=== PATIENT | female | born 1955 | race Caucasian/White ===

== ENCOUNTER 2022-01-06 10:58 | Outpatient (CLI) | payer MEDICARE, SELFPAY ==
[2022-01-06 18:24] LABS: Albumin* 4.9 g/dL (3.3-5.0); Chloride* 105 mmol/L (96-114); Potassium* 3.9 mmol/L (3.6-5.1); Sodium* 141 mmol/L (135-149)
[2022-01-06 18:26] LABS: Carbon Dioxide* 29 mmol/L (20-32); Cholesterol* 232 mg/dL (90-199); Creatinine* 0.5 mg/dL (0.5-1.5); Estimated Glomerular Filt Rate 104 ml/min
[2022-01-06 18:27] LABS: Alanine Aminotransferase* 21 U/L (4-35); Alkaline Phosphatase* 68 U/L (40-150); Aspartate Amino Transferase* 26 U/L (12-35); Bilirubin Total* 0.8 mg/dL (0.1-1.5); Blood Urea Nitrogen* 13 mg/dL (7-30); Calcium* 9.6 mg/dL (8.4-10.6); Glucose* 87 mg/dL (60-115); Total Protein* 7.1 g/dL (6.0-8.3); Triglycerides* 84 mg/dL (40-149)
[2022-01-06 18:28] LABS: HDL Cholesterol* 95 mg/dL (>=50); LDL Cholesterol Calculated 120 mg/dL (<100)
== END 2022-01-06 10:59 | disposition home or self-care (01) ==
PROVIDERS: PCP Nurse Practitioner Family; Visit Provider Nurse Practitioner Family
DX: Z01.419 Encounter for gynecological examination (general) (routine) without abnormal findings (principal); I10 Essential (primary) hypertension; E78.5 Hyperlipidemia, unspecified
CPT/HCPCS: 80053; 80061

== ENCOUNTER 2022-02-21 13:38 | Outpatient (CLI) | payer MEDICARE, SELFPAY ==
--- NOTE | 2022-02-21 14:00 | CRLHL7_ITS ---
For Patients: As a result of the Century Cures Act, medical imaging exams and procedure reports are released immediately into your electronic medical record. You may view this report before your referring provider. If you have questions, please contact your health care provider. BILATERAL SCREENING MAMMOGRAM WITH COMPUTER-AIDED DETECTION AND TOMOSYNTHESIS TECHNIQUE: CC and MLO views were obtained. These mammographic images have been obtained using full-field digital technique. These mammographic images were interpreted with the benefit of computer-aided detection. Breast Tomosynthesis was used in this interpretation. COMPARISON FILM: 01/18/21, 12/19/19, 07/12/18. FINDINGS: The breasts are heterogeneously dense, which may obscure small masses IMPRESSION: There is no radiographic evidence for malignancy. ASSESSMENT: BI-RADS Category 2: Benign RECOMMENDATION: Routine screening mammogram in 1 year. A lay language report of this examination will be provided to the patient. Clemente Gates M.D. Diagnostic Radiologist [email or web address] [email or web address]/jada Transcribed: 3:29 [email or web address] elias/Dictated by: Clemente Gates MD @ 02/22/2022 9:14:00 AM (Electronically Signed)
== END 2022-02-21 13:39 | disposition home or self-care (01) ==
LOC: MAMMO 13:39
PROVIDERS: PCP Nurse Practitioner Family; Visit Provider Nurse Practitioner Family
DX: Z12.31 Encounter for screening mammogram for malignant neoplasm of breast (principal); R92.2 Inconclusive mammogram
CPT/HCPCS: 77063; 77067

== ENCOUNTER 2022-06-06 10:51 | Outpatient (CLI) | payer MEDICARE, SELFPAY | END 2022-06-06 10:52 | disposition home or self-care (01) | LOC: LONREF 10:58 | PROVIDERS: PCP Nurse Practitioner Family; Visit Provider Family Medicine | DX: E78.5 Hyperlipidemia, unspecified (principal); R00.2 Palpitations | CPT/HCPCS: 84443 ==

== ENCOUNTER 2022-07-21 07:13 | Outpatient (CLI) | payer MEDICARE, SELFPAY | END 2022-07-21 07:14 | disposition home or self-care (01) | LOC: OP CLINIC 07:13 | PROVIDERS: PCP Nurse Practitioner Family; Visit Provider Surgery | DX: Z12.11 Encounter for screening for malignant neoplasm of colon (principal); K63.5 Polyp of colon; Z83.71 Family history of colonic polyps; Z86.010 Personal history of colon polyps | CPT/HCPCS: 45385; 88305; 99153; J1200; J2250; J3010 ==

== ENCOUNTER 2022-07-26 11:04 | Outpatient (CLI) | payer MEDICARE, SELFPAY | END 2022-07-26 11:05 | disposition home or self-care (01) | PROVIDERS: PCP Nurse Practitioner Family; Visit Provider Internal Medicine Cardiovascular Disease | DX: R00.2 Palpitations (principal) | CPT/HCPCS: 93225; 93226 ==

== ENCOUNTER 2022-08-12 18:25 | Outpatient (CLI) | payer MEDICARE, SELFPAY | END 2022-08-12 18:26 | disposition home or self-care (01) | LOC: NFLDREF 08-14 16:59 | PROVIDERS: PCP Nurse Practitioner Family; Referring Provider Nurse Practitioner Family; Visit Provider Nurse Practitioner Family | DX: R30.0 Dysuria (principal); R31.9 Hematuria, unspecified; N39.0 Urinary tract infection, site not specified | CPT/HCPCS: 87086; 87186 ==

== ENCOUNTER 2023-01-04 08:25 | Outpatient (CLI) | payer MEDICARE, SELFPAY ==
--- NOTE | 2023-01-04 08:45 | CRLHL7_ITS ---
For Patients: As a result of the Century Cures Act, medical imaging exams and procedure reports are released immediately into your electronic medical record. You may view this report before your referring provider. If you have questions, please contact your health care provider. DIGITAL DIAGNOSTIC BILATERAL MAMMOGRAM USING TOMOSYNTHESIS AND COMPUTER-AIDED DETECTION INDICATION: 67-year-old female. Diffuse BILATERAL breast pain. Previous benign biopsy outer LEFT mid breast. TECHNIQUE: CC and MLO views were obtained. These mammographic images have been obtained using full-field digital technique. These mammographic images were interpreted with the benefit of computer-aided detection. Breast tomosynthesis was used in interpretation. COMPARISON: 02/21/2022, 01/18/2021, 12/19/2019. FINDINGS: The breasts are heterogeneously dense which may obscure small masses. Small biopsy clip mid outer LEFT breast 3 o`clock position unchanged. No suspicious microcalcifications, regions of architectural distortion, or dominant masses identified in either breast. This study was reviewed with the patient. Ultrasound is not recommended at this time given the diffuse nature and nonfocal nature of her breast pain. No nipple discharge. Any further workup or followup should be based on clinical grounds. Annual mammography is also recommended. IMPRESSION: Stable and negative mammograms. Annual mammography recommended. BI-RADS Category 1: Negative A lay language report of this examination will be provided to the patient. Dictated by: Yon Christianson MD @01/04/2023 9:33:48 AM abyj/Dictated by: Yon Christianson MD @ 01/04/2023 9:33:00 AM (Electronically Signed)
== END 2023-01-04 08:26 | disposition home or self-care (01) ==
LOC: MAMMO 08:26
PROVIDERS: PCP Nurse Practitioner Family; Visit Provider Nurse Practitioner Family
DX: N64.4 Mastodynia (principal); N63.20 Unspecified lump in the left breast, unspecified quadrant
CPT/HCPCS: 77066; G0279

== ENCOUNTER 2023-01-12 10:39 | Outpatient (CLI) | payer MEDICARE, SELFPAY | END 2023-01-12 10:40 | disposition home or self-care (01) | LOC: LKVREF 10:40 | PROVIDERS: PCP Nurse Practitioner Family; Visit Provider Nurse Practitioner Family | DX: E78.2 Mixed hyperlipidemia (principal) | CPT/HCPCS: 80061 ==

== ENCOUNTER 2023-02-09 13:37 | Outpatient (CLI) | payer MEDICARE, SELFPAY ==
--- NOTE | 2023-02-09 14:00 | CRLHL7_ITS ---
For Patients: As a result of the Century Cures Act, medical imaging exams and procedure reports are released immediately into your electronic medical record. You may view this report before your referring provider. If you have questions, please contact your health care provider. 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 Current height (in): 69. Weight (lb): 126. Menopause age: 56. Ethnicity: White. 1. Have you had a previous hip or vertebral fracture? No. 2. Have you had any fractures during your adult life which did not result from significant trauma (e.g., auto accident)? No. 3. Did either of your parents have a hip fracture? Yes. 4. Do you smoke? No. 5. Have you ever taken Glucocorticoids? No. 6. Do you have rheumatoid arthritis? No. 7. Do you have secondary osteoporosis? No. 8. Do you drink 3 or more alcoholic drinks per day? No. 9. Are you being treated for osteoporosis? No. 10. Have you ever taken any of the following medications: Actonel, Evista, Fosamax, Miacalcin, Reclast, Boniva, Forteo, HRT (i.e., estrogen/hormone therapy), Protelos, Prolia, Vitamin D, Calcium, other ??? please specify. ANSWER: Yes, vitamin D and calcium. 11. Do you have any of the following medical conditions: Anorexia or bulimia, asthma or emphysema, end stage renal disease, hyperparathyroidism, any seizure disorders, cancer, inflammatory bowel diseases, hysterectomy, other ??? please specify. ANSWER: Yes, cancer. 12. What was your maximum height (inches)? 69. 13. Do you perform weight bearing exercise regularly? No. 14. Do you regularly consume dairy products? Yes. 15. Do you drink caffeinated beverages? Yes. If female: 16. At what age did your period start? 14. 17. Are you premenopausal? No. 18. How many full-term pregnancies have you had? 2. 19. Have you ever missed your period for more than 6 months in a row (not including or menopause)? No. TECHNIQUE: Bone mineral density study was performed using the [employer]. FINDINGS: The results of the study expressed as bone mineral density (BMD) are as follows: Lumbar spine L1 to L4: BMD: 0.790 g/cm2. T-score: -2.3. Z-score: -0.5 Neck Left: BMD: 0.609 g/cm2. T-score: -2.2. Z-score: -0.6 Right: BMD: 0.639 g/cm2. T-score: -1.9. Z-score: -0.3 Total Left: BMD: 0.673 g/cm2. T-score: -2.2. Z-score: -0.9 Right: BMD: 0.707 g/cm2. T-score: -1.9. Z-score: -0.6 IMPRESSION: Osteopenia. *Comparison exams done prior to 07/2019 were performed on different unit, [facility]. COMPARISON: Compared with scan of 12/19/2019, the bone mineral density has decreased by 4.0 percent at the spine and increased by 1.3 percent at the hip. Compared with scan of 07/17/2017, the bone mineral density has increased by 0.5 percent at the spine and decreased by 1.3 percent at the hip. FRAX 10-year Fracture Risk Major Osteoporotic Fracture: 17% Hip Fracture: 2.5% Reported Risk Factors: [place] () Neck BMD=0.609, BMI= 18.6, parental fracture Clemente Gates M.D. Diagnostic Radiologist [email or web address] PILI/jada elias/Dictated by: Clemente Gates MD @ 02/09/2023 3:05:00 PM (Electronically Signed)
== END 2023-02-09 13:38 | disposition home or self-care (01) ==
LOC: RAD 13:43
PROVIDERS: PCP Nurse Practitioner Family; Visit Provider Nurse Practitioner Family
DX: M85.80 Other specified disorders of bone density and structure, unspecified site (principal); M85.89 Other specified disorders of bone density and structure, multiple sites
CPT/HCPCS: 77080

== ENCOUNTER 2023-02-16 08:54 | Outpatient (CLI) | payer MEDICARE, SELFPAY ==
--- OUTSIDE RECORDS SUMMARY | 2023-02-16 08:58 | XMS_ITS | Clinical Summary ---
Author Name Unknown Organization [facility] Address [place], [place] [address] Care Team Providers Care Paint Laboratory Technician Name Role Phone Dena Coulter MD Primary Care Provider Chika robertson Social History Tobacco Use Types Packs/Day Years Used Date Smoking Tobacco: Never Assessed Social Connections Answer Date Recorded Frequency of Communication with Friends and Fami ly Not on file 07/22/2022 Sex and Gender Information Value Date Recorded Sex Assigned at Not on file Gender Identity Not on file Sexual Orientation Not on file Obstetrics History Plan of Treatment Health Maintenance Due Date Last Done Comments Tdap 07/14/1967 Depression screening for age 12+ 1968 BMI (ht and wt on same day) for age 18+ 1974 Hepatitis C screening for age 18-79 1974 Tetanus booster 1976 Lipids for age 45-75 2001 Mammogram for age 45-75 2001 Zoster (shingles) series for age 50+ (1 of 2) 2006 Colonoscopy through age 75 09/30/2017 10/01/2007 DEXA/DXA scan for age 65+ 2021 Pneumococcal series for age 65+ (1 of 1 - PCV) 2021 COVID-19 vaccine series (3 - 2022- season) 2022 12/16/2021, 12/04/2020 Influenza for age 65+ 10/07/2022 Care Teams Paint Laboratory Technician Relationship Specialty Start Date End Date Dena Coulter MD PCP - General 09/16/09
--- NOTE | 2023-02-16 09:15 | CRLHL7_ITS ---
For Patients: As a result of the Century Cures Act, medical imaging exams and procedure reports are released immediately into your electronic medical record. You may view this report before your referring provider. If you have questions, please contact your health care provider. INDICATION: Left axillary pain/discomfort. Pain extending along the lateral chest. TECHNIQUE: Directed left axillary ultrasound with this radiologist present. COMPARISON: Correlation is made with a recent mammogram January 04, 2023. FINDINGS: Normal left axillary lymph nodes. No lymphadenopathy. One lymph node measures 0.2 x 1.1 cm. A second lymph node measures 0.6 x 2.6 cm. No fluid collection. No shadowing or mass. These findings were discussed in detail with the patient. Any further workup or follow-up for the patient`s symptoms should be based on clinical grounds. IMPRESSION: Negative directed left axillary ultrasound. Dictated by Yon Christianson MD @ 02/16/2023 12:09:29 PM (Electronically Signed)
== END 2023-02-16 08:55 | disposition home or self-care (01) ==
LOC: US 08:55
PROVIDERS: PCP Nurse Practitioner Family; Visit Provider Nurse Practitioner Family
DX: R59.1 Generalized enlarged lymph nodes (principal)
CPT/HCPCS: 76882

== ENCOUNTER 2023-09-16 12:20 | Outpatient (CLI) | payer MEDICARE, SELFPAY ==
--- OUTSIDE RECORDS SUMMARY | 2023-09-20 22:32 | XMS_ITS | Encounter Summary ---
Author Organization [facility] Address [address] [place] [address] Care Team Providers Care Spray Foam Installer Name Role Phone Unavailable Primary Care Provider Unavailabl e Reason for Referral * MRI/CAT/PET Scan (Routine) - Closed Specialty Diagnoses / Procedures Referred By Josue garcia Referred To Contact Radiology Diagnoses Adenoma Adrenal Right Procedures CT Abdomen without and with IV Contrast CT Abdomen Pelvis without and with IV Contrast Ty Finch M.D. 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 [address] [place] [phone] [facility] Referral ID Status Reason Start Date Expiration Date Visits Re quested Visits Authorized [id number] Closed 05/08/2023 11/06/2024 1 1 Encounter Details Date Type Department Care Team (Latest Contact Info) Description 08/30/2023 8:30 AM CDT Comprehensive Visit Division of Endocrinology in [place], [place] [address] [place] [address] Ty Finch M.D. [address] [place] [phone] Genetic Susceptibility To Other Malignant Neoplasm; Adenoma Adrenal Right Social History Tobacco Use Types Packs/Day Years Used Date Smoking Tobacco: Never Passive Smoke Exposure: Never Smokeless Tobacco: Never Alcohol Use Standard Drinks/Week Comments Yes 5 (1 standard drink = 0.6 oz pur e alcohol) [facility] [employer] Answer Date Recorded In the past 12 months has [employer], gas, oil, or water [employer] threatened to shut off services in your [...] Sex Assigned at Female 03/21/2023 11:26 AM FRONT END DEVELOPER DESIGNER Gender Identity Female 03/21/2023 11:26 AM FRONT END DEVELOPER DESIGNER Sexual Orientation Straight 03/21/2023 11 :26 AM FRONT END DEVELOPER DESIGNER documented as of this encounter Last Filed [...] the PET scan from April did not flower buncher or picker any paraganglioma-type abnormalities. She will visit [...] Ty Finch M.D. CT CT Job ID: [id number]/maria esther documented in this encounter Plan of [...] CDT Ty Finch M.D. 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
--- OUTSIDE RECORDS SUMMARY | 2023-09-20 22:32 | XMS_ITS | Clinical Summary ---
Author Organization [facility] Address [address] [place] [address] Care Team Providers Care Computer Peripheral Equipment Operator Name Role Phone Unavailable Primary Care Provider Unavailabl e Source Comments Patient records contain information from all sites at [facility]. For routine questions regarding patient records, call [phone] during business hours, M-F 8:00 AM - 5:00 PM Central Time. Record requests for emergency care only can be directed to [phone] at any time.[facility] Allergies Active Allergy Reactions Criticality [...] 09/18/2023 Clinical Communication Division of Gastroenterology in [place], [place] [address] [place] [phone] Kiah Sarkar M.B.B.S., M.S. 09/12/2023 Clinical Communication Division of Endocrinology in [place], [place] [address] [place] [address] Edna Meade M.D. 09/01/2023 11:44 AM CDT - 09/01/2023 11:59 PM CDT Hospital Encounter Department of Radiology, [facility] in [place], [place] [address] [place] [phone] Ty Finch M.D. Adenoma Adrenal Right Discharge Disposition: Home or Self Care 08/30/2023 9:27 AM CDT - 08/30/2023 11:59 PM CDT Hospital Encounter Department of Laboratory Medicine and Pathology, [facility] in [place], [place] [address] [place] [phone] Ty Finch M.D. Adenoma Adrenal Right Discharge Disposition: Home or Self Care 08/30/2023 8:30 AM CDT Comprehensive Visit Division of Endocrinology in [place], [place] [address] [place] [phone] Ty Finch M.D. Genetic Susceptibility To Other Malignant Neoplasm; Adenoma Adrenal Right 08/17/2023 Clinical Communication Department of Neurologic Surgery in [place], [place] [address] [place] [phone] Yon Juárez M.D. 08/15/2023 Clinical Communication Department of Neurologic Surgery in [place], [place] [address] [place] [phone] Prescheduling, Provider OSM (SISI); OSM (SISI) 07/18/2023 Orders Only Department of Medical Genetics in [place], [place] [address] [place] [phone] Anabelle Mcnulty APRN, Aman.N.PMolly, D.N.P., M.S. Cyst Pancreas (Primary Dx); Genetic Susceptibility To Other Malignant Neoplasm 07/17/2023 11:20 AM CDT Internal E-Consult Division of Gastroenterology in [place], [place] [address] [place] [phone] Anabelle Mcnulty APRN, Aman.N.P., D.N.P., M.S. Kiah [...] Other - would like to get at [place]),03/11/2011 influenza vaccine QV(FLUBLOK ) (18 years or [...] = 0.6 oz pur e alcohol) [facility] Utilities Answer Date Recorded In the past 12 months has [employer], gas, oil, or water [employer] threatened to shut off services in your [...] your living situation today? I have a [facility] place to live 03/29/2023 Sex and Gender Information Value Date Recorded Sex Assigned at Female 03/21/2023 11:26 AM ELECTRICAL SOLDERER Gender Identity Female 03/21/2023 11:26 AM ELECTRICAL SOLDERER Sexual Orientation Straight 03/21/2023 11 :26 AM ELECTRICAL SOLDERER Last Filed Vital Signs Vital Sign Reading Time Taken Comments Blood Pressure 128/78 08/30/2023 8:12 AM CDT ove r shirt Pulse 72 08/30/2023 8:12 AM CDT Temperature - - Respiratory Rate - - Oxygen Saturation 98% 03/28/2023 2:05 PM ELECTRICAL SOLDERER RA @ rest Inhaled Oxygen Concentration - [...] 03/31/19, 01/06/2022 Medical Devices Implanted Type Area Cyber Security Architect Device Identifier Shelf Expiration Date Model / [...] A1C, B Routine 03/29/2023 7:0 7 AM ELECTRICAL SOLDERER Angina Pectoris Unspecified (HCC) OUTSIDE MG MAMMOGRAM Routine 01/04/2023 8:45 AM ELECTRICAL SOLDERER from Last 3 Months or Most Recently [...] Ty Finch M.D. LAB BLOOD ADD-ON [facility] [address] [place] [address], [place] DTL [facility] [address] [place] [address] * MR Brain WO (Unpaired)-Outside MR Neuro [...] IMG MRI PROCEDURE S Performing Organization Address [facility] Co de Phone Number IIMS NA * Hemoglobin A1c (03/29/2023 7:07 AM ELECTRICAL SOLDERER) Hemoglobin A1c, B 5.2 4.0 - 5.6 % 03/29/2023 7:50 AM ELECTRICAL SOLDERER DTL Blood (Blood, Venous) 03/29/2023 7:07 AM ELECTRICAL SOLDERER 03/29/2023 7:28 AM ELECTRICAL SOLDERER Ming Campbell M.D. LAB BLOOD ADD-O N Performing Organization Address [facility] de Phone Number [facility] [address] [place] [address], [facility] [address] [place] [address] * MM diagnostic mammo BI-Outside Mammogram (01/04/2023 8:45 AM ELECTRICAL SOLDERER) Narrative IIND - 03/02/2023 4:33 PM ELECTRICAL SOLDERER This order has been created and auto-finalized to support the import of outside images. If available, original interpretation can be found on the Media Tab in Chart Review, in Document Viewer, or as an image in QREADS. If a re-interpretation or overread is required please follow defined workflow. ?? Provider Not In System IMG BI PROCEDURES Performing Organization Address City/[facility] Co de Phone Number IIMS NA from Last 3 Months or Most Recently Relevant to Health Maintenance
--- OUTSIDE RECORDS SUMMARY | 2023-09-20 22:32 | XMS_ITS | Encounter Summary ---
Author Organization [facility] Address [address] [place] [address] Care Team Providers Care Burner Shaft Name Role Phone Unavailable Primary Care Provider Unavailabl e Reason for Referral * MRI/CAT/PET Scan (Routine) - Authorized Specialty Diagnoses / Procedures Referred By Josue garcia Referred To Contact Radiology Diagnoses Cyst Pancreas Genetic Susceptibility To Other Malignant Neoplasm Procedures MR Abdomen MRCP without and with IV Contrast Anabelle Mcnulty APRN, Aman.N.Alfredo, D.N.P., M.S. [address] [place] [address] [facility] Referral ID Status Reason Start Date Expiration Date V isits Requested Visits Authorized [id number] Authorized 07/18/2023 07/17/2024 1 1 Encounter Details Date Type Department Care Team (Late st Contact Info) Description 07/18/2023 Orders Only Department of Medical Genetics in [place], [place] [address] [place] [phone] Anabelle Mcnulty APRN, C.N.P., D.N.P., M.S. [address] [place] [phone] Cyst Pancreas (Primary Dx); Genetic Susceptibility To Other Malignant Neoplasm Social History Tobacco Use Types Packs/Day Years Used Date Smoking Tobacco: Never Passive Smoke Exposure: Never Smokeless Tobacco: Never Alcohol Use Standard Drinks/Week Comments Yes 5 (1 standard drink = 0.6 oz pur e alcohol) [facility] Utilities Answer Date Recorded In the [...] living situation today? I have a [facility] place to live 03/29/2023 Sex and Gender Information Value Date Recorded Sex Assigned at Female 03/21/2023 11:26 AM HOTEL SERVICES SUPERVISOR Gender Identity Female 03/21/2023 11:26 AM HOTEL SERVICES SUPERVISOR Sexual Orientation Straight 03/21/2023 11 :26 AM HOTEL SERVICES SUPERVISOR documented as of this encounter Plan of [...]
--- OUTSIDE RECORDS SUMMARY | 2023-09-20 22:32 | XMS_ITS | Clinical Summary ---
Author Organization [facility] Address [place], [place] [address] Care Team Providers Care Hospital Pharmacy Director Name Role Phone Ruthie Otero MD Primary Care Provider [phone] Encounters Date Type Department Care Team Description 09/20/2023 Lab Requisition [facility] [phone] Unknown, Doctor 09/14/2023 8:20 AM CDT Office Visit [facility] [address] [place] [phone] Rosa Villalobos MD Consult 09/14/2023 Travel 09/13/2023 Telephone [facility] [address] [place] [phone] Rosa Villalobos MD Appointment Reminder 08/16/2023 Telephone [facility] [address] [place] [phone] Thi Diaz NP Appointment Request 08/14/2023 Orders Only [facility] Scanner 1 scan: (1-Ord) [...] SCAN-MRI INTERPRETATION 08/14/19 12:00 AM CDT (IA) [place] COLONOSCOPY REMOVE CARMELINA POLYP LESN SNARE Routine 10/01/2007 Special Screening for Malignant Neoplasms, Colon Benign Neoplasm of Colon from Last 3 Months or Most Recently Relevant to Health Maintenance Results * SCAN-MRI INTERPRETATION (08/14/2023 12:00 AM CDT) Anatomical Region Laterality Modality Other Scanner OTHER * [place] COLONOSCOPY REMOVE LESN SNARE (10/01/2007) Neo Velasquez MD PB - DIGESTIVE SY STEM SERVICES from Last 3 Months or Most Recently Relevant to Health Maintenance Care Teams Hospital Pharmacy Director Relationship Specialty [place] [address] [place] [phone] PCP - General Internal Medicine 08/16/23
--- OUTSIDE RECORDS SUMMARY | 2023-09-20 22:32 | XMS_ITS | Encounter Summary ---
Author Organization [facility] Address [address] [place] [address] Care Team Providers Care Application Specialist Name Role Phone Unavailable Primary Care Provider Unavailabl e Encounter Details Date Type Department Care Team (Latest Contact Info) Description 09/18/2023 Clinical Communication Division of Gastroenterology in [place], [place] [address] [place] [address] Kiah Sarkar M.B.B.S., M.S. [address] [place] [address] Social History Tobacco Use Types Packs/Day Years Used Date Smoking Tobacco: Never Passive Smoke Exposure: Never Smokeless Tobacco: Never Alcohol Use Standard Drinks/Week Comments Yes 5 (1 standard drink = 0.6 oz pur e alcohol) [facility] Utilities Answer Date Recorded In the past 12 months has e [employer], gas, oil, or water [employer] threatened to shut off services in your [...] your living situation today? I have a [facility] place to live 03/29/2023 Sex and Gender Information Value Date Recorded Sex Assigned at Female 03/21/2023 11:26 AM HEAD OF MEASUREMENT & INSIGHTS Gender Identity Female 03/21/2023 11:26 AM HEAD OF MEASUREMENT & INSIGHTS Sexual Orientation Straight 03/21/2023 11 :26 AM HEAD OF MEASUREMENT & INSIGHTS documented as of this encounter Plan of Treatment Not on file documented as of this encounter Visit Diagnoses Not on filedocumented in this encounter
--- OUTSIDE RECORDS SUMMARY | 2023-09-20 22:32 | XMS_ITS ---
Author Organization [facility] Address [address] [place] [address] Care Team Providers Care Soft Work Cigar Machine Operator Name Role Phone Unavailable Unavailable Unavailable Surgery Details Not on file Complications Check Surgery Details section. Procedure Estimated Blood Loss Check Surgery Details section. Procedure Findings Check Surgery Details section. Procedure Specimens Taken Check Surgery Details section.
--- OUTSIDE RECORDS SUMMARY | 2023-09-20 22:32 | XMS_ITS | Referral Summary ---
Author Organization [facility] Address [address] [place] [address] Care Team Providers Care Computer Animator Name Role Phone Unavailable Primary Care Provider Unavailabl e Source Comments Patient records contain information from all sites at [facility]. For routine questions regarding patient records, call [phone] during business hours, M-F 8:00 AM - 5:00 PM Central Time. Record requests for emergency care only can be directed to [phone] at any time.[facility] Encounters Date Type Department Care Team Description 09/18/2023 Clinical Communication Division of Gastroenterology in [place], [place] [address] [place] [address] Kiah Sarkar M.B.B.S., M.S. 09/12/2023 Clinical Communication Division of Endocrinology in [place], [place] [address] [place] [address] Edna Meade M.D. 09/01/2023 11:44 AM CDT - 09/01/2023 11:59 PM CDT Hospital Encounter Department of Radiology, [facility], in [place], [place] [address] [place] [address] Ty Finch M.D. Adenoma Adrenal Right Discharge Disposition: Home or Self Care 08/30/2023 9:27 AM CDT - 08/30/2023 11:59 PM CDT Hospital Encounter Department of Laboratory Medicine and Pathology, [facility], in [place], [place] [address] [place] [address] Ty Finch M.D. Adenoma Adrenal Right Discharge Disposition: Home or Self Care 08/30/2023 8:30 AM CDT Comprehensive Visit Division of Endocrinology in [place], [place] [address] [place] [phone] Ty Finch M.D. Genetic Susceptibility To Other Malignant Neoplasm; Adenoma Adrenal Right 08/17/2023 Clinical Communication Department of Neurologic Surgery in [place], [place] [address] [place] [phone] Yon Juárez M.D. 08/15/2023 Clinical Communication Department of Neurologic Surgery in [place], [place] [address] [place] [phone] Prescheduling, Provider OSM (SISI); OSM (SISI) 07/18/2023 Orders Only Department of Medical Genetics in [place], [place] [address] [place] [phone] Anabelle Mcnulty APRN, C.N.PMolly, D.N.P., M.S. 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 Kiah [...] Other - would like to get at [facility]),03/11/2011 influenza vaccine QV(FLUBLOK ) (18 years or older) (PF) 11/07/2018 influenza vaccine quad (FLUZONE/FLUARIX) (6 months and older)(PF) 10/13/2020,11/23/2016,11/16/2015 Social History Tobacco Use Types Packs/Day Years Used Date Smoking Tobacco: Never Passive Smoke Exposure: Never Smokeless Tobacco: Never Alcohol Use Standard Drinks/Week Comments Yes 5 (1 standard drink = 0.6 oz pur e alcohol) [facility] Utilities Answer Date Recorded In the past 12 months has th e [employer], gas, oil, or water [employer] threatened to shut off services in your [...] your living situation today? I have a [facility] place to live 03/29/2023 Sex and Gender Information Value Date Recorded Sex Assigned at Female 03/21/2023 11:26 AM CANAL BOAT OPERATOR Gender Identity Female 03/21/2023 11:26 AM CANAL BOAT OPERATOR Sexual Orientation Straight 03/21/2023 11 :26 AM CANAL BOAT OPERATOR Last Filed Vital Signs Vital Sign Reading Time Taken Comments Blood Pressure 128/78 08/30/2023 8:12 AM CDT ove r shirt Pulse 72 08/30/2023 8:12 AM CDT Temperature - - Respiratory Rate - - Oxygen Saturation 98% 03/28/2023 2:05 PM CANAL BOAT OPERATOR RA @ rest Inhaled Oxygen Concentration - - Weight 53 kg (116 lb 13.5 oz) 08/30/2023 8:12 AM CDT Height 176.3 cm (5' 9.41) 08/30/2023 8:12 AM CD T Body Mass Index 17.05 08/30/2023 8:12 AM CDT Plan of Treatment Not on file Medical Devices Implanted Type Area Supervisor Of Officials Device Identifier Shelf Expiration Date Model / [...] A1C, B Routine 03/29/2023 7:0 7 AM CANAL BOAT OPERATOR Angina Pectoris Unspecified (HCC) OUTSIDE MG MAMMOGRAM Routine 01/04/2023 8:45 AM CANAL BOAT OPERATOR from Last 3 Months or Most Recently [...] CDT Ty Finch M.D. LAB BLOOD ADD-ON [address] [place] [address] * MR Brain WO (Unpaired)-Outside MR Neuro [...] Not In System IMG MRI PROCEDURE S IIMI NA * Hemoglobin A1c (03/29/2023 7:07 AM CANAL BOAT OPERATOR) Hemoglobin A1c, B 5.2 4.0 - 5.6 % 03/29/2023 7:50 AM CANAL BOAT OPERATOR DTL Blood (Blood, Venous) 03/29/2023 7:07 AM CANAL BOAT OPERATOR 03/29/2023 7:28 AM CANAL BOAT OPERATOR Ming Campbell M.D. LAB BLOOD ADD-O N Performing Organization Address City/[facility]/ZIP Co de Phone Number [facility] [address] [place] [address], [place] DTL [facility] [address] [place] [address] * MM diagnostic mammo BI-Outside Mammogram (01/04/2023 8:45 AM CANAL BOAT OPERATOR) Narrative IIMS - 03/02/2023 4:33 PM CANAL BOAT OPERATOR This order has been created and auto-finalized to support the import of outside images. If available, original interpretation can be found on the Media Tab in Chart Review, in Document Viewer, or as an image in QREADS. If a re-interpretation or overread is required please follow defined workflow. ?? Provider Not In System IMG BI PROCEDURES Performing Organization Address City/[facility] Co de Phone Number IIMS NA from Last 3 Months or Most Recently Relevant to Health Maintenance
--- OUTSIDE RECORDS SUMMARY | 2023-09-20 22:32 | XMS_ITS | Encounter Summary ---
Author Organization [facility] Address [address] [place] [address] Care Team Providers Care Crossbow Maker Name Role Phone Unavailable Primary Care Provider Unavailabl e Reason for Referral * MRI/CAT/PET Scan (Routine) - Closed Specialty Diagnoses / Procedures Referred By Josue garcia Referred To Contact Radiology Diagnoses Adenoma Adrenal Right Procedures CT Abdomen without and with IV Contrast CT Abdomen Pelvis without and with IV Contrast Ty Finch M.D. [address] [place] [address] [facility] Referral ID Status Reason Start Date Expiration Date Visits Re quested Visits Authorized [id number] Closed 08/30/2023 08/29/2024 1 1 Reason for Visit * MRI/CAT/PET Scan (Routine) - Closed Specialty Diagnoses / Procedures Referred By Josue garcia Referred To Contact Radiology Diagnoses Adenoma Adrenal Right Procedures CT Abdomen without and with IV Contrast CT Abdomen Pelvis without and with IV Contrast Ty Finch M.D. [address] [place] [address] [facility] Referral ID Status Reason Start Date Expiration Date Visits Re quested Visits Authorized [id number] Closed 08/30/2023 08/29/2024 1 1 Encounter Details Date Type Department Care Team (Latest Contact Info) Description 09/01/2023 11:44 AM CDT - 09/01/2023 11:59 PM CDT Hospital Encounter Department of Radiology, [facility], in [place], [place] [address] [place] [address] Ty Finch M.D. [address] [place] [address] Adenoma Adrenal Right Discharge Disposition: Home or Self Care Social History Tobacco Use Types Packs/Day Years Used Date Smoking Tobacco: Never Passive Smoke Exposure: Never Smokeless Tobacco: Never Alcohol Use Standard Drinks/Week Comments Yes 5 (1 standard drink = 0.6 oz pur e alcohol) [facility] Utilities Answer Date Recorded In the past 12 months has e [employer], gas, oil, or water [employer] threatened to shut off services in your [...] your living situation today? I have a [facility] place to live 03/29/2023 Sex and Gender Information Value Date Recorded Sex Assigned at Female 03/21/2023 11:26 AM TYPE CASTING MACHINE OPERATOR Gender Identity Female 03/21/2023 11:26 AM TYPE CASTING MACHINE OPERATOR Sexual Orientation Straight 03/21/2023 11 :26 AM TYPE CASTING MACHINE OPERATOR documented as of this encounter Medications at [...]
--- OUTSIDE RECORDS SUMMARY | 2023-09-20 22:32 | XMS_ITS | Encounter Summary ---
Author Organization [facility] Address [address] [place] [address] Care Team Providers Care Social Organization Professor Name Role Phone Unavailable Primary Care Provider Unavailabl e Reason for Referral * MRI/CAT/PET Scan (Routine) - Authorized Specialty Diagnoses / Procedures Referred By Josue t Referred To Contact Radiology Diagnoses Malformation Arnold Chiari (HCC) Procedures MR Cervical Spine without IV Contrast Daniela Mclean APRN, C.N.P. [address] [place] [phone] [facility] Referral ID Status Reason Start Date Expiration Date V isits Requested Visits Authorized [id number] Authorized 08/17/2023 08/16/2024 1 1 Encounter Details Date Type Department Care Team (Late st Contact Info) Description 08/17/2023 Clinical Communication Department of Neurologic Surgery in [place], [place] [address] [place] [phone] Yon Juárez M.D. [address] [place] [phone] Social History Tobacco Use Types Packs/Day Years Used Date Smoking Tobacco: Never Passive Smoke Exposure: Never Smokeless Tobacco: Never Alcohol Use Standard Drinks/Week Comments Yes 5 (1 standard drink = 0.6 oz pur e alcohol) [facility] Utilities Answer Date Recorded In [...] your living situation today? I have a [facility] place [facility] live 03/29/2023 Sex and Gender Information Value Date Recorded Sex Assigned at Female 03/21/2023 11:26 AM MASTER YACHT Gender Identity Female 03/21/2023 11:26 AM MASTER YACHT Sexual Orientation Straight 03/21/2023 11 :26 AM MASTER YACHT documented as of this encounter Plan of [...]
--- OUTSIDE RECORDS SUMMARY | 2023-09-20 22:32 | XMS_ITS | Encounter Summary ---
Author Organization [facility] Address [address] [place] [address] Care Team Providers Care Hydraulic Press Servicer Name Role Phone Unavailable Primary Care Provider Unavailabl e Reason for Visit * Reason Onset Date Comments OSM 08/15/2023 SISI OSM 08/15/2023 SSII Encounter Details Date Type Department Care Team (Latest Contact Info) Description 08/15/2023 Clinical Communication Department of Neurologic Surgery in [place], [place] [address] [place] [address] Prescheduling, Provider OSM (SISI); OSM (SISI) Social History Tobacco Use Types Packs/Day Years Used Date Smoking Tobacco: Never Passive Smoke Exposure: Never Smokeless Tobacco: Never Alcohol Use Standard Drinks/Week Comments Yes 5 (1 standard drink = 0.6 oz pur e alcohol) [facility] Utilities Answer Date Recorded In the past 12 months has [employer], gas, oil, or water company threatened [...] your living situation today? I have a [facility] place to live 03/29/2023 Sex and Gender Information Value Date Recorded Sex Assigned at Female 03/21/2023 11:26 AM SQL DATABASE PROGRAMMER Gender Identity Female 03/21/2023 11:26 AM SQL DATABASE PROGRAMMER Sexual Orientation Straight 03/21/2023 11 :26 AM SQL DATABASE PROGRAMMER documented as of this encounter Plan of Treatment Not on file documented as of this encounter Visit Diagnoses Not on filedocumented in this encounter
--- OUTSIDE RECORDS SUMMARY | 2023-09-20 22:32 | XMS_ITS | Encounter Summary ---
Author Organization [facility] Address [address] [place] [address] Care Team Providers Care Perioperative Educator Name Role Phone Unavailable Primary Care Provider Unavailabl e Encounter Details Date Type Department Care Team (Latest Contact Info) Description 08/30/2023 9:27 AM CDT - 08/30/2023 11:59 PM CDT Hospital Encounter Department of Laboratory Medicine and Pathology, [facility] in [place], [place] [address] [place] [address] Ty Finch M.D. [address] [place] [address] Adenoma Adrenal Right Discharge Disposition: Home or Self Care Social History Tobacco Use Types Packs/Day Years Used Date Smoking Tobacco: Never Passive Smoke Exposure: Never Smokeless Tobacco: Never Alcohol Use Standard Drinks/Week Comments Yes 5 (1 standard drink = 0.6 oz pur e alcohol) [facility] Utilities Answer Date Recorded In [...] your living situation today? I have a [facility] place to live 03/29/2023 Sex and Gender Information Value Date Recorded Sex Assigned at Female 03/21/2023 11:26 AM ANTIQUE REFINISHER Gender Identity Female 03/21/2023 11:26 AM ANTIQUE REFINISHER Sexual Orientation Straight 03/21/2023 11 :26 AM ANTIQUE REFINISHER documented as of this encounter Medications at [...] CDT Ty Finch M.D. LAB BLOOD ADD-ON [facility] [address] [place] [address], [place] DTL [facility] [address] [place] [address] documented in this encounter Visit Diagnoses Diagnosis Adenoma Adrenal Right documented in this encounter
--- OUTSIDE RECORDS SUMMARY | 2023-09-20 22:32 | XMS_ITS | Encounter Summary ---
Author Organization [facility] Address [address] [place] [address] Care Team Providers Care Vendor Management Specialist Name Role Phone Unavailable Primary Care Provider Unavailabl e Encounter Details Date Type Department Care Team (Latest Contact Info) Description 09/12/2023 Clinical Communication Division of Endocrinology in [place], [place] [address] [place] [address] Edna Meade M.D. [address] [place] [address] Social History Tobacco Use Types Packs/Day Years [...] your living situation today? I have a [facility] place to live 03/29/2023 Sex and Gender Information Value Date Recorded Sex Assigned at Female 03/21/2023 11:26 AM COORDINATOR OF REHABILITATION SERVICES Gender Identity Female 03/21/2023 11:26 AM COORDINATOR OF REHABILITATION SERVICES Sexual Orientation Straight 03/21/2023 11 :26 AM COORDINATOR OF REHABILITATION SERVICES documented as of this encounter Miscellaneous Notes * Telephone Encounter - Edna Meade M.D. - 09/12/2023 1:[address] 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 What is size and follow-up needed? I let them know that this is typically a question for the radiologist, and that in my experience wedo not always arrange follow-up on these. Please let her know your thoughts. Thanks. [facility] documented in this encounter Plan of Treatment Not on file documented as of this encounter Visit Diagnoses Not on filedocumented in this encounter
--- OUTSIDE RECORDS SUMMARY | 2023-09-20 22:32 | XMS_ITS ---
Author Organization [facility] Address [address] [place] [address] Care Team Providers Care Reverse Unit Operator Fisherman Name Role Phone Unavailable Primary Care Provider Unavailabl e Genomics Program Status:Identified (Enrolling) Start date:04/27/2023 Continued Care and Services Coordination
--- OUTSIDE RECORDS SUMMARY | 2023-09-20 22:32 | XMS_ITS | Encounter Summary ---
Author Organization [facility] Address [address] [place] [address] Care Team Providers Care Manager Media Relations Name Role Phone Unavailable Primary Care Provider Unavailabl e Reason for Visit * Outpatient (Routine) - Closed Specialty Diagnoses / Procedures Referred By Contact Referred To Contact Gastroenterology and Hepatology Diagnoses Cyst Pancreas Procedures Gastroenterology and Hepatology - Pancreas cyst eConsult Anabelle Mcnulty APRN, C.N.P., D.N.P., M.S. [address] [place] [phone] [facility] Referral ID Status Reason Start Date Expiration Date Visits Re quested Visits Authorized [id number] Closed 05/08/2023 05/07/2024 1 1 Encounter Details Date Type Department Care Team (Late st Contact Info) Description 07/17/2023 11:20 AM CDT Internal E-Consult Division of Gastroenterology in [place], [place] [address] [place] [phone] Anabelle Mcnulty APRN, C.N.P., D.N.P., M.S. [address] [place] [phone] Kiah Sarkar M.B.B.S., M.S. [address] [place] [phone] Cyst Pancreas Social History Tobacco Use Types Packs/Day Years Used Date Smoking Tobacco: Never Passive Smoke Exposure: Never Smokeless Tobacco: Never Alcohol Use Standard Drinks/Week Comments Yes 5 (1 standard drink = 0.6 oz pur e alcohol) [facility] Utilities Answer Date Recorded In the past [...] living situation today? I have a [facility] place to live 03/29/2023 Sex and Gender Information Value Date Recorded Sex Assigned at Female 03/21/2023 11:26 AM TYPING POOL SUPERVISOR Gender Identity Female 03/21/2023 11:26 AM TYPING POOL SUPERVISOR Sexual Orientation Straight 03/21/2023 11 :26 AM TYPING POOL SUPERVISOR documented as of this encounter Consult Notes [...] the pancreatic duct and this is likely pharmaceutical service representative of non alarming side-branch [place]. Additionally, [...]
== END 2023-09-16 12:21 | disposition home or self-care (01) ==
LOC: NFLDREF 09-20 22:30
PROVIDERS: PCP Nurse Practitioner Family; Referring Provider Nurse Practitioner Family; Visit Provider Family Medicine
DX: N39.0 Urinary tract infection, site not specified (principal)
CPT/HCPCS: 87086; 87185

== ENCOUNTER 2023-09-18 10:34 | Outpatient (CLI) | payer MEDICARE, SELFPAY ==
--- OUTSIDE RECORDS SUMMARY | 2023-09-18 10:47 | XMS_ITS | Referral Summary ---
Author Organization [facility] Address [address] [place] [id number] Care Team Providers Care College Basketball Coach Name Role Phone Unavailable Primary Care Provider Unavailabl e Source Comments Patient records contain information from all sites at [facility]. For routine questions regarding patient records, call [phone] during business hours, M-F 8:00 AM - 5:00 PM Central Time. Record requests for emergency care only can be directed to [phone] at any time.[facility] Encounters Date Type Department Care Team Description 09/12/2023 Clinical Communication Division of Endocrinology in [place], [place] [address] [place] [phone] Edna Meade M.D. 09/01/2023 11:44 AM CDT - 09/01/2023 11:59 PM CDT Hospital Encounter Department of Radiology, [facility] in [place], [place] [address] [place] [phone] Ty Finch M.D. Adenoma Adrenal Right Discharge Disposition: Home or Self Care 08/30/2023 9:27 AM CDT - 08/30/2023 11:59 PM CDT Hospital Encounter Department of Laboratory Medicine and Pathology, [facility] in [place], [place] [address] [place] [phone] Ty Finch M.D. Adenoma Adrenal Right Discharge Disposition: Home or Self Care 08/30/2023 8:30 AM CDT Comprehensive Visit Division of Endocrinology in [place], [place] [address] [place] [phone] yT Finch M.D. 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 08/15/2023 Clinical Communication Department of Neurologic Surgery in [address] [phone] Prescheduling, Provider OSM (SISI); OSM (SISI) 07/18/2023 Orders Only Department of Medical Genetics in [place], [place] [address] [place] [phone] Anabelle Mcnulty APRN, C.N.P., D.N.P., M.S. Cyst Pancreas (Primary Dx); Genetic Susceptibility To Other Malignant Neoplasm 07/17/2023 11:20 AM CDT Internal E-Consult Division of Gastroenterology in [address] [phone] Anabelle Mcnulty APRN, C.N.P., D.N.P., M.S. Kiah Sarkar M.B.B.S., M.S. Cyst Pancreas from Last 3 Months Allergies Active Allergy Reactions Criticality Noted Date Comments Bee Venom Protein (Honey Bee) Itching,Rash Low 03/16/1974 Swelling when stung as a young adult Penicillin G Itching,Rash Low 03/16/1964 Since childhood Medications Medication Sig Dispensed Refills Start Date End Date Status acyclovir (ZOVIRAX) 400 mg tablet Take 400 mg by mouth as needed. 03/20/2023 Active calcium carbonate-vitami n D3 (Calcium 600 with Vitamin D3) 600 mg-10 mcg (400 unit) tablet,chewable Chew 2 tablets daily. Active saccharomyces boulardii (FLORASTOR) 250 mg capsule Take 1 capsule by mouth daily. Natures ---- Active ammonium lactate (LAC-HYDRIN) 12 % lotion Apply 1 Application topically 2 (two) times a day. And PRN 02/03/2023 4 Discontinued metoprolol succinate (TOPROL-XL) 25 mg 24 hr tablet TAKE 0.5 TABLETS (12.5 MG TOTAL) BY MOUTH DAILY. DO NOT CRUSH OR CHEW. 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 Immunizations Name Administration Dates Next Due H1N1 Inj 12/09/2008 Influenza (IM) Preservative Free 020,11/08/2017,11/20/2012,2011,11/09/2010,11/10/2009 Influenza Split Preservative Free ID 11/12/2014 Influenza Whole 12/04/2013 Influenza high dose QV(65 ye ars or older) (PF) 12/16/2021 Influenza, Quadrivalent, Adj uvanted, Preservative Free 12/12/2022 PCV20 03/31/2023 PPSV23 01/06/2022 Pneumococcal Conjugate(PCV), Unspecified 03/23/2023(Deferred: Other - would like to discuss with provider) RZV (SHINGRIX) 03/23/2023(Deferred: Other - reports UTD),07/27/2017 SARS-COV-2 (COVID-19) - PFIZ ER (Discontinued)(12 years or older) 02/25/2020,02/04/2020 Tdap 03/31/2023, 4(Deferred: Other - would like to get at [facility]),03/11/2011 influenza vaccine QV(FLUBLOK ) (18 years or older) (PF) 11/07/2018 influenza vaccine quad (FLUZONE/FLUARIX) (6 months and older)(PF) 10/13/2020,11/23/2016,11/16/2015 Social History Tobacco Use Types Packs/Day Years Used Date Smoking Tobacco: Never Passive Smoke Exposure: Never Smokeless Tobacco: Never Alcohol Use Standard Drinks/Week Comments Yes 5 (1 standard drink = 0.6 oz pur e alcohol) [facility] Utilities Answer Date Recorded In the past 12 months has th e electric, gas, oil, or water company threatened to shut off services in your home? No 03/29/2023 PHQ-2 Answer Date Recorded PHQ-2 Score 1 03/27/2023 Exercise Vital Sign Answer Date Recorde d On average, how many days pe r week do you engage in moderate to strenuous exercise (like a brisk walk)? 4 days 03/21/2023 On average, how many minutes do you engage in exercise at this level? 20 min 03/21/2023 Hunger Vital Sign Answer Date Recorded Within the past 12 months, y ou worried that your food would run out before you got the money to buy more. Never true 03/29/19 Within the past 12 months, t he food you bought just didn't last and you didn't have money to get more. Never true 03/29/2023 PRAPARE - Transportation Answer Date Re corded In the past 12 months, has l ack of transportation kept you from medical appointments or from getting medications? No 03/10 In the past 12 months, has l ack of transportation kept you from meetings, work, or from getting things needed for daily living? No 03/29/2023 Nutrition Answer Date Recorded On average, how many serving s of fruits and vegetables do you eat per day (serving size is equal to 1 cup or approximately the size of a tennis ball)? 3-5 03/21/2023 Dental Answer Date Recorded Dental: Regular Dentist Yes 03/21/19 Employment Answer Date Recorded Employment status Retired 03/21/2023 Housing Stability Answer Date Recorded What is your living situation today? I have a [facility] place to live 03/29/2023 Sex and Gender Information Value Date Recorded Sex Assigned at Female 03/21/2023 11:26 AM [employer] Gender Identity Female 03/21/2023 11:26 AM [employer]ENER Sexual Orientation Straight 03/21/2023 11 :26 AM P[employer]CHER AND FA[employer]ENER Last Filed Vital Signs Vital Sign Reading Time Taken Comments Blood Pressure 128/78 08/30/2023 8:12 AM CDT ove r shirt Pulse 72 08/30/2023 8:12 AM CDT Temperature - - Respiratory Rate - - Oxygen Saturation 98% 03/28/2023 2:05 PM PUNCHER AND FASTENER RA @ rest Inhaled Oxygen Concentration - - Weight 53 kg (116 lb 13.5 oz) 08/30/2023 8:12 AM CDT Height 176.3 cm (5' 9.41) 08/30/2023 8:12 AM CD T Body Mass Index 17.05 08/30/2023 8:12 AM CDT Plan of Treatment Not on file Medical Devices Implanted Type Area Starch Mangle Tender Device Identifier Shelf Expiration Date Model / Serial / Lot Imaging Marker Imaging Marker Left: Breast Description:Clip in left jeanie ast Procedures Procedure Name Priority Date/Time Associated Diagnosis Comments CT ABDOMEN WITHOUT AND WITH IV CONTRAST RAD - Routine (most inpatients and all outpatients) 09/01/2023 1:26 PM CDT Adenoma Adrenal Right CREATININE WITH EGFR, S/P Routine 08/30/2023 9:37 AM CDT Adenoma Adrenal Right OUTSIDE MR NEURO Routine 08/14/2023 11:3 5 AM CDT HEMOGLOBIN A1C, B Routine 03/29/2023 7:0 7 AM P[employer] AND FA[employer]ENER Angina Pectoris Unspecified (HCC) OUTSIDE MG MAMMOGRAM Routine 01/04/2023 8:45 AM P[employer]CHER AND FASTENER from Last 3 Months or Most Recently Relevant to Health Maintenance Results * CT Abdomen without and with IV Contrast (09/01/2023 1:26 PM CDT) Anatomical Region Laterality Modality Abdomen, Abdominal RST LOS, Abdominal ARZ LOS, Abdominal FLA LOS N/A Computed Tomography, Comput ed Tomography 09/01/2023 12:5 4 PM CDT Impressions 09/01/2023 5:06 PM CDT Right adrenal nodule, measuring up to 26 mm. 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 In particular, the presence of intracytoplasmic fat, characterized as signal dropout on recent MRI, is very atypical for pheochromocytoma. Narrative 09/01/2023 5:06 PM CDT EXAM: ??CT ABDOMEN WITHOUT AND WITH IV CONTRAST COMPARISON: ??PET MR 05/05/2023 FINDINGS: ?? Nodule in the right adrenal gland measuring 26 mm in maximal axial dimensions (series 6 image 28). This is slightly increased in size dating back to 09/22/2014 where measured 23 mm (series 2, image 30). Growth rate of 0.3 mm previously, consistent with a nonmalignant etiology. Attenuation on noncontrast CT = 20 HU Attenuation and portal venous phase = 74 HU Attenuation on delayed phase = 39 HU Absolute percentage washout measures 65%, suggestive of an adenoma. No abdominal or pelvic lymphadenopathy. No suspicious hepatic lesions. Presumed cyst in the right liver. Splenic artery aneurysm. The kidneys, spleen and gallbladder are negative. Cyst in the pancreatic tail measuring 16 mm, best appreciated on recent MRI. No suspicious osseous lesions. The lung bases are clear. Procedure Note Martin Churchill M.B., B.Ch., B.A.O. - 09/01/2023 EXAM: CT ABDOMEN WITHOUT AND WITH IV CONTRAST COMPARISON: PET MR 05/05/2023 FINDINGS: Nodule in the right adrenal gland measuring 26 mm in maximal axialdimensions (series 6 image 28). This is slightly increased in size datingback to 09/22/2014 where measured 23 mm (series 2, image 30). Growth rateof 0.3 mm previously, consistent with a nonmalignant etiology. Attenuation on noncontrast CT = 20 HU Attenuation and portal venous phase = 74 HU Attenuation on delayed phase = 39 HU Absolute percentage washout measures 65%, suggestive of an adenoma. No abdominal or pelvic lymphadenopathy. No suspicious hepatic lesions. Presumed cyst in the right liver. Splenicartery aneurysm. The kidneys, spleen and gallbladder are negative. Cyst inthe pancreatic tail measuring 16 mm, best appreciated on recent MRI. Nosuspicious osseous lesions. The lung bases are clear. IMPRESSION: Right adrenal nodule, measuring up to 26 mm. Given slow growth rate, lowattenuation on noncontrast CT, enhancement characteristics, signal dropouton recent MRI and absence of significant DOTATATE activity, findings areconsistent with a lipid poor adenoma. In particular, the presence of intracytoplasmic fat,characterized as signal dropout on recent MRI, is very atypical forpheochromocytoma. Ty Finch M.D. IMG CT PROCEDURES * Creatinine with Estimated GFR (08/30/2023 9:37 AM CDT) Creatinine 0.70 0.59 - 1.04 mg/dL 08/30/2023 10:26 AM CDT DTL Estimated GFR (eGFR) >90 >=60 mL/min/BSA 08/30/2023 10:26 AM CDT DTL Comment: Estimated GFR calculated using the 2020 CKD_EPI creatinine equation. Blood (Blood, Venous) 08/30/2023 9:37 AM CDT 08/30/2023 10:10 AM CDT Ty Finch M.D. LAB BLOOD ADD-ON Performing Organization Address City/[facility]/[place]IP [place] [address], [place] [address] * MR Brain WO (Unpaired)-Outside MR Neuro (08/14/2023 11:35 AM CDT) Narrative [facility]IMS - 08/15/2023 4:30 PM CDT This order has been created and auto-finalized to support the import of outside images. If available, original interpretation can be found on the Media Tab in Chart Review, in Document Viewer, as an image in QREADS or as an Addendum. If a re-interpretation or overread is required please follow defined workflow.?? Provider Not In System IMG MRI PROCEDURE S IILA NA * Hemoglobin A1c (03/29/2023 7:07 AM P[employer] AND FASTENER) Hemoglobin A1c, B 5.2 4.0 - 5.6 % 03/29/2023 7:50 AM P[employer]CHER AND FASTENER DTL Blood (Blood, Venous) 03/29/2023 7:07 AM P[employer]CHER AND FASTENER 03/29/2023 7:28 AM P[employer]CHER AND FASTENER Ming Campbell M.D. LAB BLOOD ADD-O N [facility] [address] [place] [address], [place] DTL [facility] [address] [place] [address] * MM diagnostic mammo BI-Outside Mammogram (01/04/2023 8:45 AM PUNCHER AND FASTENER) Narrative IIMS - 03/02/2023 4:33 PM P[employer]CHER AND FASTENER This order has been created and auto-finalized to support the import of outside images. If available, original interpretation can be found on the Media Tab in Chart Review, in Document Viewer, or as an image in QREADS. If a re-interpretation or overread is required please follow defined workflow. ?? Provider Not In System IMG BI PROCEDURES IIMS NA from Last 3 Months or Most Recently Relevant to Health Maintenance
--- OUTSIDE RECORDS SUMMARY | 2023-09-18 10:47 | XMS_ITS | Encounter Summary ---
Author Organization [facility] Address [address] [place] [address] Care Team Providers Care Medical Examiner Name Role Phone Unavailable Primary Care Provider Unavailabl e Reason for Referral * MRI/CAT/PET Scan (Routine) - Closed Specialty Diagnoses / Procedures Referred By Josue garcia Referred To Contact Radiology Diagnoses Adenoma Adrenal Right Procedures CT Abdomen without and with IV Contrast CT Abdomen Pelvis without and with IV Contrast Ty Finch M.D. [address] [place] [address] [facility] Referral ID Status Reason Start Date Expiration Date Visits Re quested Visits Authorized [id number] Closed 08/30/2023 08/29/2024 1 1 Reason for Visit * MRI/CAT/PET Scan (Routine) - Closed Specialty Diagnoses / Procedures Referred By Josue garcia Referred To Contact Radiology Diagnoses Adenoma Adrenal Right Procedures CT Abdomen without and with IV Contrast CT Abdomen Pelvis without and with IV Contrast Ty Finch M.D. [address] [place] [address] [facility] Referral ID Status Reason Start Date Expiration Date Visits Re quested Visits Authorized [id number] Closed 08/30/2023 08/29/2024 1 1 Encounter Details Date Type Department Care Team (Latest Contact Info) Description 09/01/2023 11:44 AM CDT - 09/01/2023 11:59 PM CDT Hospital Encounter Department of Radiology, [facility], in [place], [place] [address] [place] [address] Ty Finch M.D. [address] [place] [address] Adenoma Adrenal Right Discharge Disposition: Home or Self Care Social History Tobacco Use Types Packs/Day Years Used Date Smoking Tobacco: Never Passive Smoke Exposure: Never Smokeless Tobacco: Never Alcohol Use Standard Drinks/Week Comments Yes 5 (1 standard drink = 0.6 oz pur e alcohol) [facility] Utilities Answer Date Recorded In the past 12 months has e [employer], gas, oil, or water [employer] threatened to shut off services in your [...] money to buy more. Never true 03/29/19 24 Within the past 12 months, t he [...] your living situation today? I have a [facility] place to live 03/29/2023 Sex and Gender Information Value Date Recorded Sex Assigned at Female 03/21/2023 11:26 AM ENDORSEMENT CLERK Gender Identity Female 03/21/2023 11:26 AM ENDORSEMENT CLERK Sexual Orientation Straight 03/21/2023 11 :26 AM ENDORSEMENT CLERK documented as of this encounter Medications at Time of Discharge Medication Sig Dispensed Refills Start Date End Date acyclovir (ZOVIRAX) 400 mg tablet Take 400 mg by mouth as needed. 03/20/2023 calcium carbonate-vitamin D3 (Calcium 600 with Vitamin D3) 600 mg-10 mcg (400 unit) tablet,chewable Chew 2 tablets daily. saccharomyces boulardii (FLORASTOR) 250 mg capsule Take 1 capsule by mouth daily. Natures ---- documented as of this encounter Plan of Treatment Not on file documented as of this encounter Procedures Procedure Name Priority Date/Time Associated Diagnosis Comments CT ABDOMEN WITHOUT AND WITH IV CONTRAST RAD - Routine (most inpatients and all outpatients) 09/01/2023 1:26 PM CDT Adenoma Adrenal Right documented in this encounter Results * CT Abdomen without and with [...] recent MRI, is very atypical forpheochromocytoma. Ty N Stef M.D. IMG CT PROCEDURES documented in this encounter Visit Diagnoses Diagnosis Adenoma Adrenal Right documented in this encounter Administered Medications Inactive Administered Medications - up to 3 most recent administrations Medication Order MAR Action Action Date Dose Rate Site iohexoL 300 mg iodine/mL solution 1-200 mL (Omnipaque) 1-200 mL, intravenous, Once in imaging, contrast, Starting on Mon09/01/23 at 1200, For 1 dose, Imaging Protocol Orders, Dose per Radiant Medication Guidelines Given 09/01/2023 12:45 PM CDT 100 mL sodium chloride (PF) 0.9 % injection 1-100 mL 1-100 mL, intravenous, Once, On Mon09/01/23 at 1230, For 1 dose, Imaging Protocol Orders, Dose per Radiant Medication Guidelines Given 09/01/2023 12:45 PM CDT 50 mL documented in this encounter
--- OUTSIDE RECORDS SUMMARY | 2023-09-18 10:47 | XMS_ITS | Encounter Summary ---
Author Organization [facility] Address [address] [place] [address] Care Team Providers Care Lead Cook Name Role Phone Unavailable Primary Care Provider Unavailabl e Encounter Details Date Type Department Care Team (Latest Contact Info) Description 08/30/2023 9:27 AM CDT - 08/30/2023 11:59 PM CDT Hospital Encounter Department of Laboratory Medicine and Pathology, [facility] in [place], [place] [address] [place] [address] Ty Finch M.D. [address] [place] [address] Adenoma Adrenal Right Discharge Disposition: Home or Self Care Social History Tobacco Use Types Packs/Day Years Used Date Smoking Tobacco: Never Passive Smoke Exposure: Never Smokeless Tobacco: Never Alcohol Use Standard Drinks/Week Comments Yes 5 (1 standard drink = 0.6 oz pur e alcohol) [facility] Utilities Answer Date Recorded In the past 12 months has e electric, gas, oil, or water company [...] your living situation today? I have a [facility] place to live 03/29/2023 Sex and Gender Information Value Date Recorded Sex Assigned at Female 03/21/2023 11:26 AM CHAIR INSPECTOR Gender Identity Female 03/21/2023 11:26 AM CHAIR INSPECTOR Sexual Orientation Straight 03/21/2023 11 :26 AM CHAIR INSPECTOR documented as of this encounter Medications at Time of Discharge Medication Sig Dispensed Refills Start Date End Date acyclovir (ZOVIRAX) 400 mg tablet Take 400 mg by mouth as needed. 03/20/2023 calcium carbonate-vitamin D3 (Calcium 600 with Vitamin D3) 600 mg-10 mcg (400 unit) tablet,chewable Chew 2 tablets daily. saccharomyces boulardii (FLORASTOR) 250 mg capsule Take 1 capsule by mouth daily. Natures ---- ammonium lactate (LAC-HYDRIN) 12 % lotion Apply 1 Application topically 2 (two) times a day. And PRN 02/03/2023 08/31/2023 metoprolol succinate (TOPROL-XL) 25 mg 24 hr tablet TAKE 0.5 TABLETS (12.5 MG TOTAL) BY MOUTH DAILY. DO NOT CRUSH OR CHEW. 45 tablet 3 05/17/2023 08/31/2023 documented as of this encounter Plan of Treatment Not on file documented as of this encounter Procedures Procedure Name Priority Date/Time Associated Diagnosis Comments CREATININE WITH EGFR, S/P Routine 08/30/2023 9:37 AM CDT Adenoma Adrenal Right documented in this encounter Results * Creatinine with Estimated GFR (08/30/2023 9:37 AM CDT) Creatinine 0.70 0.59 - 1.04 mg/dL 08/30/2023 10:26 AM CDT DTL Estimated GFR (eGFR) >90 >=60 mL/min/BSA 08/30/2023 10:26 AM CDT DTL Comment: Estimated GFR calculated using the 2020 CKD_EPI creatinine equation. Blood (Blood, Venous) 08/30/2023 9:37 AM CDT 08/30/2023 10:10 AM CDT Ty Finch M.D. LAB BLOOD ADD-ON [facility] [address] [place] [address], [place] DTL [facility] [address] [place] [address] documented in this encounter Visit Diagnoses Diagnosis Adenoma Adrenal Right documented in this encounter
--- OUTSIDE RECORDS SUMMARY | 2023-09-18 10:47 | XMS_ITS | Encounter Summary ---
Author Organization [facility] Address [address] [place] [address] Care Team Providers Care Wildlife And Game Protector Name Role Phone Unavailable Primary Care Provider Unavailabl e Reason for Referral * MRI/CAT/PET Scan (Routine) - Closed Specialty Diagnoses / Procedures Referred By Josue garcia Referred To Contact Radiology Diagnoses Adenoma Adrenal Right Procedures CT Abdomen without and with IV Contrast CT Abdomen Pelvis without and with IV Contrast Ty Finch M.D. [address] [place] [address] Health System Referral ID Status Reason Start Date Expiration Date Visits Re quested Visits Authorized [id number] Closed 08/30/2023 08/29/2024 1 1 Reason for Visit * Outpatient (Routine) - Closed Specialty Diagnoses / Procedures Referred By Josue garcia Referred To Contact Endocrinology Diagnoses Genetic Susceptibility To Other Malignant Neoplasm Adenoma Adrenal Right Anabelle Mcnulty APRN, C.N.P., D.N.P., M.S. [address] [place] [address] Health System Referral ID Status Reason Start Date Expiration Date Visits Re quested Visits Authorized [id number] Closed 05/08/2023 11/06/2024 1 1 Encounter Details Date Type Department Care Team (Latest Contact Info) Description 08/30/2023 8:30 AM CDT Comprehensive Visit Division of Endocrinology in [place], [place] [address] [place] [address] Ty Finch M.D. [address] [place] [phone] Genetic Susceptibility To Other Malignant Neoplasm; Adenoma Adrenal Right Social History Tobacco Use Types Packs/Day Years Used Date Smoking Tobacco: Never Passive Smoke Exposure: Never Smokeless Tobacco: Never Alcohol Use Standard Drinks/Week Comments Yes 5 (1 standard drink = 0.6 oz pur e alcohol) [facility] [employer] Answer Date Recorded In the past 12 months has [employer], gas, oil, or water [employer] threatened to shut off services in your [...] your living situation today? I have a [facility] place to live 03/29/2023 Sex and Gender Information Value Date Recorded Sex Assigned at Female 03/21/2023 11:26 AM OPTICAL SYSTEMS ENGINEER Gender Identity Female 03/21/2023 11:26 AM OPTICAL SYSTEMS ENGINEER Sexual Orientation Straight 03/21/2023 11 :26 AM OPTICAL SYSTEMS ENGINEER documented as of this encounter Last Filed Vital Signs Vital Sign Reading Time Taken Comments Blood Pressure 128/78 08/30/2023 8:12 AM CDT ove r shirt Pulse 72 08/30/2023 8:12 AM CDT Temperature - - Respiratory Rate - - Oxygen Saturation - - Inhaled Oxygen Concentration - - Weight 53 kg (116 lb 13.5 oz) 08/30/2023 8:12 AM CDT Height 176.3 cm (5' 9.41) 08/30/2023 8:12 AM CD T Body Mass Index 17.05 08/30/2023 8:12 AM CDT documented in this encounter Consult Notes * Ty Finch M.D. - 08/30/2023 8:30 AM CDT SUBJECTIVE HISTORY OF PRESENT ILLNESS I visited with Darcy and her for a consultation regarding a possibility of paraganglioma/pheochromocytoma. This lady has been evaluated for multiple leiomyomas, and in that setting, genetic testing was performed which revealed an abnormality in the FH gene that is associated with the leiomyomas as well asrenal tumors, but there is also a suspicion of possible association with paraganglioma/pheochromocytoma. It is pertinent that she has no history of hypertension and none of the typical symptoms associatedwith hypertensive spells or catecholamine-related spells. She did have biochemical testing for catecholamines, both serum and urine, and after a borderline positive test in April with a minimal elevation in serum normetanephrines, she had a negative 24-hour urine collection for metanephrines, normetanephrines, and total metanephrines in May of this year, and then repeat blood testing documentednormal normetanephrine again. She has monitored her blood pressure at home and reports that on average her systolic blood pressure is around 100 with minimal variations with a diastolic of around 60.She also denies features suggestive of excess cortisol or aldosterone, and I mentioned this in the setting of a right adrenal lesion that was first documented back in 2014 and found to have increasedin size on a CT abdomen done in March of this year. Reportedly, it is now at 2.4 cm but appears to be an adenoma. MEDICAL HISTORY Palpitations with a history of beta-clau therapy that have made her at times slightly hypotensive. Osteopenia, currently on calcium and vitamin D supplementation. History of in situ melanoma. FAMILY HISTORY Negative to knowledge of pheochromocytoma/paraganglioma. Negative to severe hypertension, but positive for hip fractures in her mother as well as pituitary tumor in her sister. OBJECTIVE PHYSICAL EXAMINATION General: She is a pleasant lady looking younger than her stated age. She is quite lean. Neck: Her neck is supple. No scars. Good range of motion. Thyroid is at most 5-8 grams without nodularity. No cervical adenopathy. Spine: Without kyphosis or tenderness. Extremities: Without edema. No joint effusions. Eyes: Without inflammatory changes. Vital Signs: Pulse is regular in the 80s without ectopy. Neuro: Cognitive status intact. DIAGNOSTICS Imaging of the abdomen with CT from March was reviewed. I note the abnormalities associated withthe right adrenal gland. At most, I measured this lesion at 1.7 cm, but I note that the formal report measures it at 2.4 cm and describes it as consistent with an adenoma. No abdominal adenopathy present. 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 The association between the genetic abnormality and these conditions is also one that is still being debated. As far as a nonfunctioning paraganglioma, at this point, it is good to know that the PET scan from April did not roller picker any paraganglioma-type abnormalities. She will visit with Neurosurgery for Arnold-Chiari malformation, but I think that no further evaluation is needed currently. #2 Right adrenal adenoma Based on the CT and MRI appearance very likely this lesion is an adenoma. I do not see anything suggestive of excess cortisol or aldosterone. A normal cortisol at 12 was documented in May of this year. I do not see need for additional testing there. However, given the increase in size of this lesion compared to the imaging from 2015, I think it would be useful to have a dedicated CT of the adrenals in the near future and then decide if additional periodic monitoring is needed. I will communicate with her through the portal. #3 Osteopenia I think this is a concern that should be brought higher on the priority list. She is quite thin, and she does have a family history of fractures. I emphasized the importance of monitoring her bone density and considering additional therapy if, despite her calcium and vitamin D supplementation, she ends up with a declining bone mass. Questions answered. P5. Ty Finch M.D. CT CT Job ID: [id number]/maria esther documented in this encounter Plan of Treatment Not on file documented as of this encounter Results * CT Abdomen without [...] are clear. Procedure Note Martin Churchill M.B., B.Jose., B.A.O. - 09/01/2023 EXAM: CT ABDOMEN WITHOUT [...] recent MRI, is very atypical forpheochromocytoma. Ty [facility] CT PROCEDURES * Creatinine with Estimated GFR (08/30/2023 9:37 AM CDT) Creatinine 0.70 0.59 - 1.04 mg/dL 08/30/2023 10:26 AM CDT DTL Estimated GFR (eGFR) >90 >=60 mL/min/BSA 08/30/2023 10:26 AM CDT DTL Comment: Estimated GFR calculated using the 2020 CKD_EPI creatinine equation. Blood (Blood, Venous) 08/30/2023 9:37 AM CDT 08/30/2023 10:10 AM CDT Ty Finch M.D. LAB BLOOD ADD-ON [address] [address], [facility] DTL [facility] [address] [place] [address] documented in this encounter Visit Diagnoses Diagnosis Genetic Susceptibility To Other Malignant Neoplasm Adenoma Adrenal Right Adenoma Adrenal Right documented in this encounter
--- OUTSIDE RECORDS SUMMARY | 2023-09-18 10:47 | XMS_ITS ---
Author Organization [facility] Address [address] [place] [address] Care Team Providers Care Director Of Student Aid Name Role Phone Unavailable Unavailable Unavailable Surgery Details Not on file Complications Check Surgery Details section. Procedure Estimated Blood Loss Check Surgery Details section. Procedure Findings Check Surgery Details section. Procedure Specimens Taken Check Surgery Details section.
--- OUTSIDE RECORDS SUMMARY | 2023-09-18 10:47 | XMS_ITS | Encounter Summary ---
Author Organization [facility] Address [address] [place] [address] Care Team Providers Care Special Agent Secret Service Name Role Phone Unavailable Primary Care Provider Unavailabl e Encounter Details Date Type Department Care Team (Latest Contact Info) Description 09/12/2023 Clinical Communication Division of Endocrinology in [place], [place] [address] [place] [address] Edna Meade M.D. [address] [place] [address] Social History Tobacco Use Types Packs/Day Years Used Date Smoking Tobacco: Never Passive Smoke Exposure: Never Smokeless Tobacco: Never Alcohol Use Standard Drinks/Week Comments Yes 5 (1 standard drink = 0.6 oz pur e alcohol) [facility] Utilities Answer Date Recorded In the [...] your living situation today? I have a [facility] place to live 03/29/2023 Sex and Gender Information Value Date Recorded Sex Assigned at Female 03/21/2023 11:26 AM AUTOMOTIVE WELDER Gender Identity Female 03/21/2023 11:26 AM AUTOMOTIVE WELDER Sexual Orientation Straight 03/21/2023 11 :26 AM AUTOMOTIVE WELDER documented as of this encounter Miscellaneous Notes * Telephone Encounter - Edna Meade M.D. - 09/12/2023 1:[address] 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 What is size and follow-up needed? I let them know that this is typically a question for the radiologist, and that in my experience wedo not always arrange follow-up on these. Please let her know your thoughts. Thanks. [facility] documented in this encounter Plan of Treatment Not on file documented as of this encounter Visit Diagnoses Not on filedocumented in this encounter
--- OUTSIDE RECORDS SUMMARY | 2023-09-18 10:47 | XMS_ITS | Clinical Summary ---
Author Organization [facility] Address [address] [place] [address] Care Team Providers Care Casualty Claim Adjuster Name Role Phone Unavailable Primary Care Provider Unavailabl e Source Comments Patient records contain information from all sites at [facility]. For routine questions regarding patient records, call [phone] during business hours, M-F 8:00 AM - 5:00 PM Central Time. Record requests for emergency care only can be directed to [phone] at any time.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 09/01/2023 11:44 AM CDT - 09/01/2023 11:59 PM CDT Hospital Encounter Department of Radiology, [facility] in [place], [place] [address] [place] [phone] Ty Finch M.D. Adenoma Adrenal Right Discharge Disposition: Home or Self Care 08/30/2023 9:27 AM CDT - 08/30/2023 11:59 PM CDT Hospital Encounter Department of Laboratory Medicine and Pathology, [facility] in [place], [place] [address] [place] [phone] Ty Finch M.D. Adenoma Adrenal Right Discharge Disposition: Home or Self Care 08/30/2023 8:30 AM CDT Comprehensive Visit Division of Endocrinology in [place], [place] [address] [place] [phone] Ty Finch M.D. Genetic Susceptibility To Other Malignant Neoplasm; Adenoma Adrenal Right 08/17/2023 Clinical Communication Department of Neurologic Surgery in [place], [place] [address] [place] [phone] Yon Juárez M.D. 08/15/2023 Clinical Communication Department of Neurologic Surgery in [place], [place] [address] [place] [phone] Prescheduling, Provider OSM (SISI); OSM (SISI) 07/18/2023 Orders Only Department of Medical Genetics in [place], [place] [address] [place] [phone] Anabelle Mcnulty APRN, C.NMary, Vito.N.P., M.S. Cyst Pancreas (Primary Dx); Genetic Susceptibility To Other Malignant Neoplasm 07/17/2023 11:20 AM CDT Internal E-Consult Division of Gastroenterology in [place], [place] [address] [place] [phone] Anabelle Mcnulty APRN, C.Dmitry, Vito.N.P., M.S. Kiah Sarkar M.B.B.S., M.S. Cyst Pancreas from Last 3 Months Immunizations Name Administration Dates Next Due H1N1 [...] Other - would like to get at [place]),03/11/2011 influenza vaccine QV(FLUBLOK ) (18 years or older) (PF) 11/07/2018 influenza vaccine quad (FLUZONE/FLUARIX) (6 months and older)(PF) 10/13/2020,11/23/2016,11/16/2015 Family History Medical History Relation Name Comments Colon polyps Brother Luigi Beasley Coronary artery disease Brother Luigi Beasley Quad ruple Bypass Hyperlipidemia Brother Luigi Beasley Hypertension Brother Luigi Beasley Sleep apnea Brother Luigi Beasley Colon polyps Father Pedrito Beasley Coronary artery disease Father Pedrito Beasley He art Attack no surgery and later in life had surgery for an aortic aneurysm Dementia Father Pedrito Beasley Arthritis Mother Kacie Beasley Hyperlipidemia Mother Kacie Beasley Hypertension Mother Kacie Beasley Stroke Mother Kacie Beasley In her 90's Transient ischemic attack Mother Kacie Beasley Hyperlipidemia Sister 1 Tawny Newsome Colon polyps Sister 2 Cheryle Paulino Hyperlipidemia Sister 2 Cheryle Paulino Colon polyps Sister 3 Ana Mitsch Hyperlipidemia Sister 3 Ana Mitsch Pituitary tumor Sister 3 Ana Mitsch Relation Name Status Comments Brother Luigi Bealsey Alive no fibroids Daughter Alive leiomyomas Father Pedrito Beasley (Age 83) Maternal Grandfather Maternal Grandmother (Age 85) Mother Kacie Beasley (Age 96) leiomyomas Nephew 1 Alive Nephew 2 Alive Nephew 3 Alive Niece 1 Alive Niece 2 Alive Paternal Grandfather Paternal Grandmother Sister 1 Tawny Newsome Alive no fibroids Sister 2 Cheryle Guptan Alive leiomyoma's o n back; getting genetic testing Sister 3 Ana Mitsch (Age 75) Son Alive leiomyomas Social History Tobacco Use Types Packs/Day Years Used Date Smoking Tobacco: Never Passive Smoke Exposure: Never Smokeless Tobacco: Never Alcohol Use Standard Drinks/Week Comments Yes 5 (1 standard drink = 0.6 oz pur e alcohol) [facility] Utilities Answer Date Recorded In the past 12 months has e [employer], gas, oil, or water [employer] threatened to shut off services in [...] your living situation today? I have a [facility] place to live 03/29/2023 Sex and Gender Information Value Date Recorded Sex Assigned at Female 03/21/2023 11:26 AM TELESALES AGENT Gender Identity Female 03/21/2023 11:26 AM TELESALES AGENT Sexual Orientation Straight 03/21/2023 11 :26 AM TELESALES AGENT Last Filed Vital Signs Vital Sign Reading Time Taken Comments Blood Pressure 128/78 08/30/2023 8:12 AM CDT ove r shirt Pulse 72 08/30/2023 8:12 AM CDT Temperature - - Respiratory Rate - - Oxygen Saturation 98% 03/28/2023 2:05 PM TELESALES AGENT RA @ rest Inhaled Oxygen Concentration - - Weight 53 kg (116 lb 13.5 oz) 08/30/2023 8:12 AM CDT Height 176.3 cm (5' 9.41) 08/30/2023 8:12 AM CD T Body Mass Index 17.05 08/30/2023 8:12 AM CDT Plan of Treatment Health Maintenance Due Date Last Done Comments Bone Density Scan (Osteoporo sis Screen) 1956 CT Colonography 1955 Cologuard 1955 Colonoscopy 1955 Colorectal Cancer Surveillance 1955 Hepatitis C Screening 1955 Zoster Vaccines (2 of 2) 09/21/2017 07/27/2017 COVID-19 Vaccine (2022-2 4 season) 2022 12/16/2021, 12/04/2020, 02/25/2020, Additional history exists Influenza Vaccine (#1) 2023 3, 12/16/2021, 10/13/2020, Additional history exists Mammogram 01/05/2024 01/04/2023, 02/06, 01/18/2021, Additional history exists Fasting Glucose for Diabetes Screening 03/29/2026 03/29/2023, 03/29/2023 DTaP,Tdap,and Td Vaccines (3 - Td or Tdap) 03/31/2033 03/31/2023, 03/11/2011 Depression Screening (Annual PHQ-2) Completed 03/28/2023, 03/27/2023 Fall Risk Screen (Annual) Completed 03/28/2023 Pneumococcal vaccine (65+ years) Completed 03/31/19, 01/06/2022 Medical Devices Implanted Type Area Gang Drill Operator Device Identifier Shelf Expiration Date Model / [...] A1C, B Routine 03/29/2023 7:0 7 AM TELESALES AGENT Angina Pectoris Unspecified (HCC) OUTSIDE MG MAMMOGRAM Routine 01/04/2023 8:45 AM TELESALES AGENT from Last 3 Months or Most Recently [...] CDT Ty Finch M.D. LAB BLOOD ADD-ON [facility] [address] [place] [address], [facility] DTL [facility] [address] [place] [address] * MR Brain WO (Unpaired)-Outside MR Neuro [...] Not In System IMG MRI PROCEDURE S Performing Organization Address [facility] Co de Phone Number IIMS NA * Hemoglobin A1c (03/29/2023 7:07 AM TELESALES AGENT) Hemoglobin A1c, B 5.2 4.0 - 5.6 % 03/29/2023 7:50 AM TELESALES AGENT DTL Blood (Blood, Venous) 03/29/2023 7:07 AM TELESALES AGENT 03/29/2023 7:28 AM TELESALES AGENT Ming Campbell M.D. LAB BLOOD ADD-O N Performing Organization Address [facility] Co de Phone Number [facility] [address] [place] [address], [facility] [address] [place] [address] * MM diagnostic mammo BI-Outside Mammogram (01/04/2023 8:45 AM TELESALES AGENT) Narrative IIMS - 03/02/2023 4:33 PM TELESALES AGENT This order has been created and auto-finalized to support the import of outside images. If available, original interpretation can be found on the Media Tab in Chart Review, in Document Viewer, or as an image in QREADS. If a re-interpretation or overread is required please follow defined workflow. ?? Provider Not In System IMG BI PROCEDURES Performing Organization Address [facility] de Phone Number IIMS NA from Last 3 Months or Most Recently Relevant to Health Maintenance
--- OUTSIDE RECORDS SUMMARY | 2023-09-18 10:48 | XMS_ITS | Encounter Summary ---
Author Organization [facility] Address [address] [place] [address] Care Team Providers Care Elementary School Band Director Name Role Phone Unavailable Primary Care Provider Unavailabl e Reason for Referral * MRI/CAT/PET Scan (Routine) - Authorized Specialty Diagnoses / Procedures Referred By Josue garcia Referred To Contact Radiology Diagnoses Cyst Pancreas Genetic Susceptibility To Other Malignant Neoplasm Procedures MR Abdomen MRCP without and with IV Contrast Anabelle Mcnulty APRN, Aman.N.Alfredo, D.N.P., M.S. [address] [place] [address] [facility] Referral ID Status Reason Start Date Expiration Date V isits Requested Visits Authorized [id number] Authorized 07/18/2023 07/17/2024 1 1 Encounter Details Date Type Department Care Team (Late st Contact Info) Description 07/18/2023 Orders Only Department of Medical Genetics in [place], [place] [address] [place] [phone] Anabelle Mcnulty APRN, C.N.P., D.N.P., M.S. [address] [place] [phone] Cyst Pancreas (Primary Dx); Genetic Susceptibility To Other Malignant Neoplasm Social History Tobacco Use Types Packs/Day Years Used Date Smoking Tobacco: Never Passive Smoke Exposure: Never Smokeless Tobacco: Never Alcohol Use Standard Drinks/Week Comments Yes 5 (1 standard drink = 0.6 oz pur e alcohol) [facility] Utilities Answer Date Recorded In [...] your living situation today? I have a [facility] place to live 03/29/2023 Sex and Gender Information Value Date Recorded Sex Assigned at Female 03/21/2023 11:26 AM COMMUNITY HEALTH NURSE Gender Identity Female 03/21/2023 11:26 AM COMMUNITY HEALTH NURSE Sexual Orientation Straight 03/21/2023 11 :26 AM COMMUNITY HEALTH NURSE documented as of this encounter Plan of Treatment Scheduled Orders Name Type Priority Associated Diagnoses Orde r Schedule MR Abdomen MRCP without and with IV Contrast Imaging RAD - Routine (most inpatients and all outpatients) Cyst Pancreas Genetic Susceptibility To Other Malignant Neoplasm Expected: 04/08/2024, Expires: 10/17/2024 documented as of this encounter Visit Diagnoses Diagnosis Cyst Pancreas- Primary Genetic Susceptibility To Other Malignant Neoplasm documented in this encounter
--- OUTSIDE RECORDS SUMMARY | 2023-09-18 10:48 | XMS_ITS | Clinical Summary ---
Author Organization [facility] Address [place], [place] [address] Care Team Providers Care Airline Pilot Name Role Phone Ruthie Otero MD Primary Care Provider Encounters Date Type Department Care Team Description 09/14/2023 8:20 AM CDT Office Visit [facility] [address] [place] [phone] Rosa Villalobos MD Consult 09/14/2023 Travel 09/13/2023 Telephone [facility] [address] [place] [phone] Rosa Villalobos MD Appointment Reminder 08/16/2023 Telephone [facility] [address] [place] [phone] Thi Diaz NP Appointment Request 08/14/2023 Orders Only [facility] Scanner 1 scan: (1-Ord) [facility], MR BRAIN WITHOUT CONTRAST, 08/14/2023 from Last 3 Months Social History Tobacco Use Types Packs/Day Years [...] 10/01/2007 DEXA/DXA scan for age 65+ 2021 Medicare Wellness for age 65+ 2021 Pneumococcal series for age 65+ (1 of 1 - PCV) 2021 COVID-19 vaccine series (2022- season) 2022 12/16/2021, 12/04/2020 Influenza for age 65+ 10/08/2023 Procedures Procedure Name Priority Date/Time Associated Diagnosis Comments SCAN-MRI INTERPRETATION 08/14/19 12:00 AM CDT (IA) [place] COLONOSCOPY REMOVE CARMELINA POLYP LESN SNARE Routine 10/01/2007 Special Screening for Malignant Neoplasms, Colon Benign Neoplasm of Colon from Last 3 Months or Most Recently Relevant to Health Maintenance Results * SCAN-MRI INTERPRETATION (08/14/2023 12:00 AM CDT) Anatomical Region Laterality Modality Other Scanner OTHER * [place] COLONOSCOPY REMOVE LESN SNARE (10/01/2007) Neo Velaqsuez MD PB - DIGESTIVE [facility] from Last 3 Months or Most Recently Relevant to Health Maintenance Care Teams Airline Pilot Relationship Specialty [place] [address] [place] [phone] PCP - General Internal Medicine 08/16/23
--- OUTSIDE RECORDS SUMMARY | 2023-09-18 10:48 | XMS_ITS | Encounter Summary ---
Author Organization [facility] Address [address] [place] [phone] Care Team Providers Care Manager Personnel Selection Name Role Phone Unavailable Primary Care Provider Unavailabl e Reason for Visit * Outpatient (Routine) - Closed Specialty Diagnoses / Procedures Referred By Contact Referred To Contact Gastroenterology and Hepatology Diagnoses Cyst Pancreas Procedures Gastroenterology and Hepatology - Pancreas cyst eConsult Anabelle Mcnulty APRN, C.N.P., D.N.P., M.S. [address] [place] [phone] [facility] Referral ID Status Reason Start Date Expiration Date Visits Re quested Visits Authorized [id number] Closed 05/08/2023 05/07/2024 1 1 Encounter Details Date Type Department Care Team (Late st Contact Info) Description 07/17/2023 11:20 AM CDT Internal E-Consult Division of Gastroenterology in [place], [place] [address] [place] [phone] Anabelle Mcnulty APRN, C.N.P., D.N.P., M.S. [address] [place] [phone] Kiah Sarkar M.B.B.S., M.S. [address] [place] [phone] Cyst Pancreas Social History Tobacco Use Types Packs/Day Years Used Date Smoking Tobacco: Never Passive Smoke Exposure: Never Smokeless Tobacco: Never Alcohol Use Standard Drinks/Week Comments Yes 5 (1 standard drink = 0.6 oz pur e alcohol) [facility] Utilities Answer Date Recorded In the [...] your living situation today? I have a [facility] place to live 03/29/2023 Sex and Gender Information Value Date Recorded Sex Assigned at Female 03/21/2023 11:26 AM THERMODYNAMIC PHYSICIST Gender Identity Female 03/21/2023 11:26 AM THERMODYNAMIC PHYSICIST Sexual Orientation Straight 03/21/2023 11 :26 AM THERMODYNAMIC PHYSICIST documented as of this encounter Consult Notes * Kiah Sarkar M.B.B.S., M.S. - 07/18/2023 11:20 AM CDT SUBJECTIVE Ordering Physician: Anabelle Mcnulty APRN, C.N.P., D.N.P., M.S. The patient was not personally interviewed or examined. The history and examination findings are based on the clinical documentation provided and/or discussed with a physician or provider who had personally interviewed and examined the patient. Time spent: Five minutes or more of medical review. Chief Complaint / Reason for Visit A consult was placed regarding Isis Malagon, a 68 y.o. female. Clinical question to be answered: Recent CT and PET MRI indicate pancreatic (and other) cysts. Any follow up recommendations? Pt reports 10 pound weight loss, unintended, in past 2 months. PET MRI 05/05/2023:, FINDINGS: Scattered hepatic cysts/hemangiomas. Normal gallbladder and biliary tree. Fusiform cystic lesion in the pancreatic tail measuring 1.6 cm in the coronal plane (series 3 image 26), unchanged since 03/29/2023 and not present in 2014. , No septations or solid enhancing compo nents. 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 No main pancreatic duct dilatation. History of Present Illness The following portions of the patient's history were reviewed and updated as appropriate: allergies, current medications, family history, medical history, social history, surgical history, and problem list. OBJECTIVE Consult Findings: Ms. 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 Recently, she underwent cross-sectional imaging with CT abdomen and pelvis in March of this year which demonstrated an incidental finding of multiple pancreatic cystic lesion with the largest measuring 1.6 cmby the tail. Subsequent imaging with DOTATATE MRI was also completed which showed similar findings.There is no reported history of pancreatitis, progressive weight changes, jaundice or new onset diabetes. ASSESSMENT / PLAN #1 Cyst Pancreas Incidental finding without alarm symptoms. I personally and independently reviewed her imaging studies from 2014 as well as her most recent cross- sectional scans from 2023. 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 Altogether, this is less worrisome but I would recommend ongoing surveillance by repeat MRI with MRCP in 1 year. documented in this encounter Plan of Treatment Not on file documented as of this encounter Visit Diagnoses Diagnosis Cyst Pancreas documented in this encounter
--- OUTSIDE RECORDS SUMMARY | 2023-09-18 10:48 | XMS_ITS ---
Author Organization [facility] Address [address] [place] [address] Care Team Providers Care Crystal Grower Name Role Phone Unavailable Primary Care Provider Unavailabl e Genomics Program Status:Identified (Enrolling) Start date:04/27/2023 Continued Care and Services Coordination
--- OUTSIDE RECORDS SUMMARY | 2023-09-18 10:48 | XMS_ITS | Encounter Summary ---
Author Organization [facility] Address [address] [place] [phone] Care Team Providers Care Siphon Operator Name Role Phone Unavailable Primary Care Provider Unavailabl e Reason for Referral * MRI/CAT/PET Scan (Routine) - Authorized Specialty Diagnoses / Procedures Referred By Josue t Referred To Contact Radiology Diagnoses Malformation Arnold Chiari (HCC) Procedures MR Cervical Spine without IV Contrast Daniela Mclean APRN, C.N.P. [address] [place] [phone] [facility] Referral ID Status Reason Start Date Expiration Date V isits Requested Visits Authorized [id number] Authorized 08/17/2023 08/16/2024 1 1 Encounter Details Date Type Department Care Team (Late st Contact Info) Description 08/17/2023 Clinical Communication Department of Neurologic Surgery in [place], [place] [address] [place] [phone] Yon Juárez M.D. [address] [place] [phone] Social History Tobacco Use Types Packs/Day Years Used Date Smoking Tobacco: Never Passive Smoke Exposure: Never Smokeless Tobacco: Never Alcohol Use Standard Drinks/Week Comments Yes 5 (1 standard drink = 0.6 oz pur e alcohol) [facility] Utilities Answer Date Recorded In the [...] your living situation today? I have a [facility] place to live 03/29/2023 Sex and Gender Information Value Date Recorded Sex Assigned at Female 03/21/2023 11:26 AM JIGGER MACHINE OPERATOR Gender Identity Female 03/21/2023 11:26 AM JIGGER MACHINE OPERATOR Sexual Orientation Straight 03/21/2023 11 :26 AM JIGGER MACHINE OPERATOR documented as of this encounter Plan of Treatment Scheduled Orders Name Type Priority Associated Diagnoses Orde r Schedule MR Cervical Spine without IV Contrast Imaging RAD - Routine (most inpatients and all outpatients) Malformation Arnold Chiari (HCC) Expected: 10/03/2023 (Approximate), Expires: 08/16/2024 documented as of this encounter Visit Diagnoses Diagnosis Malformation Arnold Chiari (HCC)- Primary documented in this encounter
--- OUTSIDE RECORDS SUMMARY | 2023-09-18 10:48 | XMS_ITS | Encounter Summary ---
Author Organization [facility] Address [address] [place] [address] Care Team Providers Care Sales Counselor Name Role Phone Unavailable Primary Care Provider Unavailabl e Reason for Visit * Reason Onset Date Comments OSM 08/15/2023 SISI OSM 08/15/2023 SISI Encounter Details Date Type Department Care Team (Latest Contact Info) Description 08/15/2023 Clinical Communication Department of Neurologic Surgery in [place], [place] [address] [place] [phone] Prescheduling, Provider OSM (SISI); OSM (SISI) Social History Tobacco Use Types Packs/Day Years Used Date Smoking Tobacco: Never Passive Smoke Exposure: Never Smokeless Tobacco: Never Alcohol Use Standard Drinks/Week Comments Yes 5 (1 standard drink = 0.6 oz pur e alcohol) [facility] Utilities Answer Date Recorded In the past 12 months has [employer], gas, oil, or water company threatened [...] your living situation today? I have a [facility] place to live 03/29/2023 Sex and Gender Information Value Date Recorded Sex Assigned at Female 03/21/2023 11:26 AM CONSULTING IT ARCHITECT Gender Identity Female 03/21/2023 11:26 AM CONSULTING IT ARCHITECT Sexual Orientation Straight 03/21/2023 11 :26 AM CONSULTING IT ARCHITECT documented as of this encounter Plan of Treatment Not on file documented as of this encounter Visit Diagnoses Not on filedocumented in this encounter
== END 2023-09-18 10:35 | disposition home or self-care (01) ==
PROVIDERS: PCP Nurse Practitioner Family; Visit Provider Family Medicine
DX: R63.4 Abnormal weight loss (principal); K86.9 Disease of pancreas, unspecified; M85.80 Other specified disorders of bone density and structure, unspecified site; E27.9 Disorder of adrenal gland, unspecified; D12.2 Benign neoplasm of ascending colon; Z15.09 Genetic susceptibility to other malignant neoplasm
CPT/HCPCS: 80053; 82330; 82384; 82607; 82746; 83525; 83970; 84443; 86140; 86301

== ENCOUNTER 2023-09-20 18:50 | Outpatient (CLI) | payer MEDICARE, SELFPAY ==
--- OUTSIDE RECORDS SUMMARY | 2023-09-20 18:52 | XMS_ITS | Clinical Summary ---
Author Organization [facility] Address [address] [place] [address] Care Team Providers Care Greenhouse Florist Name Role Phone Unavailable Primary Care Provider Unavailabl e Source Comments Patient records contain information from all sites at [facility]. For routine questions regarding patient records, call [phone] during business hours, M-F 8:00 AM - 5:00 PM Central Time. Record requests for emergency care only can be directed to [phone] at any time.[facility] Allergies Active Allergy Reactions Criticality Noted Date [...] Encounters Date Type Department Care Team Description 09/18/2023 Clinical Communication Division of Gastroenterology in [place], [place] [address] [place] [phone] Kiah Sarkar M.B.B.S., M.S. 09/12/2023 Clinical Communication Division of Endocrinology in [place], [place] [address] [place] [address] Edna Meade M.D. 09/01/2023 11:44 AM CDT - 09/01/2023 11:59 PM CDT Hospital Encounter Department of Radiology, [facility] in [place], [place] [address] [place] [phone] Ty Finch M.D. Adenoma Adrenal Right Discharge Disposition: Home or Self Care 08/30/2023 9:27 AM CDT - 08/30/2023 11:59 PM CDT Hospital Encounter Department of Laboratory Medicine and Pathology, [facility] in [place], [place] [address] [place] [phone] Ty Finch M.D. Adenoma Adrenal Right Discharge Disposition: Home or Self Care 08/30/2023 8:30 AM CDT Comprehensive Visit Division of Endocrinology in [place], [place] [address] [place] [phone] Ty Finch M.D. Genetic Susceptibility To Other Malignant Neoplasm; Adenoma Adrenal Right 08/17/2023 Clinical Communication Department of Neurologic Surgery in [place], [place] [address] [place] [phone] Yon Juárez M.D. 08/15/2023 Clinical Communication Department of Neurologic Surgery in [place], [place] [address] [place] [phone] Prescheduling, Provider OSM (SISI); OSM (SISI) 07/18/2023 Orders Only Department of Medical Genetics in [place], [place] [address] [place] [phone] Anabelle Mcnulty APRN, Aman.N.PMolly, D.N.P., M.S. Cyst Pancreas (Primary Dx); Genetic Susceptibility To Other Malignant Neoplasm 07/17/2023 11:20 AM CDT Internal E-Consult Division of Gastroenterology in [place], [place] [address] [place] [phone] Anabelle Mcnulty APRN, Aman.N.P., D.N.P., M.S. Kiah Sarkar M.B.B.S., M.S. Cyst [...] Other - would like to get at [facility]),03/11/2011 influenza vaccine QV(FLUBLOK ) (18 years or [...] Beasley Hyperlipidemia Mother Kacie Beasley Hypertension Mother Kaciechinyere Beasley Stroke Mother Kacie Beasley In her 90's Transient ischemic attack Mother Kaciechinyere Beasley Hyperlipidemia Sister 1 Tawny Newsome Colon polyps Sister 2 Cheryle Paulino Hyperlipidemia Sister 2 Cheryle Paulino Colon polyps Sister 3 Ana Mitsch Hyperlipidemia Sister 3 Ana Mitsch Pituitary tumor Sister 3 Ana Mitsch Relation Name Status Comments Brother Luigi Beasley Alive no fibroids Daughter Alive leiomyomas Father Pedrito Beasley (Age 83) Maternal Grandfather Maternal Grandmother (Age 85) Mother Kacie Beasley (Age 96) leiomyomas Nephew 1 Alive Nephew 2 Alive Nephew 3 Alive Niece 1 Alive Niece 2 Alive Paternal Grandfather Paternal Grandmother Sister 1 Tawny Newsome Alive no fibroids Sister 2 Cheryle Bob Alive leiomyoma's o n back; getting genetic testing Sister 3 Ana Mitsch (Age 75) Son Alive leiomyomas Social History Tobacco Use Types Packs/Day Years Used Date Smoking Tobacco: Never Passive Smoke Exposure: Never Smokeless Tobacco: Never Alcohol Use Standard Drinks/Week Comments Yes 5 (1 standard drink = 0.6 oz pur e alcohol) [facility] Utilities Answer Date Recorded In the past 12 months has [employer], gas, oil, or water [employer] threatened to shut off services in your [...] your living situation today? I have a [facility] place to live 03/29/2023 Sex and Gender Information Value Date Recorded Sex Assigned at Female 03/21/2023 11:26 AM INTELLIGENCE MANAGER Gender Identity Female 03/21/2023 11:26 AM INTELLIGENCE MANAGER Sexual Orientation Straight 03/21/2023 11 :26 AM INTELLIGENCE MANAGER Last Filed Vital Signs Vital Sign Reading Time Taken Comments Blood Pressure 128/78 08/30/2023 8:12 AM CDT ove r shirt Pulse 72 08/30/2023 8:12 AM CDT Temperature - - Respiratory Rate - - Oxygen Saturation 98% 03/28/2023 2:05 PM INTELLIGENCE MANAGER RA @ rest Inhaled Oxygen Concentration - [...] (2 of 2) 09/21/2017 07/27/2017 COVID-19 Vaccine (5 - 2022-2 4 season) 2022 12/16/2021, 12/04/2020, 02/25/2020, Additional history exists Influenza Vaccine (#1) 2023 , 12/16/2021, 10/13/2020, Additional history exists Mammogram 01/05/2024 01/04/2023, 02/06, 01/18/2021, Additional history exists Fasting Glucose for Diabetes Screening 03/29/2026 03/29/2023, 03/29/2023 DTaP,Tdap,and Td Vaccines (3 - Td or Tdap) 03/31/2033 03/31/2023, 03/11/2011 Depression Screening (Annual PHQ-2) Completed 03/28/2023, 03/27/2023 Fall Risk Screen (Annual) Completed 03/28/2023 Pneumococcal vaccine (65+ years) Completed 03/31/19, 01/06/2022 Medical Devices Implanted Type Area Veterinarian Small Animal Device Identifier Shelf Expiration Date Model / [...] A1C, B Routine 03/29/2023 7:0 7 AM INTELLIGENCE MANAGER Angina Pectoris Unspecified (HCC) OUTSIDE MG MAMMOGRAM Routine 01/04/2023 8:45 AM INTELLIGENCE MANAGER from Last 3 Months or Most Recently [...] CDT Ty Finch M.D. LAB BLOOD ADD-ON [facility] [address] [place] [address], [place] DTL [facility] [address] [place] [address] * MR Brain WO (Unpaired)-Outside MR Neuro [...] IMG MRI PROCEDURE S Performing Organization Address [facility] Co de Phone Number IIMS NA * Hemoglobin A1c (03/29/2023 7:07 AM INTELLIGENCE MANAGER) Hemoglobin A1c, B 5.2 4.0 - 5.6 % 03/29/2023 7:50 AM INTELLIGENCE MANAGER DTL Blood (Blood, Venous) 03/29/2023 7:07 AM INTELLIGENCE MANAGER 03/29/2023 7:28 AM INTELLIGENCE MANAGER Ming Campbell M.D. LAB BLOOD ADD-O N Performing Organization Address [facility] de Phone Number [facility] [address] [place] [address], [facility] [address] [place] [address] * MM diagnostic mammo BI-Outside Mammogram (01/04/2023 8:45 AM INTELLIGENCE MANAGER) Narrative IIKS - 03/02/2023 4:33 PM INTELLIGENCE MANAGER This order has been created and auto-finalized to support the import of outside images. If available, original interpretation can be found on the Media Tab in Chart Review, in Document Viewer, or as an image in QREADS. If a re-interpretation or overread is required please follow defined workflow. ?? Provider Not In System IMG BI PROCEDURES Performing Organization Address City/[facility] Co de Phone Number IIMS NA from Last 3 Months or Most Recently Relevant to Health Maintenance
--- OUTSIDE RECORDS SUMMARY | 2023-09-20 18:52 | XMS_ITS | Referral Summary ---
Author Organization [facility] Address [address] [place] [address] Care Team Providers Care Ballistics Professor Name Role Phone Unavailable Primary Care Provider Unavailabl e Source Comments Patient records contain information from all sites at [facility]. For routine questions regarding patient records, call [phone] during business hours, M-F 8:00 AM - 5:00 PM Central Time. Record requests for emergency care only can be directed to [phone] at any time.[facility] Encounters Date Type Department Care Team Description 09/18/2023 Clinical Communication Division of Gastroenterology in [place], [place] [address] [place] [phone] Kiah Sarkar M.B.B.S., M.S. 09/12/2023 Clinical Communication Division of Endocrinology in [place], [place] [address] [place] [phone] Edna Meade M.D. 09/01/2023 11:44 AM CDT - 09/01/2023 11:59 PM CDT Hospital Encounter Department of Radiology, [facility], in [place], [place] [address] [place] [address] Ty Finch M.D. Adenoma Adrenal Right Discharge Disposition: Home or Self Care 08/30/2023 9:27 AM CDT - 08/30/2023 11:59 PM CDT Hospital Encounter Department of Laboratory Medicine and Pathology, [facility], in [place], [place] [address] [place] [address] Ty Finch M.D. Adenoma Adrenal Right Discharge Disposition: Home or Self Care 08/30/2023 8:30 AM CDT Comprehensive Visit Division of Endocrinology in [place], [place] [address] [place] [phone] Ty Finch M.D. Genetic Susceptibility To Other Malignant Neoplasm; Adenoma Adrenal Right 08/17/2023 Clinical Communication Department of Neurologic Surgery in [place], [place] [address] [place] [phone] Yon Juárez M.D. 08/15/2023 Clinical Communication Department of Neurologic Surgery in [place], [place] [address] [place] [phone] Prescheduling, Provider OSM (SISI); OSM (SISI) 07/18/2023 Orders Only Department of Medical Genetics in [place], [place] [address] [place] [phone] Anabelle Mcnulty APRN, C.N.PMolly, D.N.P., M.S. 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 Kiah [...] Other - would like to get at [place]),03/11/2011 influenza vaccine QV(FLUBLOK ) (18 years or older) (PF) 11/07/2018 influenza vaccine quad (FLUZONE/FLUARIX) (6 months and older)(PF) 10/13/2020,11/23/2016,11/16/2015 Social History Tobacco Use Types Packs/Day Years Used Date Smoking Tobacco: Never Passive Smoke Exposure: Never Smokeless Tobacco: Never Alcohol Use Standard Drinks/Week Comments Yes 5 (1 standard drink = 0.6 oz pur e alcohol) [facility] Utilities Answer Date Recorded In the past 12 months has th e [employer], gas, oil, or water [employer] threatened to shut off services in your [...] Date Recorded Dental: Regular Dentist Yes 03/21/19 24 Employment Answer Date Recorded Employment status Retired 03/21/2023 Housing Stability Answer Date Recorded What is your living situation today? I have a [facility] place to live 03/29/2023 Sex and Gender Information Value Date Recorded Sex Assigned at Female 03/21/2023 11:26 AM UTILITY CLERK Gender Identity Female 03/21/2023 11:26 AM UTILITY CLERK Sexual Orientation Straight 03/21/2023 11 :26 AM UTILITY CLERK Last Filed Vital Signs Vital Sign Reading Time Taken Comments Blood Pressure 128/78 08/30/2023 8:12 AM CDT ove r shirt Pulse 72 08/30/2023 8:12 AM CDT Temperature - - Respiratory Rate - - Oxygen Saturation 98% 03/28/2023 2:05 PM UTILITY CLERK RA @ rest Inhaled Oxygen Concentration - - Weight 53 kg (116 lb 13.5 oz) 08/30/2023 8:12 AM CDT Height 176.3 cm (5' 9.41) 08/30/2023 8:12 AM CD T Body Mass Index 17.05 08/30/2023 8:12 AM CDT Plan of Treatment Not on file Medical Devices Implanted Type Area Marine Welder Device Identifier Shelf Expiration Date Model / [...] A1C, B Routine 03/29/2023 7:0 7 AM UTILITY CLERK Angina Pectoris Unspecified (HCC) OUTSIDE MG MAMMOGRAM Routine 01/04/2023 8:45 AM UTILITY CLERK from Last 3 Months or Most Recently [...] CDT Ty Finch M.D. LAB BLOOD ADD-ON [address] [place] [address] * MR Brain WO (Unpaired)-Outside MR Neuro [...] Not In System IMG MRI PROCEDURE S IIMT NA * Hemoglobin A1c (03/29/2023 7:07 AM UTILITY CLERK) Hemoglobin A1c, B 5.2 4.0 - 5.6 % 03/29/2023 7:50 AM UTILITY CLERK DTL Blood (Blood, Venous) 03/29/2023 7:07 AM UTILITY CLERK 03/29/2023 7:28 AM UTILITY CLERK Ming Campbell M.D. LAB BLOOD ADD-O N Performing Organization Address City/[facility]/ZIP Co de Phone Number [facility] [address] [place] [address], [place] D[place] [facility] [address] [place] [address] * MM diagnostic mammo BI-Outside Mammogram (01/04/2023 8:45 AM UTILITY CLERK) Narrative IIMS - 03/02/2023 4:33 PM UTILITY CLERK This order has been created and auto-finalized to support the import of outside images. If available, original interpretation can be found on the Media Tab in Chart Review, in Document Viewer, or as an image in QREADS. If a re-interpretation or overread is required please follow defined workflow. ?? Provider Not In System IMG BI PROCEDURES Performing Organization Address City/[facility] Co de Phone Number IIMS NA from Last 3 Months or Most Recently Relevant to Health Maintenance
--- OUTSIDE RECORDS SUMMARY | 2023-09-20 18:53 | XMS_ITS | Encounter Summary ---
Author Organization [facility] Address [address] [place] [address] Care Team Providers Care Wheel Roller Name Role Phone Unavailable Primary Care Provider Unavailabl e Encounter Details Date Type Department Care Team (Latest Contact Info) Description 09/18/2023 Clinical Communication Division of Gastroenterology in [place], [place] [address] [place] [address] Kiah Sarkar M.B.B.S., M.S. [address] [place] [address] Social History Tobacco Use Types Packs/Day Years Used Date Smoking Tobacco: Never Passive Smoke Exposure: Never Smokeless Tobacco: Never Alcohol Use Standard Drinks/Week Comments Yes 5 (1 standard drink = 0.6 oz pur e alcohol) [facility] Utilities Answer Date Recorded In the past 12 months has e [employer], gas, oil, or water [employer] threatened to shut off services in your [...] your living situation today? I have a [facility] place to live 03/29/2023 Sex and Gender Information Value Date Recorded Sex Assigned at Female 03/21/2023 11:26 AM CASE ASSEMBLER Gender Identity Female 03/21/2023 11:26 AM CASE ASSEMBLER Sexual Orientation Straight 03/21/2023 11 :26 AM CASE ASSEMBLER documented as of this encounter Plan of Treatment Not on file documented as of this encounter Visit Diagnoses Not on filedocumented in this encounter
--- OUTSIDE RECORDS SUMMARY | 2023-09-20 18:53 | XMS_ITS | Clinical Summary ---
Author Organization [facility] Address [place], [place] [address] Care Team Providers Care Sausage Mixer Name Role Phone Ruthie tOero MD Primary Care Provider Encounters Date Type Department Care Team Description 09/20/2023 Lab Requisition [facility] [phone] Unknown, Doctor 09/14/2023 8:20 AM CDT Office Visit [facility] [address] [place] [phone] Rosa Villalobos MD Consult 09/14/2023 Travel 09/13/2023 Telephone [facility] Special[facility] [address] [place] [phone] Rosa Villalobos MD Appointment Reminder 08/16/2023 Telephone [facility] Specialty [facility] [address] [place] [phone] Thi Diaz NP Appointment Request 08/14/2023 Orders Only [facility] Scanner 1 scan: (1-Ord) RAYUS [...] SCAN-MRI INTERPRETATION 08/14/19 12:00 AM CDT (IA) SD COLONOSCOPY REMOVE CARMELINA POLYP LESN SNARE Routine 10/01/2007 Special Screening for Malignant Neoplasms, Colon Benign Neoplasm of Colon from Last 3 Months or Most Recently Relevant to Health Maintenance Results * SCAN-MRI INTERPRETATION (08/14/2023 12:00 AM CDT) Anatomical Region Laterality Modality Other Scanner OTHER * SD COLONOSCOPY REMOVE LESN SNARE (10/01/2007) Neo Velasquez MD PB - DIGESTIVE SY STEM SERVICES from Last 3 Months or Most Recently Relevant to Health Maintenance Care Teams Sausage Mixer Relationship Specialty [place] [address] [place] [phone] PCP - General Internal Medicine 08/16/23
--- OUTSIDE RECORDS SUMMARY | 2023-09-20 18:53 | XMS_ITS | Encounter Summary ---
Author Organization [facility] Address [address] [place] [address] Care Team Providers Care Reconciler Name Role Phone Unavailable Primary Care Provider Unavailabl e Reason for Referral * MRI/CAT/PET Scan (Routine) - Closed Specialty Diagnoses / Procedures Referred By Josue garcia Referred To Contact Radiology Diagnoses Adenoma Adrenal Right Procedures CT Abdomen without and with IV Contrast CT Abdomen Pelvis without and with IV Contrast Ty Finch M.D. [address] [place] [address] [facility] Referral ID Status Reason Start Date Expiration Date Visits Re quested Visits Authorized [id number] Closed 08/30/2023 08/29/2024 1 1 Reason for Visit * MRI/CAT/PET Scan (Routine) - Closed Specialty Diagnoses / Procedures Referred By Josue garcia Referred To Contact Radiology Diagnoses Adenoma Adrenal Right Procedures CT Abdomen without and with IV Contrast CT Abdomen Pelvis without and with IV Contrast Ty Finch M.D. [address] [place] [address] [facility] Referral ID Status Reason Start Date Expiration Date Visits Re quested Visits Authorized [id number] Closed 08/30/2023 08/29/2024 1 1 Encounter Details Date Type Department Care Team (Latest Contact Info) Description 09/01/2023 11:44 AM CDT - 09/01/2023 11:59 PM CDT Hospital Encounter Department of Radiology, [facility], in [place], [place] [address] [place] [address] Ty Finch M.D. [address] [place] [address] Adenoma Adrenal Right Discharge Disposition: Home or Self Care Social History Tobacco Use Types Packs/Day Years Used Date Smoking Tobacco: Never Passive Smoke Exposure: Never Smokeless Tobacco: Never Alcohol Use Standard Drinks/Week Comments Yes 5 (1 standard drink = 0.6 oz pur e alcohol) [facility] Utilities Answer Date Recorded In the past [address] [employer], gas, oil, or water [employer] threatened to shut off services in your [...] your living situation today? I have a [facility] place to live 03/29/2023 Sex and Gender Information Value Date Recorded Sex Assigned at Female 03/21/2023 11:26 AM QUALITY ASSURANCE GROUP LEADER Gender Identity Female 03/21/2023 11:26 AM QUALITY ASSURANCE GROUP LEADER Sexual Orientation Straight 03/21/2023 11 :26 AM QUALITY ASSURANCE GROUP LEADER documented as of this encounter Medications at [...]
--- OUTSIDE RECORDS SUMMARY | 2023-09-20 18:53 | XMS_ITS ---
Author Organization [facility] Address [address] [place] [address] Care Team Providers Care Medical Librarian Name Role Phone Unavailable Primary Care Provider Unavailabl e Genomics Program Status:Identified (Enrolling) Start date:04/27/2023 Continued Care and Services Coordination
--- OUTSIDE RECORDS SUMMARY | 2023-09-20 18:53 | XMS_ITS | Encounter Summary ---
Author Organization [facility] Address [address] [place] [address] Care Team Providers Care Human Resource Consultant Name Role Phone Unavailable Primary Care Provider Unavailabl e Encounter Details Date Type Department Care Team (Latest Contact Info) Description 08/30/2023 9:27 AM CDT - 08/30/2023 11:59 PM CDT Hospital Encounter Department of Laboratory Medicine and Pathology, [facility] in [place], [place] [address] [place] [address] Ty Finch M.D. [address] [place] [address] Adenoma Adrenal Right Discharge Disposition: Home or Self Care Social History Tobacco Use Types Packs/Day Years Used Date Smoking Tobacco: Never Passive Smoke Exposure: Never Smokeless Tobacco: Never Alcohol Use Standard Drinks/Week Comments Yes 5 (1 standard drink = 0.6 oz pur e alcohol) [facility] Utilities Answer Date Recorded In [...] your living situation today? I have a [facility] place to live 03/29/2023 Sex and Gender Information Value Date Recorded Sex Assigned at Female 03/21/2023 11:26 AM CHOIR SINGER Gender Identity Female 03/21/2023 11:26 AM CHOIR SINGER Sexual Orientation Straight 03/21/2023 11 :26 AM CHOIR SINGER documented as of this encounter Medications at [...] CDT Ty Finch M.D. LAB BLOOD ADD-ON [facility] [address] [place] [address], [place] D[place] [facility] [address] [place] [address] documented in this encounter Visit Diagnoses Diagnosis Adenoma Adrenal Right documented in this encounter
--- OUTSIDE RECORDS SUMMARY | 2023-09-20 18:53 | XMS_ITS | Encounter Summary ---
Author Organization [facility] Address [address] [place] [address] Care Team Providers Care Institutional Aide Name Role Phone Unavailable Primary Care Provider Unavailabl e Reason for Referral * MRI/CAT/PET Scan (Routine) - Authorized Specialty Diagnoses / Procedures Referred By Josue garcia Referred To Contact Radiology Diagnoses Cyst Pancreas Genetic Susceptibility To Other Malignant Neoplasm Procedures MR Abdomen MRCP without and with IV Contrast Anabelle Mcnulty APRN, Aman.N.Alfredo, D.N.P., M.S. [address] [place] [address] [facility] Referral ID Status Reason Start Date Expiration Date V isits Requested Visits Authorized [id number] Authorized 07/18/2023 07/17/2024 1 1 Encounter Details Date Type Department Care Team (Late st Contact Info) Description 07/18/2023 Orders Only Department of Medical Genetics in [place], [place] [address] [place] [phone] Anabelle Mcnulty APRN, C.N.P., D.N.P., M.S. [address] [place] [address] Cyst Pancreas (Primary Dx); Genetic Susceptibility To Other Malignant Neoplasm Social History Tobacco Use Types Packs/Day Years Used Date Smoking Tobacco: Never Passive Smoke Exposure: Never Smokeless Tobacco: Never Alcohol Use Standard Drinks/Week Comments Yes 5 (1 standard drink = 0.6 oz pur e alcohol) [facility] Utilities Answer Date Recorded In the [...] your living situation today? I have a [facility] place to live 03/29/2023 Sex and Gender Information Value Date Recorded Sex Assigned at Female 03/21/2023 11:26 AM MEALS ON WHEELS DRIVER Gender Identity Female 03/21/2023 11:26 AM MEALS ON WHEELS DRIVER Sexual Orientation Straight 03/21/2023 11 :26 AM MEALS ON WHEELS DRIVER documented as of this encounter Plan of [...]
--- OUTSIDE RECORDS SUMMARY | 2023-09-20 18:53 | XMS_ITS | Encounter Summary ---
Author Organization [facility] Address [address] [place] [address] Care Team Providers Care Installation Manager Name Role Phone Unavailable Primary Care Provider Unavailabl e Reason for Visit * Outpatient (Routine) - Closed Specialty Diagnoses / Procedures Referred By Contact Referred To Contact Gastroenterology and Hepatology Diagnoses Cyst Pancreas Procedures Gastroenterology and Hepatology - Pancreas cyst eConsult Anabelle Mcnulty APRN, C.N.P., D.N.P., M.S. [address] [place] [phone] [facility] Referral ID Status Reason Start Date Expiration Date Visits Re quested Visits Authorized [id number] Closed 05/08/2023 05/07/2024 1 1 Encounter Details Date Type Department Care Team (Late st Contact Info) Description 07/17/2023 11:20 AM CDT Internal E-Consult Division of Gastroenterology in [place], [place] [address] [place] [phone] Anabelle Mcnulty APRN, C.N.P., D.N.P., M.S. [address] [place] [phone] Kiah Sarkar M.B.B.S., M.S. [address] [place] [phone] Cyst Pancreas Social History Tobacco Use Types Packs/Day Years Used Date Smoking Tobacco: Never Passive Smoke Exposure: Never Smokeless Tobacco: Never Alcohol Use Standard Drinks/Week Comments Yes 5 (1 standard drink = 0.6 oz pur e alcohol) [facility] Utilities Answer Date Recorded In the past [...] Sex Assigned at Female 03/21/2023 11:26 AM EARTH SCIENCE PROFESSOR Gender Identity Female 03/21/2023 11:26 AM EARTH SCIENCE PROFESSOR Sexual Orientation Straight 03/21/2023 11 :26 AM EARTH SCIENCE PROFESSOR documented as of this encounter Consult Notes [...] the pancreatic duct and 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 Altogether, this is less worrisome but I would recommend ongoing surveillance by repeat MRI with MRCP in 1 year. documented in this encounter Plan of Treatment Not on file documented as of this encounter Visit Diagnoses Diagnosis Cyst Pancreas documented in this encounter"
--- OUTSIDE RECORDS SUMMARY | 2023-09-20 18:53 | XMS_ITS | Encounter Summary ---
Author Organization [facility] Address [address] [place] [address] Care Team Providers Care Forest Practices Field Coordinator Name Role Phone Unavailable Primary Care Provider Unavailabl e Reason for Visit * Reason Onset Date Comments OSM 08/15/2023 SISI OSM 08/15/2023 SISI Encounter Details Date Type Department Care Team (Latest Contact Info) Description 08/15/2023 Clinical Communication Department of Neurologic Surgery in [place], [place] [address] [place] [phone] Prescheduling, Provider OSM (SISI); OSM (SISI) Social History Tobacco Use Types Packs/Day Years Used Date Smoking Tobacco: Never Passive Smoke Exposure: Never Smokeless Tobacco: Never Alcohol Use Standard Drinks/Week Comments Yes 5 (1 standard drink = 0.6 oz pur e alcohol) [facility] Utilities Answer Date Recorded In the past 12 months has [employer], gas, oil, or water company threatened [...] your living situation today? I have a [facility] place to live 03/29/2023 Sex and Gender Information Value Date Recorded Sex Assigned at Female 03/21/2023 11:26 AM PEDAL ASSEMBLER Gender Identity Female 03/21/2023 11:26 AM PEDAL ASSEMBLER Sexual Orientation Straight 03/21/2023 11 :26 AM PEDAL ASSEMBLER documented as of this encounter Plan of Treatment Not on file documented as of this encounter Visit Diagnoses Not on filedocumented in this encounter
--- OUTSIDE RECORDS SUMMARY | 2023-09-20 18:53 | XMS_ITS ---
Author Organization [facility] Address [address] [place] [address] Care Team Providers Care Hospitality Ambassador Name Role Phone Unavailable Unavailable Unavailable Surgery Details Not on file Complications Check Surgery Details section. Procedure Estimated Blood Loss Check Surgery Details section. Procedure Findings Check Surgery Details section. Procedure Specimens Taken Check Surgery Details section.
--- OUTSIDE RECORDS SUMMARY | 2023-09-20 18:53 | XMS_ITS | Encounter Summary ---
Author Organization [facility] Address [address] [place] [address] Care Team Providers Care Outsole Leveler Name Role Phone Unavailable Primary Care Provider Unavailabl e Reason for Referral * MRI/CAT/PET Scan (Routine) - Closed Specialty Diagnoses / Procedures Referred By Josue garcia Referred To Contact Radiology Diagnoses Adenoma Adrenal Right Procedures CT Abdomen without and with IV Contrast CT Abdomen Pelvis without and with IV Contrast Ty Finch M.D. 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 [address] [place] [phone] [facility] Referral ID Status Reason Start Date Expiration Date Visits Re quested Visits Authorized [id number] Closed 05/08/2023 11/06/2024 1 1 Encounter Details Date Type Department Care Team (Latest Contact Info) Description 08/30/2023 8:30 AM CDT Comprehensive Visit Division of Endocrinology in [place], [place] [address] [place] [phone] Ty Finch M.D. [address] [place] [phone] Genetic Susceptibility To Other Malignant Neoplasm; Adenoma Adrenal Right Social History Tobacco Use Types Packs/Day Years Used Date Smoking Tobacco: Never Passive Smoke Exposure: Never Smokeless Tobacco: Never Alcohol Use Standard Drinks/Week Comments Yes 5 (1 standard drink = 0.6 oz pur e alcohol) [facility] [employer] Answer Date Recorded In the past 12 months has [employer], gas, oil, or water [employer] threatened to shut off services in your [...] Sex Assigned at Female 03/21/2023 11:26 AM GREENHOUSE MANAGER Gender Identity Female 03/21/2023 11:26 AM GREENHOUSE MANAGER Sexual Orientation Straight 03/21/2023 11 :26 AM GREENHOUSE MANAGER documented as of this encounter Last Filed [...] the PET scan from April did not picker tender helper any paraganglioma-type abnormalities. She will visit with [...] Ty Finch M.D. CT CT Job ID: [id number]/maria esther documented in this encounter Plan of [...] CDT Ty Finch M.D. 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
--- OUTSIDE RECORDS SUMMARY | 2023-09-20 18:53 | XMS_ITS | Encounter Summary ---
Author Organization [facility] Address [address] [place] [address] Care Team Providers Care Blast Furnace Helper Name Role Phone Unavailable Primary Care Provider Unavailabl e Reason for Referral * MRI/CAT/PET Scan (Routine) - Authorized Specialty Diagnoses / Procedures Referred By Josue t Referred To Contact Radiology Diagnoses Malformation Arnold Chiari (HCC) Procedures MR Cervical Spine without IV Contrast Daniela Mclean APRN, C.N.P. [address] [place] [phone] [facility] Referral ID Status Reason Start Date Expiration Date V isits Requested Visits Authorized [id number] Authorized 08/17/2023 08/16/2024 1 1 Encounter Details Date Type Department Care Team (Late st Contact Info) Description 08/17/2023 Clinical Communication Department of Neurologic Surgery in [place], [place] [address] [place] [phone] Yon Juárez M.D. [address] [place] [phone] Social History Tobacco Use Types Packs/Day Years Used Date Smoking Tobacco: Never Passive Smoke Exposure: Never Smokeless Tobacco: Never Alcohol Use Standard Drinks/Week Comments Yes 5 (1 standard drink = 0.6 oz pur e alcohol) [facility] Utilities Answer Date Recorded In [...] your living situation today? I have a [facility] place to live 03/29/2023 Sex and Gender Information Value Date Recorded Sex Assigned at Female 03/21/2023 11:26 AM INSULATION BOARD CALENDER OPERATOR Gender Identity Female 03/21/2023 11:26 AM INSULATION BOARD CALENDER OPERATOR Sexual Orientation Straight 03/21/2023 11 :26 AM INSULATION BOARD CALENDER OPERATOR documented as of this encounter Plan [...]
--- OUTSIDE RECORDS SUMMARY | 2023-09-20 18:53 | XMS_ITS | Encounter Summary ---
Author Organization [facility] Address [address] [place] [address] Care Team Providers Care Payroll Officer Name Role Phone Unavailable Primary Care Provider Unavailabl e Encounter Details Date Type Department Care Team (Latest Contact Info) Description 09/12/2023 Clinical Communication Division of Endocrinology in [place], [place] [address] [place] [address] Edna Meade M.D. [address] [place] [phone] Social History Tobacco Use Types Packs/Day Years Used Date Smoking Tobacco: Never Passive Smoke Exposure: Never Smokeless Tobacco: Never Alcohol Use Standard Drinks/Week Comments Yes 5 (1 standard drink = 0.6 oz pur e alcohol) [facility] Utilities Answer Date Recorded In [...] your living situation today? I have a [facility] place to live 03/29/2023 Sex and Gender Information Value Date Recorded Sex Assigned at Female 03/21/2023 11:26 AM CHIEF CONTROLLER CENTER Gender Identity Female 03/21/2023 11:26 AM CHIEF CONTROLLER CENTER Sexual Orientation Straight 03/21/2023 11 :26 AM CHIEF CONTROLLER CENTER documented as of this encounter Miscellaneous Notes * Telephone Encounter - Edna Meade M.D. - 09/12/2023 1:[address] 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 What is size and follow-up needed? I let them know that this is typically a question for the radiologist, and that in my experience wedo not always arrange follow-up on these. Please let her know your thoughts. Thanks. [facility] documented in this encounter Plan of Treatment Not on file documented as of this encounter Visit Diagnoses Not on filedocumented in this encounter
--- NOTE | 2023-09-20 19:15 | CRLHL7_ITS ---
For Patients: As a result of the Century Cures Act, medical imaging exams and procedure reports are released immediately into your electronic medical record. You may view this report before your referring provider. If you have questions, please contact your health care provider. 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 COMPARISON: MRI of the abdomen September 29, 2014; CT abdomen and pelvis with intravenous and oral contrast September 22, 2014. Technique: Precontrast T1 and T2 weighted imaging; T2 haste imaging; diffusion-weighted imaging; in- and out of phase imaging; postcontrast imaging including subtraction; 20 cc dotarem contrast was injected. Findings: Tiny cysts identified in segment 8 and 7 of the liver. No focal hepatic or splenic pathology. No pancreatic pathology. Gallbladder is unremarkable. Stable enlargement of the right adrenal with signal dropout on the out of phase imaging indicating lipid rich adenoma without any interval change when compared to September 29, 2014. The left adrenal is unremarkable. Kidneys are normal in structure without any obstructive uropathy. No mass lesions identified in the kidneys. No retroperitoneal lymphadenopathy. No evidence of abdominal ascites. Impression: 1. Tiny cysts in the liver 2. Diffuse stable enlargement right adrenal with signal dropout on the out of phase imaging; rule out lipid rich adenoma. 3. Negative MRI of the abdomen without and with intravenous contrast otherwise. Dictated by Angelita Ramsey MD @ 09/22/2023 9:26:08 AM (Electronically Signed)
== END 2023-09-20 18:51 | disposition home or self-care (01) ==
LOC: MRI 18:51
PROVIDERS: PCP Nurse Practitioner Family; Visit Provider Family Medicine
DX: K86.9 Disease of pancreas, unspecified (principal); K76.89 Other specified diseases of liver; E27.9 Disorder of adrenal gland, unspecified; R63.4 Abnormal weight loss
CPT/HCPCS: 74183; 82384; A9575

== ENCOUNTER 2023-10-31 19:20 | Outpatient (CLI) | payer MEDICARE, SELFPAY ==
--- OUTSIDE RECORDS SUMMARY | 2023-10-31 19:22 | XMS_ITS | Encounter Summary ---
Author Organization [facility] Address [address] [place] [address] Care Team Providers Care Metal Drawer Name Role Phone Fina Marie MD Primary Care Provider [phone] Reason for Visit * Auth/Cert (Routine) Specialty Diagnoses / Procedures Referred By Contact Referred To Contact Gastroenterology Diagnoses Pancreatic cyst Early satiety Pancreatic cyst [K86.2] Early satiety [R68.81] Procedures AL UPPR GI ENDOSCOPY W/US FN BX AL EGD INTRMURAL NEEDLE ASPIR/BIOP ALTERED ANATOMY ENDOSCOPIC ULTRASOUND WITH FINE NEEDLE ASPIRATION, ESOPHAGOGASTRODUODENOSCOPY Endoscopy [address] [phone] Referral ID Status Reason Start Date Expiration Date Visits Re quested Visits Authorized [id number] 1 1 Encounter Details Date Type Department Care Team (Latest Contact Info) Description 10/24/2023 11:00 AM CDT - 10/24/2023 12:30 PM CDT Surgery [facility] Endoscopy [address] [phone] Nasrin Condon MD [place] [facility] [address] [place] [address] ENDOSCOPIC ULTRASOUND WITH FINE NEEDLE ASPIRATION, ESOPHAGOGASTRODUODENOSCOPY Surgery Details Date/Time Status Location OR Service Patient Class Case Class Case Type Trauma Case? 10/24/23 11:00 AM Posted GI GI SP 01 Gastroenterology Outpatient Elective Panel 1 Procedure LRB Anes Op Region Wound Class Comments ENDOSCOPIC ULTRASOUND WITH F INE NEEDLE ASPIRATION, ESOPHAGOGASTRODUODENOSCOPY N/A MAC Esophagus II-Cl lg Contaminated ESOPHAGOGASTRODUODENOSCOPY, WITH BIOPSY N/A Moderate Sedation Esophagus II-Clean Contaminated Surgeon Surgeon Role Service Panel Nasrin Condon MD Primary Gastroentero logy 1 Special Needs PATIENT REPORTS HISTORY OF RAPID HEARTBEAT ALLERGIES: PENICILLINS LM re: need for H&P and to call us /[facility] [place] documented in this encounter Social History Tobacco Use Types Packs/Day Years Used Date Smoking Tobacco: Never Smokeless Tobacco: Never Tobacco Cessation:Counseling Given: Not Answered Alcohol Use Standard Drinks/Week Comments Yes 0 (1 standard drink = 0.6 oz pure alcohol) occasional (2 servings per week) Sex and Gender Information Value Date Recorded Sex Assigned at Not on file Gender Identity Not on file Sexual Orientation Not on file documented as of this encounter Last Filed Vital Signs Vital Sign Reading Time Taken Comments Blood Pressure 103/61 10/24/2023 12:30 PM CDT Pulse 62 10/24/2023 12:30 PM CDT Temperature - - Respiratory Rate 13 10/24/2023 12:30 PM CDT Oxygen Saturation 99% 10/24/2023 12:30 PM CDT Inhaled Oxygen Concentration - - Weight 53.5 kg (118 lb) 10/24/2023 10:00 AM CDT Height 175.3 cm (5' 9) 10/24/2023 10:00 AM CDT Body Mass Index 17.43 10/24/2023 10:00 AM CDT documented in this encounter Medications at Time of Discharge Medication Sig Dispensed Refills Start Date End Date acyclovir (ZOVIRAX) 400 MG tablet Take 400 mg by mouth See Admin Instructions. Take 400 mg by mouth as needed. 03/20/2023 Calcium Carb-Cholecalciferol 600-20 MG-MCG CHEW Take 2 tablets by mouth daily. Chew 2 tablets daily. omeprazole (PRILOSEC) [address] capsule TAKE 1 CAPSULE (20 MG) BY MOUTH TWICE A DAY 09/25/2023 Probiotic Product ([employer] PROBIOTIC) CAPS [employer] PROBIOTIC CAPS propranolol (INDERAL) 10 MG tablet TAKE ONE TABLET BY MOUTH THREE TIMES A DAY NEEDED FOR ANXIETY OR TACHYCARDIA 09/18/2023 saccharomyces boulardii (FLORASTOR) 250 MG capsule Take 1 capsule by mouth See Admin Instructions. documented as of this encounter Plan of Treatment Not on file documented as of this encounter Procedures Procedure Name Priority Date/Time Associated Diagnosis Comments NON-GYNECOLOGIC CYTOLOGY Routine 10/24/2023 12:04 PM CDT SURGICAL PATHOLOGY EXAM Routine 10/24/2023 11:53 AM CDT UGI ENDOSCOPY DIAG W BIOPSY 10/24/2023 11:44 AM CDT Pancreatic cyst Early satiety Special Needs PATIENT REPORTS HISTORY OF RAPID HEARTBEAT ALLERGIES: PENICILLINS LM re: need for H&P and to [place] [facility] [place] ESOPHAGOGASTRODUO DENOSCOPY, WITH FINE NEEDLE ASPIRATION BIOPSY, WITH ENDOSCOPIC ULTRASOUND GUIDANCE 10/24/2023 11:44 AM CDT Pancreatic cyst Early satiety Special Needs PATIENT REPORTS HISTORY OF RAPID HEARTBEAT ALLERGIES: PENICILLINS LM re: need for H&P and to [place] us [facility] [place] [facility] [place]ER EUS Routine 10/24/2023 11:34 AM CDT documented in this encounter Results * Cytology, non-gynecologic (10/24/2023 12:04 PM CDT) Final Diagnosis Specimen A Interpretation: Negative for malignancy Other Findings: Mucicarmine stain is negative for intracellular or extracellular mucin. 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 Pancreas, Tail, :A. Pancreas, Tail, Pancreatic Cyst Fluid: Received 2 slides, processed 1 air dried Aviles stained smear and 1 mucicarmine stained smear. 10/26/2023 3:32 PM CDT [facility] Microscopic Description A microscopic examination was performed. Case was reviewed by the following: Pathology Fellow: Alyse Matos DO Pathology Fellow: Ebonie Marx MD Resident Pathologist: Rodolfo De La Cruz MD A resident or fellow in a training program was involved in the initial review, preparation, and/or interpretation of this case. I, as the senior physician, attest that I have personally reviewed all specimens and or slides, including the listed special stains, and used them with my medical judgement to determine the final diagnosis. 10/26/2023 3:32 PM CDT [facility] Performing Labs The technical component of this testing was completed at [facility] and [facility]. Stain controls for all stains resulted within this report have been reviewed and show appropriate reactivity. 10/26/2023 3:32 PM CDT [facility] Cyst STRUCTURE OF TAIL OF PANCREAS / Unknown 10/24/2023 12:04 PM CDT 10/25/2023 10:23 AM CDT Nasrin ANGELES - D[facility] [address] [facility] [address] [facility], Room [address] [place], [place] [id number] * Surgical Pathology Exam (10/24/2023 11:53 AM CDT) Case Report Surgical Pathology R eport ? Case: [id number] ? Authorizing Provider: ??Nasrin Condon, ??Collected: ? 10/24/2023 11:53 AM ? MD ? Ordering Location: ? [facility] ?Received: ?10/24/2023 12:23 PM ? [facility] ? Pathologist: ? Devon Ivan MD ? Specimens: ?? A) - Small Intestine, Duodenum, rule out celiac ? B) - Stomach, rule out h. pylori ? 4 9:48 AM CDT LABORATORY Final Diagnosis A. Duodenum, biopsies: --No significant histopathologic change. B. Stomach, biopsies: --Gastric mucosa with no significant histopathologic change. --Negative for Helicobacter pylori organisms or dysplasia. 4 9:48 AM CDT LABORATORY Clinical Information Procedure: ENDOSCOPIC ULTRASOUND WITH FINE NEEDLE ASPIRATION, ESOPHAGOGASTRODUODENOSCOP Y Pre-op Diagnosis: Pancreatic cyst [K86.2] Early satiety [R68.81] Post-op Diagnosis: K86.2 - Pancreatic cyst [ICD-10-CM] R68.81 - Early satiety [ICD-10-CM] 4 9:48 AM CDT LABORATORY Gross Description A(1). Small Intestine, Duodenum, rule out celiac: The specimen is received in formalin, labeled with the patient's name, medical record number and other identifying information and designated ? duodenum rule out celiac? . It consists of 3 matamoros soft tissue fragments 0.3 cm. Entirely submitted in one cassette. B(2). Stomach, rule out h. pylori: The specimen is received in formalin, labeled with the patient's name, medical record number and other identifying information and designated ? stomach rule out H. pylori? . It consists of 6 matamoros soft tissue fragments ranging from 0.1-0.2 cm. Entirely submitted in one cassette. (LINDSAY Jackson (ASCP) 10/24/2023 12:34 PM 9:48 AM CDT LABORATORY Microscopic Description Microscopic examination was performed. 9:48 AM CDT LABORATORY Performing Labs The technical component of this testing was completed at [facility]. Stain controls for all stains resulted within this report have been reviewed and show appropriate reactivity. 9:48 AM CDT LABORATORY Case Images 9:48 AM CDT LABORATORY Biopsy DUODENAL STRUCTURE / Unknown 10/24/2023 11:53 AM CDT 10/24/2023 12:23 PM CDT Specimen from unspecified body site obtained by biopsy (specimen) STOMACH STRUCTURE / Unknown 10/24/2023 11:54 AM CDT 10/24/2023 12:23 PM CDT Nasrin ARROYO [facility] [address] [facility] Lab (1st floor, no room number) [place] [address], [facility] LABORATORY [facility] [address] 1[address] floor, [address] [place] [address], [place] [phone] * UPPER EUS (10/24/2023 11:34 AM CDT) Pathologist [facility] Upper EUS [facility] [address] ??[place] ??[id number] ___ Patient Name: Isis Malagon ? Procedure Date: 10/24/2023 11:34 AM ? Date of : 1955 ? Admit Type: Outpatient Age: 68 ? Room: [place] [address] Note Status: Finalized ?Attending MD: NASRIN CONDON MD, Instrument Name: [id number] Linear ___ Procedure: ?Upper EUS Indications: ?Pancreatic cyst, Early satiety Providers: ?NASRIN CONDON MD, Trina Thompson RN Referring MD: ? FINA Whelan MD Medicines: ?Monitored Anesthesia Care, Cipro 400 mg IV Complications: ?No immediate complications. ___ Procedure: ?Pre-Anesthesia Assessment: ?- Prior to the procedure, a History and Physical ?was performed, and patient medications and ?allergies were reviewed. The patient is competent. ?The risks and benefits of the procedure and the ?sedation options and risks were discussed with the ?patient. All questions were answered and informed ?consent was obtained. Patient identification and ?proposed procedure were verified by the physician ?in the procedure room. Mental Status Examination: ?alert and oriented. Airway Examination: normal ?oropharyngeal airway and neck mobility. Respiratory ?Examination: clear to auscultation. CV Examination: ?normal. Prophylactic Antibiotics: The patient ?requires prophylactic antibiotics. Prior ?Anticoagulants: The patient has taken no ?anticoagulant or antiplatelet agents. ASA Grade ?Assessment: III - A patient with severe systemic ?disease. After reviewing the risks and benefits, ?the patient was deemed in satisfactory condition to ?undergo the procedure. The anesthesia plan was to ?use monitored anesthesia care (MAC). Immediately ?prior to administration of medications, the patient ?was re-assessed for adequacy to receive sedatives. ?The heart rate, respiratory rate, oxygen ?saturations, blood pressure, adequacy of pulmonary ?ventilation, and response to care were monitored ?throughout the procedure. The physical status of ?the patient was re-assessed after the procedure. ?After obtaining informed consent, the endoscope was ?passed under direct vision. Throughout the ?procedure, the patient's blood pressure, pulse, and ?oxygen saturations were monitored continuously. The ?Endosonoscope was introduced through the mouth, and ?advanced to the second part of duodenum. The upper ?EUS was accomplished with ease. The patient ?tolerated the procedure well. ? Findings: ? ENDOSCOPIC FINDING: : ? The examined esophagus was normal. GEJ at 40 cm. ? No gross lesions were noted in the entire examined stomach. Biopsies ? were taken with a cold forceps for histology. ? No gross lesions were noted in the ampulla and in the entire examined ? duodenum. Biopsies were taken with a cold forceps for histology. ? ENDOSONOGRAPHIC FINDING: : ? There was no sign of significant endosonographic abnormality in the ? common bile duct. The maximum diameter of the duct was 5 mm. An ? unremarkable gallbladder, no pathologic lymphadenopathy, no cysts, no ? calcifications, no stones, no biliary sludge, ducts of normal caliber ? and ducts with regular contour were identified. ? Two anechoic lesion suggestive of a cyst was identified in the ? pancreatic tail. The largest lesion measured 10 mm by 4 mm in maximal ? cross-sectional diameter. There was a single compartment without septae. ? The outer wall of the lesion was thin. There was no associated mass. ? There was no internal debris within the fluid-filled cavity. Diagnostic ? needle aspiration for fluid was performed. Color Doppler imaging was ? utilized prior to needle puncture to confirm a lack of significant ? vascular structures within the needle path. One pass was made with the ? 22 gauge needle using a transgastric approach. A stylet was used. The ? amount of fluid collected was 0.5 mL. The fluid was clear. Sample(s) ? were sent for cytology. Second cyst 6 x 5 mm. Pancreas duct 3 mm in the ? head and 2 mm in the body ? Normal celiac axis. No worrisome mediastinal nodes. ? Impression: ? - Gastric and duodenal bx taken ?- Two pancreas cysts, largest 10 mm. Both appear ?benign.FNA done and pending. Recommendation: ? - Discharge patient to home (ambulatory). ?- Clear liquid diet for 1 day. ?- Await cytology results. ?- Perform magnetic resonance imaging (MRI) with ?gadolinium in 1 year. ?- Ciprofloxacin 250 mg bid x 5 days. Rx sent to ?[facility] ? Nasrin Condon MD NASRIN CONDON MD 10/24/2023 12:33:07 PM I was physically present for the entire viewing portion of the exam. NASRIN CONDON MD Number of Addenda: 0 Note Initiated On: 10/24/2023 11:34 AM Total Procedure Duration: 0 hours 18 minutes 25 seconds Estimated Blood Loss: ? Estimated blood loss: none. Estimated blood loss: none. Scope In: 11:51:10 AM Scope Out: 12:09:35 PM RADIOLOGY RESULTS 10/24/2023 11:3 4 AM CDT Martin Zheng MD PROCEDURES RADIOLOGY RESULTS documented in this encounter Visit Diagnoses Diagnosis Pancreatic cyst Cyst and pseudocyst of pancreas Early satiety documented in this encounter Administered Medications Inactive Administered Medications - up to 3 most recent administrations Medication Order MAR Action Action Date Dose Rate Site ciprofloxacin (CIPRO) infusion 400 mg STAT, 400 mg, Intravenous, ONCE PRN, Starting on Mon10/24/23 at 0928, For 1 dose, other, fna, Indications: Perioperative Pharmacoprophylaxis documented in this encounter Active and Recently Administered Medications Times are shown in CDT. PRN Medication Order 10/22/2023 10/23/2023 10/24/2023 ciprofloxacin (CIPRO) infusion 400 mg STAT, 400 mg, Intravenous, ONCE PRN, Starting on Mon10/24/23 at 0928, For 1 dose, other, fna, Indications: Perioperative Pharmacoprophylaxis documented in this encounter Care Teams Metal Drawer Relationship Specialty Start Date [place] [address] PCP - General Family Medicine 10/16/23 documented as of this encounter
--- OUTSIDE RECORDS SUMMARY | 2023-10-31 19:22 | XMS_ITS | Clinical Summary ---
Author Organization [facility] Address [address] [place] [address]. [place] [address] Care Team Providers Care Glove Operator Name Role Phone Fina Marie MD Primary Care Provider [phone] [phone] Allergies Active Allergy Reactions Criticality Noted Date Comments Bee Venom Itching,Rash Low 03/16/1974 Swelling when stung as a young adult Penicillin G Itching,Rash Low 03/16/1964 Since childhood Medications Medication Sig Dispensed Refills Start Date End Date Status acyclovir (ZOVIRAX) 400 MG tablet Take 400 mg by mouth See Admin Instructions. Take 400 mg by mouth as needed. 03/20/2023 Active Calcium Carb-Cholecalciferol 600-20 MG-MCG CHEW Take 2 tablets by mouth daily. Chew 2 tablets daily. Active saccharomyces boulardii (FLORASTOR) 250 MG capsule Take 1 capsule by mouth See Admin Instructions. Active omeprazole (PRILOSEC) [address] capsule TAKE 1 CAPSULE (20 MG) BY MOUTH TWICE A DAY 09/25/2023 Active Probiotic Product (CVS PROBIOTIC) CAPS CVS PROBIOTIC CAPS Active propranolol (INDERAL) 10 MG tablet TAKE ONE TABLET BY MOUTH THREE TIMES A DAY NEEDED FOR ANXIETY OR TACHYCARDIA 09/18/2023 Active Encounters Date Type Department Care Team Description 10/24/2023 11:44 AM CDT Anesthesia Event [facility] [address] [phone] Yamilet Mathias MD 10/24/2023 11:00 AM CDT - 10/24/2023 12:30 PM CDT Surgery [facility] [address] [phone] Nasrin Condon MD ENDOSCOPIC ULTRASOUND WITH FINE NEEDLE ASPIRATION, ESOPHAGOGASTRODUODENOSCOPY 10/24/2023 9:15 AM CDT - 10/24/2023 1:01 PM CDT Hospital Encounter [facility] [address] [phone] Nasrin Condon MD Discharge Disposition: Home or Self Care 08/02/2023 Orders Only [facility] [address] [place] [phone] Ruthie Otero MD Nonspecific abnormal results of thyroid function study (Primary Dx) from Last 3 Months Social History Tobacco [...] on file Sexual Orientation Not on file Last Filed Vital Signs Vital Sign Reading Time Taken Comments Blood Pressure 103/66 10/24/2023 12:40 PM CDT Pulse 63 10/24/2023 12:40 PM CDT Temperature - - Respiratory Rate 19 10/24/2023 12:40 PM CDT Oxygen Saturation 99% 10/24/2023 12:40 PM CDT Inhaled Oxygen Concentration - - Weight 53.5 kg (118 lb) 10/24/2023 10:00 AM CDT Height 175.3 cm (5' 9) 10/24/2023 10:00 AM CDT Body Mass Index 17.43 10/24/2023 10:00 AM CDT Plan of Treatment Health Maintenance Due Date Last Done Comments ADVANCE CARE PLANNING 1955 ANNUAL REVIEW OF HM ORDERS [address] CT COLONOGRAPHY 1955 DEXA 1955 FIT 1955 FLEX SIG 1955 GLUCOSE 1955 MAMMO SCREENING 1955 sDNA (Cologuard) 1955 HEPATITIS C SCREENING 1974 LIPID 1996 ZOSTER IMMUNIZATION (2 of 2) 09/21/2017 07/27/2017 COLONOSCOPY 09/30/2017 10/01/2007 COLORECTAL CANCER SCREENING 09/30/2017 FALL RISK ASSESSMENT 2021 MEDICARE ANNUAL WELLNESS VISIT 2021 PHQ-2 (once per calendar year) 2023 COVID-19 Vaccine ( - season) 2023 12/16/2021, 12/04/2020, 02/25/2020, Additional history exists INFLUENZA VACCINE (#1) 2023 3, 12/16/2021, 10/13/2020, Additional history exists RSV VACCINE (1 - 1-dose 75+ series) 07/14/2031 DTAP/TDAP/TD IMMUNIZATION (3 - Td or Tdap) 03/31/2033 03/31/2023, 03/11/2011 Pneumococcal Vaccine: 65+ Years Completed 03/31/2023, 01/06/2022 HPV IMMUNIZATION Aged Out No longer e ligible based on patient's age to complete this topic MENINGITIS IMMUNIZATION Aged Out No l onger eligible based on patient's age to complete this topic RSV MONOCLONAL ANTIBODY Aged Out No l onger eligible based on patient's age to complete this topic Procedures Procedure Name Priority Date/Time Associated Diagnosis Comments NON-GYNECOLOGIC CYTOLOGY Routine 10/24/2023 12:04 PM CDT SURGICAL PATHOLOGY EXAM Routine 10/24/2023 11:53 AM CDT UGI ENDOSCOPY DIAG W BIOPSY 10/24/2023 11:44 AM CDT Pancreatic cyst Early satiety Special Needs PATIENT REPORTS HISTORY OF RAPID HEARTBEAT ALLERGIES: PENICILLINS LM re: need for H&P and to call us [facility] ESOPHAGOGASTRODUODEN OSCOPY, WITH FINE NEEDLE ASPIRATION BIOPSY, WITH ENDOSCOPIC ULTRASOUND GUIDANCE 10/24/2023 11:44 AM CDT Pancreatic cyst Early satiety Special Needs PATIENT REPORTS HISTORY OF RAPID HEARTBEAT ALLERGIES: PENICILLINS LM re: need for H&P and to call us [facility] [place] UPPER EUS Routine 10/24/2023 11:34 AM CDT 5 HIAA QUANTITATIVE URINE Routine 09/10/2023 8:15 AM CDT Diarrhea, unspecified Unspecified abdominal pain T4 FREE Routine 08/02/2023 9:10 AM CDT Abnormal results of thyroid function studies T3 TOTAL Routine 08/02/2023 9:10 AM CDT Abnormal results of thyroid function studies ERYTHROCYTE SEDIMENTATION RATE AUTO Routine 08/02/2023 9:05 AM CDT Other specified disorders of adrenal gland (H24) CRP INFLAMMATION Routine 08/02/2023 9:05 AM CDT Other specified disorders of adrenal gland (H24) CORTISOL Routine 08/02/2023 9:05 AM CDT Other specified disorders of adrenal gland (H24) METANEPHRINES PLASMA FREE Routine 08/02/2023 9:05 AM CDT Other specified disorders of adrenal gland (H24) from Last 3 Months Results * Cytology, non-gynecologic (10/24/2023 12:04 PM [...] component of this testing was completed at [facility]. Stain controls for all stains resulted within this report have been reviewed and show appropriate reactivity. 10/26/2023 3:32 PM CDT SPECIALTY LABS Cyst STRUCTURE OF TAIL OF PANCREAS / Unknown 10/24/2023 12:04 PM CDT 10/25/2023 10:23 AM CDT Nasrin [facility] [address] [facility], [address] * Surgical Pathology Exam (10/24/2023 11:53 AM CDT) Case Report Surgical Pathology R eport ? Case: [id number] ? Authorizing Provider: ??Nasrin Condon, ??Collected: ? 10/24/2023 11:53 AM ? MD ? Ordering Location: ? [facility] ?Received: ?10/24/2023 12:23 PM ? [...] cassette. (LINDSAY Jackson (ASCP) 10/24/2023 12:34 PM 4 9:48 AM CDT LABORATORY Microscopic Description Microscopic examination was performed. 4 9:48 AM CDT LABORATORY Performing Labs The technical component of this testing was completed at [facility]. Stain controls for all stains resulted within this report have been reviewed and show appropriate reactivity. 4 9:48 AM CDT LABORATORY Case Images 4 9:48 AM CDT LABORATORY Biopsy DUODENAL STRUCTURE / Unknown 10/24/2023 11:53 AM CDT 10/24/2023 12:23 PM CDT Specimen from unspecified body site obtained by biopsy (specimen) STOMACH STRUCTURE / Unknown 10/24/2023 11:54 AM CDT 10/24/2023 12:23 PM CDT Nas[facility] [address] [facility] (1st floor, no room number) [place] [address], [facility] [address] 1st floor, [address] [place] [address], [place] [phone] * UPPER EUS (10/24/2023 11:34 AM CDT) Pathologist [facility] Upper EUS [facility] [address] ??[place] ??[id number] ___ Patient Name: Isis Malagon ? Procedure Date: 10/24/2023 11:34 AM ? Date of : 1955 ? Admit Type: Outpatient Age: 68 ? Room: [place] [address] Note Status: Finalized ?Attending MD: NASRIN CONDON MD, Instrument Name: [id number] Linear ___ Procedure: ?Upper EUS Indications: ?Pancreatic [...] bid x 5 days. Rx sent to ?[facility] ? Nasrin Condon MD NASRIN CONDON [...] CDT Martin Zheng MD PROCEDURES RADIOLOGY RESULTS * 5 HIAA Quantitative Urine (09/10/2023 8:15 AM CDT) Creatinine Urine/Volume 45 mg/dL 09/14/2023 7:36 AM CDT [facility] Creatinine Urine/24hr 945 500 - 1400 mg/d 09/14/2023 7:36 AM CDT [facility] 5 HIAA 5.2 mg/L 09/14/2023 7:36 AM CDT [facility] HIAA-24 h 11 0 - 15 mg/d 09/14/2023 7:36 AM CDT [facility] HIAA-5 Creatinine Ratio 12 0 - 14 mg/gCR 09/14/2023 7:36 AM CDT [facility] 5-HIAA 24 Hr/Random Urine Interpretation See Note 09/14/2023 7:36 AM CDT [facility] Comment: INTERPRETIVE INFORMATION: 5-Hydroxyindoleacetic Acid (HIAA), Urine 5-Hydroxyindoleacetic acid (5-HIAA) results are expressed as a ratio to creatinine excretion (mg/g TAWER). No reference interval is available for results reported in units of mg/L. Increased urine 5-HIAA concentration is common and may be the result of improper specimen collection, consumption of serotonin containing foods or dietary supplements, drug interference, or malabsorption syndromes. Significant elevation (ten times the upper reference limit) of urine 5-HIAA may indicate the presence of a carcinoid tumor. This test was developed and its performance characteristics determined by [email or web address]. It has not been cleared or approved by the US Food and Drug Administration. This test was performed in a CLIA certified laboratory and is intended for clinical purposes. Performed By: [email or web address] [address] [place] [address] [employer] Flatbed Truck Driver: Barrett Piper MD, PhD CLIA Number: [id number] Urine MID-STREAM URINE SPECIMEN / Unknown Non-blood Collection / Unknown 09/10/2023 8:15 AM CDT 09/11/2023 9:55 AM CDT Ruthie Otero MD LAB - URINE ORDERABL ES [address] [address], [facility] [phone] * T4 free (08/02/2023 9:10 AM CDT) Free T4 1.39 0.90 - 1.70 ng/dL 08/02/2023 7:38 PM CDT LABORATORY Blood BLOOD SPECIMEN / Unknown Client Draw / Unknown 08/02/2023 9:10 AM CDT 08/02/2023 5:39 PM CDT Ruthie Otero MD LAB - BLOOD ORDERABL ES [facility] LABORATORY [facility] [address] Lab (1st floor, no room number) [place] [address] * T3 total (08/02/2023 9:10 AM CDT) T3 Total 109 85 - 202 ng/dL 08/03/2023 2:15 PM CDT U LABORATORY Blood TOPOGRAPHY UNKNOWN / Unknown Client Draw / Unknown 08/02/2023 9:10 AM CDT 08/02/2023 5:39 PM CDT Ruthie Otero MD LAB - BLOOD ORDERABL ES [facility] LABORATORY [facility] [address] [facility], [address] [place] [address] * Metanephrines Plasma Free (08/02/2023 9:05 AM CDT) Metanephrine 0.17 0.00 - 0.49 nmol/L 08/06/2023 5:50 PM CDT [facility] Normetanephrine 0.84 0.00 - 0.89 nmol/L 08/06/2023 5:50 PM CDT [facility] Metanephrines Interpretation See Note 08/06/2023 5:50 PM CDT [facility] Comment: INTERPRETIVE INFORMATION: Metanephrines, Plasma (Free) This test is useful in the detection of pheochromocytoma, a rare neuroendocrine tumor. The majority of patients with pheochromocytoma have a plasma normetanephrine concentration in excess of 2.2 nmol/L and/or a metanephrine concentration in excess of 1.1 nmol/L. Increased concentrations of these analytes serve as confirmation for diagnosis. Patients with essential hypertension and plasma concentrations of normetanephrine below 0.9 nmol/L and a metanephrine concentration below 0.5 nmol/L, can be excluded from further testing. If clinical suspicion remains, repeat testing or testing for metanephrines in a 24-hr. urine specimen should be considered. This test was developed and its performance characteristics determined by [email or web address]. It has not been cleared or approved by the US Food and Drug Administration. This test was performed in a CLIA certified laboratory and is intended for clinical purposes. Performed By: [email or web address] [address] [place] [address] Regional Flatbed Truck Driver: Barrett Piper MD, PhD CLIA Number: [id number] Blood TOPOGRAPHY UNKNOWN / Unknown Client Draw / Unknown 08/02/2023 9:05 AM CDT 08/02/2023 6:03 PM CDT Ruthie Otero MD LAB - BLOOD ORDERABL ES [facility] [address]24 [facility] [address] [place] [address], [facility] [phone] * Erythrocyte sedimentation rate auto (08/02/2023 9:05 AM CDT) Erythrocyte Sedimentation Rate 12 0 - 30 mm/hr 08/02/2023 8:00 PM CDT LABORATORY Blood TOPOGRAPHY UNKNOWN / Unknown Client Draw / Unknown 08/02/2023 9:05 AM CDT 08/02/2023 6:03 PM CDT Ruthie Otero MD LAB - BLOOD ORDERABL ES LABORATORY [facility] [address] Lab (1st floor, no room number) [place] [address], [facility] * (ABNORMAL) CRP inflammation (08/02/2023 9:05 AM CDT) CRP Inflammation 5.46(H) <5.00 mg/L 08/02/2023 6:32 PM CDT LABORATORY Blood TOPOGRAPHY UNKNOWN / Unknown Client Draw / Unknown 08/02/2023 9:05 AM CDT 08/02/2023 6:03 PM CDT Ruthie Otero MD LAB - BLOOD ORDERABL ES [facility] [address] [facility] (1st floor, no room number) [place] [address] * Cortisol (08/02/2023 9:05 AM CDT) [facility] Cortisol 12.8 ug/dL 08/03/2023 2:43 PM CDT [facility] Comment: 6 months and older: 6 to 10 AM Cortisol Reference Range: ??4-22 ug/dL 4 to 8 PM Cortisol Reference Range: ??3-17 ug/dL Blood TOPOGRAPHY UNKNOWN / Unknown Client Draw / Unknown 08/02/2023 9:05 AM CDT 08/02/2023 6:03 PM CDT Ruthie Otero MD LAB - BLOOD ORDERABL ES [facility] [address] [facility], [address] [address] from Last 3 Months Care Teams Glove Operator Relationship Specialty Start Date End Date Fina Marie MD [address] [address] PCP - General Family Medicine 10/16/23
--- OUTSIDE RECORDS SUMMARY | 2023-10-31 19:22 | XMS_ITS | Encounter Summary ---
Author Organization [facility] Address [address] [place] [address] Care Team Providers Care Diesel Truck Technician Name Role Phone Fina Marie MD Primary Care Provider [phone] [phone] Reason for Visit * Auth/Cert (Routine) Specialty Diagnoses / Procedures Referred By Contact Referred To Contact Gastroenterology Diagnoses Pancreatic cyst Early satiety Pancreatic cyst [K86.2] Early satiety [R68.81] Procedures HI UPPR GI ENDOSCOPY W/US FN BX HI EGD INTRMURAL NEEDLE ASPIR/BIOP ALTERED ANATOMY ENDOSCOPIC ULTRASOUND WITH FINE NEEDLE ASPIRATION, ESOPHAGOGASTRODUODENOSCOPY End[facility] [address] [address] Referral ID Status Reason Start Date Expiration Date Visits Re quested Visits Authorized [id number] 1 1 Encounter Details Date Type Department Care Team (Late st Contact Info) Description 10/24/2023 11:44 AM CDT Anesthesia Event [facility] [address] [phone] Yamilet Mathias MD [facility] [address] [address] Anesthesia Record Procedure Summary Procedure Name Responsible Anesthesiologist Anesthesia Start Time Anesthesia Stop Time ENDOSCOPIC ULTRASOUND WITH F INE NEEDLE ASPIRATION, ESOPHAGOGASTRODUODENOSCOPY (Esophagus) Yamilet Mathias MD 10/24/23 1144 10/24/23 1215 Events Date Time Event Comment 10/24/2023 1014 1137 MEDICAL TRANSCRIPTION Ready for Procedure 1144 An Start Anesthesia Star t is defined as when the anesthesia provider assumed care, began anesthesia prep, remained continuously present with the patient, and excludes all time for performing the pre-anesthesia evaluation. The Pre-Anesthesia Evaluation was completed before Anesthesia Start. 1144 An Start Data 1144 AN REASSESS I attest that I have identified and re-evaluated the patient immediately before the induction of anesthesia and I am satisfied that the anesthetic plan is suitable for the patient's condition and procedure. The first vital signs recorded are pre- induction. Ruthie Dorado APRN MEDICAL TRANSCRIPTION 1148 Anesthesia Ready for Procedu re 1215 an stop data 1215 An Stop Electronically signed by Ruthie Dorado APRN CRNA on October 24, 2023 12:15 PM Meds Name Total lidocaine 2% 60 mg propofol 10 mg/mL 60 mg propofol drip mcg/kg/min 190.46 mg ondansetron 2 mg/mL 4 mg dexmedeTOMIDine (PRECEDEX) 4 mcg/mL in N aCl 25mL 20 mcg ciprofloxacin bag 400 mg 400 mg LR 0 mL * Agents Name O2 N2O Air Exp Sevoflurane Exp Isoflurane Exp Desflurane O2 Delivery Device Ins Sevoflurane Ins Isoflurane Ins Desflurane O2 Auxiliary * Blood No blood administrations on file. Lines, Drains, and Airways Type Details Placement Removal Peripheral IV 10/24/23; 1022; 20 G ; Anterior, Right; Upper forearm 10/24/23 1022 by Xiomy De Paz RN 10/24/23 1255 by Rosibel Carbone RN documented in this encounter Social History Tobacco Use Types Packs/Day Years Used Date Smoking Tobacco: Never Smokeless Tobacco: Never Alcohol Use Standard Drinks/Week Comments Yes 0 (1 standard drink = 0.6 oz pure alcohol) occasional (2 servings per week) Sex and Gender Information Value Date Recorded Sex Assigned at Not on file Gender Identity Not on file Sexual Orientation Not on file documented as of this encounter OR Notes * Anesthesia Postprocedure Evaluation - Yamilet Mathias MD - 10/24/2023 12:18 PM CDT Patient: Isis Malagon Procedure: Procedure(s): ENDOSCOPIC ULTRASOUND WITH FINE NEEDLE ASPIRATION, ESOPHAGOGASTRODUODENOSCOPY Anesthesia Type: MAC Note: Postop Pain Control: Uneventful Sign Out: Well controlled pain PONV: No Neuro/Psych: Uneventful Sign Out: Acceptable/Baseline neuro status Airway/Respiratory: Uneventful Sign Out: Acceptable/Baseline resp. status CV/Hemodynamics: Uneventful Sign Out: Acceptable CV status; No obvious hypovolemia; No obvious fluid overload Other NRE: NONE DID A NON-ROUTINE EVENT OCCUR? No Last vitals: Vitals Value Taken Time BP Temp Pulse Resp SpO2 Electronically Signed By: Yamilet Mathias MD October 24, 2023 12:18 PM * Anesthesia Preprocedure Evaluation - Yamilet Mathias MD - 10/24/2023 7:43 AM CDT Anesthesia Pre-Procedure Evaluation Patient: Isis Malagon : 1955 Procedure : Procedure(s): ENDOSCOPIC ULTRASOUND WITH FINE NEEDLE ASPIRATION, ESOPHAGOGASTRODUODENOSCOPY No past medical history on file. No past surgical history on file. Allergies Allergen Reactions Bee Venom Itching and Rash Swelling when stung as a young adult Penicillin G Itching and Rash Since childhood Social History Tobacco Use Smoking status: Not on file Smokeless tobacco: Not on file Substance Use Topics Alcohol use: Not on file Wt Readings from Last 1 Encounters: No data found for Wt Anesthesia Evaluation Pt has had prior anesthetic. No history of anesthetic complications ROS/MED HX ENT/Pulmonary: - neg pulmonary ROS (-) sleep apnea Neurologic: Comment: CHIARI1 MALFORMATION Cardiovascular: Comment: Occasional SVT (+) Dyslipidemia - - - - - Irregular Heartbeat/Palpitations, METS/Exercise Tolerance: Hematologic: Musculoskeletal: GI/Hepatic: (+) GERD, Asymptomatic on medication, Renal/Genitourinary: (-) renal disease Endo: (-) Type II DM Psychiatric/Substance Use: Infectious Disease: Malignancy: Other: Physical Exam Airway Mallampati: II TM distance: > 3 FB Neck ROM: full Mouth opening: > 3 cm Respiratory Devices and Support Dental (+) Minor Abnormalities - some fillings, tiny chips Cardiovascular cardiovascular exam normal Pulmonary pulmonary exam normal OUTSIDE LABS: CBC: No results found for: WBC, HGB, HCT, PLT BMP: No results found for: NA, POTASSIUM, CHLORIDE, CO2, BUN, CR, GLC COAGS: No results found for: PTT, INR, FIBR POC: No results found for: BGM, HCG, HCGS HEPATIC: No results found for: ALBUMIN, PROTTOTAL, ALT, AST, GGT, ALKPHOS, BILITOTAL,BILIDIRECT, YUE OTHER: Lab Results Component Value Date T4 1.39 08/02/2023 T3 109 08/02/2023 SED 12 08/02/2023 Anesthesia Plan ASA Status: 2 NPO Status: NPO Appropriate Anesthesia Type: MAC. Consents Anesthesia Plan(s) and associated risks, benefits, and realistic alternatives discussed. Questions answered and patient/sales and merchandising representative(s) expressed understanding. - Discussed: - Discussed with: Patient Postoperative Care Comments: Yamilet Mathias MD I have reviewed the pertinent notes and labs in the chart from the past 30 days and (re)examined the patient. Any updates or changes from those notes are reflected in this note. documented in this encounter Miscellaneous Notes * Anesthesia Care Transfer Note - Ruthie Dorado APRN CRNA - 10/24/2023 12:15 PM CDT Patient: Isis Malagon Procedure: Procedure(s): ENDOSCOPIC ULTRASOUND WITH FINE NEEDLE ASPIRATION, ESOPHAGOGASTRODUODENOSCOPY Diagnosis: Pancreatic cyst [K86.2] Early satiety [R68.81] Diagnosis Additional Information: No value filed. Anesthesia Type: MAC Note: Oropharynx: oropharynx clear of all foreign objects and spontaneously breathing Level of Consciousness: awake Oxygen Supplementation: room air Independent Airway: airway patency satisfactory and stable Dentition: dentition unchanged Vital Signs Stable: post-procedure vital signs reviewed and stable Report to RN Given: handoff report given Patient transferred to: Phase II Comments: Pt to ENDO Phase 2 on room air, airway patent, VSS. Report to RN. Handoff Report: Identifed the Patient, Identified the Reponsible Provider, Reviewed the pertinent medical history, Discussed the surgical course, Reviewed Intra-OP anesthesia mangement and issues during anesthesia, Set expectations for post-procedure period and Allowed opportunity for questions andacknowledgement of understanding Vitals: Vitals Value Taken Time BP Temp Pulse Resp SpO2 Electronically Signed By: Ruthie Dorado APRN CRNA October 24, 2023 12:15 PM documented in this encounter Plan of Treatment Not on file documented as of this encounter Visit Diagnoses Not on filedocumented in this encounter Administered Medications Inactive Administered Medications - up to 3 most recent administrations Medication Order MAR Action Action Date Dose Rate Site ciprofloxacin (CIPRO) infusion Routine, Intravenous, PRN, Starting on Mon10/24/23 at 1207, Anesthesia Intra-op $Given 10/24/2023 12:07 PM CDT 400 mg dexmedeTOMIDine (PRECEDEX) 4 mcg/mL in sodium chloride 0.9 % 50 mL infusion Intravenous, PRN, Starting on Mon10/24/23 at 1200, Anesthesia Intra-op $Given 10/24/2023 12:00 PM CDT 8 mcg $Given 10/24/2023 11:56 AM CDT 12 mcg lactated ringers infusion Intravenous, CONTINUOUS PRN, Anesthesia Intra-op, Starting on Mon10/24/23 at 1145, Until Mon10/24/23 at 1215 $New Bag 10/24/2023 11:45 AM CDT lidocaine 2% injection (MDV) Intravenous, PRN, Starting on Mon10/24/23 at 1145, Anesthesia Intra-op $Given 10/24/2023 11:45 AM CDT 60 mg ondansetron (ZOFRAN) injection Intravenous, PRN, Administer over 2-5 Minutes, Starting on Mon10/24/23 at 1149, Anesthesia Intra-op $Given 10/24/2023 11:49 AM CDT 4 mg propofol (DIPRIVAN) infusion Intravenous, CONTINUOUS PRN, Starting on Mon10/24/23 at 1145, Anesthesia Intra-op Rate/Dose Change 10/24/2023 11:54 AM CDT 170 mcg/kg/min 54.57 mL/hr $New Bag 10/24/2023 11:45 AM CDT 150 mcg/kg/min 48.15 mL /hr propofol (DIPRIVAN) injection 10 mg/mL vial Intravenous, PRN, Starting on Mon10/24/23 at 1148, Anesthesia Intra-op $Given 10/24/2023 11:54 AM CDT 10 mg $Given 10/24/2023 11:52 AM CDT 20 mg $Given 10/24/2023 11:48 AM CDT 30 mg documented in this encounter Care Teams Diesel Truck Technician Relationship Specialty Start Date End Date Fina Marie MD [address] [address] PCP - General Family Medicine 10/16/23 documented as of this encounter
--- OUTSIDE RECORDS SUMMARY | 2023-10-31 19:22 | XMS_ITS | Encounter Summary ---
Author Organization [facility] Address [address] [place] [address] Care Team Providers Care Oil Lease Broker Name Role Phone Fina Marie MD Primary Care Provider [phone] [phone] Encounter Details Date Type Department Care Team (Late st Contact Info) Description 08/02/2023 Orders Only [facility] [address] [place] [address] Ruthie Otero MD [facility] [address] [place] [address] Nonspecific abnormal results of thyroid function study (Primary Dx) Social History Tobacco Use Types Packs/Day Years Used Date Smoking Tobacco: Never Assessed Sex and Gender Information Value Date Recorded Sex Assigned at Not on file Gender Identity Not on file Sexual Orientation Not on file documented as of this encounter Plan of Treatment Scheduled Orders Name Type Priority Associated Diagnoses Orde r Schedule T3 total Lab Routine Nonspecific abnormal results of thyroid function study Expected: 08/02/2023 (Approximate), Expires: 08/01/2024 T4 free Lab Routine Nonspecific abnormal results of thyroid function study Expected: 08/02/2023 (Approximate), Expires: 08/01/2024 documented as of this encounter Visit Diagnoses Diagnosis Nonspecific abnormal results of thyroid function study- Primary documented in this encounter Care Teams Oil Lease Broker Relationship Specialty Start Date End Date Fina Marie MD [address] [address] PCP - General Family Medicine 10/16/23 documented as of this encounter
--- OUTSIDE RECORDS SUMMARY | 2023-10-31 19:22 | XMS_ITS | Encounter Summary ---
Author Organization [facility] Address [address] [place] [address] Care Team Providers Care Accounts Adjustable Clerk Name Role Phone Fina Marie MD Primary Care Provider [phone] [phone] Reason for Visit * Auth/Cert (Routine) Specialty Diagnoses / Procedures Referred By Contact Referred To Contact Gastroenterology Diagnoses Pancreatic cyst Early satiety Pancreatic cyst [K86.2] Early satiety [R68.81] Procedures [place] [facility] GI ENDOSCOPY W/US FN BX [place] EGD INTRMURAL NEEDLE ASPIR/BIOP ALTERED ANATOMY ENDOSCOPIC ULTRASOUND WITH FINE NEEDLE ASPIRATION, ESOPHAGOGASTRODUODENOSCOPY Endoscopy [address] [address] Referral ID Status Reason Start Date Expiration Date Visits Re quested Visits Authorized [id number] 1 1 Encounter Details Date Type Department Care Team (Latest Contact Info) Description 10/24/2023 9:15 AM CDT - 10/24/2023 1:01 PM CDT Hospital Encounter [facility] Endoscopy [address] [address] Nasrin Condon MD [facility] [address] [facility] [place] [address] Discharge Disposition: Home or Self Care Social [...] need for H&P and to call us 9/[facility] ESOPHAGOGASTRODUO DENOSCOPY, WITH FINE NEEDLE ASPIRATION BIOPSY, WITH ENDOSCOPIC ULTRASOUND GUIDANCE 10/24/2023 11:44 AM CDT Pancreatic cyst Early satiety Special Needs PATIENT REPORTS HISTORY OF RAPID HEARTBEAT ALLERGIES: PENICILLINS LM re: need for H&P and to call us [facility] UPPER EUS Routine 10/24/2023 11:34 AM CDT [...] component of this testing was completed at [facility]. Stain controls for all stains resulted within this report have been reviewed and show appropriate reactivity. 10/26/2023 3:32 PM CDT SPECIALTY LABS Cyst STRUCTURE OF TAIL OF PANCREAS / Unknown 10/24/2023 12:04 PM CDT 10/25/2023 10:23 AM CDT Nasrin [facility] [address] [facility] [address], [address] [place] [address], [facility] * Surgical Pathology Exam (10/24/2023 11:53 AM CDT) Case Report Surgical Pathology R eport ? Case: [id number] ? Authorizing Provider: ??Nasrin Condon, ??Collected: ? 10/24/2023 11:53 AM ? MD ? Ordering Location: ? [facility] ?Received: ?10/24/2023 12:23 PM ? [facility] ? Pathologist: ? Devon Ivan MD ? Specimens: ?? A) - Small Intestine, Duodenum, rule out celiac ? B) - Stomach, rule out h. pylori ? 4 9:48 AM [facility] Final Diagnosis A. Duodenum, biopsies: --No significant histopathologic change. B. Stomach, biopsies: --Gastric mucosa with no significant histopathologic change. --Negative for Helicobacter pylori organisms or dysplasia. 4 9:48 AM [facility] Clinical Information Procedure: ENDOSCOPIC ULTRASOUND WITH FINE NEEDLE ASPIRATION, ESOPHAGOGASTRODUODENOSCOP Y Pre-op Diagnosis: Pancreatic cyst [K86.2] Early satiety [R68.81] Post-op Diagnosis: K86.2 - Pancreatic cyst [ICD-10-CM] R68.81 - Early satiety [ICD-10-CM] 9:48 AM [facility] Gross Description A(1). Small Intestine, Duodenum, [...] (ASCP) 10/24/2023 12:34 PM 4 9:48 AM [facility] Microscopic Description Microscopic examination was performed. 9:48 AM [facility] Performing Labs The technical component of this testing was completed at [facility]. Stain controls for all [...] CDT Nasrin [facility] [address] [facility] Lab (1st floor, no room number) [place] [address], [facility] Lab [address] 1st floor, [address] [place] [address], [facility] [phone] * UPPER EUS (10/24/2023 11:34 AM CDT) Pathologist [facility] [address] ??[place] ??[address] ___ Patient Name: Isis Malagon ? Procedure Date: 10/24/2023 11:34 AM ? Date of : 1955 ? Admit Type: Outpatient Age: 68 ? Room: [place] [address] Note Status: Finalized ?Attending MD: NASRIN CONDON MD, Instrument Name: [id number] Linear ___ Procedure: ?Upper EUS Indications: ?Pancreatic [...] bid x 5 days. Rx sent to ?[facility] pharmacy ? Nasrin Condon MD NASRIN CONDON [...] RESULTS documented in this encounter Visit Diagnoses Not on filedocumented in this encounter Administered Medications Inactive Administered Medications - up to 3 most recent administrations Medication Order MAR Action Action Date Dose Rate Site ciprofloxacin (CIPRO) infusion 400 mg STAT, 400 mg, Intravenous, ONCE PRN, Starting on Mon10/24/23 at 09, For 1 dose, other, fna, Indications: Perioperative Pharmacoprophylaxis documented in this encounter Active and Recently Administered Medications Times are shown in CDT. PRN Medication Order 10/22/2023 10/23/2023 10/24/2023 ciprofloxacin (CIPRO) infusion 400 mg STAT, 400 mg, Intravenous, ONCE PRN, Starting on Mon10/24/23 at 0928, For 1 dose, other, fna, Indications: Perioperative Pharmacoprophylaxis documented in this encounter Care Teams Accounts Adjustable Clerk Relationship Specialty Start Date End Date Fina Marie MD [address] [address] PCP - General Family Medicine 10/16/23 documented as of this encounter
--- OUTSIDE RECORDS SUMMARY | 2023-10-31 19:22 | XMS_ITS | Referral Summary ---
Author Organization [facility] Address [address] [place] [address]. [place] [address] Care Team Providers Care Sports Bookmaker Name Role Phone Fina Marie MD Primary Care Provider [phone] [phone] Encounters Date Type Department Care Team Description 10/24/2023 11:44 AM CDT Anesthesia Event [facility] Endoscopy [address] [address] Yamilet Mathias MD 10/24/2023 11:00 AM CDT - 10/24/2023 12:30 PM CDT Surgery [facility] Endoscopy [address] [address] Nasrin Condon MD ENDOSCOPIC ULTRASOUND WITH FINE NEEDLE ASPIRATION, ESOPHAGOGASTRODUODENOSCOPY 10/24/2023 9:15 AM CDT - 10/24/2023 1:01 PM CDT Hospital Encounter [facility]oscopy [address] [address] Nasrin Condon MD Discharge Disposition: Home or Self Care 08/02/2023 Orders Only [facility] [address] [place] [phone] Ruthie Otero MD Nonspecific abnormal results of thyroid function study (Primary Dx) from Last 3 Months Allergies Active Allergy [...] NEEDED FOR ANXIETY OR TACHYCARDIA 09/18/2023 Active Social History Tobacco Use Types Packs/Day Years [...] 10/24/2023 10:00 AM CDT Plan of Treatment Not on file Procedures Procedure Name Priority Date/Time Associated Diagnosis Comments NON-GYNECOLOGIC CYTOLOGY Routine 10/24/2023 12:04 PM CDT SURGICAL PATHOLOGY EXAM Routine 10/24/2023 11:53 AM CDT UGI ENDOSCOPY DIAG W BIOPSY 10/24/2023 11:44 AM CDT Pancreatic cyst Early satiety Special Needs PATIENT REPORTS HISTORY OF RAPID HEARTBEAT ALLERGIES: PENICILLINS LM re: need for H&P and to call us [facility] [place] ESOPHAGOGASTRODUODEN OSCOPY, WITH FINE NEEDLE ASPIRATION BIOPSY, WITH ENDOSCOPIC ULTRASOUND GUIDANCE 10/24/2023 11:44 AM CDT Pancreatic cyst Early satiety Special Needs PATIENT REPORTS HISTORY OF RAPID HEARTBEAT ALLERGIES: PENICILLINS LM re: need for H&P and to call us [facility] [place] UPPER EUS Routine 10/24/2023 11:34 AM CDT [...] component of this testing was completed at [facility]. Stain controls for all stains resulted within this report have been reviewed and show appropriate reactivity. 10/26/2023 3:32 PM CDT SPECIALTY LABS Cyst STRUCTURE OF TAIL OF PANCREAS / Unknown 10/24/2023 12:04 PM CDT 10/25/2023 10:23 AM CDT Nasrin [facility] Specialty Lab [address] [facility], [address] [id number] [place] [address] * Surgical Pathology Exam (10/24/2023 11:53 AM CDT) Case Report Surgical Pathology R eport ? Case: [id number] ? Authorizing Provider: ??Nasrin Condon, ??Collected: ? 10/24/2023 11:53 AM ? MD ? Ordering Location: ? [facility] ?Received: ?10/24/2023 12:23 PM ? [facility] [...] component of this testing was completed at [facility]. Stain controls for all stains [...] 12:23 PM CDT Nasrin [facility] Acute [facility] Lab [address] Lab (1st floor, no room number) [place] [address], [facility] LABORATORY [facility] Acute Care Lab [address] 1st floor, [address] [place] [address], [facility] [phone] * UPPER EUS (10/24/2023 11:34 AM CDT) [facility] [address] ??[id number] ___ Patient Name: Isis Malagon ? Procedure Date: 10/24/2023 11:34 AM ? Date of : 1955 ? Admit Type: Outpatient Age: 68 ? Room: [place] [address] Note Status: Finalized ?Attending MD: NASRIN CONDON MD, Instrument Name: [id number] Linear ___ Procedure: ?Upper EUS Indications: ?Pancreatic [...] bid x 5 days. Rx sent to ?[facility] pharmacy ? Nasrin Condon MD NASRIN CONDON [...] as a ratio to creatinine excretion (mg/g PACKAGING INSPECTOR). No reference interval is available for results [...] developed and its performance characteristics determined by [facility]. It has not been cleared or approved by the US Food and Drug Administration. This test was performed in a CLIA certified laboratory and is intended for clinical purposes. Performed By: [facility] [address] [place] [address] Dye Machine Tender: Barrett Piper MD, PhD CLIA Number: [id number] Urine MID-STREAM URINE SPECIMEN / Unknown Non-blood Collection / Unknown 09/10/2023 8:15 AM CDT 09/11/2023 9:55 AM CDT Ruthie Otero MD LAB - URINE ORDERABL ES [place] [facility] [address] [place] [address], [facility] [phone] * T4 free (08/02/2023 9:10 AM CDT) Free T4 1.39 0.90 - 1.70 ng/dL 08/02/2023 7:38 PM CDT LABORATORY Blood BLOOD SPECIMEN / Unknown Client Draw / Unknown 08/02/2023 9:10 AM CDT 08/02/2023 5:39 PM CDT Ruthie Otero MD LAB - BLOOD ORDERABL ES [facility] Acute Care Lab [address] Lab (1st floor, no room number) [place] [address], [facility] * T3 total (08/02/2023 9:10 AM CDT) T3 Total 109 85 - 202 ng/dL 08/03/2023 2:15 PM CDT [facility] Blood TOPOGRAPHY UNKNOWN / Unknown Client Draw / Unknown 08/02/2023 9:10 AM CDT 08/02/2023 5:39 PM CDT Ruthie Otero MD LAB - BLOOD ORDERABL ES [facility] [place] [facility] [address] [facility], [address] [place] [address] * Metanephrines Plasma Free (08/02/2023 9:05 AM CDT) Metanephrine 0.17 0.00 - 0.49 nmol/L 08/06/2023 5:50 PM CDT [facility] Normetanephrine 0.84 0.00 - 0.89 nmol/L 08/06/2023 5:50 PM CDT [facility] Metanephrines Interpretation See Note 08/06/2023 5:50 PM CDT [facility] Comment: INTERPRETIVE INFORMATION: Metanephrines, Plasma (Free) [...] developed and its performance characteristics determined by [facility]. It has not been cleared or approved by the US Food and Drug Administration. This test was performed in a CLIA certified laboratory and is intended for clinical purposes. Performed By: [facility] [address] [place] [address] Dye Machine Tender: Barrett Piper MD, PhD CLIA Number: [id number] Blood TOPOGRAPHY UNKNOWN / Unknown Client Draw / Unknown 08/02/2023 9:05 AM CDT 08/02/2023 6:03 PM CDT Ruthie Otero MD LAB - BLOOD ORDERABL ES [facility] [employer] [place] [facility] [employer] [address] [place] [address], [facility] [phone] * Erythrocyte sedimentation rate auto (08/02/2023 9:05 AM CDT) Erythrocyte Sedimentation Rate 12 0 - 30 mm/hr 08/02/2023 8:00 PM CDT LABORATORY Blood TOPOGRAPHY UNKNOWN / Unknown Client Draw / Unknown 08/02/2023 9:05 AM CDT 08/02/2023 6:03 PM CDT Ruthie Otero MD LAB - BLOOD ORDERABL ES [facility] Lab [address] Lab (1st floor, no room number) [place] [address] * (ABNORMAL) CRP inflammation (08/02/2023 9:05 AM CDT) CRP Inflammation 5.46(H) <5.00 mg/L 08/02/2023 6:32 PM CDT LABORATORY Blood TOPOGRAPHY UNKNOWN / Unknown Client Draw / Unknown 08/02/2023 9:05 AM CDT 08/02/2023 6:03 PM CDT Ruthie Otero MD LAB - BLOOD ORDERABL ES Performing Organization Address City/[facility]/ZIP Co de Phone Number [facility] Lab [address] Lab (1st floor, no room number) [place] [address] * Cortisol (08/02/2023 9:05 AM CDT) Cortisol 12.8 ug/dL 08/03/2023 2:43 PM CDT [facility] Comment: 6 months and older: 6 to 10 AM Cortisol Reference Range: ??4-22 ug/dL 4 to 8 PM Cortisol Reference Range: ??3-17 ug/dL Blood TOPOGRAPHY UNKNOWN / Unknown Client Draw / Unknown 08/02/2023 9:05 AM CDT 08/02/2023 6:03 PM CDT Ruthie Otero MD LAB - BLOOD ORDERABL ES LABORATORY [facility] [place] [facility] [address] [facility], [address] [place] [address], [facility] from Last 3 Months Care Teams Sports Bookmaker Relationship Specialty Start Date End Date Fina Marie MD [address] [address] PCP - General Family Medicine 10/16/23
--- OUTSIDE RECORDS SUMMARY | 2023-10-31 19:23 | XMS_ITS | Encounter Summary ---
Author Organization [facility] Address [address] [place] [address] Care Team Providers Care Fine Grader Name Role Phone Unavailable Primary Care Provider Unavailabl e Reason for Referral * MRI/CAT/PET Scan (Routine) - Closed Specialty Diagnoses / Procedures Referred By Josue garcia Referred To Contact Radiology Diagnoses Adenoma Adrenal Right Procedures CT Abdomen without and with IV Contrast CT Abdomen Pelvis without and with IV Contrast Ty Finch M.D. [address] [place] [address] [facility] Referral ID Status Reason Start Date Expiration Date Visits Re quested Visits Authorized [id number] Closed 08/30/2023 08/29/2024 1 1 Reason for Visit * MRI/CAT/PET Scan (Routine) - Closed Specialty Diagnoses / Procedures Referred By Josue garcia Referred To Contact Radiology Diagnoses Adenoma Adrenal Right Procedures CT Abdomen without and with IV Contrast CT Abdomen Pelvis without and with IV Contrast Ty Finch M.D. [address] [place] [address] [facility] Referral ID Status Reason Start Date Expiration Date Visits Re quested Visits Authorized [id number] Closed 08/30/2023 08/29/2024 1 1 Encounter Details Date Type Department Care Team (Latest Contact Info) Description 09/01/2023 11:44 AM CDT - 09/01/2023 11:59 PM CDT Hospital Encounter Department of Radiology, [facility], in [place], [place] [address] [place] [address] Ty Finch M.D. [address] [place] [address] Adenoma Adrenal Right Discharge Disposition: Home or Self Care Social History Tobacco Use Types Packs/Day Years Used Date Smoking Tobacco: Never Passive Smoke Exposure: Never Smokeless Tobacco: Never Alcohol Use Standard Drinks/Week Comments Yes 5 (1 standard drink = 0.6 oz pur e alcohol) [facility] Utilities Answer Date Recorded In the past 12 months has e [employer], gas, oil, or water [employer] threatened to shut off services in your [...] Sex Assigned at Female 03/21/2023 11:26 AM EPIC WILLOW ANALYST Gender Identity Female 03/21/2023 11:26 AM EPIC WILLOW ANALYST Sexual Orientation Straight 03/21/2023 11 :26 AM EPIC WILLOW ANALYST documented as of this encounter Medications at [...]
--- OUTSIDE RECORDS SUMMARY | 2023-10-31 19:23 | XMS_ITS | Clinical Summary ---
Author Organization [facility] Address [address] [place] [address] Care Team Providers Care Playground Attendant Name Role Phone Unavailable Primary Care Provider Unavailabl e Source Comments Patient records contain information from all sites at [facility]. For routine questions regarding patient records, call [phone] during business hours, M-F 8:00 AM - 5:00 PM Central Time. Record requests for emergency care only can be directed to [phone] at any time.[facility] Allergies Active Allergy Reactions Criticality Noted Date Comments Bee Venom Protein (Honey Bee) Itching,Rash Low 03/16/1974 Swelling when stung as a young adult Penicillin G Itching,Rash Low 03/16/1964 Since childhood Medications Medication Sig Dispensed Refills Start Date End Date Status acyclovir (ZOVIRAX) 400 mg tablet Take 400 mg by mouth as needed. 03/20/2023 Active calcium carbonate-vitamin D3 (Calcium 600 with Vitamin D3) 600 mg-10 mcg (400 unit) tablet,chewable Chew 2 tablets daily. Active saccharomyces boulardii (FLORASTOR) 250 mg capsule Take 1 capsule by mouth daily. Natures ---- Active ciprofloxacin (Cipro) 500 mg tablet TAKE 1 TABLET (500 MG) ORALLY TWICE A DAY 09/25/2023 Active omeprazole (PriLOSEC) [address] capsule TAKE 1 CAPSULE (20 MG) BY MOUTH TWICE A DAY 09/25/2023 Active ondansetron ODT (Zofran-ODT) 4 mg disintegrating tablet DISSOLVE ONE TABLET ON THE TONGUE EVERY EIGHT HOURS NEEDED FOR NAUSEA 09/08/2023 Active propranoloL (InderaL) 10 mg tablet TAKE ONE TABLET BY MOUTH THREE TIMES A DAY NEEDED FOR ANXIETY OR TACHYCARDIA 09/18/2023 Active traMADoL (Ultram) 50 mg tablet Take 1 tablet by mouth every 12 (twelve) hours as needed for pain. 09/18/2023 Active valACYclovir (Valtrex) 1000 mg tablet Take 2 tablets by mouth 2 (two) times a day. 09/16/2023 Active Lactobacillus acidophilus 10 billion cell capsule Take by mouth. 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 Aneurysm Splenic Artery (HCC) 09/28/2023 2:15 PM CDT Comprehensive Visit Department of Vascular Medicine in [place], [place] [address] [place] [address] Nathen Macias M.D. Aneurysm Splenic Artery (HCC) (Primary Dx) 09/28/2023 8:44 AM CDT - 09/28/2023 11:59 PM CDT Hospital Encounter Department of Radiology, [facility], in [place], [place] [address] [place] [address] Ty Finch M.D. Aneurysm Splenic Artery (HCC) Discharge Disposition: Home or Self Care 09/18/2023 Clinical Communication Division of Gastroenterology in [place], [place] [address] [place] [address] Kiah Sarkar M.B.B.S., M.S. 09/12/2023 Clinical Communication Division of Endocrinology in [place], [place] [address] [place] [address] Edna Meade M.D. 09/01/2023 11:44 AM CDT - 09/01/2023 11:59 PM CDT Hospital Encounter Department of Radiology, [facility] in [place], [place] [address] [place] [address] Ty Finch M.D. Adenoma Adrenal Right Discharge Disposition: Home or Self Care 08/30/2023 9:27 AM CDT - 08/30/2023 11:59 PM CDT Hospital Encounter Department of Laboratory Medicine and Pathology, [facility] in [place], [place] [address] [place] [phone] Ty Finch M.D. Adenoma Adrenal Right Discharge Disposition: Home or Self Care 08/30/2023 8:30 AM CDT Comprehensive Visit Division of Endocrinology in [place], [place] [address] [place] [phone] Ty Finch M.D. 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 08/15/2023 Clinical Communication Department of Neurologic Surgery in [place], [place] [address] [place] [phone] Prescheduling, Provider OSM (SISI); OSM (SISI) from Last 3 Months Immunizations Name Administration Dates Next Due H1N1 Inj 12/09/2008 Influenza Split Preservative Free ID 11/12/2014 Influenza [...] Other - would like to get at [facility]),03/11/2011 influenza trivalent vaccine (6 months and older)(PF) 11/13/2019,11/08/2017,11/20/2012,2011,11/09/2010,11/10/2009 influenza vaccine QV(FLUBLOK ) (18 years or older) (PF) 11/07/2018 influenza vaccine quad (FLUZONE/FLUARIX) (6 months and older)(PF) 10/13/2020,11/23/2016,11/16/2015 Family History Medical History Relation Name Comments Colon polyps Brother Luigi Beasley Coronary artery disease Brother Luigi Beasley Quad ruple Bypass Hyperlipidemia Brother Luigi Gale Hypertension Brother Luigi Elijahrianna Sleep apnea Brother Luigi Navarianna Colon polyps Father Pedrito Beasley Coronary artery disease Father Pedrito Beasley He art Attack no surgery and later in life had surgery for an aortic aneurysm Dementia Father Pedrito Navarianna Arthritis Mother Kacie Beasley Hyperlipidemia Mother Kacie [...] [place] Alive no fibroids Sister 2 Cheryle Paulino Alive leiomyoma's o n back; getting genetic testing Sister 3 Ana Mitsch (Age 75) Son Alive leiomyomas Social History Tobacco Use Types Packs/Day Years Used Date Smoking Tobacco: Never Passive Smoke Exposure: Never Smokeless Tobacco: Never Tobacco Cessation:Counseling Given: Not Answered Alcohol Use Standard Drinks/Week Comments Yes 5 (1 standard drink = 0.6 oz pur e alcohol) [facility] Utilities Answer Date Recorded In the past [...] your living situation today? [facility] 03/29/2023 Sex and Gender Information Value Date Recorded Sex Assigned at Female 03/21/2023 11:[address]PER[address] FORMS Gender Identity Female 03/21/2023 11:[address] MACHINE [address]PERATOR [address] FORMS Sexual Orientation Straight 03/21/2023 11 :26 AM [address] MACHINE OPERATOR [address] FORMS Last Filed Vital Signs Vital Sign Reading Time Taken Comments Blood Pressure 134/75 09/28/2023 2:43 PM CDT Pulse 71 09/28/2023 2:43 PM CDT Temperature - - Respiratory Rate - - Oxygen Saturation 100% 09/28/2023 10:35 AM CDT Inhaled Oxygen Concentration - - Weight 53 kg (116 lb 13.5 oz) 09/28/2023 2:42 PM CDT Height 176 cm (5' 9.29) 09/28/2023 2:42 PM CDT Body Mass Index 17.11 09/28/2023 2:42 PM CDT Plan of Treatment Health Maintenance Due Date Last Done Comments Bone Density Scan (Osteoporo sis Screen) 1956 CT Colonography 1955 Cologuard 1955 Colonoscopy 1955 Colorectal Cancer Surveillance 1955 Hepatitis C Screening 1955 Zoster Vaccines (2 of 2) 09/21/2017 07/27/2017 COVID-19 Vaccine (5 - 2023-2 5 season) 2023 12/16/2021, 12/04/2020, 02/25/2020, Additional history exists Influenza Vaccine (#1) 2023 , 12/16/2021, 10/13/2020, Additional history exists Mammogram 01/05/2024 01/04/2023, 02/06, 01/18/2021, Additional history exists Fasting Glucose for Diabetes Screening 03/29/2026 03/29/2023, 03/29/2023 DTaP,Tdap,and Td Vaccines (3 - Td or Tdap) 03/31/2033 03/31/2023, 03/11/2011 Depression Screening (Annual PHQ-2) Completed 03/28/2023, 03/27/2023 Fall Risk Screen (Annual) Completed 03/28/2023 Pneumococcal vaccine (65+ years) Completed 03/31/19 24, 01/06/2022 Medical Devices Implanted Type Area Glass Block Installer Device Identifier Shelf Expiration Date Model / Serial / Lot Imaging Marker Imaging Marker Left: Breast Description:Clip in left jeanie ast Procedures Procedure Name Priority Date/Time Associated Diagnosis Comments CT ABDOMEN PELVIS ANGIOGRAM WITH IV CONTRAST RAD - Routine (most inpatients and all outpatients) 09/28/2023 10:40 AM CDT Aneurysm Splenic Artery (HCC) CT ABDOMEN WITHOUT AND WITH IV CONTRAST RAD - Routine (most inpatients and all outpatients) 09/01/2023 1:26 PM CDT Adenoma Adrenal Right CREATININE WITH EGFR, S/P Routine 08/30/2023 9:37 AM CDT Adenoma Adrenal Right OUTSIDE MR NEURO Routine 08/14/2023 11:3 5 AM CDT HEMOGLOBIN A1C, B Routine 03/29/2023 7:0 7 [address] M[address] OPER[address] FORMS Angina Pectoris Unspecified (HCC) OUTSIDE MG MAMMOGRAM Routine 01/04/2023 8:45 AM [address] MACHINE OPERATOR [address]AD FORMS from Last 3 Months or Most Recently Relevant to Health Maintenance Results * CT Abdomen Pelvis Angiogram with IV Contrast (09/28/2023 10:40 AM CDT) Anatomical Region Laterality Modality Abdomen, Pelvis, Cardiovascu lar RST LOS, Abdominal ARZ LOS, Vascular Interventional ARZ LOS, Abdominal FLA LOS, Vascular Interventional FLA LOS, Procedural, Vascular Interventional NWWI LOS N/A Computed Tomography, Compute d Tomography 09/28/2023 10:1 1 AM CDT Impressions 09/28/2023 11:25 AM CDT 1. 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 2. ??Stable 2.7 cm right adrenal adenoma. Narrative 09/28/2023 11:25 AM CDT EXAM: ??CT ABDOMEN PELVIS ANGIOGRAM WITH IV CONTRAST Including 3D image post-processing with or without AI assistance. COMPARISON: ??CT abdomen pelvis 09/01/2023 and 03/29/2023. PET MR 05/05/2023. FINDINGS: VASCULAR FINDINGS: ABDOMINAL AORTA: Normal caliber with minimal nonstenotic calcification in the infrarenal segment. No penetrating atheromatous ulcer, dissection, or aneurysm. RENAL ARTERIES: Right renal arteries: ??Widely patent single right renal artery. Left renal arteries: ??Widely patent single left renal artery. VISCERAL ARTERIES: Celiac artery: ??Widely patent with minimal nonstenotic calcified plaque at the ostium. Stable peripherally calcified 2.0 x 1.6 x 1.5 cm splenic artery aneurysm at the splenic hilum compared to 03/29/2023 (series 6, image 161). Small amount of peripheral thrombus deposition. Superior mesenteric artery: ??Widely patent and of normal caliber. Inferior mesenteric artery: ??Widely patent and of normal caliber. ILIAC ARTERIES: Bilateral common iliac arteries: ??Widely patent and of normal caliber. Bilateral internal iliac arteries: ??Widely patent and of normal caliber. Bilateral external iliac arteries: ??Widely patent and of normal caliber. Bilateral femoral arteries: ??Widely patent and of normal caliber. ADDITIONAL FINDINGS: Visualized lung bases are free of suspicious masses or nodules. Normal appearance of the liver, gallbladder, pancreas, spleen, left adrenal gland, and left kidney. Unchanged 2.7 cm right adrenal adenoma, better characterized on CT 09/01/2023 and MR 04/26/2023. Tiny right renal cysts. Normal caliber small and large bowel. Hysterectomy. TECHNICAL NOTE: The patient reported rapid heart rate and palpitations following contrast administration. The patient was seen and evaluated at the scanner. At that time, auscultation demonstrated a regular rhythm and rate in the 90s and the patient reported a spontaneous subjective improvement in symptomatology. The patient reported recent application of environmental monitoring specialist from an outside institution and was then instructed to notify the ordering provider. Procedure Note Nolan Brush M.D., Ph.D. - 09/28/2023 EXAM: CT ABDOMEN PELVIS ANGIOGRAM WITH IV CONTRAST Including 3D image post-processing with or without AI assistance. COMPARISON: CT abdomen pelvis 09/01/2023 and 03/29/2023. PET MR05/05/2023. FINDINGS: VASCULAR FINDINGS: ABDOMINAL AORTA: Normal caliber with minimal nonstenotic calcification inthe infrarenal segment. No penetrating atheromatous ulcer, dissection, oraneurysm. RENAL ARTERIES: Right renal arteries: Widely patent single right renal artery. Left renal arteries: Widely patent single left renal artery. VISCERAL ARTERIES: Celiac artery: Widely patent with minimal nonstenotic calcified plaque atthe ostium. Stable peripherally calcified 2.0 x 1.6 x 1.5 cm splenicartery aneurysm at the splenic hilum compared to 03/29/2023 (series 6,image 161). Small amount of peripheral thrombus deposition. Superior mesenteric artery: Widely patent and of normal caliber. Inferior mesenteric artery: Widely patent and of normal caliber. ILIAC ARTERIES: Bilateral common iliac arteries: Widely patent and of normal caliber. Bilateral internal iliac arteries: Widely patent and of normal caliber. Bilateral external iliac arteries: Widely patent and of normal caliber. Bilateral femoral arteries: Widely patent and of normal caliber. ADDITIONAL FINDINGS: Visualized lung bases are free of suspicious masses or nodules. Normalappearance of the liver, gallbladder, pancreas, spleen, left adrenalgland, and left kidney. Unchanged 2.7 cm right adrenal adenoma, bettercharacterized on CT 09/01/2023 and MR 04/26/2023. Tiny right renal cysts. Normal caliber small and large bowel.Hysterectomy. TECHNICAL NOTE: The patient reported rapid heart rate and palpitationsfollowing contrast administration. The patient was seen and evaluated atthe scanner. At that time, auscultation demonstrated a regular rhythm andrate in the 90s and the patient reported a spontaneous subjective improvement in symptomatology. Thepatient reported recent application of environmental monitoring specialist from an outsideinstitution and was then instructed to notify the ordering provider. IMPRESSION: 1. 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 2. Stable 2.7 cm right adrenal adenoma. Ty Finch M.D. Pedro CT PROCEDURES * CT Abdomen without and with IV [...] CDT Ty Finch M.D. LAB BLOOD ADD-ON [facility] [place] [address] [place] [address], [facility] DTL [facility] [address] [place] [address] * MR Brain WO (Unpaired)-Outside MR Neuro [...] Not In System IMG MRI PROCEDURE S IIPR NA * Hemoglobin A1c (03/29/2023 7:07 AM TAMPING MACHINE OPERATOR ROAD FORMS) Hemoglobin A1c, B 5.2 4.0 - 5.6 % 03/29/2023 7:50 AM TAMPING MACHINE OPERATOR ROAD FORMS DTL Blood (Blood, Venous) 03/29/2023 7:07 AM TAMPING MACHINE OPERATOR ROAD FORMS 03/29/2023 7:28 AM TAMPING MACHINE OPERATOR ROAD FORMS Mnig Campbell M.D. LAB BLOOD ADD-O N [facility] [place] [address] [place] [address], [place] DTL [facility] [address] [place] [address] * MM diagnostic mammo BI-Outside Mammogram (01/04/2023 8:45 AM TAMPING MACHINE OPERATOR ROAD FORMS) Narrative [facility] - 03/02/2023 4:33 PM T[address]ING MACHINE OPERATOR ROAD FORMS This order has been created and auto-finalized [...]
--- OUTSIDE RECORDS SUMMARY | 2023-10-31 19:23 | XMS_ITS | Encounter Summary ---
Author Organization [facility] Address [address] [place] [address] Care Team Providers Care Dining Room Tables Set Up Attendant Name Role Phone Unavailable Primary Care Provider Unavailabl e Reason for Referral * MRI/CAT/PET Scan (Routine) - Closed Specialty Diagnoses / Procedures Referred By Josue garcia Referred To Contact Radiology Diagnoses Adenoma Adrenal Right Procedures CT Abdomen without and with IV Contrast CT Abdomen Pelvis without and with IV Contrast Ty Finch M.D. [address] [place] [address] [facility] Referral ID Status Reason Start Date Expiration Date Visits Re quested Visits Authorized [id number] Closed 08/30/2023 08/29/2024 1 1 Reason for Visit * Outpatient (Routine) - Closed Specialty Diagnoses / Procedures Referred By Josue garcia Referred To Contact Endocrinology Diagnoses Genetic Susceptibility To Other Malignant Neoplasm Adenoma Adrenal Right Anabelle Mcnulty APRN, C.N.P., D.N.P., M.S. [address] [place] [address] [facility] Referral ID Status Reason Start Date Expiration Date Visits Re quested Visits Authorized [id number] Closed 05/08/2023 11/06/2024 1 1 Encounter Details Date Type Department Care Team (Latest Contact Info) Description 08/30/2023 8:30 AM CDT Comprehensive Visit Division of Endocrinology in [place], [place] [address] [place] [address] Ty Finch M.D. [address] [place] [phone] Genetic Susceptibility To Other Malignant Neoplasm; Adenoma Adrenal Right Social History Tobacco Use Types Packs/Day Years Used Date Smoking Tobacco: Never Passive Smoke Exposure: Never Smokeless Tobacco: Never Alcohol Use Standard Drinks/Week Comments Yes 5 (1 standard drink = 0.6 oz pur e alcohol) [facility] [employer] Answer Date Recorded In the past 12 months has [employer], gas, oil, or water [employer] threatened to shut off services in [...] Sex Assigned at Female 03/21/2023 11:26 AM PROFESSIONAL HOUSING CONSULTANT Gender Identity Female 03/21/2023 11:26 AM PROFESSIONAL HOUSING CONSULTANT Sexual Orientation Straight 03/21/2023 11 :26 AM PROFESSIONAL HOUSING CONSULTANT documented as of this encounter Last Filed [...] the PET scan from April did not machine pecan picker any paraganglioma-type abnormalities. She will visit [...] Ty Finch M.D. CT CT Job ID: [id number]/maria esther documented in this encounter Plan of [...] CDT Ty Finch M.D. LAB BLOOD ADD-ON [address] [address], [facility] DTL [facility] [address] [place] [address] documented in this encounter Visit Diagnoses Diagnosis Genetic Susceptibility To Other Malignant Neoplasm Adenoma Adrenal Right Adenoma Adrenal Right documented in this encounter
--- OUTSIDE RECORDS SUMMARY | 2023-10-31 19:23 | XMS_ITS | Encounter Summary ---
Author Organization [facility] Address [address] [place] [address] Care Team Providers Care Wildlife Photographer Name Role Phone Unavailable Primary Care Provider Unavailabl e Encounter Details Date Type Department Care Team (Latest Contact Info) Description 09/18/2023 Clinical Communication Division of Gastroenterology in [place], [place] [address] [place] [address] Kiah Sarkar M.B.B.S., M.S. [address] [place] [address] Social History Tobacco Use Types Packs/Day Years Used Date Smoking Tobacco: Never Passive Smoke Exposure: Never Smokeless Tobacco: Never Alcohol Use Standard Drinks/Week Comments Yes 5 (1 standard drink = 0.6 oz pur e alcohol) [facility] Utilities Answer Date Recorded In the past 12 months has e [employer], gas, oil, or water [employer] threatened to shut off services in your [...] Sex Assigned at Female 03/21/2023 11:26 AM SPECIAL EDUCATION PARAEDUCATOR Gender Identity Female 03/21/2023 11:26 AM SPECIAL EDUCATION PARAEDUCATOR Sexual Orientation Straight 03/21/2023 11 :26 AM SPECIAL EDUCATION PARAEDUCATOR documented as of this encounter Plan of Treatment Not on file documented as of this encounter Visit Diagnoses Not on filedocumented in this encounter
--- OUTSIDE RECORDS SUMMARY | 2023-10-31 19:23 | XMS_ITS ---
Author Organization [facility] Address [address] [place] [address] Care Team Providers Care Repairer Engine Production Name Role Phone Unavailable Unavailable Unavailable Surgery Details Not on file Complications Check Surgery Details section. Procedure Estimated Blood Loss Check Surgery Details section. Procedure Findings Check Surgery Details section. Procedure Specimens Taken Check Surgery Details section.
--- OUTSIDE RECORDS SUMMARY | 2023-10-31 19:23 | XMS_ITS | Encounter Summary ---
Author Organization [facility] Address [address] [place] [address] Care Team Providers Care Phlebotomy Lab Assistant Name Role Phone Unavailable Primary Care Provider Unavailabl e Reason for Visit * Reason Onset Date Comments OSM 08/15/2023 SISI OSM 08/15/2023 SISI Encounter Details Date Type Department Care Team (Latest Contact Info) Description 08/15/2023 Clinical Communication Department of Neurologic Surgery in [place], [place] [address] [place] [address] Prescheduling, Provider OSM (SISI); OSM (SISI) Social History Tobacco Use Types Packs/Day Years Used Date Smoking Tobacco: Never Passive Smoke Exposure: Never Smokeless Tobacco: Never Alcohol Use Standard Drinks/Week Comments Yes 5 (1 standard drink = 0.6 oz pur e alcohol) [facility] Utilities Answer Date Recorded In the past 12 months has [employer], gas, oil, or water company threatened [...] your living situation today? I have a [facility] place to live 03/29/2023 Sex and Gender Information Value Date Recorded Sex Assigned at Female 03/21/2023 11:26 AM REHABILITATION PHYSICIAN Gender Identity Female 03/21/2023 11:26 AM REHABILITATION PHYSICIAN Sexual Orientation Straight 03/21/2023 11 :26 AM REHABILITATION PHYSICIAN documented as of this encounter Plan of Treatment Not on file documented as of this encounter Visit Diagnoses Not on filedocumented in this encounter
--- OUTSIDE RECORDS SUMMARY | 2023-10-31 19:23 | XMS_ITS | Encounter Summary ---
Author Organization [facility] Address [address] [place] [address] Care Team Providers Care Lead Relay Tester Name Role Phone Unavailable Primary Care Provider Unavailabl e Encounter Details Date Type Department Care Team (Latest Contact Info) Description 09/12/2023 Clinical Communication Division of Endocrinology in [place], [place] [address] [place] [address] Edna Meade M.D. [address] [place] [address] Social History Tobacco Use Types Packs/Day Years Used Date Smoking Tobacco: Never Passive Smoke Exposure: Never Smokeless Tobacco: Never Alcohol Use Standard Drinks/Week Comments Yes 5 (1 standard drink = 0.6 oz pur e alcohol) [facility] Utilities Answer Date Recorded In the past [...] your living situation today? I have a [facility] place to live 03/29/2023 Sex and Gender Information Value Date Recorded Sex Assigned at Female 03/21/2023 11:26 AM PERSONAL CARE SERVICE PROVIDER Gender Identity Female 03/21/2023 11:26 AM PERSONAL CARE SERVICE PROVIDER Sexual Orientation Straight 03/21/2023 11 :26 AM PERSONAL CARE SERVICE PROVIDER documented as of this encounter Miscellaneous Notes * Telephone Encounter - Edna Meade M.D. - 09/12/2023 1:[address] Ruthie Otero would like a phone call back to [phone] regarding the need for follow-up of the splenic artery aneurysm noted incidentally on the patient. What is size and follow-up needed? I let them know that this is typically a question for the radiologist, and that in my experience wedo not always arrange follow-up on these. Please let her know your thoughts. Thanks. [facility] documented in this encounter Plan of Treatment Not on file documented as of this encounter Visit Diagnoses Not on filedocumented in this encounter
--- OUTSIDE RECORDS SUMMARY | 2023-10-31 19:23 | XMS_ITS | Encounter Summary ---
Author Organization [facility] Address [address] [place] [id number] Care Team Providers Care Urogynaecologist Name Role Phone Unavailable Primary Care Provider Unavailabl e Reason for Visit * Outpatient (Routine) - Closed Specialty Diagnoses / Procedures Referred By Josue garcia Referred To Contact Vascular Surgery Diagnoses Aneurysm Splenic Artery (HCC) Nathen Macias M.D. [address] [place] [address] [facility] Referral ID Status Reason Start Date Expiration Date Visits Re quested Visits Authorized [id number] Closed 09/28/2023 03/29/2025 1 1 Encounter Details Date Type Department Care Team (Latest Contact Info) Description 10/13/2023 10:00 AM CDT Comprehensive Visit Division of Vascular and Endovascular Surgery in [place], [place] [address] [place] [phone] Emma Álvarez M.D. [address] [place] [phone] Aneurysm Splenic Artery (HCC) Social History Tobacco Use Types Packs/Day Years [...] your living situation today? [facility] 03/29/2023 Sex and Gender Information Value Date Recorded Sex Assigned at Female 03/21/2023 11:26 AM PROGRAMMING DIRECTOR Gender Identity Female 03/21/2023 11:26 AM PROGRAMMING DIRECTOR Sexual Orientation Straight 03/21/2023 11 :26 AM PROGRAMMING DIRECTOR documented as of this encounter Consult Notes * Emma Álvarez M.D. - 10/13/2023 10:00 AM CDT I have seen and examined the patient and I agree with the fellow's assessment and findings. Please see their note for full details. In brief, Mrs. 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 She then went on to have a CT angiogram of her abdomen and pelvis on September 28, 2023 to evaluate the splenic artery aneurysms and she underwent a visit with vascular Medicine onthe same date. She has a history of 4 pregnancies with 2 children, 1 miscarriage at 12 weeks and 1 ectopic . Her past medical history includes heart palpitations and anxiety, and gastroesophageal reflux disease. She has been a never smoker. Her family history includes her father that did have an abdominal aortic aneurysm. She does have a CT scan with IV contrast from 2014 which shows the splenic artery aneurysm in that it is approximately 2 cm, has a similar appearance other than less calcifications compared to her aneurysm from her CT scan in September of 2023. She has another CT scan of her abdomen and pelvis dating March which also shows the 2 cm splenic artery aneurysm and shows that there has been no change between March and September of 2023. I have shown the CT scans to Mrs. Malagon and gone over how she has not had any significant change to her splenic artery aneurysms for the past 9 years. I have discussed the pathophysiology of splenic artery aneurysms in that now the society for vascular surgeons recommends that these aneurysms repaired once they reach 3 cm in size, are symptomatic, or are found in women of childbearing age. She is not of childbearing age and is currently asymptomatic. We will plan for her to have follow-up imaging with a CT scan or MRI of her abdomen and pelvis in 1 year to evaluate her aneurysms. I will reach out to her county historian to see if they would like to combine her imaging so that she only has to undergo 1 radiographic imaging study at a time as they are continuing to surveil her adenoma. Emma Álvarez MD Vascular leasing consultant Pager [phone] * Colt Chau M.D. - 10/13/2023 10:00 AM CDT Isis Malagon : 1955 Visit Date: 10/13/23 Referring provider: Nathen Macias M.D. SUBJECTIVE CHIEF COMPLAINT/ REASON FOR VISIT: HISTORY OF PRESENT ILLNESS: Isis Malagon is a 68 y.o. female that comes to the clinic for evaluation. She has a history of a splenic artery aneurysm. This has been seen on CT's as far back as 2014, though not commented on at that time. In 2014 it measured approximately 2cm. 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 On imaging obtained in March for this purpose the aneurysm was noted and she was referred to vascular medicine. On that scan the aneurysm size had not changed, but there was more peripheral calcification, she was referred to our office for opinions on any surgical management. She remains asymptomatic of this, denies abdominal pain, bloating, cramping, MSK pains. She is being worked up for stool changes by GI and there is an endoscopy in the coming weeks. She is not on anyanticoagulation, antiplatelet, or hormonal therapies. She (1 miscarriage at 12 weeks and 1 ectopic ). She is a never smoker. The current medications, allergies, medical, surgical, social, and family history sections of the chart have been reviewed and updated as pertinent. Vascular Surgery VQI Screening CVD: None CAD Symptoms: None Prior CHF: None Prior CABG: None Prior PCI: None COPD: No Diabetes: None Dialysis: No Hypertension: No Living status: Home Ambulatory status: Ambulates self Functional status: Self care Current Medications: acyclovir (ZOVIRAX) 400 mg tablet, Take 400 mg by mouth as needed. calcium carbonate-vitamin D3 (Calcium 600 with Vitamin D3) 600 mg-10 mcg (400 unit) tablet,chewable, Chew 2 tablets daily. ciprofloxacin (Cipro) 500 mg tablet, TAKE 1 TABLET (500 MG) ORALLY TWICE A DAY Lactobacillus acidophilus 10 billion cell capsule, Take by mouth. omeprazole (PriLOSEC) [address] capsule, TAKE 1 CAPSULE (20 MG) BY MOUTH TWICE A DAY ondansetron ODT (Zofran-ODT) 4 mg disintegrating tablet, DISSOLVE ONE TABLET ON THE TONGUE EVERY EIGHT HOURS NEEDED FOR NAUSEA propranoloL (InderaL) 10 mg tablet, TAKE ONE TABLET BY MOUTH THREE TIMES A DAY NEEDED FOR ANXIETY OR TACHYCARDIA saccharomyces boulardii (FLORASTOR) 250 mg capsule, Take 1 capsule by mouth daily. Natures ---- traMADoL (Ultram) 50 mg tablet, Take 1 tablet by mouth every 12 (twelve) hours as needed for pain. valACYclovir (Valtrex) 1000 mg tablet, Take 2 tablets by mouth 2 (two) times a day. REVIEW OF SYSTEMS: Pertinent items are noted in HPI; all other systems were reviewed per Health History. OBJECTIVE VITAL SIGNS There were no vitals filed for this visit. PHYSICAL EXAM: General: Alert and oriented, No acute distress. Respiratory: no increased work of breathing Heart: Regular rate and rhythm Abdomen: Soft, Non-tender, no masses. Cognition and Speech: Speech clear and coherent. Functional cognition intact. Psychiatric: Cooperative, appropriate mood & affect. Extremities: Warm, well perfused, no edema. VASCULAR EXAM: Peripheral Vascular Pulse Exam Left Radial: 2+ Right Radial: 2+ DIAGNOSTIC STUDIES: I have reviewed the patient's current laboratory, imaging, and other diagnosticstudies as pertinent. ASSESSMENT / PLAN Mrs Malagon is a 68 year old female with an asymptomatic splenic aneurysm 2cm in size, stable for the last 9 years at least. Given this, the aneurysm can be observed with repeat imaging in a year. Wediscussed that surgery is recommended for aneurysms 3cm and greater, or in women of child-bearing age, neither of which apply to her. She is due for an adrenal CT at about that time, we will reach out to endocrinology to see if that can be streamlined into their imaging, preferably with a CTA. 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 She did have questions regarding her daughter, who is in her third trimester currently, and whether she requires any imaging to assess for mesenteric aneurysms. The patient does report that her father had a AAA. We reviewed that that splenic aneurysms are the most common visceral vessel aneurysm, and without other aneurysms on our patient's imaging, it is not likely to be congenital, but it is reasonable for her daughter to have an ultrasound with attention to the emmanuelle gu to assess for one given her primigravid status. She will follow up with us in 1 year with the requested imaging. Patient was seen with Dr. Álvarez, vascular web consultant. DIAGNOSIS: #1 Aneurysm Splenic Artery (HCC) Colt Chau M.D. documented in this encounter Plan of Treatment Not on file documented as of this encounter Visit Diagnoses Diagnosis Aneurysm Splenic Artery (HCC) documented in this encounter
--- OUTSIDE RECORDS SUMMARY | 2023-10-31 19:23 | XMS_ITS | Encounter Summary ---
Author Organization [facility] Address [address] [place] [address] Care Team Providers Care Pan Reclaim Processor Name Role Phone Unavailable Primary Care Provider Unavailabl e Encounter Details Date Type Department Care Team (Latest Contact Info) Description 08/30/2023 9:27 AM CDT - 08/30/2023 11:59 PM CDT Hospital Encounter Department of Laboratory Medicine and Pathology, [facility] in [place], [place] [address] [place] [address] Ty Finch M.D. [address] [place] [address] Adenoma Adrenal Right Discharge Disposition: Home or [...] your living situation today? I have a [facility] place to live 03/29/2023 Sex and Gender Information Value Date Recorded Sex Assigned at Female 03/21/2023 11:26 AM NUT SORTER Gender Identity Female 03/21/2023 11:26 AM NUT SORTER Sexual Orientation Straight 03/21/2023 11 :26 AM NUT SORTER documented as of this encounter Medications at [...] CDT Ty Finch M.D. LAB BLOOD ADD-ON [facility] [address] [place] [address], [place] DTL [facility] [address] [place] [address] documented in this encounter Visit Diagnoses Diagnosis Adenoma Adrenal Right documented in this encounter
--- OUTSIDE RECORDS SUMMARY | 2023-10-31 19:23 | XMS_ITS | Continuity of Care Document ---
Author Organization [facility] Address [address] [address] [place] [address] Phone Care Team Providers Care Long Goods Drier Name Role Phone Nasrin Gomez MD Unavailable Unavaila ble Allergies, Adverse Reactions, Alerts Substance Reaction Status Criticality Penicillins Active No Information Medications Medication Instructions Dosage Effective Dates (start - stop) Status Comments Cipro 250 mg tablet take 1 tablet by ora l route every 12 hours 250 MG - Active omeprazole 20 mg tablet,delayed release take by oral route 2 times every day - Active propranolol 10 mg tablet take 1 tablet by oral route every day as needed 10 MG - Active Vitamin D3 50 mcg (2,000 unit) tablet take 1 by oral route every day 1 - Active Calcium-600 600 mg (as calcium carbonate 1,500 mg) tablet take 1 tablet by oral route every day 1 tablet - Active Probiotic 100 billion cell capsule - Active Procedures Procedure Date Offic/outpt E&m New Mod-hi Advance Directives Directive Yes / No Effective Date File Name No Information Encounters Encounter Description Practice Location Reason(s) For Visit Diagnoses Date Provider Providers Copied on Encounter [facility], [address] [address], [place], [place], [id number], [place] tel:[phone] Mis [facility] Pancreas cyst 4 Jason Maxwell [address] [facility], [place], [place], [id number] , [place]. tel:[phone] Offic/outpt E&m New Mod-hi [facility], [address] [address], [place], [place], [id number], [place] tel:[phone] [facility] GI Symptoms or Concerns (chief complaint) Pancreatic cystEarly satietyNausea 4 Norm Salazar. [address] [facility], [facility] [address], [place], [place], [id number] , [place]. tel:[phone] Referring Provider: Fina Sal, [address], [place], [address]. tel:[phone] [facility], [address] [address], [place], [place], [id number], tel:[phone] [facility] No Information 4 Kirill Gregory. [address] [facility], [facility] [address], [place], [place], [id number] , [place]. tel:[phone] Family History Family Member Type Diagnosis Age At Onset Sister Problem (finding) GERD Father Problem (finding) Colon polyps Sister Problem (finding) Colon polyps Mother Problem (finding) GERD Immunizations Vaccine Date Status Comments Pneumococcal conjugate vacci ne 20-valent (PCV20), polysaccharide [id number] conjugate, adjuvant, preservative free administered Note: [facility] bi-direct ional interface ; Source: Other Registry tetanus toxoid, reduced diphtheria toxoid, and acellular pertussis vaccine, adsorbed administered Note: [facility] b i-directional interface ; Source: Other Registry Influenza, adjuvanted, inactivated, quadrivalent, injectable, preservative free administered Note: [facility] bi-directional interface ; Source: Other Registry Pneumovax 23 administered Note: [facility] bi-d irectional interface ; Source: Other Registry SARS-COV-2 (COVID-19) vaccin e, mRNA, spike protein, LNP, bivalent, preservative free, 30 mcg/0.3 mL dose, kinza-sucrose formulation administered Note: [facility] bi-direct ional interface ; Source: Other Registry Influenza, high-dose, split virus, quadrivalent, injectable, preservative free administered Note: [facility] bi-direct ional interface ; Source: Other Registry SARS-COV-2 (COVID-19) vaccin e, mRNA, spike protein, LNP, preservative free, 30 mcg/0.3mL dose administered Note: [facility] bi-direct ional interface ; Source: Other Registry Afluria Qd administered Note: M [facility] bi-directional interface ; Source: Other Registry SARS-COV-2 (COVID-19) vaccin e, mRNA, spike protein, LNP, preservative free, 30 mcg/0.3mL dose administered Note: [facility] bi-direct ional interface ; Source: Other Registry SARS-COV-2 (COVID-19) vaccin e, mRNA, spike protein, LNP, preservative free, 30 mcg/0.3mL dose administered Note: [facility] bi-direct ional interface ; Source: Other Registry Influenza, split virus, trivalent, injectable, preservative free administered Note: [facility] bi-direct ional interface ; Source: Other Registry Influenza, recombinant, quadrivalent, injectable, preservative free administered Note: [facility] bi-direct ional interface ; Source: Other Registry Influenza, split virus, trivalent, injectable, preservative free administered Note: [facility] bi-direct ional interface ; Source: Other Registry zoster vaccine recombinant administered N ote: [facility] bi-directional interface ; Source: Other Registry Afluria Qd administered Note: [facility] bi-directional interface ; Source: Other Registry Afluria Qd administered Note: M [facility] bi-directional interface ; Source: Other Registry seasonal influenza, intrader mal, preservative free administered Note: [facility] bi-direct ional interface ; Source: Other Registry influenza virus vaccine, who le virus administered Note: [facility] bi-direct ional interface ; Source: Other Registry Influenza, split virus, trivalent, injectable, preservative free administered Note: [facility] bi-direct ional interface ; Source: Other Registry Influenza, split virus, trivalent, injectable, preservative free administered Note: [facility] bi-direct ional interface ; Source: Other Registry tetanus toxoid, reduced diphtheria toxoid, and acellular pertussis vaccine, adsorbed administered Note: [facility] b i-directional interface ; Source: Other Registry Influenza, split virus, trivalent, injectable, preservative free administered Note: [facility] bi-direct ional interface ; Source: Other Registry Influenza, split virus, trivalent, injectable, preservative free administered Note: [facility] bi-direct ional interface ; Source: Other Registry Novel [id number], injectable administered Note: [facility] bi-direct ional interface ; Source: Other Registry Payers Payer name Insurance type Covered libertarian ID Wadea mesha(s) [employer] Medicare MB [id number] Social History Type Description Quantity Date Captured Comments Alcohol Use Details Unknown Caffeine Use Details Unknown Tobacco Use Status No Information Smoking Status No Information Sex Female Chief Complaint And Reason For Visit No Information Reason For Referral Reason For Referral No Information Plan Of Treatment Date Type Action Status Referral Ordered: MRCP Biliary/Pancreatic Ducts WITHOUT And WITH Contrast Appointment date/timeframe: 10/23/2024 ordered Referral Ordered: EUS Appointment date/timeframe: 10/24/2023 ordered History Of Present Illness Encounter Date Complaint History Of Prese nt Illness GI Symptoms or Concerns Patient is a 68-year-old female who presents for evaluation of weight loss, early satiety and pancreatic cyst.She does have a 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 She is in a surveillance program for risk of renal tumors including malignant carcinoma, leiomyomas. There was also a question of pheochromocytoma given some elevated blood pressures although it does not appear that catecholamines or imaging confirmed the presence of a pheochromocytoma.She presents to discuss early satiety and weight loss. She describes a few months of unexplained weight loss. She has lost about 15 pounds. She attributes this to overall some diminished appetite but primarily she feels full soon after eating. This is especially prominent at breakfast. She develops nausea and a full sensation in can no longer ingest further p.o. intake.She denies significant abdominal pain. Her bowel movements are unchanged. She has historically had multiple soft BMs first thing in the morning, and this remained stable. She did have a colonoscopy last summer which she describes as notable for a few small polyps likely adenomas and was given a 5-year recall. She does not vomit. She has been trying to maintain weight using boost or Ensure's and she feels like her weight loss has stabilized to some degree. She also has a myriad of other symptoms that have been unexplained including neuropathy and palpitations.I did review 28 pages of outside records. They are summarized belowCT abdomen pelvis March 2023No solid renal massProbable 1.2 cm sidebranch IPMN in the pancreatic tailCBC September 2023 hemoglobin 12.8, platelets 276, WBC 5.18CMP September 2023 normal CMP with alk phos 69, ALT 20, AST 30, bilirubin 0.6 albumin 4.6 total protein 7CRP normal/lowB12 normal 571Random insulin level 5CT angiography September 274Aorta normal caliber minimal calcification no stenosisRenal arteries widely patentCeliac artery widely patent with minimal calcificationSplenic artery aneurysmal with small amount of peripheral thrombusSMA and ASHLEIGH widely patentIliacs and femorals widely patentUnchanged 2.7 cm right adrenal adenomaPET MRINo evidence of pheochromocytoma or paragangliomaRight adrenal adenoma minimally increased in sizeMild thickening of the left adrenal gland without noduleMultiple cystic lesions in the pancreas measuring up to 1.6 cm in the tail likely sidebranch IPMN Functional Status Date Functional Assessmen t No Information Instructions Date Instruction Additional Infor joseph - EUS for visualizat ion of pancreatic cysts and possible sampling - EGD for duodenal and gastric biopsies - Continue omeprazole 20mg once per day Related to Pancreatic cyst Assessments Type Assessment Date assessment Pancreas cyst Patient Care Teams Name Effective Dates (start - stop) Status Members No Information
--- OUTSIDE RECORDS SUMMARY | 2023-10-31 19:23 | XMS_ITS | Encounter Summary ---
Author Organization [facility] Address [address] [place] [address] Care Team Providers Care Edger Automatic Name Role Phone Unavailable Primary Care Provider Unavailabl e Reason for Referral * MRI/CAT/PET Scan (Routine) - Closed Specialty Diagnoses / Procedures Referred By Josue garcia Referred To Contact Radiology Diagnoses Aneurysm Splenic Artery (HCC) Procedures CT Abdomen Pelvis Angiogram with IV Contrast Ty Finch M.D. [address] [place] [address] [facility] Referral ID Status Reason Start Date Expiration Date Visits Re quested Visits Authorized [id number] Closed 09/08/2023 09/07/2024 1 1 Reason for Visit * MRI/CAT/PET Scan (Routine) - Closed Specialty Diagnoses / Procedures Referred By Josue garcia Referred To Contact Radiology Diagnoses Aneurysm Splenic Artery (HCC) Procedures CT Abdomen Pelvis Angiogram with IV Contrast Ty Finch M.D. [address] [place] [address] [facility] Referral ID Status Reason Start Date Expiration Date Visits Re quested Visits Authorized [id number] Closed 09/08/2023 09/07/2024 1 1 Encounter Details Date Type Department Care Team (Latest Contact Info) Description 09/28/2023 8:44 AM CDT - 09/28/2023 11:59 PM CDT Hospital Encounter Department of Radiology, [facility], in [place], [place] [address] [place] [address] Ty Finch M.D. [address] [place] [address] Aneurysm Splenic Artery (HCC) Discharge Disposition: Home or Self Care Social History Tobacco Use Types Packs/Day Years Used Date Smoking Tobacco: Never Passive Smoke Exposure: Never Smokeless Tobacco: Never Alcohol Use Standard Drinks/Week Comments Yes 5 (1 standard drink = 0.6 oz pur e alcohol) [facility] Utilities Answer Date Recorded In the past 12 months has e [employer], gas, oil, or water [employer] threatened to shut off services in your [...] Sex Assigned at Female 03/21/2023 11:26 AM CHILD CARE ASSOCIATE TEACHER Gender Identity Female 03/21/2023 11:26 AM CHILD CARE ASSOCIATE TEACHER Sexual Orientation Straight 03/21/2023 11 :26 AM CHILD CARE ASSOCIATE TEACHER documented as of this encounter Last Filed Vital Signs Vital Sign Reading Time Taken Comments Blood Pressure 133/70 09/28/2023 10:35 AM CDT Pulse 73 09/28/2023 10:35 AM CDT Temperature - - Respiratory Rate - - Oxygen Saturation 100% 09/28/2023 10:35 AM CDT Inhaled Oxygen Concentration - - Weight - - Height - - Body Mass Index - - documented in this encounter Medications at Time of Discharge Medication Sig Dispensed Refills Start Date End Date acyclovir (ZOVIRAX) 400 mg tablet Take 400 mg by mouth as needed. 03/20/2023 calcium carbonate-vitamin D3 (Calcium 600 with Vitamin D3) 600 mg-10 mcg (400 unit) tablet,chewable Chew 2 tablets daily. ciprofloxacin (Cipro) 500 mg tablet TAKE 1 TABLET (500 MG) ORALLY TWICE A DAY 09/25/2023 omeprazole (PriLOSEC) [address] capsule TAKE 1 CAPSULE (20 MG) BY MOUTH TWICE A DAY 09/25/2023 ondansetron ODT (Zofran-ODT) 4 mg disintegrating tablet DISSOLVE ONE TABLET ON THE TONGUE EVERY EIGHT HOURS NEEDED FOR NAUSEA 09/08/2023 propranoloL (InderaL) 10 mg tablet TAKE ONE TABLET BY MOUTH THREE TIMES A DAY NEEDED FOR ANXIETY OR TACHYCARDIA 09/18/2023 saccharomyces boulardii (FLORASTOR) 250 mg capsule Take 1 capsule by mouth daily. Natures ---- traMADoL (Ultram) 50 mg tablet Take 1 tablet by mouth every 12 (twelve) hours as needed for pain. 09/18/2023 valACYclovir (Valtrex) 1000 mg tablet Take 2 tablets by mouth 2 (two) times a day. 09/16/2023 documented as of this encounter Nursing Notes * Ruma Bonilla R.N. - 09/28/2023 9:45 AM CDT Patient felt chest pressure and palpitations following contrast administration. Observed for 20 minutes. VSS. Ambulatory. Dismissed in stable condition, accompanied by . documented in this encounter Plan of Treatment Not on file documented as of this encounter Procedures Procedure Name Priority Date/Time Associated Diagnosis Comments CT ABDOMEN PELVIS ANGIOGRAM WITH IV CONTRAST RAD - Routine (most inpatients and all outpatients) 09/28/2023 10:40 AM CDT Aneurysm Splenic Artery (HCC) documented in this encounter Results * CT Abdomen Pelvis Angiogram with [...] symptomatology. The patient reported recent application of machine cutter from an outside institution and was then [...] in symptomatology. Thepatient reported recent application of machine cutter from an outsideinstitution and was then instructed to notify the ordering provider. IMPRESSION: 1. 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 2. Stable 2.7 cm right adrenal adenoma. Ty ALCANTARA CT PROCEDURES documented in this encounter Visit Diagnoses Diagnosis Aneurysm Splenic Artery (HCC) documented in this encounter Administered Medications Inactive Administered Medications - up to 3 most recent administrations Medication Order MAR Action Action Date Dose Rate Site iopromide 370 mg iodine/mL injection 1-162 mL (Ultravist) 1-162 mL, intravenous, Once in imaging, contrast, Starting on Jenna 09/28/23 at 1002, For 1 dose, Imaging Protocol Orders, Dose per Radiant Medication Guidelines Given 09/28/2023 10:02 AM CDT 80 mL sodium chloride (PF) 0.9 % injection 1-100 mL 1-100 mL, intravenous, Once, On Jenna 09/28/23 at 1030, For 1 dose, Imaging Protocol Orders, Dose per Radiant Medication Guidelines Given 09/28/2023 10:02 AM CDT 30 mL documented in this encounter
--- OUTSIDE RECORDS SUMMARY | 2023-10-31 19:23 | XMS_ITS | Clinical Summary ---
Author Organization [facility] Address [place], [place] [address] Care Team Providers Care Wet Finisher Name Role Phone Ruthie Otero MD Primary Care Provider [phone] Allergies No known active allergies Medications Medication Sig Dispensed Refills Start Date End Date Status calcium carbonate (Calcium 500) 500 mg calcium (1,250 mg) chewable tablet Chew 1 Tablet (1,250 mg) by mouth once daily. 10/06/2023 Active cholecalciferol (VITAMIN D3) 1,000 unit capsule Take 2 Capsules (2,000 units) by mouth once daily. 10/06/2023 Active Lactobacillus acidophilus (Probiotic) 10 billion cell cap Take by mouth. 10/06/2023 Acti ve omeprazole (PRILOSEC) 20 mg Delayed-Release capsule TAKE 1 CAPSULE (20 MG) BY MOUTH TWICE A DAY 09/25/2023 Active traMADoL (ULTRAM) 50 mg tablet Take 1 Tablet by mouth every 12 hours if needed. 09/18/2023 Active ondansetron (ZOFRAN ODT) 4 mg disintegrating tablet DISSOLVE ONE TABLET ON THE TONGUE EVERY EIGHT HOURS NEEDED FOR NAUSEA 09/08/2023 Active propranoloL (INDERAL) 10 mg tabletIndications:Pa lpitations Take 0.5 Tablets (5 mg) by mouth once daily. 45 Tablet 3 10/06/2023 Active propranoloL (INDERAL) 10 mg tablet Take 5 mg by mouth once daily. 09/18/2023 Discontinue d(*Medicati on adjustment) propranoloL (INDERAL) 10 mg tablet Take 0.5 Tablets (5 mg) by mouth once daily if needed. 10/06/2023 Discontinue d(*Medicati on adjustment) Encounters Date Type Department Care Team Description 10/06/2023 10:30 AM CDT Office Visit [facility] [address] [place] [address] Edna Torres NP Follow Up (F/U to abnormal zio 09/17-10/01. Pt states feeling good overall, does noticed her palpitations and skipped beats. Does have some other health issues so she isn't sure what is and isn't cardiac related, ex: tingling feet and hands when walking, weight loss, feels like I'm on a boat when walking. No current cardiac symptoms) 10/06/2023 Travel 09/20/[address] [facility] [phone] Unknown, Doctor 09/18/2023 Orders Only [facility] [address] [place] [address] Fina Marie MD 1 scan: (1-Ord) ZIO REPORT 09/14/2023 8:20 AM CDT Office Visit [facility] [address] [place] [phone] Rosa Villalobos MD Consult 09/14/2023 Travel 09/13/2023 [facility]phone [facility] [address] [place] [phone] Rosa Villalobos MD Appointment Reminder 08/16/2023 Telephone [facility] [address] [place] [phone] Thi Diaz NP Appointment Request 08/14/2023 Orders Only [facility] Scanner 1 scan: (1-Ord) [facility], MR BRAIN WITHOUT CONTRAST, 08/14/2023 from Last 3 Months Social History Tobacco Use Types Packs/Day Years Used Date Smoking Tobacco: Never Smokeless Tobacco: Never Tobacco Cessation:Counseling Given: Not Answered Alcohol Use Standard Drinks/Week Comments Not Currently 0 (1 standard drink = 0.6 oz pur e alcohol) nothing since early 2023 Social Connections Answer Date Recorded Frequency of Communication with Friends and Fami ly Not on file 07/22/2022 Sex and Gender Information Value Date Recorded Sex Assigned at Not on file Gender Identity Not on file Sexual Orientation Not on file Obstetrics History Last Filed Vital Signs Vital Sign Reading Time Taken Comments Blood Pressure 120/74 10/06/2023 10:18 AM CDT Pulse 75 10/06/2023 10:18 AM CDT Temperature - - Respiratory Rate - - Oxygen Saturation 100% 10/06/2023 10:18 AM CDT Inhaled Oxygen Concentration - - Weight 52.8 kg (116 lb 8 oz) 10/06/2023 10:18 AM CDT Height 175.3 cm (5' 9) 10/06/2023 10:18 AM CDT Body Mass Index 17.2 10/06/2023 10:18 AM CDT Plan of Treatment Upcoming Encounters Date Type Department Care Team (Late st Contact Info) Description 12/12/2023 11:35 AM KNITTING DEMONSTRATOR Telemedicine [facility] [address] [place] [address] Asha Reese NP [address] [place] [address] Health Maintenance Due Date Last Done Comments Tdap 07/14/1967 Depression screening for age 12+ 1968 Hepatitis C screening for age 18-79 1974 [...] PCV) 2021 COVID-19 vaccine series (3 - season) 2023 12/16/2021, 12/04/2020 Influenza for age 65+ 10/08/2023 BMI (ht and wt on same day) for age 18+ 10/05/2024 0 10/06/2023 Procedures Procedure Name Priority Date/Time Associated Diagnosis Comments EXTENDED HOLTER Routine 10/05/2023 Tachycardia, unspecified REFERRAL SUSCEPTIBILITY Routine 09/16/2023 12:20 PM CDT SCAN-MRI INTERPRETATION 08/14/2023 12:00 AM CDT (IA) OK COLONOSCOPY REMOVE CARMELINA POLYP LESN SNARE Routine 10/01/2007 Special Screening for Malignant Neoplasms, Colon Benign Neoplasm of Colon from Last 3 Months or Most Recently Relevant to Health Maintenance Results * EXTENDED HOLTER (10/05/2023) Fina Marie MD CARDIAC SERVICES ORD * (ABNORMAL) REFERRAL SUSCEPTIBILITY (09/16/2023 12:20 PM CDT) CULTURE RESULT(A) 09/23/2023 11:04 AM CDT [facility] CULTURE Pseudomonas aeruginosa 09/23/2023 11:04 AM CDT [facility] Other URINE SPECIMEN / Unknown Client Collect / Unknown 09/16/2023 12:20 PM CDT 09/20/2023 3:00 PM CDT Narrative Organism Antibiotic Method Susceptibility Pseudomonas aeruginosa CEFTAZIDIME S Pseudomonas aeruginosa LEVOFLOXACIN S Pseudomonas aeruginosa CIPROFLOXACIN S Pseudomonas aeruginosa PIPERACILLIN/TAZO S Pseudomonas aeruginosa CEFEPIME S Pseudomonas aeruginosa TOBRAMYCIN S Pseudomonas aeruginosa MEROPENEM S Doctor Unknown MICROBIOLOGY [facility] [address] [place] [address], * SCAN-MRI INTERPRETATION (08/14/2023 12:00 AM CDT) Anatomical Region Laterality Modality Other Scanner OTHER * OK COLONOSCOPY REMOVE LESN SNARE (10/01/2007) Neo Velasquez MD PB - DIGESTIVE SY STEM SERVICES from Last 3 Months or Most Recently Relevant to Health Maintenance Care Teams Wet Finisher Relationship Specialty [place] [address] [place] [phone] PCP - General Internal Medicine 08/16/23
--- OUTSIDE RECORDS SUMMARY | 2023-10-31 19:23 | XMS_ITS | Referral Summary ---
Author Organization [facility] Address [address] [place] [address] Care Team Providers Care Information Technology Internship Name Role Phone Unavailable Primary Care Provider Unavailabl e Source Comments Patient records contain information from all sites at [facility]. For routine questions regarding patient records, call [phone] during business hours, M-F 8:00 AM - 5:00 PM Central Time. Record requests for emergency care only can be directed to [phone] at any time.[facility] Encounters Date Type Department Care Team Description 10/13/2023 10:00 AM CDT Comprehensive Visit Division of Vascular and Endovascular Surgery in [place], [place] [address] [place] [phone] Emma Álvarez M.D. Aneurysm Splenic Artery (HCC) 09/28/2023 2:15 PM CDT Comprehensive Visit Department of Vascular Medicine in [place], [place] [address] [place] [phone] Nathen Macias M.D. Aneurysm Splenic Artery (HCC) (Primary Dx) 09/28/2023 8:44 AM CDT - 09/28/2023 11:59 PM CDT Hospital Encounter Department of Radiology, [facility], in [place], [place] [address] [place] [address] Ty Finch M.D. Aneurysm Splenic Artery (HCC) Discharge Disposition: Home or Self Care 09/18/2023 Clinical Communication Division of Gastroenterology in [place], [place] [address] [place] [phone] Kiah Sarkar M.B.B.S., M.S. 09/12/2023 Clinical Communication Division of Endocrinology in [place], [place] [address] [place] [phone] Edna Meade M.D. 09/01/2023 11:44 AM CDT - 09/01/2023 11:59 PM CDT Hospital Encounter Department of Radiology, [facility] in [place], [place] [address] [place] [phone] Ty Finch M.D. Adenoma Adrenal Right Discharge Disposition: Home or Self Care 08/30/2023 9:27 AM CDT - 08/30/2023 11:59 PM CDT Hospital Encounter Department of Laboratory Medicine and Pathology, [facility] in [place], [place] [address] [place] [address] Ty Finch M.D. Adenoma Adrenal Right Discharge Disposition: Home or Self Care 08/30/2023 8:30 AM CDT Comprehensive Visit Division of Endocrinology in [place], [place] [address] [place] [phone] Ty Finch M.D. Genetic Susceptibility To Other Malignant Neoplasm; Adenoma Adrenal Right 08/17/2023 Clinical Communication Department of Neurologic Surgery in [address] [phone] Yon Juárez M.D. 08/15/2023 Clinical Communication Department of Neurologic Surgery in [address] [phone] Prescheduling, Provider OSM (SISI); OSM (SISI) from Last 3 Months Allergies Active Allergy [...] Other - would like to get at [place]),03/11/2011 influenza trivalent vaccine (6 months and older)(PF) [...] drink = 0.6 oz pur e alcohol) [facility] Squareities Answer Date Recorded In the past 12 months has e [employer], gas, oil, or water [employer] threatened to shut off services in your [...] your living situation today? I have a [facility] place to live 03/29/2023 Sex and Gender Information Value Date Recorded Sex Assigned at Female 03/21/2023 11:26 AM WOOD HANDLER Gender Identity Female 03/21/2023 11:26 AM WOOD HANDLER Sexual Orientation Straight 03/21/2023 11 :26 AM WOOD HANDLER Last Filed Vital Signs Vital Sign Reading [...] 09/28/2023 2:42 PM CDT Plan of Treatment Not on file Medical Devices Implanted Type Area Tour Coordinator Device Identifier Shelf Expiration Date Model / [...] A1C, B Routine 03/29/2023 7:0 7 AM WOOD HANDLER Angina Pectoris Unspecified (HCC) OUTSIDE MG MAMMOGRAM Routine 01/04/2023 8:45 AM WOOD HANDLER from Last 3 Months or Most Recently [...] symptomatology. The patient reported recent application of monitoring and evaluation advisor from an outside institution and was then [...] in symptomatology. Thepatient reported recent application of monitoring and evaluation advisor from an outsideinstitution and was then instructed to notify the ordering provider. IMPRESSION: 1. 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 2. Stable 2.7 cm right adrenal adenoma. Ty ALCANTARA CT PROCEDURES * CT Abdomen without and [...] M.D. LAB BLOOD ADD-ON Performing Organization Address [facility] Co de Phone Number [facility] [place] [address] [place] [address], [facility] [address] [place] [address] * MR Brain WO (Unpaired)-Outside MR Neuro [...] IMG MRI PROCEDURE S Performing Organization Address [facility] de Phone Number [facility] * Hemoglobin A1c (03/29/2023 7:07 AM WOOD HANDLER) Hemoglobin A1c, B 5.2 4.0 - 5.6 % 03/29/2023 7:50 AM WOOD HANDLER DTL Blood (Blood, Venous) 03/29/2023 7:07 AM WOOD HANDLER 03/29/2023 7:28 AM WOOD HANDLER Ming Campbell M.D. LAB BLOOD ADD-O N Performing Organization Address [facility] Co de Phone Number [facility] [place] [address] [place] [address], [facility] DTL [facility] [address] [place] [address] * MM diagnostic mammo BI-Outside Mammogram (01/04/2023 8:45 AM WOOD HANDLER) Narrative [facility]IMS - 03/02/2023 4:33 PM WOOD HANDLER This order has been created and auto-finalized [...]
--- OUTSIDE RECORDS SUMMARY | 2023-10-31 19:23 | XMS_ITS | Encounter Summary ---
Author Organization [facility] Address [address] [place] [address] Care Team Providers Care Bowl Attendant Name Role Phone Unavailable Primary Care Provider Unavailabl e Reason for Referral * Outpatient (Routine) - Closed Specialty Diagnoses / Procedures Referred By Josue garcia Referred To Contact Vascular Surgery Diagnoses Aneurysm Splenic Artery (HCC) Nathen Macias M.D. [address] [place] [address] [facility] Referral ID Status Reason Start Date Expiration Date Visits Re quested Visits Authorized [id number] Closed 09/28/2023 03/29/2025 1 1 Reason for Visit * Outpatient (Routine) - Closed Specialty Diagnoses / Procedures Referred By Josue garcia Referred To Contact Vascular Medicine Diagnoses Aneurysm Splenic Artery (HCC) Ty Finch M.D. [address] [place] [address] [facility] Referral ID Status Reason Start Date Expiration Date Visits Re quested Visits Authorized [id number] Closed 09/08/2023 03/09/2025 1 1 Encounter Details Date Type Department Care Team (Latest Contact Info) Description 09/28/2023 2:15 PM CDT Comprehensive Visit Department of Vascular Medicine in [place], [place] [address] [place] [address] Nathen Macias M.D. [address] [place] [address] Aneurysm Splenic Artery (HCC) (Primary Dx) Social History Tobacco Use Types Packs/Day Years Used Date Smoking Tobacco: Never Passive Smoke Exposure: Never Smokeless Tobacco: Never Tobacco Cessation:Counseling Given: Not Answered Alcohol Use Standard Drinks/Week Comments Yes 5 (1 standard drink = 0.6 oz pur e alcohol) [facility] Utilities Answer Date Recorded In the past [...] your living situation today? I [facility] a [facility] place to [facility] 03/29/2023 Sex and Gender Information Value Date Recorded Sex Assigned at Female 03/21/2023 11:26 AM TARE WEIGHER Gender Identity Female 03/21/2023 11:26 AM TARE WEIGHER Sexual Orientation Straight 03/21/2023 11 :26 AM TARE WEIGHER documented as of this encounter Last Filed [...] Mass Index 17.11 09/28/2023 2:42 PM CDT documented in this encounter H&P Notes * Nathen Macias M.D. - 09/28/2023 2:15 PM CDT REFERRAL SOURCE Ty Finch M.D. [address] [place] [phone] SUBJECTIVE CHIEF COMPLAINT / REASON FOR VISIT HISTORY OF PRESENT ILLNESS Ms. Malagon is a 68 y.o. female that I am seeing today for an opinion and recommendations on a newly discovered splenic artery aneurysm. The patient has been referred by Ty Finch M.D. is accompanied today by her . was discovered recently on CT scanning to have a splenic artery aneurysm. She had a CTAearlier today and reports are as noted below. She is asymptomatic with this. When I questioned her, she has had four pregnancies with two successful, one miscarriage at about 12 weeks, and one ectopic. Past Medical History: Her past medical history includes heart palpitations and anxiety as well as gastroesophageal reflux disease. Social History: She has never been a smoker. She might drink alcohol on occasion. Family History: Not obtained. The following portions of the patient's history were reviewed and updated as appropriate: allergies, current medications, family history, medical history, social history, surgical history, psychiatric history, substance abuse history, problem list, labs, diagnostics tests. I reviewed the pertinent clinical notes in the electronic health record. REVIEW OF SYSTEMS A complete review of systems was performed with pertinent information listed in the HPI, all othersnegative. OBJECTIVE VITALS BP 134/75 (BP Location: Right arm, Patient Position: Sitting, Cuff Size: Small) Pulse 71 Ht 176cm Wt 53 kg BMI 17.11 kg/m?? PHYSICAL EXAMINATION Body mass index is 17.11 kg/m??. Physical Exam Neurological: Awake, alert, and conversant. Psychiatry: In no distress and she did not appear to be depressed. Vessels: Radial pulses were 3+ bilaterally with ulnars of 2+ bilaterally. Respiratory: Lungs were clear to auscultation. Cardiovascular: Cardiac exam revealed a regular rate with a normal S1 and S2. Abdomen: Active bowel sounds. No bruits. DIAGNOSTIC REVIEW All relevant labs and diagnostic studies below were reviewed. A CT of the abdomen and pelvis with contrast on August 31 of this year noted a splenic artery aneurysm but no size was given. A CTA of the abdomen and pelvis today noted a stable peripherally calcified splenic artery aneurysmmeasuring 2 x 1.6 x 1.5 centimeters compared to a prior study dated March 29 of this year. ASSESSMENT / PLAN ASSESSMENT #1 Aneurysm Splenic Artery (HCC) has an asymptomatic peripherally calcified splenic artery aneurysm. Peripheral calcification would suggest that this is a chronic aneurysm present for many years, and we talked about how peripheral calcification may actually stabilize splenic artery aneurysms and prevent growth in some patients. We talked about when our Vascular Surgeons will consider repair of an asymptomatic splenicartery aneurysm, and in a postmenopausal female this would usually be at diameters of 2 centimetersor greater. I will give her an opinion with one of our Vascular Surgeons although I am anticipatingthat observation and surveillance will be recommended. Given that, I would suggest annual CTA surveillance scanning for at least the next 3 to 4 years, and if the aneurysm shows no growth, then surveillance could go to every other year. Given lack of evident vasculopathy in all of the other visualized intra-abdominal arteries, my clinical suspicion is that her isolated splenic artery aneurysm wasprobably the result of one or more pregnancies. This was discussed. PLAN 1. Vascular Surgical consultation. 2. Recommendations are as above. Total time spent reviewing records, reviewing imaging, reviewing laboratories, telephone calls, ordering tests, and with patient: 45 minutes. Time spent in counseling and coordination of care: 30 minutes. Nathen Macias M.D. documented in this encounter Plan of Treatment Scheduled Referrals Name Type Priority Associated Diagnoses Orde r Schedule Vascular Surgery - Direct consult (clinic) Outpatient Referral Routine Aneurysm Splenic Artery (HCC) Expected: 09/28/2023 (Approximate), Expires: 12/28/2024 documented as of this encounter Visit Diagnoses Diagnosis Aneurysm Splenic Artery (HCC)- Primary documented in this encounter
--- OUTSIDE RECORDS SUMMARY | 2023-10-31 19:23 | XMS_ITS | Encounter Summary ---
Author Organization [facility] Address [address] [place] [address] Care Team Providers Care Wood Preparation Supervisor Name Role Phone Unavailable Primary Care Provider Unavailabl e Encounter Details Date Type Department Care Team (Late st Contact Info) Description 08/17/2023 Clinical Communication Department of Neurologic Surgery in [place], [place] [address] [place] [phone] Yon Juárez M.D. [address] [place] [phone] Social History Tobacco Use Types Packs/Day Years Used Date Smoking Tobacco: Never Passive Smoke Exposure: Never Smokeless Tobacco: Never Alcohol Use Standard Drinks/Week Comments Yes 5 (1 standard drink = 0.6 oz pur e alcohol) [facility] Utilities Answer Date Recorded In the [...] your living situation today? [facility] 03/29/2023 Sex and Gender Information Value Date Recorded Sex Assigned at Female 03/21/2023 11:26 AM SUPERVISOR [employer]URNACE Gender Identity Female 03/21/2023 11:26 AM SUPERVISOR [employer]NACE Sexual Orientation Straight 03/21/2023 11 :26 AM SUPERVISOR BLAST FURNACE documented as of this encounter Plan of Treatment Not on file documented as of this encounter Visit Diagnoses Diagnosis Malformation Arnold Chiari (HCC)- Primary documented in this encounter
--- OUTSIDE RECORDS SUMMARY | 2023-10-31 19:23 | XMS_ITS ---
Author Organization [facility] Address [address] [place] [address] Care Team Providers Care Sports Reporter Name Role Phone Unavailable Primary Care Provider Unavailabl e Genomics Program Status:Identified (Enrolling) Start date:04/27/2023 Continued Care and Services Coordination
--- NOTE | 2023-11-20 09:18 | W.PM.SLEEP ---
Sleep Study Details Details Interpreting Provider: Alberto Date of Sleep Study: 10/31/23 Sleep Study Details: STUDY TYPE:? Home unattended ? BMI:? Not recorded ORDERING PROVIDER:? Alberto INDICATION:? Concerns about sleep apnea ? SLEEP SUMMARY:? 560 minutes monitored RESPIRATORY SUMMARY:? AHI 6.2 per CMS guidelines, low oxygen 82, 0.1% of study oxygen less than 90%, snoring 49.2% PERIODIC LIMB MOVEMENTS OF SLEEP:? Not recorded CARDIAC:? Range 49-93, mean 61.9 beats per minute IMPRESSION:? Mild obstructive sleep apnea with daytime hypersomnolence RECOMMENDATION: Treatment options include dental appliance versus CPAP.
== END 2023-10-31 19:21 | disposition home or self-care (01) ==
LOC: SLEEP 19:20
PROVIDERS: PCP Family Medicine; Visit Provider Otolaryngology
DX: G47.33 Obstructive sleep apnea (adult) (pediatric) (principal); G47.19 Other hypersomnia
CPT/HCPCS: 95806

== ENCOUNTER 2023-11-10 10:11 | Outpatient (CLI) | payer MEDICARE, SELFPAY ==
--- OUTSIDE RECORDS SUMMARY | 2023-11-10 10:13 | XMS_ITS | Clinical Summary ---
Author Organization [facility] Address [address] [place] [address]. [place] [address] Care Team Providers Care Product Steward Name Role Phone Fina Marie MD Primary Care Provider +1 [phone] Allergies Active Allergy Reactions Criticality Noted Date [...] Description 10/24/2023 11:44 AM CDT Anesthesia Event [facility] [address] [phone] Yamilet Mathias MD 10/24/2023 11:00 AM CDT - 10/24/2023 12:30 PM CDT Surgery [facility] [address] [phone] Nasrin Condon MD ENDOSCOPIC ULTRASOUND WITH FINE NEEDLE ASPIRATION, ESOPHAGOGASTRODUODENOSCOPY 10/24/2023 9:15 AM CDT - 10/24/2023 1:01 PM CDT Hospital Encounter [facility] [address] [address] Nasrin Condon MD Discharge Disposition: Home or Self Care from Last 3 Months Social History Tobacco [...] per calendar year) 2023 COVID-19 Vaccine ( season) 2023 12/16/2021, 12/04/2020, 02/25/2020, Additional history [...] need for H&P and to call us [facility] ESOPHAGOGASTRODUODE NOSCOPY, WITH FINE NEEDLE ASPIRATION BIOPSY, WITH ENDOSCOPIC ULTRASOUND GUIDANCE 10/24/2023 11:44 AM CDT Pancreatic cyst Early satiety Special Needs PATIENT REPORTS HISTORY OF RAPID HEARTBEAT ALLERGIES: PENICILLINS LM re: need for H&P and to call us [facility] UPPER EUS Routine 10/24/2023 11:34 AM CDT 5 HIAA QUANTITATIVE URINE Routine 09/10/2023 8:15 AM CDT Diarrhea, unspecified Unspecified abdominal pain from Last 3 Months Results * Cytology, [...] component of this testing was completed at [facility] [place] [facility]. Stain controls for all stains resulted within this report have been reviewed and show appropriate reactivity. 10/26/2023 3:32 PM CDT [facility] Cyst STRUCTURE OF TAIL OF PANCREAS / Unknown 10/24/2023 12:04 PM CDT 10/25/2023 10:23 AM CDT Nasrin [facility] Specialty Lab 500 [facility], Room [address] [place] [phone] * Surgical Pathology Exam (10/24/2023 11:53 AM CDT) Case Report Surgical Pathology R eport ? Case: [id number] ? Authorizing Provider: ??Nasrin Condon, ??Collected: ? 10/24/2023 11:53 AM ? MD ? Ordering Location: ? [facility] ?Received: ?10/24/2023 12:23 PM ? [facility] ? Pathologist: ? Devon Ivan, ? Specimens: ?? A) - Small Intestine, Duodenum, rule out celiac ? B) - Stomach, rule out h. pylori ? 4 9:48 AM [facility] Final Diagnosis A. Duodenum, biopsies: --No significant histopathologic change. B. Stomach, biopsies: --Gastric mucosa with no significant histopathologic change. --Negative for Helicobacter pylori organisms or dysplasia. 4 9:48 AM [facility] Clinical Information Procedure: ENDOSCOPIC ULTRASOUND WITH FINE NEEDLE ASPIRATION, ESOPHAGOGASTRODUODENOSCOP Y Pre-op Diagnosis: Pancreatic cyst [K86.2] Early satiety [R68.81] Post-op Diagnosis: K86.2 - Pancreatic cyst [ICD-10-CM] R68.81 - Early satiety [ICD-10-CM] 9:48 AM [facility] Gross Description A(1). Small Intestine, Duodenum, [...] (ASCP) 10/24/2023 12:34 PM 4 9:48 AM [facility] Microscopic Description Microscopic examination was performed. 4 9:48 AM [facility] Performing Labs The technical component of this testing was completed at [facility] [place] [facility]. Stain controls for all stains resulted within this report have been reviewed and show appropriate reactivity. 4 9:48 AM [facility] Case Images 4 9:48 AM [facility] Biopsy DUODENAL STRUCTURE / Unknown 10/24/2023 11:53 AM CDT 10/24/2023 12:23 PM CDT Specimen from unspecified body site obtained by biopsy (specimen) STOMACH STRUCTURE / Unknown 10/24/2023 11:54 AM CDT 10/24/2023 12:23 PM CDT Nasrin [facility] Lab [address] Lab (1st floor, no room number) [place] [address], [facility] Lab [address] 1st floor, [address] [place] [address], [facility] [phone] * UPPER EUS (10/24/2023 11:34 AM CDT) Pathologist [facility] [address] ??[place] ??[address] ___ Patient Name: Isis Malagon ? Procedure Date: 10/24/2023 11:34 AM ? Date of : 1955 ? Admit Type: Outpatient Age: 68 ? Room: [place] [address] Note Status: Finalized ?Attending MD: NASRIN CONDON MD, Instrument Name: [id number] Linear ___ Procedure: ?Upper EUS Indications: ?Pancreatic cyst, Early satiety Providers: ?NASRIN CONDON MD, Trina Thompson RN Referring MD: ? Martin Zheng, FINA MARIE MD Medicines: ?Monitored Anesthesia Care, Cipro 400 [...] bid x 5 days. Rx sent to ?[facility] ? Nasrin Condon MD NASRIN CONDON [...] HIAA Quantitative Urine (09/10/2023 8:15 AM CDT) Creatinine, Urine per volume 45 mg/dL 09/14/2023 7:36 AM CDT [facility] Creatinine, Urine per 24hr 945 500 - 1400 mg/d 09/14/2023 7:36 [...] as a ratio to creatinine excretion (mg/g SIDE SPLITTER). No reference interval is available for results [...] developed and its performance characteristics determined by [facility]. It has not been cleared or approved by the US Food and Drug Administration. This test was performed in a CLIA certified laboratory and is intended for clinical purposes. Performed By: [facility] [address] [place] [address] Analytical Lab Technician: Barrett Piper MD, PhD CLIA Number: [id number] Urine MID-STREAM URINE SPECIMEN / Unknown Non-blood Collection / Unknown 09/10/2023 8:15 AM CDT 09/11/2023 9:55 AM CDT Ruthie Otero MD LAB - URINE ORDERABL ES [employer] [facility] [address] [place] [address], [facility] [phone] from Last 3 Months Care Teams Product Steward Relationship Specialty Start Date End Date Fina Marie MD [address] [address] PCP - General Family Medicine 10/16/23
--- OUTSIDE RECORDS SUMMARY | 2023-11-10 10:14 | XMS_ITS | Encounter Summary ---
Author Organization [facility] Address [address] [place] [address] Care Team Providers Care Biofuels Technology Manager Name Role Phone Fina Marie MD Primary Care Provider [phone] [phone] Reason for Visit * Auth/Cert (Routine) Specialty Diagnoses / Procedures Referred By Contact Referred To Contact Gastroenterology Diagnoses Pancreatic cyst Early satiety Pancreatic cyst [K86.2] Early satiety [R68.81] Procedures NM UPPR GI ENDOSCOPY W/US FN BX NM EGD INTRMURAL NEEDLE ASPIR/BIOP ALTERED ANATOMY ENDOSCOPIC ULTRASOUND WITH FINE NEEDLE ASPIRATION, ESOPHAGOGASTRODUODENOSCOPY Endoscopy [address] [address] Referral ID Status Reason Start Date Expiration Date Visits Re quested Visits Authorized [id number] 1 1 Encounter Details Date Type Department Care Team (Latest Contact Info) Description 10/24/2023 11:00 AM CDT - 10/24/2023 12:30 PM CDT Surgery [facility] [address] [phone] Nasrin Condon MD [place] [facility] [address] [place] [address] ENDOSCOPIC ULTRASOUND WITH FINE NEEDLE ASPIRATION, ESOPHAGOGASTRODUODENOSCOPY [...] need for H&P and to call us /[facility] documented in this encounter Social History Tobacco [...] need for H&P and to call us [facility] ESOPHAGOGASTRODUO DENOSCOPY, WITH FINE NEEDLE ASPIRATION BIOPSY, WITH ENDOSCOPIC ULTRASOUND GUIDANCE 10/24/2023 11:44 AM CDT Pancreatic cyst Early satiety Special Needs PATIENT REPORTS HISTORY OF RAPID HEARTBEAT ALLERGIES: PENICILLINS LM re: need for H&P and to call us [facility] UPPER EUS Routine 10/24/2023 11:34 AM CDT [...] component of this testing was completed at [facility]. Stain controls for all stains resulted within this report have been reviewed and show appropriate reactivity. 10/26/2023 3:32 PM CDT [facility] Cyst STRUCTURE OF TAIL OF PANCREAS / Unknown 10/24/2023 12:04 PM CDT 10/25/2023 10:23 AM CDT Nasrin [facility] [address] [facility], Room [address] [place], [place] [phone] * Surgical Pathology Exam (10/24/2023 11:53 AM CDT) Case Report Surgical Pathology R eport ? Case: [id number] ? Authorizing Provider: ??Nasrin Condon, ??Collected: ? 10/24/2023 11:53 AM ? MD ? Ordering Location: ? [facility] ?Received: ?10/24/2023 12:23 PM ? [facility] [...] component of this testing was completed at [facility]. Stain controls for all [...] 10/24/2023 12:23 PM CDT Nasrin [facility] [address] [facility] Lab (1st floor, no room number) [place] [address], [facility] Lab [address] 1st floor, [address] [place] [address], [place] [phone] * UPPER EUS (10/24/2023 11:34 AM CDT) Pathologist [facility] Upper EUS [facility] [address] ??[place] ??[address] ___ Patient Name: Isis Malagon ? Procedure Date: 10/24/2023 11:34 AM ? Date of : 1955 ? Admit Type: Outpatient Age: 68 ? Room: [place] [address] Note Status: Finalized ?Attending MD: NASRIN CONDON MD, Instrument Name: 529 [id number] Linear ___ Procedure: ?Upper EUS Indications: ?Pancreatic [...] bid x 5 days. Rx sent to ?[facility] ? Nasrin Condon MD NASRIN CONDON [...] Pharmacoprophylaxis documented in this encounter Care Teams Biofuels Technology Manager Relationship Specialty Start Date [place] [address] PCP - General Family Medicine 10/16/23 documented as of this encounter
--- OUTSIDE RECORDS SUMMARY | 2023-11-10 10:14 | XMS_ITS | Referral Summary ---
Author Organization [facility] Address [address] [place] [address]. [place] [address] Care Team Providers Care Client Solutions Director Name Role Phone Fina Marie MD Primary Care Provider [phone] [phone] Encounters Date Type Department Care Team Description 10/24/2023 11:44 AM CDT Anesthesia Event [facility] Endoscopy [address] [phone] Yamilet Mathias MD 10/24/2023 11:00 AM CDT - 10/24/2023 12:30 PM CDT Surgery [facility] [address] [phone] Nasrin Condon MD ENDOSCOPIC ULTRASOUND WITH FINE NEEDLE ASPIRATION, ESOPHAGOGASTRODUODENOSCOPY 10/24/2023 9:15 AM CDT - 10/24/2023 1:01 PM CDT Hospital Encounter [facility] [address] [phone] Nasrin Condon MD Discharge Disposition: Home or Self Care from Last 3 Months Allergies Active Allergy [...] need for H&P and to call us [facility] ESOPHAGOGASTRODUODE NOSCOPY, WITH FINE NEEDLE ASPIRATION BIOPSY, WITH ENDOSCOPIC ULTRASOUND GUIDANCE 10/24/2023 11:44 AM CDT Pancreatic cyst Early satiety Special Needs PATIENT REPORTS HISTORY OF RAPID HEARTBEAT ALLERGIES: PENICILLINS LM re: need for H&P and to call us [facility] UPPER EUS Routine 10/24/2023 11:34 AM CDT [...] component of this testing was completed at [facility]. Stain controls for all stains resulted within this report have been reviewed and show appropriate reactivity. 10/26/2023 3:32 PM CDT [facility] Cyst STRUCTURE OF TAIL OF PANCREAS / Unknown 10/24/2023 12:04 PM CDT 10/25/2023 10:23 AM CDT Nasrin [facility] Specialty Lab [address] [facility], Room [address] [place] [address] * Surgical Pathology Exam (10/24/2023 11:53 AM CDT) Case Report Surgical Pathology R eport ? Case: [id number] ? Authorizing Provider: ??Nasrin Condon, ??Collected: ? 10/24/2023 11:53 AM ? MD ? Ordering Location: ? [facility] ?Received: ?10/24/2023 12:23 PM ? [facility] ? Pathologist: ? Devon Ivan MD ? Specimens: ?? A) - Small Intestine, Duodenum, rule out celiac ? B) - Stomach, rule out h. pylori ? 4 9:48 AM [facility] Final Diagnosis A. Duodenum, biopsies: --No significant histopathologic change. B. Stomach, biopsies: --Gastric mucosa with no significant histopathologic change. --Negative for Helicobacter pylori organisms or dysplasia. 4 9:48 AM [facility] Clinical Information Procedure: ENDOSCOPIC ULTRASOUND WITH FINE NEEDLE ASPIRATION, ESOPHAGOGASTRODUODENOSCOP Y Pre-op Diagnosis: Pancreatic cyst [K86.2] Early satiety [R68.81] Post-op Diagnosis: K86.2 - Pancreatic cyst [ICD-10-CM] R68.81 - Early satiety [ICD-10-CM] 4 9:48 AM [facility] Gross Description A(1). Small [...] (ASCP) 10/24/2023 12:34 PM 4 9:48 AM [facility] Microscopic Description Microscopic examination was performed. 9:48 AM CDT LABORATORY Performing Labs The technical component of this testing was completed at [facility]. Stain controls for all stains [...] PM CDT Nasrin [facility] [address] [facility] Lab (1st floor, no room number) [place] [address], [facility] Acute Care Lab [address] 1st floor, Room [address] [place] [address], [facility] [phone] * UPPER EUS (10/24/2023 11:34 AM CDT) [facility] Upper EUS [facility] [address] ??[place], [place] ??[address] ___ Patient Name: Isis Malagon ? Procedure Date: 10/24/2023 11:34 AM ? Date of : 1955 ? Admit Type: Outpatient Age: 68 ? Room: [facility] 01 Note Status: Finalized ?Attending MD: NASRIN CONDON MD, Instrument Name: [id number] Linear ___ Procedure: ?Upper EUS Indications: ?Pancreatic cyst, Early satiety Providers: ?NASRIN CONDON MD, Trina Thompson RN Referring MD: ? Martin Zehng, FINA MARIE MD Medicines: ?Monitored Anesthesia Care, [...] bid x 5 days. Rx sent to ?[facility] ? Nasrin Condon MD NASRIN CONDON MD 10/24/2023 12:33:07 PM I was physically present for the entire viewing portion of the exam. NARSIN CONDON MD Number of Addenda: 0 Note [...] Interpretation See Note 09/14/2023 7:36 AM CDT [employer] Comment: INTERPRETIVE INFORMATION: 5-Hydroxyindoleacetic Acid (HIAA), Urine 5-Hydroxyindoleacetic acid (5-HIAA) results are expressed as a ratio to creatinine excretion (mg/g TOOL DIE MAKER). No reference interval is available for results [...] developed and its performance characteristics determined by [employer] [employer]. It has not been cleared or approved by the US Food and Drug Administration. This test was performed in a CLIA certified laboratory and is intended for clinical purposes. Performed By: [facility] [address] [place] [address] Slots Manager: Barrett Piper MD, PhD CLIA Number: [id number] Urine MID-STREAM URINE SPECIMEN / Unknown Non-blood Collection / Unknown 09/10/2023 8:15 AM CDT 09/11/2023 9:55 AM CDT Ruthie Otero MD LAB - URINE ORDERABL ES [facility] [employer] [email or web address] [address] [place] [address], [facility] [phone] from Last 3 Months Care Teams Client Solutions Director Relationship Specialty Start Date End Date Fina Marie MD [address] [address] PCP - General Family Medicine 10/16/23
--- OUTSIDE RECORDS SUMMARY | 2023-11-10 10:14 | XMS_ITS | Encounter Summary ---
Author Organization [facility] Address [address] [place] [address] Care Team Providers Care Harness Placer Name Role Phone Fina Marie MD Primary Care Provider +1 -[phone] Encounter Details Date Type Department Care Team (Late st Contact Info) Description 08/02/2023 Orders Only [facility] [address] [place] [address] Ruthie Otero MD [facility] [address] [place] [address] Nonspecific abnormal results of thyroid function study [...] Primary documented in this encounter Care Teams Harness Placer Relationship Specialty Start Date End Date Fina Marie MD [address] [address] PCP - General Family Medicine 10/16/23 documented as of this encounter
--- OUTSIDE RECORDS SUMMARY | 2023-11-10 10:14 | XMS_ITS | Encounter Summary ---
Author Organization [facility] Address [address] [place] [address] Care Team Providers Care Boat Joiner Name Role Phone Fina Marie MD Primary Care Provider +1 -[phone] Reason for Visit * Auth/Cert (Routine) Specialty Diagnoses / Procedures Referred By Contact Referred To Contact Gastroenterology Diagnoses Pancreatic cyst Early satiety Pancreatic cyst [K86.2] Early satiety [R68.81] Procedures [place] UPPR GI ENDOSCOPY W/US FN BX [place] EGD INTRMURAL NEEDLE ASPIR/BIOP ALTERED ANATOMY ENDOSCOPIC ULTRASOUND WITH FINE NEEDLE ASPIRATION, ESOPHAGOGASTRODUODENOSCOPY Endoscopy [address] [address] Referral ID Status Reason Start Date Expiration Date Visits Re quested Visits Authorized [id number] 1 1 Encounter Details Date Type Department Care Team (Late st Contact Info) Description 10/24/2023 11:44 AM CDT Anesthesia Event [facility] Endoscopy [address] [address] Yamilet Mathias MD [facility] [address] [address] Anesthesia Record Procedure Summary Procedure Name Responsible Anesthesiologist Anesthesia Start Time Anesthesia Stop Time ENDOSCOPIC ULTRASOUND WITH F INE NEEDLE ASPIRATION, ESOPHAGOGASTRODUODENOSCOPY (Esophagus) Yamilet Mathias MD 10/24/23 1144 10/24/23 1215 Events Date Time Event Comment 10/24/2023 1014 1137 ASSISTANT COMMISSIONER Ready for Procedure 1144 An Start Anesthesia [...] recorded are pre- induction. Ruthie Dorado APRN ASSISTANT COMMISSIONER 1148 Anesthesia Ready for Procedu re 1215 [...] and realistic alternatives discussed. Questions answered and patient/claim service representative(s) expressed understanding. - Discussed: - Discussed [...] mg documented in this encounter Care Teams Boat Joiner Relationship Specialty Start Date End Date Fina Marie MD [address] [address] PCP - General Family Medicine 10/16/23 documented as of this encounter
--- OUTSIDE RECORDS SUMMARY | 2023-11-10 10:14 | XMS_ITS | Encounter Summary ---
Author Organization [place] Address [address] [place] [address] Care Team Providers Care Driver Education Instructor Name Role Phone Fina Marie MD Primary Care Provider [phone] Reason for Visit * Auth/Cert (Routine) Specialty Diagnoses / Procedures Referred By Contact Referred To Contact Gastroenterology Diagnoses Pancreatic cyst Early satiety Pancreatic cyst [K86.2] Early satiety [R68.81] Procedures GA UPPR GI ENDOSCOPY W/US FN BX GA EGD INTRMURAL NEEDLE ASPIR/BIOP ALTERED ANATOMY ENDOSCOPIC ULTRASOUND WITH FINE NEEDLE ASPIRATION, ESOPHAGOGASTRODUODENOSCOPY Endoscopy [address] [address] Referral ID Status Reason Start Date Expiration Date Visits Re quested Visits Authorized [id number] 1 1 Encounter Details Date Type Department Care Team (Latest Contact Info) Description 10/24/2023 9:15 AM CDT - 10/24/2023 1:01 PM CDT Hospital Encounter [facility] Endoscopy [address] [address] Nasrin Condon MD [place] [facility] [address] [facility] [address] [address] Discharge Disposition: Home or Self Care Social [...] need for H&P and to call us 9/[facility] ESOPHAGOGASTRODUO DENOSCOPY, WITH FINE NEEDLE ASPIRATION BIOPSY, WITH ENDOSCOPIC ULTRASOUND GUIDANCE 10/24/2023 11:44 AM CDT Pancreatic cyst Early satiety Special Needs PATIENT REPORTS HISTORY OF RAPID HEARTBEAT ALLERGIES: PENICILLINS LM re: need for H&P and to call us [facility] UPPER EUS Routine 10/24/2023 11:34 AM CDT [...] of this testing was completed at [facility]. Stain controls for all stains resulted within this report have been reviewed and show appropriate reactivity. 10/26/2023 3:32 PM CDT SPECIALTY LABS Cyst STRUCTURE OF TAIL OF PANCREAS / Unknown 10/24/2023 12:04 PM CDT 10/25/2023 10:23 AM CDT Nasrin [facility] [address], [address] [place] [address], [facility] * Surgical Pathology Exam (10/24/2023 11:53 AM CDT) Case Report Surgical Pathology R eport ? Case: [id number] ? Authorizing Provider: ??Nasrin Condon, ??Collected: ? 10/24/2023 11:53 AM ? MD ? Ordering Location: ? [facility] ?Received: ?10/24/2023 12:23 PM ? [facility] ? Pathologist: ? Devon Ivan MD ? Specimens: ?? A) - Small Intestine, Duodenum, rule out celiac ? B) - Stomach, rule out h. pylori ? 4 9:48 AM [facility] Final Diagnosis A. Duodenum, biopsies: --No significant histopathologic change. B. Stomach, biopsies: --Gastric mucosa with no significant histopathologic change. --Negative for Helicobacter pylori organisms or dysplasia. 4 9:48 AM [facility] Clinical Information Procedure: ENDOSCOPIC ULTRASOUND WITH FINE NEEDLE ASPIRATION, ESOPHAGOGASTRODUODENOSCOP Y Pre-op Diagnosis: Pancreatic cyst [K86.2] Early satiety [R68.81] Post-op Diagnosis: K86.2 - Pancreatic cyst [ICD-10-CM] R68.81 - Early satiety [ICD-10-CM] 9:48 AM [facility] Gross Description A(1). Small Intestine, Duodenum, [...] (ASCP) 10/24/2023 12:34 PM 4 9:48 AM [facility] Microscopic Description Microscopic examination was performed. 9:48 AM [facility] Performing Labs The technical component of this testing was completed at [facility]. Stain controls for all stains [...] CDT Nasrin [facility] Emergency Department Lab [address] [facility] [facility] [address] (1st floor, no room number) [place] [address], [facility] [address] 1st floor, [address] [place] [address], [facility] [phone] * UPPER EUS (10/24/2023 11:34 AM CDT) Pathologist [facility] [address] ??[id number] ___ Patient Name: Isis Malagon ? Procedure Date: 10/24/2023 11:34 AM ? Date of : 1955 ? Admit Type: Outpatient Age: 68 ? Room: [place] [address] Note Status: Finalized ?Attending MD: NASRIN CONDON MD, Instrument Name: [id number] Linear ___ Procedure: ?Upper EUS Indications: ?Pancreatic [...] bid x 5 days. Rx sent to ?[facility] ? Nasrin Condon MD NASRIN CONDON [...] Pharmacoprophylaxis documented in this encounter Care Teams Driver Education Instructor Relationship Specialty Start Date End Date Fina Marie MD [address] [address] PCP - General Family Medicine 10/16/23 documented as of this encounter
--- NOTE | 2023-11-10 10:15 | CRLHL7_ITS ---
For Patients: As a result of the Century Cures Act, medical imaging exams and procedure reports are released immediately into your electronic medical record. You may view this report before your referring provider. If you have questions, please contact your health care provider. INDICATION: Right-sided paresthesias and weakness. COMPARISON: 09/18/2023. TECHNIQUE: Sagittal T1, T2, and STIR sequences. Axial T1 and T2 weighted sequences. FINDINGS: Normal vertebral body alignment. No fractures. No vertebral body loss of height. No spondylolisthesis.. No ligamentous injury. No marrow signal. No suspicious osseous lesions. Normal conus terminates at L1-2. T12-L1 L1-2: No spinal canal or neural foraminal narrowing. L2-3: Mild disc degeneration. No spinal canal neural foraminal narrowing. L3-4: No spinal canal or neural foraminal narrowing. L4-5: Annular bulge. No spinal canal neural foraminal narrowing. L5-S1: Disc degeneration posterior disc bulge. No narrowing of the spinal canal. No impingement of the traversing S1 nerve roots. No neural foraminal narrowing. Mild facet arthropathy. Normal visualized SI joints. Normal perispinal soft tissues. IMPRESSION: 1. Normal alignment. No fractures. 2. Mild lumbar spondylosis. 3. At L5-S1, mild disc degeneration posterior disc bulge. No spinal canal or neural foraminal narrowing. 4. No splenic canal or neural foraminal narrowing at the remaining levels Dictated by Sin Hensley MD @ 11/11/2023 8:37:56 PM (Electronically Signed)
--- OUTSIDE RECORDS SUMMARY | 2023-11-10 10:15 | XMS_ITS | Clinical Summary ---
Author Organization [facility] Address [place], [place] [address] Care Team Providers Care Director Case Management Name Role Phone Ruthie Otero MD Primary Care Provider [phone] Allergies No known active allergies Medications Medication [...] billion cell cap Take by mouth. 10/06/2023 Active omeprazole (PRILOSEC) 20 mg Delayed-Release capsule TAKE 1 CAPSULE (20 MG) BY MOUTH TWICE A DAY 09/25/2023 Active traMADoL (ULTRAM) 50 mg tablet Take 1 Tablet by mouth every 12 hours if needed. 09/18/2023 Active ondansetron (ZOFRAN ODT) 4 mg disintegrating tablet DISSOLVE ONE TABLET ON THE TONGUE EVERY EIGHT HOURS NEEDED FOR NAUSEA 09/08/2023 Active propranoloL (INDERAL) 10 mg tabletIndications:Palp itations Take 0.5 Tablets (5 mg) by mouth once daily. 45 Tablet 3 10/06/2023 Active Encounters Date Type Department Care Team Description 10/06/2023 10:30 AM CDT Office Visit [facility] [address] [place] [address] [address] [address] Edna Torres NP Follow Up (F/U to [...] cardiac symptoms) 10/06/2023 Travel 09/20/2023 Lab Requisition [facility] [phone] Unknown, Doctor 09/18/[address] [facility] [address] [place] [address] Fina Marie MD 1 scan: (1-Ord) ZIO REPORT 09/14/2023 8:20 AM CDT Office Visit [facility] [address] [place] [phone] Rosa Villalobos MD Consult 09/14/2023 Travel 09/13/2023 Telephone [facility] Specialty [facility] [address] [place] [address] Rosa Villalobos MD Appointment Reminder 08/16/2023 Telephone [facility] Specialty [facility] [address] [place] [phone] Thi Diaz NP Appointment Request 08/14/2023 Orders Only [facility] Scanner 1 scan: (1-Ord) [...] st Contact Info) Description 12/12/2023 11:35 AM REPORT DEVELOPER Telemedicine [facility] [address] [place] [address] Asha Reese NP [address] [place] [address] Health Maintenance Due Date Last Done Comments [...] 1 - PCV) 2021 COVID-19 vaccine series ( - season) 2023 12/16/2021, 12/04/2020 Influenza for age 65+ 10/08/2023 BMI (ht and wt on same day) for age 18+ 10/05/2024 0 10/06/2023 Procedures Procedure Name Priority Date/Time Associated Diagnosis Comments EXTENDED HOLTER Routine 10/05/2023 Tachycardia, unspecified REFERRAL SUSCEPTIBILITY Routine 09/16/2023 12:20 PM CDT SCAN-MRI INTERPRETATION 08/14/2023 12:00 AM CDT (IA) AL COLONOSCOPY REMOVE CARMELINA POLYP LESN SNARE Routine 10/01/2007 Special Screening for Malignant Neoplasms, Colon Benign Neoplasm of Colon from Last 3 Months or Most Recently Relevant to Health Maintenance Results * EXTENDED HOLTER (10/05/2023) Fina Marie MD CARDIAC SERVICES ORD * (ABNORMAL) REFERRAL SUSCEPTIBILITY (09/16/2023 12:20 PM CDT) CULTURE RESULT(A) 09/23/2023 11:04 AM CDT [facility] CULTURE Pseudomonas aeruginosa 09/23/2023 11:04 AM CDT [facility] Other URINE SPECIMEN / Unknown Client Collect / Unknown 09/16/2023 12:20 PM CDT 09/20/2023 3:00 PM CDT Narrative Organism Antibiotic Method Susceptibility Pseudomonas aeruginosa CEFTAZIDIME S Pseudomonas aeruginosa LEVOFLOXACIN S Pseudomonas aeruginosa CIPROFLOXACIN S Pseudomonas aeruginosa PIPERACILLIN/TAZO S Pseudomonas aeruginosa CEFEPIME S Pseudomonas aeruginosa TOBRAMYCIN S Pseudomonas aeruginosa MEROPENEM S Doctor Unknown MICROBIOLOGY [facility] [address] [place] [address], * SCAN-MRI INTERPRETATION (08/14/2023 12:00 AM CDT) Anatomical Region Laterality Modality Other Scanner OTHER * AL COLONOSCOPY REMOVE LESN SNARE (10/01/2007) Neo Velasquez MD PB - DIGESTIVE SY STEM SERVICES from Last 3 Months or Most Recently Relevant to Health Maintenance Care Teams Director Case Management Relationship Specialty [place] [address] [place] [phone] PCP - General Internal Medicine 08/16/23
--- OUTSIDE RECORDS SUMMARY | 2023-11-10 10:15 | XMS_ITS | Clinical Summary ---
Author Organization [facility] Address [address] [place] [address] Care Team Providers Care Tool Engine Lathe Set Up Operator Name Role Phone Unavailable Primary Care Provider Unavailabl e Source Comments Patient records contain information from all sites at [facility]. For routine questions regarding patient records, call [phone] during business hours, M-F 8:00 AM - 5:00 PM Central Time. Record requests for emergency care only can be directed to [phone] at any time.[facility] Allergies Active Allergy Reactions Criticality [...] Division of Vascular and Endovascular Surgery in [place], [place] [address] [place] [address] Emma Álvarez M.D. Aneurysm Splenic Artery (HCC) 09/28/2023 2:15 PM CDT Comprehensive Visit Department of Vascular Medicine in [place], [place] [address] [place] [address] Nathen Macias M.D. Aneurysm Splenic Artery (HCC) (Primary Dx) 09/28/2023 8:44 AM CDT - 09/28/2023 11:59 PM CDT Hospital Encounter Department of Radiology, [facility], in [place], [place] [address] [place] [address] Ty Finch M.D. Aneurysm Splenic Artery (HCC) Discharge Disposition: Home or Self Care 09/18/2023 Clinical Communication Division of Gastroenterology in [place], [place] [address] [place] [address] Kiah Sarkar M.B.B.S., M.S. 09/12/2023 Clinical Communication Division of Endocrinology in [place], [place] [address] [place] [address] Edna Meade M.D. 09/01/2023 11:44 AM CDT - 09/01/2023 11:59 PM CDT Hospital Encounter Department of Radiology, [facility] in [place], [place] [address] [place] [address] Ty Finch M.D. Adenoma Adrenal Right Discharge Disposition: Home or Self Care 08/30/2023 9:27 AM CDT - 08/30/2023 11:59 PM CDT Hospital Encounter Department of Laboratory Medicine and Pathology, [facility] in [place], [place] [address] [place] [phone] Ty Finch M.D. Adenoma Adrenal Right Discharge Disposition: Home or Self Care 08/30/2023 8:30 AM CDT Comprehensive Visit Division of Endocrinology in [place], [place] [address] [place] [phone] Ty Finch M.D. Genetic Susceptibility To Other Malignant Neoplasm; Adenoma Adrenal Right 08/17/2023 Clinical Communication Department of Neurologic Surgery in [place], [place] [address] [place] [phone] Yon Juárez M.D. 08/15/2023 Clinical Communication Department of Neurologic Surgery in [place], [place] [address] [place] [phone] Prescheduling, Provider OSM (SISI); OSM (SISI) from [...] Other - would like to get at [facility]),03/11/2011 influenza trivalent vaccine (6 months and older)(PF) [...] drink = 0.6 oz pur e alcohol) [facility] Utilities Answer Date Recorded In the [...] your living situation today? I have a [facility] place to live 03/29/2023 Sex and Gender Information Value Date Recorded Sex Assigned at Female 03/21/2023 11:26 AM MACHINE TOOL MECHANIC Gender Identity Female 03/21/2023 11:26 AM MACHINE TOOL MECHANIC Sexual Orientation Straight 03/21/2023 11 :26 AM MACHINE TOOL MECHANIC Last Filed Vital Signs Vital Sign Reading [...] 24, 01/06/2022 Medical Devices Implanted Type Area Roll Capper Device Identifier Shelf Expiration Date Model / [...] A1C, B Routine 03/29/2023 7:0 7 AM MACHINE TOOL MECHANIC Angina Pectoris Unspecified (HCC) OUTSIDE MG MAMMOGRAM Routine 01/04/2023 8:45 AM MACHINE TOOL MECHANIC from Last 3 Months or Most Recently [...] symptomatology. The patient reported recent application of cardiac care nurse from an outside institution and was then [...] in symptomatology. Thepatient reported recent application of cardiac care nurse from an outsideinstitution and was then instructed [...] CDT Ty Finch M.D. LAB BLOOD ADD-ON [facility] [place] [address] [place] [address], [facility] DTL [facility] [address] [place] [address] * MR Brain WO (Unpaired)-Outside MR Neuro [...] Not In System IMG MRI PROCEDURE S IIKY NA * Hemoglobin A1c (03/29/2023 7:07 AM MACHINE TOOL MECHANIC) Hemoglobin A1c, B 5.2 4.0 - 5.6 % 03/29/2023 7:50 AM MACHINE TOOL MECHANIC DTL Blood (Blood, Venous) 03/29/2023 7:07 AM MACHINE TOOL MECHANIC 03/29/2023 7:28 AM MACHINE TOOL MECHANIC Ming Campbell M.D. LAB BLOOD ADD-O N [facility] [place] [address] [place] [address], [place] DTL [facility] [address] [place] [address] * MM diagnostic mammo BI-Outside Mammogram (01/04/2023 8:45 AM MACHINE TOOL MECHANIC) Narrative IIMS - 03/02/2023 4:33 PM MACHINE TOOL MECHANIC This order has been created and auto-finalized [...]
--- OUTSIDE RECORDS SUMMARY | 2023-11-10 10:15 | XMS_ITS ---
Author Organization [facility] Address [address] [place] [address] Care Team Providers Care Burning Machine Operator Name Role Phone Unavailable Primary Care Provider Unavailabl e Genomics Program Status:Identified (Enrolling) Start date:04/27/2023 Continued Care and Services Coordination
--- OUTSIDE RECORDS SUMMARY | 2023-11-10 10:15 | XMS_ITS | Encounter Summary ---
Author Organization [facility] Address [address] [place] [address] Care Team Providers Care Costume Cutter Name Role Phone Unavailable Primary Care Provider Unavailabl e Encounter Details Date Type Department Care Team (Latest Contact Info) Description 08/30/2023 9:27 AM CDT - 08/30/2023 11:59 PM CDT Hospital Encounter Department of Laboratory Medicine and Pathology, [facility] in [place], [place] [address] [place] [address] Ty Finch M.D. [address] [place] [address] Adenoma Adrenal Right Discharge Disposition: Home or Self Care Social History Tobacco Use Types Packs/Day Years Used Date Smoking Tobacco: Never Passive Smoke Exposure: Never Smokeless Tobacco: Never Alcohol Use Standard Drinks/Week Comments Yes 5 (1 standard drink = 0.6 oz pur e alcohol) [facility] Utilities Answer Date Recorded In [...] your living situation today? I have a [facility] place to live 03/29/2023 Sex and Gender Information Value Date Recorded Sex Assigned at Female 03/21/2023 11:26 AM DETENTION SERGEANT Gender Identity Female 03/21/2023 11:26 AM DETENTION SERGEANT Sexual Orientation Straight 03/21/2023 11 :26 AM DETENTION SERGEANT documented as of this encounter Medications at [...] CDT Ty Finch M.D. LAB BLOOD ADD-ON [facility] [address] [place] [address], [place] DTL [facility] [address] [place] [address] documented in this encounter Visit Diagnoses Diagnosis Adenoma Adrenal Right documented in this encounter
--- OUTSIDE RECORDS SUMMARY | 2023-11-10 10:15 | XMS_ITS | Encounter Summary ---
Author Organization [facility] Address [address] [place] [address] Care Team Providers Care Centrifuge Operator Name Role Phone Unavailable Primary Care Provider Unavailabl e Reason for Visit * Outpatient (Routine) - Closed Specialty Diagnoses / Procedures Referred By Josue garcia Referred To Contact Vascular Surgery Diagnoses Aneurysm Splenic Artery (HCC) Nathen Macias M.D. [address] [place] [address] [facility] Referral ID Status Reason Start Date Expiration Date Visits Re quested Visits Authorized [id number] Closed 09/28/2023 03/29/2025 1 1 Encounter Details Date Type Department Care Team (Latest Contact Info) Description 10/13/2023 10:00 AM CDT Comprehensive Visit Division of Vascular and Endovascular Surgery in [place], [place] [address] [place] [phone] Emma Álvarez M.D. [address] [place] [phone] Aneurysm Splenic Artery (HCC) Social History Tobacco Use Types Packs/Day Years Used Date Smoking Tobacco: Never Passive Smoke Exposure: Never Smokeless Tobacco: Never Alcohol Use Standard Drinks/Week Comments Yes 5 (1 standard drink = 0.6 oz pur e alcohol) [facility] Utilities Answer Date Recorded In [...] your living situation today? I have a [facility] place to live 03/29/2023 Sex and Gender Information Value Date Recorded Sex Assigned at Female 03/21/2023 11:26 AM ORACLE APPLICATIONS DEVELOPER Gender Identity Female 03/21/2023 11:26 AM ORACLE APPLICATIONS DEVELOPER Sexual Orientation Straight 03/21/2023 11 :26 AM ORACLE APPLICATIONS DEVELOPER documented as of this encounter Consult Notes [...] aneurysms. I will reach out to her cardiovascular rn to see if they would like to combine her imaging so that she only has to undergo 1 radiographic imaging study at a time as they are continuing to surveil her adenoma. Emma Álvarez MD Vascular guidance consultant Pager [phone] * Colt Chau M.D. - 10/13/2023 10:00 [...] Patient was seen with Dr. Álvarez, vascular media sales consultant. DIAGNOSIS: #1 Aneurysm Splenic Artery (HCC) Colt Chau M.D. documented in this encounter Plan of Treatment Not on file documented as of this encounter Visit Diagnoses Diagnosis Aneurysm Splenic Artery (HCC) documented in this encounter
--- OUTSIDE RECORDS SUMMARY | 2023-11-10 10:15 | XMS_ITS ---
Author Organization [facility] Address [address] [place] [address] Care Team Providers Care Career Developer Name Role Phone Unavailable Unavailable Unavailable Surgery Details Not on file Complications Check Surgery Details section. Procedure Estimated Blood Loss Check Surgery Details section. Procedure Findings Check Surgery Details section. Procedure Specimens Taken Check Surgery Details section.
--- OUTSIDE RECORDS SUMMARY | 2023-11-10 10:15 | XMS_ITS | Encounter Summary ---
Author Organization [facility] Address [address] [place] [address] Care Team Providers Care Glazier Supervisor Name Role Phone Unavailable Primary Care Provider Unavailabl e Reason for Visit * Reason Onset Date Comments OSM 08/15/2023 SISI OSM 08/15/2023 SISI Encounter Details Date Type Department Care Team (Latest Contact Info) Description 08/15/2023 Clinical Communication Department of Neurologic Surgery in [place], [place] [address] [place] [address] Prescheduling, Provider OSM (SISI); OSM (SISI) Social History Tobacco Use Types Packs/Day Years Used Date Smoking Tobacco: Never Passive Smoke Exposure: Never Smokeless Tobacco: Never Alcohol Use Standard Drinks/Week Comments Yes 5 (1 standard drink = 0.6 oz pur e alcohol) [facility] Utilities Answer Date Recorded In the past 12 months has [employer] electric, gas, oil, or water company threatened [...] your living situation today? I have a [facility] place to live 03/29/2023 Sex and Gender Information Value Date Recorded Sex Assigned at Female 03/21/2023 11:26 AM CULTURAL HISTORIAN Gender Identity Female 03/21/2023 11:26 AM CULTURAL HISTORIAN Sexual Orientation Straight 03/21/2023 11 :26 AM CULTURAL HISTORIAN documented as of this encounter Plan of Treatment Not on file documented as of this encounter Visit Diagnoses Not on filedocumented in this encounter
--- OUTSIDE RECORDS SUMMARY | 2023-11-10 10:15 | XMS_ITS | Encounter Summary ---
Author Organization [facility] Address [address] [place] [address] Care Team Providers Care Stave Mill Hand Name Role Phone Unavailable Primary Care Provider Unavailabl e Reason for Referral * MRI/CAT/PET Scan (Routine) - Closed Specialty Diagnoses / Procedures Referred By oJsue garcia Referred To Contact Radiology Diagnoses Adenoma Adrenal Right Procedures CT Abdomen without and with IV Contrast CT Abdomen Pelvis without and with IV Contrast Ty Finch M.D. 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 [address] [place] [address] [facility] Referral ID Status Reason Start Date Expiration Date Visits Re quested Visits Authorized [id number] Closed 05/08/2023 11/06/2024 1 1 Encounter Details Date Type Department Care Team (Latest Contact Info) Description 08/30/2023 8:30 AM CDT Comprehensive Visit Division of Endocrinology in [place], [place] [address] [place] [address] Ty Finch M.D. [address] [place] [phone] Genetic Susceptibility To Other Malignant Neoplasm; Adenoma Adrenal Right Social History Tobacco Use Types Packs/Day Years Used Date Smoking Tobacco: Never Passive Smoke Exposure: Never Smokeless Tobacco: Never Alcohol Use Standard Drinks/Week Comments Yes 5 (1 standard drink = 0.6 oz pur e alcohol) [facility] [employer] Answer Date Recorded In the past 12 months has [employer], gas, oil, or water [employer] threatened to shut off services in your [...] Assigned at Female 03/21/2023 11:26 AM SUPERVISOR IRRIGATION Gender Identity Female 03/21/2023 11:26 AM SUPERVISOR IRRIGATION Sexual Orientation Straight 03/21/2023 11 :26 AM SUPERVISOR IRRIGATION documented as of this encounter Last Filed [...] the PET scan from April did not chart picker any paraganglioma-type abnormalities. She will visit [...] Ty Finch M.D. CT CT Job ID: [id number]/maria esther documented in this encounter Plan of [...] 9:37 AM CDT 08/30/2023 10:10 AM CDT yT Finch M.D. LAB BLOOD ADD-ON [address] [address], [facility] DTL 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
--- OUTSIDE RECORDS SUMMARY | 2023-11-10 10:15 | XMS_ITS | Encounter Summary ---
Author Organization [facility] Address [address] [place] [address] Care Team Providers Care Exerciser Name Role Phone Unavailable Primary Care Provider Unavailabl e Reason for Referral * MRI/CAT/PET Scan (Routine) - Closed Specialty Diagnoses / Procedures Referred By Josue garcia Referred To Contact Radiology Diagnoses Adenoma Adrenal Right Procedures CT Abdomen without and with IV Contrast CT Abdomen Pelvis without and with IV Contrast Ty Finch M.D. [address] [place] [address] [facility] Referral ID Status Reason Start Date Expiration Date Visits Re quested Visits Authorized [id number] Closed 08/30/2023 08/29/2024 1 1 Reason for Visit * MRI/CAT/PET Scan (Routine) - Closed Specialty Diagnoses / Procedures Referred By Josue garcia Referred To Contact Radiology Diagnoses Adenoma Adrenal Right Procedures CT Abdomen without and with IV Contrast CT Abdomen Pelvis without and with IV Contrast Ty Finch M.D. [address] [place] [address] [facility] Referral ID Status Reason Start Date Expiration Date Visits Re quested Visits Authorized [id number] Closed 08/30/2023 08/29/2024 1 1 Encounter Details Date Type Department Care Team (Latest Contact Info) Description 09/01/2023 11:44 AM CDT - 09/01/2023 11:59 PM CDT Hospital Encounter Department of Radiology, [facility], in [place], [place] [address] [place] [address] Ty Finch M.D. [address] [place] [address] Adenoma Adrenal Right Discharge Disposition: Home or Self Care Social History Tobacco Use Types Packs/Day Years Used Date Smoking Tobacco: Never Passive Smoke Exposure: Never Smokeless Tobacco: Never Alcohol Use Standard Drinks/Week Comments Yes 5 (1 standard drink = 0.6 oz pur e alcohol) [facility] Utilities Answer Date Recorded In the past 12 months has e [employer], gas, oil, or water [employer] threatened to shut off services in your [...] Sex Assigned at Female 03/21/2023 11:26 AM FIELD MECHANIC/SITE LEAD Gender Identity Female 03/21/2023 11:26 AM FIELD MECHANIC/SITE LEAD Sexual Orientation Straight 03/21/2023 11 :26 AM FIELD MECHANIC/SITE LEAD documented as of this encounter Medications at [...]
--- OUTSIDE RECORDS SUMMARY | 2023-11-10 10:15 | XMS_ITS | Referral Summary ---
Author Organization [facility] Address [address] [place] [address] Care Team Providers Care Lining Closer Name Role Phone Unavailable Primary Care Provider Unavailabl e Source Comments Patient records contain information from all sites at [facility]. For routine questions regarding patient records, call [phone] during business hours, M-F 8:00 AM - 5:00 PM Central Time. Record requests for emergency care only can be directed to [phone] at any time.[facility] Encounters Date Type Department Care Team Description 10/13/2023 10:00 AM CDT Comprehensive Visit Division of Vascular and Endovascular Surgery in [place], [place] [address] [place] [phone] Emma Álvarez M.D. Aneurysm Splenic Artery (HCC) 09/28/2023 2:15 PM CDT Comprehensive Visit Department of Vascular Medicine in [place], [place] [address] [place] [phone] Nathen Macias M.D. Aneurysm Splenic Artery (HCC) (Primary Dx) 09/28/2023 8:44 AM CDT - 09/28/2023 11:59 PM CDT Hospital Encounter Department of Radiology, [facility], in [place], [place] [address] [place] [address] Ty Finch M.D. Aneurysm Splenic Artery (HCC) Discharge Disposition: Home or Self Care 09/18/2023 Clinical Communication Division of Gastroenterology in [place], [place] [address] [place] [phone] Kiah Sarkar M.B.B.S., M.S. 09/12/2023 Clinical Communication Division of Endocrinology in [place], [place] [address] [place] [phone] Edna Meade M.D. 09/01/2023 11:44 AM CDT - 09/01/2023 11:59 PM CDT Hospital Encounter Department of Radiology, [facility] in [place], [place] [address] [place] [phone] Ty Finch M.D. Adenoma Adrenal Right Discharge Disposition: Home or Self Care 08/30/2023 9:27 AM CDT - 08/30/2023 11:59 PM CDT Hospital Encounter Department of Laboratory Medicine and Pathology, [facility] in [place], [place] [address] [place] [address] Ty Finch M.D. Adenoma Adrenal Right Discharge Disposition: Home or Self Care 08/30/2023 8:30 AM CDT Comprehensive Visit Division of Endocrinology in [place], [place] [address] [place] [phone] Ty Finch M.D. Genetic Susceptibility To Other Malignant Neoplasm; Adenoma Adrenal Right 08/17/2023 Clinical Communication Department of Neurologic Surgery in [address] [phone] Yon Juárez M.D. 08/15/2023 Clinical Communication Department of Neurologic Surgery in [address] [phone] Prescheduling, Provider OSM (SISI); OSM (SISI) from [...] Other - would like to get at [place]),03/11/2011 influenza trivalent vaccine (6 months and older)(PF) [...] 0.6 oz pur e alcohol) [facility] [employer] Answer Date Recorded In the past 12 months has e [employer], gas, oil, or water [employer] threatened to shut off services in your [...] your living situation today? I have a [facility] place to live 03/29/2023 Sex and Gender Information Value Date Recorded Sex Assigned at Female 03/21/2023 11:26 AM PRISONER CLASSIFICATION INTERVIEWER Gender Identity Female 03/21/2023 11:26 AM PRISONER CLASSIFICATION INTERVIEWER Sexual Orientation Straight 03/21/2023 11 :26 AM PRISONER CLASSIFICATION INTERVIEWER Last Filed Vital Signs Vital Sign Reading [...] on file Medical Devices Implanted Type Area Junior Php Developer Device Identifier Shelf Expiration Date Model / [...] A1C, B Routine 03/29/2023 7:0 7 AM PRISONER CLASSIFICATION INTERVIEWER Angina Pectoris Unspecified (HCC) OUTSIDE MG MAMMOGRAM Routine 01/04/2023 8:45 AM PRISONER CLASSIFICATION INTERVIEWER from Last 3 Months or Most Recently [...] symptomatology. The patient reported recent application of cardiac/vascular sonographer from an outside institution and was then [...] in symptomatology. Thepatient reported recent application of cardiac/vascular sonographer from an outsideinstitution and was then instructed [...] M.D. LAB BLOOD ADD-ON Performing Organization Address [facility] Co de Phone Number [facility] [address] [place] [address], [facility] [address] [place] [address] * MR Brain WO (Unpaired)-Outside MR Neuro [...] IMG MRI PROCEDURE S Performing Organization Address [facility] de Phone Number [facility] NA * Hemoglobin A1c (03/29/2023 7:07 AM PRISONER CLASSIFICATION INTERVIEWER) Hemoglobin A1c, B 5.2 4.0 - 5.6 % 03/29/2023 7:50 AM PRISONER CLASSIFICATION INTERVIEWER DTL Blood (Blood, Venous) 03/29/2023 7:07 AM PRISONER CLASSIFICATION INTERVIEWER 03/29/2023 7:28 AM PRISONER CLASSIFICATION INTERVIEWER Ming Campbell M.D. LAB BLOOD ADD-O N Performing Organization Address [facility] Co de Phone Number [facility] [address] [place] [address], [facility] DTL [facility] [address] [place] [address] * MM diagnostic mammo BI-Outside Mammogram (01/04/2023 8:45 AM PRISONER CLASSIFICATION INTERVIEWER) Narrative [facility] - 03/02/2023 4:33 PM PRISONER CLASSIFICATION INTERVIEWER This order has been created and auto-finalized [...]
--- OUTSIDE RECORDS SUMMARY | 2023-11-10 10:15 | XMS_ITS | Encounter Summary ---
Author Organization [facility] Address [address] [place] [address] Care Team Providers Care Yoke Presser Name Role Phone Unavailable Primary Care Provider Unavailabl e Encounter Details Date Type Department Care Team (Latest Contact Info) Description 09/18/2023 Clinical Communication Division of Gastroenterology in [place], [place] [address] [place] [address] Kiah Sarkar M.B.B.S., M.S. [address] [place] [address] Social History Tobacco Use Types Packs/Day Years Used Date Smoking Tobacco: Never Passive Smoke Exposure: Never Smokeless Tobacco: Never Alcohol Use Standard Drinks/Week Comments Yes 5 (1 standard drink = 0.6 oz pur e alcohol) [facility] Utilities Answer Date Recorded In the past 12 months has e [employer], gas, oil, or water [employer] threatened to shut off services in your [...] your living situation today? I have a [facility] place to live 03/29/2023 Sex and Gender Information Value Date Recorded Sex Assigned at Female 03/21/2023 11:26 AM PUBLIC AREA ATTENDANT Gender Identity Female 03/21/2023 11:26 AM PUBLIC AREA ATTENDANT Sexual Orientation Straight 03/21/2023 11 :26 AM PUBLIC AREA ATTENDANT documented as of this encounter Plan of Treatment Not on file documented as of this encounter Visit Diagnoses Not on filedocumented in this encounter
--- OUTSIDE RECORDS SUMMARY | 2023-11-10 10:15 | XMS_ITS | Encounter Summary ---
Author Organization [facility] Address [address] [place] [address] Care Team Providers Care Head Lineman Name Role Phone Unavailable Primary Care Provider Unavailabl e Encounter Details Date Type Department Care Team (Latest Contact Info) Description 09/12/2023 Clinical Communication Division of Endocrinology in [place], [place] [address] [place] [address] Edna Meade M.D. [address] [place] [address] Social History Tobacco Use Types Packs/Day Years Used Date Smoking Tobacco: Never Passive Smoke Exposure: Never Smokeless Tobacco: Never Alcohol Use Standard Drinks/Week Comments Yes 5 (1 standard drink = 0.6 oz pur e alcohol) [facility] Utilities Answer Date Recorded In the [...] your living situation today? 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 - 09/12/2023 1:[address] 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 What is size and follow-up needed? I let them know that this is typically a question for the radiologist, and that in my experience wedo not always arrange follow-up on these. Please let her know your thoughts. Thanks. [facility] documented in this encounter Plan of Treatment Not on file documented as of this encounter Visit Diagnoses Not on filedocumented in this encounter
--- OUTSIDE RECORDS SUMMARY | 2023-11-10 10:15 | XMS_ITS | Encounter Summary ---
Author Organization [facility] Address [address] [place] [address] Care Team Providers Care Manager Six Sigma Name Role Phone Unavailable Primary Care Provider Unavailabl e Encounter Details Date Type Department Care Team (Late st Contact Info) Description 08/17/2023 Clinical Communication Department of Neurologic Surgery in [place], [place] [address] [place] [phone] Yon Juárez M.D. [address] [place] [phone] Social History Tobacco Use Types Packs/Day Years Used Date Smoking Tobacco: Never Passive Smoke Exposure: Never Smokeless Tobacco: Never Alcohol Use Standard Drinks/Week Comments Yes 5 (1 standard drink = 0.6 oz pur e alcohol) [facility] Utilities Answer Date Recorded In the past [...] living situation today? I have a [facility] place to live 03/29/2023 Sex and Gender Information Value Date Recorded Sex Assigned at Female 03/21/2023 11:26 AM PLASTIC PROCESS TECHNICIAN Gender Identity Female 03/21/2023 11:26 AM PLASTIC PROCESS TECHNICIAN Sexual Orientation Straight 03/21/2023 11 :26 AM PLASTIC PROCESS TECHNICIAN documented as of this encounter Plan of Treatment Not on file documented as of this encounter Visit Diagnoses Diagnosis Malformation Arnold Chiari (HCC)- Primary documented in this encounter
--- OUTSIDE RECORDS SUMMARY | 2023-11-10 10:15 | XMS_ITS | Encounter Summary ---
Author Organization [facility] Address [address] [place] [address] Care Team Providers Care Credit Review Manager Name Role Phone Unavailable Primary Care Provider Unavailabl e Reason for Referral * Outpatient (Routine) - Closed Specialty Diagnoses / Procedures Referred By Josue garcia Referred To Contact Vascular Surgery Diagnoses Aneurysm Splenic Artery (HCC) Nathen Macias M.D. [address] [place] [address] [facility] Referral ID Status Reason Start Date Expiration Date Visits Re quested Visits Authorized [id number] Closed 09/28/2023 03/29/2025 1 1 Reason for Visit * Outpatient (Routine) - Closed Specialty Diagnoses / Procedures Referred By Josue garcia Referred To Contact Vascular Medicine Diagnoses Aneurysm Splenic Artery (HCC) Ty Finch M.D. [address] [place] [address] [facility] Referral ID Status Reason Start Date Expiration Date Visits Re quested Visits Authorized [id number] Closed 09/08/2023 03/09/2025 1 1 Encounter Details Date Type Department Care Team (Latest Contact Info) Description 09/28/2023 2:15 PM CDT Comprehensive Visit Department of Vascular Medicine in [place], [place] [address] [place] [address] Nathen Macias M.D. [address] [place] [address] Aneurysm Splenic Artery (HCC) (Primary Dx) Social [...] your living situation today? I have a [facility] place to live 03/29/2023 Sex and Gender Information Value Date Recorded Sex Assigned at Female 03/21/2023 11:26 AM RATINGS ANALYST Gender Identity Female 03/21/2023 11:26 AM RATINGS ANALYST Sexual Orientation Straight 03/21/2023 11 :26 AM RATINGS ANALYST documented as of this encounter Last Filed [...] in this encounter H&P Notes * Nathen aMcias M.D. - 09/28/2023 2:15 PM CDT REFERRAL SOURCE Ty Finch M.D. [address] [place] [phone] SUBJECTIVE CHIEF COMPLAINT / REASON FOR VISIT [...] counseling and coordination of care: 30 minutes. Nahten Macias M.D. documented in this encounter Plan of Treatment Scheduled Referrals Name Type Priority Associated Diagnoses Orde r Schedule Vascular Surgery - Direct consult (clinic) Outpatient Referral Routine Aneurysm Splenic Artery (HCC) Expected: 09/28/2023 (Approximate), Expires: 12/28/2024 documented as of this encounter Visit Diagnoses Diagnosis Aneurysm Splenic Artery (HCC)- Primary documented in this encounter
--- OUTSIDE RECORDS SUMMARY | 2023-11-10 10:15 | XMS_ITS | Encounter Summary ---
Author Organization [facility] Address [address] [place] [address] Care Team Providers Care Energy Crop Farmer Name Role Phone Unavailable Primary Care Provider Unavailabl e Reason for Referral * MRI/CAT/PET Scan (Routine) - Closed Specialty Diagnoses / Procedures Referred By Josue garcia Referred To Contact Radiology Diagnoses Aneurysm Splenic Artery (HCC) Procedures CT Abdomen Pelvis Angiogram with IV Contrast Ty Finch M.D. [address] [place] [address] [facility] Referral ID Status Reason Start Date Expiration Date Visits Re quested Visits Authorized [id number] Closed 09/08/2023 09/07/2024 1 1 Reason for Visit * MRI/CAT/PET Scan (Routine) - Closed Specialty Diagnoses / Procedures Referred By Josue garcia Referred To Contact Radiology Diagnoses Aneurysm Splenic Artery (HCC) Procedures CT Abdomen Pelvis Angiogram with IV Contrast Ty Finch M.D. [address] [place] [address] [facility] Referral ID Status Reason Start Date Expiration Date Visits Re quested Visits Authorized [id number] Closed 09/08/2023 09/07/2024 1 1 Encounter Details Date Type Department Care Team (Latest Contact Info) Description 09/28/2023 8:44 AM CDT - 09/28/2023 11:59 PM CDT Hospital Encounter Department of Radiology, [facility], in [place], [place] [address] [place] [address] Ty Finch M.D. [address] [place] [address] Aneurysm Splenic Artery (HCC) Discharge Disposition: Home or Self Care Social History Tobacco Use Types Packs/Day Years Used Date Smoking Tobacco: Never Passive Smoke Exposure: Never Smokeless Tobacco: Never Alcohol Use Standard Drinks/Week Comments Yes 5 (1 standard drink = 0.6 oz pur e alcohol) [facility] Utilities Answer Date Recorded In the past 12 months has e [employer], gas, oil, or water [employer] threatened to shut off services in your [...] your living situation today? I have a [facility] place to live 03/29/2023 Sex and Gender Information Value Date Recorded Sex Assigned at Female 03/21/2023 11:26 AM BUSINESS CENTER ATTENDANT Gender Identity Female 03/21/2023 11:26 AM BUSINESS CENTER ATTENDANT Sexual Orientation Straight 03/21/2023 11 :26 AM BUSINESS CENTER ATTENDANT documented as of this encounter Last Filed [...] symptomatology. The patient reported recent application of potline monitor from an outside institution and was then [...] in symptomatology. Thepatient reported recent application of potline monitor from an outsideinstitution and was then instructed [...]
== END 2023-11-10 10:12 | disposition home or self-care (01) ==
LOC: MRI 10:12
PROVIDERS: PCP Family Medicine; Visit Provider Family Medicine
DX: R20.2 Paresthesia of skin (principal); M47.896 Other spondylosis, lumbar region; M51.379 Other intervertebral disc degeneration, lumbosacral region without mention of lumbar back pain or lower extremity pain; R29.898 Other symptoms and signs involving the musculoskeletal system
CPT/HCPCS: 72148

== ENCOUNTER 2024-01-08 13:08 | Outpatient (CLI) | payer MEDICARE, SELFPAY ==
--- OUTSIDE RECORDS SUMMARY | 2024-01-08 13:11 | XMS_ITS | Clinical Summary ---
Author Organization [place] Address [address] [place] [address]. [place] [address] Care Team Providers Care Diet Aid Name Role Phone Fina Marie MD Primary Care Provider [phone] Gunner Panchal MD Unavailable Allergies Active Allergy Reactions Criticality Noted Date Comments Bee Venom Itching,Rash Low 03/16/1974 Swelling when stung as a young adult Penicillin G Itching,Rash Low 03/16/1964 Since childhood Medications acyclovir (ZOVIRAX) 400 MG tablet Take 400 mg by mouth See Admin Instructions. Take 400 mg by mouth as needed. 4 Active Calcium Carb-Cholecalc iferol 600-20 MG-MCG CHEW Take 2 tablets by mouth daily. Chew 2 tablets daily. Active omeprazole (PRILOSEC) [address] capsule TAKE 1 CAPSULE (20 MG) BY MOUTH TWICE A DAY 4 Active Probiotic Product (CVS PROBIOTIC) CAPS CVS PROBIOTIC CAPS Active propranolol (INDERAL) 10 MG tablet TAKE ONE TABLET BY MOUTH THREE TIMES A DAY NEEDED FOR ANXIETY OR TACHYCARDIA 4 Active saccharomyces boulardii (FLORASTOR) 250 MG capsule Take 1 capsule by mouth See Admin Instructions. 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 Overview (12/11/2023): genetic predisposition to cancer Encounters Date Type Department Care Team Description 4 MyC Medical Advice [facility] [address] [place] [phone] Kelly Clemente, ROOMING HOUSE INSPECTOR 4 Telephone [facility] [address] [address] Gunner Panchal MD Call Back 4 2:55 PM [employer] - 4 11:59 PM [employer] Hospital Encounter [facility] [address] [place] [phone] Gunner Panchal MD Other symptoms and signs involving the musculoskeletal system; Cervical stenosis of spinal canal Discharge Disposition: Home or Self Care 4 Travel 4 Travel 4 Telephone [facility] [address] [address] Gunner Panchal MD Call Back (Discuss EMG and follow up with Dr Panchal ) 4 12:45 PM [facility] Lab [facility] [address] [place] [phone] Paresthesias 4 11:30 AM [employer] Office Visit [facility] [address] [place] [address] Gunner Panchal MD Paresthesias (Primary Dx); Other symptoms and signs involving the musculoskeletal system; Tremor; Bilateral carpal tunnel syndrome; Abnormal loss of weight; Genetic susceptibility to other malignant neoplasm; Cervical stenosis of spinal canal 4 Travel 4 Travel 4 Transcribe Orders GENERIC EXTERNAL DATA DEPARTMENT Provider, Generic External Data Paresthesias (Primary Dx); Other symptoms and signs involving the musculoskeletal system; Tremor; Bilateral carpal tunnel syndrome; Abnormal loss of weight; Genetic susceptibility to other malignant neoplasm 4 Medical Correspondence [facility] Information Management [address] [place] [address] [address] [place] [address] Scan, Non-Provider 4 Transcribe Orders GENERIC EXTERNAL DATA DEPARTMENT Provider, Generic External Data Genetic susceptibility to other malignant neoplasm (Primary Dx); Abnormal weight loss; Carpal tunnel syndrome, bilateral upper limbs; Tremor, unspecified; Other symptoms and signs involving the musculoskeletal system; Paresthesia of skin; 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) 4 11:44 AM CDT Anesthesia Event [facility] [address] [phone] Yamilet Mathias MD 4 11:00 AM CDT - 4 12:30 PM CDT Surgery [facility] [address] [address] Nasrin Condon MD ENDOSCOPIC ULTRASOUND WITH FINE NEEDLE ASPIRATION, ESOPHAGOGASTRODUODENOSCOPY 4 9:15 AM CDT - 4 1:01 PM CDT Hospital Encounter [facility] [address] [address] Nasrin Condon MD Discharge Disposition: Home or Self Care from Last 3 Months Family History Medical History Relation Comments Coronary Artery Disease Brother Hyperlipidemia Brother Hypertension Brother Coronary Artery Disease Father Dementia Father Myocardial Infarction Father Arthritis Mother Cerebrovascular Disease Mother Hyperlipidemia Mother Hypertension Mother Transient ischemic attack Mother Hyperlipidemia Sister Relation Status Comments Brother Father Mother Sister Social History Tobacco Use Types Packs/Day Years Used Date Smoking Tobacco: Never Smokeless Tobacco: Never Tobacco Cessation:Counseling Given: Not Answered Alcohol Use Standard Drinks/Week Comments Yes 0 (1 standard drink = 0.6 oz pure alcohol) occasional (2 servings per week) Comments Unknown Sex and Gender Information Value Date Recorded Sex Assigned at Not on file Legal Sex Female 9:25 AM CDT Gender Identity Not on file Sexual Orientation Not on file Last Filed Vital Signs Vital Sign Reading Time Taken Comments Blood Pressure 133/80 12/13/2023 11:38 AM [employer] Pulse 72 12/13/2023 11:38 AM [employer] Temperature - - Respiratory Rate 19 10/24/2023 12:40 PM CDT Oxygen Saturation 99% 10/24/2023 12:40 PM CDT Inhaled Oxygen Concentration - - Weight 53.5 kg (118 lb) 12/13/2023 11:38 AM [employer] Height 175.3 cm (5' 9) 12/13/2023 11:38 AM [employer] Body Mass Index 17.43 12/13/2023 11:38 AM [employer] Plan of Treatment Health Maintenance Due Date Last Done Comments ADVANCE CARE PLANNING 1955 ANNUAL REVIEW OF HM ORDERS [address] COLONOGRAPHY 1956 DEXA 1956 FIT 1956 FLEX SIG 1956 GLUCOSE 1956 LIPID 1956 MAMMO SCREENING 1956 sDNA (Cologuard) 1956 HEPATITIS C SCREENING 1974 ZOSTER IMMUNIZATION (2 of 2) 09/21/2017 07/27/2017 COLONOSCOPY 09/30/2017 10/01/2007 COLORECTAL CANCER SCREENING 09/30/2017 FALL RISK ASSESSMENT 2021 MEDICARE ANNUAL WELLNESS VISIT 2021 PHQ-2 (once per calendar year) 2023 COVID-19 Vaccine ( season) 2023 12/16/2021, 12/04/2020, 02/25/2020, Additional history exists RSV VACCINE (1 - 1-dose 75+ series) 07/14/2031 DTAP/TDAP/TD IMMUNIZATION (3 - Td or Tdap) 03/31/2033 03/31/2023, 03/11/2011 Pneumococcal Vaccine: 65+ Years Completed 03/31/2023, 01/06/2022 INFLUENZA VACCINE Completed 11/07/2023, , 12/12/2022, Additional history exists HPV IMMUNIZATION Aged Out No longer e ligible based on patient's age to complete this topic MENINGITIS IMMUNIZATION Aged Out No l onger eligible based on patient's age to complete this topic RSV MONOCLONAL ANTIBODY Aged Out No l onger eligible based on patient's age to complete this topic Procedures Procedure Name Priority Date/Time Associated Diagnosis Comments MR CERVICAL SPINE W/O CONTRAST Routine 01/01/2024 3:42 PM [employer] Other symptoms and signs involving the musculoskeletal system Cervical stenosis of spinal canal PROTEIN ELECTROPHORESIS Routine 12/13/2023 12:32 PM [employer] Paresthesias PROTEIN ELECTROPHORESIS, SERUM Routine 12/13/2023 12:32 PM [employer] Paresthesias TOTAL PROTEIN, SERUM FOR ELP Routine 12/13/2023 12:32 PM [employer] Paresthesias VITAMIN B1 WHOLE BLOOD Routine 12/13/2023 12:32 PM [employer] Paresthesias VITAMIN B12 Routine 12/13/2023 12:32 PM [employer] Paresthesias VITAMIN B6 Routine 12/13/2023 12:32 PM [employer] Paresthesias PROTEIN IMMUNOFIXATION SERUM Routine 12/13/2023 12:32 PM [employer] Paresthesias METHYLMALONIC ACID Routine 12/13/2023 12:32 PM [employer] Paresthesias LYME DISEASE TOTAL ANTIBODIES WITH REFLEX TO CONFIRMATION Routine 12/13/2023 12:32 PM [employer] Paresthesias FOLATE Routine 12/13/2023 12:32 PM [employer] Paresthesias ANTI NUCLEAR ERMA IGG BY IFA WITH REFLEX Routine 12/13/2023 12:32 PM [employer] Paresthesias NON-GYNECOLOGIC CYTOLOGY Routine 10/24/2023 12:04 PM CDT SURGICAL PATHOLOGY EXAM Routine 10/24/2023 11:53 AM CDT UGI ENDOSCOPY DIAG W BIOPSY 10/24/2023 11:44 AM CDT Pancreatic cyst Early satiety Special Needs PATIENT REPORTS HISTORY OF RAPID HEARTBEAT ALLERGIES: PENICILLINS LM re: need for H&P and to call us [facility] ESOPHAGOGASTRODUODEN OSCOPY, WITH FINE NEEDLE ASPIRATION BIOPSY, WITH ENDOSCOPIC ULTRASOUND GUIDANCE 10/24/2023 11:44 AM CDT Pancreatic cyst Early satiety Special Needs PATIENT REPORTS HISTORY OF RAPID HEARTBEAT ALLERGIES: PENICILLINS LM re: need for H&P and to call us [facility] UPPER EUS Routine 10/24/2023 11:34 AM CDT from Last 3 Months Results * MR Cervical Spine w/o Contrast (01/01/2024 3:42 PM [employer]) Anatomical Region Laterality Modality Spine, SUBRAD MR NEURO, UMP MR SPINE, RAD MR Magnetic Resonance Impressions 01/02/2024 9:02 AM [employer] IMPRESSION: 1. Mild degenerative disc changes at C5-C6 and C6-C7 as detailed above. 2. Mild right neural foraminal narrowing at C5-C6. No spinal canal narrowing at any level. 3. Chiari I malformation. No spinal cord edema or syrinx appreciated. BINTA STRICKLAND MD SYSTEM ID: [id number] Narrative 01/02/2024 9:02 AM [employer] MRI CERVICAL SPINE WITHOUT CONTRAST 01/01/2024 3:42 PM HISTORY: Cervical spondylosis. TECHNIQUE: Multiplanar, multisequence MRI of the cervical spine without contrast. COMPARISON: None. FINDINGS: Normal cervical lordosis. Anterior posterior alignment of the spine is within normal limits. Vertebral body height is maintained without evidence of fracture. There are no destructive osseous lesions. Cerebellar tonsils extend 1.4 cm below the foramen magnum compatible with Chiari I malformation. No definite T2 signal abnormality in the brainstem or visualized spinal cord. Level by level as follows: C2-C3: No loss of disc height. No significant disc herniation. Normal facets. No spinal canal or neural foraminal narrowing. C3-C4: No loss of disc height. No significant disc herniation. Normal facets. No spinal canal or neural foraminal narrowing. C4-C5: No loss of disc height. No significant disc herniation. Normal facets. No spinal canal or neural foraminal narrowing. C5-C6: Mild loss of disc height. Posterior disc bulge with mild endplate osteophytic spurring which is more pronounced towards the right foraminal region. Normal facets. No spinal canal narrowing. Mild right neural foraminal narrowing. No significant left neural foraminal narrowing. C6-C7: Mild loss of disc height. Shallow circumferential disc bulge. Normal facets. No spinal canal narrowing. No significant neural foraminal narrowing. C7-T1: No loss of disc height. No significant disc herniation. Normal facets. No spinal canal or neural foraminal narrowing. Paraspinous soft tissues are unremarkable. Procedure Note Binta Strickland MD - 01/02/2024 MRI CERVICAL SPINE WITHOUT CONTRAST 01/01/2024 3:42 PM HISTORY: Cervical spondylosis. TECHNIQUE: Multiplanar, multisequence MRI of the cervical spine without contrast. COMPARISON: None. FINDINGS: Normal cervical lordosis. Anterior posterior alignment of the spine is within normal limits. Vertebral body height is maintained without evidence of fracture. There are no destructive osseous lesions. Cerebellar tonsils extend 1.4 cm below the foramen magnum compatible with Chiari I malformation. No definite T2 signal abnormality in the brainstem or visualized spinal cord. Level by level as follows: C2-C3: No loss of disc height. No significant disc herniation. Normal facets. No spinal canal or neural foraminal narrowing. C3-C4: No loss of disc height. No significant disc herniation. Normal facets. No spinal canal or neural foraminal narrowing. C4-C5: No loss of disc height. No significant disc herniation. Normal facets. No spinal canal or neural foraminal narrowing. C5-C6: Mild loss of disc height. Posterior disc bulge with mild endplate osteophytic spurring which is more pronounced towards the right foraminal region. Normal facets. No spinal canal narrowing. Mild right neural foraminal narrowing. No significant left neural foraminal narrowing. C6-C7: Mild loss of disc height. Shallow circumferential disc bulge. Normal facets. No spinal canal narrowing. No significant neural foraminal narrowing. C7-T1: No loss of disc height. No significant disc herniation. Normal facets. No spinal canal or neural foraminal narrowing. Paraspinous soft tissues are unremarkable. IMPRESSION: 1. Mild degenerative disc changes at C5-C6 and C6-C7 as detailed above. 2. Mild right neural foraminal narrowing at C5-C6. No spinal canal narrowing at any level. 3. Chiari I malformation. No spinal cord edema or syrinx appreciated. BINTA STRICKLAND MD SYSTEM ID: [id number] Gunner Panchal MD IMG MRI ORDERABLES Final Result * Protein Electrophoresis, Serum (12/13/2023 12:32 PM [employer]) Albumin 4.6 3.7 - 5.1 g/dL 12/14/2023 12:31 PM [employer] UM SPECIALTY CORE/PROT/E NDO Alpha 1 0.3 0.2 - 0.4 g/dL 12/14/2023 12:31 PM [employer] UM SPECIALTY CORE/PROT/E NDO Alpha 2 0.8 0.5 - 0.9 g/dL 12/14/2023 12:31 PM [employer] UM SPECIALTY CORE/PROT/E NDO Beta Globulin 0.8 0.6 - 1.0 g/dL 12/14/2023 12:31 PM [employer] UM SPECIALTY CORE/PROT/E NDO Gamma Globulin 0.7 0.7 - 1.6 g/dL 12/14/2023 12:31 PM [employer] UM SPECIALTY CORE/PROT/E NDO Monoclonal Peak 0.0 <=0.0 g/dL 12/14/2023 12:31 PM [employer] UM SPECIALTY CORE/PROT/E NDO ELP Interpretation Essentially normal electrophoretic pattern. No obvious monoclonal proteins seen. Pathologic significance requires clinical correlation. Gladys Lewis M.D., Ph.D. 12/14/2023 12:31 PM [employer] UM SPECIALTY CORE/PROT/E NDO Signout Location if Remote [facility] 12/14/2023 12:31 PM [employer] SPECIALTY LABS Blood BLOOD SPECIMEN / Unknown Venipuncture / Unknown 12/13/2023 12:32 PM [employer] 12/13/2023 12:35 PM [employer] Gunner Panchal MD LAB - BLOOD ORDERABLES Final Res ult UM SPECIALTY CORE/PROT/ENDO UM Specialty Core/Prot/Endo [address] [facility] [address], [address] [place] [address], [facility] UM SPECIALTY LABS UM Specialty Lab [address] [facility] [address], [address] [address], [facility] * Total Protein, Serum for ELP (12/13/2023 12:32 PM [employer]) Pathologist [facility] Total Protein Serum for ELP 7.1 6.4 - 8.3 g/dL 12/13/2023 1:38 PM [employer] [facility] Blood BLOOD SPECIMEN / Unknown Venipuncture / Unknown 12/13/2023 12:32 PM [employer] 12/13/2023 12:35 PM [employer] Gunner Panchal MD LAB - BLOOD ORDERABLES Final Res ult Performing Organization Address City/[facility]/ZIP Co de Phone Number [facility] [address] [place], [place] [address] * Protein Immunofixation Serum (12/13/2023 12:32 PM [employer]) Pathologist [facility] Immunofixation ELP No monoclonal protein seen on immunofixation. Pathologic significance requires clinical correlation. Gladys Lewis M.D., Ph.D. 12/14/2023 12:33 PM [employer] SPECIALTY CORE/PROT/EN DO Signout Location if Remote ABK1 GABE 12/14/2023 12:33 PM [employer] SPECIALTY LABS Blood BLOOD SPECIMEN / Unknown Venipuncture / Unknown 12/13/2023 12:32 PM [employer] 12/13/2023 12:35 PM [employer] Gunner Panchal MD LAB - BLOOD ORDERABLES Final Res ult UM SPECIALTY CORE/PROT/ENDO UM Specialty Core/Prot/Endo [address] [facility] [address] [place] [address], [facility] UM SPECIALTY LABS UM Specialty Lab [address] [facility] [address], [address] [place] [phone] * Methylmalonic Acid (12/13/2023 12:32 PM [employer]) Methylmalonic Acid 0.19 0.00 - 0.40 umol/L 12/20/2023 7:23 AM [employer] SPECIAL DRUG/BGEN Comment: INTERPRETIVE INFORMATION: Slight elevation 0.41-0.99 umol/L is consistent with mild vitamin B12 deficiency, renal insufficiency, or intravascular volume contraction. Moderate elevation 1.00-9.99 umol/L is consistent with mild vitamin B12 deficiency. Massive elevation 10.00 umol/L or greater is consistent with significant vitamin B12 deficiency or with inborn errors of metabolism. Blood BLOOD SPECIMEN / Unknown Venipuncture / Unknown 12/13/2023 12:32 PM [employer] 12/13/2023 12:35 PM [employer] Narrative SPECIAL DRUG/BGEN - 12/20/2023 7:23 AM [employer] This test was developed and its performance characteristics determined by the [facility], Special Chemistry Laboratory. It has not been cleared or approved by the FDA. The laboratory is regulated under CLIA as qualified to perform high-complexity testing. This test is used for clinical purposes. It should not be regarded as investigational or for research. Gunner Panchal MD LAB - BLOOD ORDERABLES Final Res ult UM SPECIAL DRUG/BGEN UM Special Drug/BGEN [address] [facility], [address] [place], [place] [phone] * Anti Nuclear Erma IgG by IFA with Reflex (12/13/2023 12:32 PM [employer]) Pathologist [facility] ARTIE interpretation Negative Negative 2023 1:44 PM [employer] SPECIALTY CORE/PROT/EN DO Comment: Negative: <1:40 Borderline Positive: 1:40 - 1:80 Positive: >1:80 Blood BLOOD SPECIMEN / Unknown Venipuncture / Unknown 12/13/2023 12:32 PM [employer] 12/13/2023 12:35 PM [employer] Gunner Panchal MD LAB - BLOOD ORDERABLES Final Res ult Performing Organization Address City/[facility] Co de Phone Number SPECIALTY CORE/PROT/ENDO Specialty Core/Prot/Endo [address] [facility], [address] * Lyme Disease Total Antibodies with Reflex to Confirmation (12/13/2023 12:32 PM [employer]) Lyme Disease Antibodies Total 0.23 <0.90 12/14/2023 7:41 AM [employer] SPECIALTY CORE/PROT/ENDO Comment:Non-reactive, Absenc e of detectable Borrelia burgdorferi antibodies. A non-reactive result does not exclude the possibility of Borrelia burgdorferi infection. If early Lyme disease is suspected, a second sample should be collected and tested 2 to 4 weeks later. Blood BLOOD SPECIMEN / Unknown Venipuncture / Unknown 12/13/2023 12:32 PM [employer] 12/13/2023 12:35 PM [employer] Gunner Panchal MD LAB - BLOOD ORDERABLES Final Res ult Performing Organization Address [facility] Co de Phone Number SPECIALTY CORE/PROT/ENDO Specialty Core/Prot/Endo [address] [facility], [address] * Vitamin B6 (12/13/2023 12:32 PM [employer]) Pathologist [facility] Vitamin B6 58.4 20.0 - 125.0 nmol/L 12/17/2023 6:03 PM [employer] [place] Comment: INTERPRETIVE INFORMATION: Vitamin B6 (Pyridoxal 5-Phosphate) Pyridoxal 5'-phosphate measured in a specimen collected following an 8-hour or overnight fast accurately indicates vitamin B6 nutritional status. Non-fasting specimen concentration reflects recent vitamin intake. This test was developed and its performance characteristics determined by [facility]. It has not been cleared or approved by the [place] Food and Drug Administration. This test was performed in a CLIA certified laboratory and is intended for clinical purposes. Performed By: [facility] [address] [place] [address] Test Center Manager: Barrett Piper MD, PhD CLIA Number: [id number] Blood BLOOD SPECIMEN / Unknown Venipuncture / Unknown 12/13/2023 12:32 PM [employer] 12/13/2023 12:35 PM [employer] Gunner Panchal MD LAB - BLOOD ORDERABLES Final Res ult Performing Organization Address [facility]/ZIP Co de Phone Number [address] [address], [facility] [phone] * Vitamin B1 whole blood (12/13/2023 12:32 PM [employer]) [facility] Vitamin B1 Whole Blood Level 116 70 - 180 nmol/L 12/17/2023 11:13 AM [employer] [facility] Comment: INTERPRETIVE INFORMATION: Vitamin B1, Whole Blood This assay measures the concentration of thiamine diphosphate (TDP), the primary active form of vitamin B1. Approximately 90 percent of vitamin B1 present in whole blood is TDP. Thiamine and thiamine monophosphate, which comprise the remaining 10 percent, are not measured. This test was developed and its performance characteristics determined by [facility]. It has not been cleared or approved by the US Food and Drug Administration. This test was performed in a CLIA certified laboratory and is intended for clinical purposes. Performed By: [facility] [address] [place] [address] Test Center Manager: Barrett Piper MD, PhD CLIA Number: [id number] Blood BLOOD SPECIMEN / Unknown Venipuncture / Unknown 12/13/2023 12:32 PM [employer] 12/13/2023 12:35 PM [employer] Gunner Panchal MD LAB - BLOOD ORDERABLES Final Res ult [address] [address], [facility] [phone] * Folate (12/13/2023 12:32 PM [employer]) [facility] Folic Acid 11.0 4.6 - 34.8 ng/mL 12/13/2023 9:11 PM [employer] [facility] Blood BLOOD SPECIMEN / Unknown Venipuncture / Unknown 12/13/2023 12:32 PM [employer] 12/13/2023 12:35 PM [employer] Gunner Panchal MD LAB - BLOOD ORDERABLES Final Res ult U LABORATORY [facility] [address] [facility], [address] * Vitamin B12 (12/13/2023 12:32 PM [employer]) Vitamin B12 730 232 - 1,245 pg/mL 12/14/2023 8:45 AM [employer] [facility]ORY Blood BLOOD SPECIMEN / Unknown Venipuncture / Unknown 12/13/2023 12:32 PM [employer] 12/13/2023 12:35 PM [employer] Gunner Panchal MD LAB - BLOOD ORDERABLES Final Res ult Performing Organization Address City/[facility] Co de Phone Number LABORATORY [facility] [address] [facility], [address] * Cytology, non-gynecologic (10/24/2023 12:04 PM CDT) [...] component of this testing was completed at [facility]. Stain controls for all stains resulted within this report have been reviewed and show appropriate reactivity. 10/26/2023 3:32 PM CDT SPECIALTY LABS Cyst STRUCTURE OF TAIL OF PANCREAS / Unknown 10/24/2023 12:04 PM CDT 10/25/2023 10:23 AM CDT us Nasrin Condon MD LAB - DINA AP Final Result SPECIALTY LABS Specialty Lab [address] [facility], [address] [address] [place] [address] * Surgical Pathology Exam (10/24/2023 11:53 AM CDT) Case Report Surgical Pathology R eport Case: [id number] Authorizing Provider: Nasrin Condon, Collected: 10/24/2023 11:53 AM Ordering Location: [facility] Received: 10/24/2023 12:23 PM [place] [facility] Devon Ivan MD Specimens: A) - Small Intestine, Duodenum, rule out celiac B) - Stomach, rule out h. pylori 9:48 AM CDT [facility] Final Diagnosis A. Duodenum, biopsies: --No significant histopathologic change. B. Stomach, biopsies: --Gastric mucosa with no significant histopathologic change. --Negative for Helicobacter pylori organisms or dysplasia. 9:48 AM CDT LABORATORY Clinical Information Procedure: [...] number and other identifying information and designated d uodenum rule out celiac . It consists of 3 matamoros soft tissue fragments 0.3 cm. Entirely submitted in one cassette. B(2). Stomach, rule out h. pylori: The specimen is received in formalin, labeled with the patient's name, medical record number and other identifying information and designated s tomach rule out H. pylori . It consists of 6 matamoros soft tissue fragments ranging from 0.1-0.2 cm. Entirely submitted in one cassette. (LINDSAY Jackson (ASCP) 10/24/2023 12:34 PM 4 9:48 AM CDT LABORATORY Microscopic Description Microscopic examination was performed. 4 9:48 AM CDT LABORATORY Performing Labs The technical component of this testing was completed at [facility]. Stain controls for [...] 11:54 AM CDT 10/24/2023 12:23 PM CDT us Nasrin ANGELES - DINA ACKERMAN Final Result LABORATORY [facility] [address] Lab (1st floor, no room number) [place] [address], [facility] LABORATORY [facility] [address] 1st floor, [address] [place] [address], [facility] [phone] * UPPER EUS (10/24/2023 11:34 AM CDT) Upper EUS [place] [address] Lisa Dewitt, [place] [address] ___ Patient Name: Isis Malagon Procedure Date: 10/24/2023 11:34 AM Date of : 1955 Admit Type: Outpatient Age: 68 Room: [place] [address] Note Status: Finalized Attending MD: NASRIN CONDON MD, Instrument Name: [id number] Linear ___ Procedure: Upper EUS Indications: Pancreatic cyst, Early satiety Providers: NASRIN CONDON MD, Trina Thompson RN Referring MD: FINA Whelan MD Medicines: Monitored Anesthesia Care, Cipro 400 mg IV Complications: No immediate complications. ___ Procedure: Pre-Anesthesia Assessment: - Prior to the procedure, a History and Physical was performed, and patient medications and allergies were reviewed. The patient is competent. The risks and benefits of the procedure and the sedation options and risks were discussed with the patient. All questions were answered and informed consent was obtained. Patient identification and proposed procedure were verified by the physician in the procedure room. Mental Status Examination: alert and oriented. Airway Examination: normal oropharyngeal airway and neck mobility. Respiratory Examination: clear to auscultation. CV Examination: normal. Prophylactic Antibiotics: The patient requires prophylactic antibiotics. Prior Anticoagulants: The patient has taken no anticoagulant or antiplatelet agents. ASA Grade Assessment: III - A patient with severe systemic disease. After reviewing the risks and benefits, the patient was deemed in satisfactory condition to undergo the procedure. The anesthesia plan was to use monitored anesthesia care (MAC). Immediately prior to administration of medications, the patient was re-assessed for adequacy to receive sedatives. The heart rate, respiratory rate, oxygen saturations, blood pressure, adequacy of pulmonary ventilation, and response to care were monitored throughout the procedure. The physical status of the patient was re-assessed after the procedure. After obtaining informed consent, the endoscope was passed under direct vision. Throughout the procedure, the patient's blood pressure, pulse, and oxygen saturations were monitored continuously. The Endosonoscope was introduced through the mouth, and advanced to the second part of duodenum. The upper EUS was accomplished with ease. The patient tolerated the procedure well. Findings: ENDOSCOPIC FINDING: : The examined esophagus was normal. GEJ at 40 cm. No gross lesions were noted in the entire examined stomach. Biopsies were taken with a cold forceps for histology. No gross lesions were noted in the ampulla and in the entire examined duodenum. Biopsies were taken with a cold forceps for histology. ENDOSONOGRAPHIC FINDING: : There was no sign of significant endosonographic abnormality in the common bile duct. The maximum diameter of the duct was 5 mm. An unremarkable gallbladder, no pathologic lymphadenopathy, no cysts, no calcifications, no stones, no biliary sludge, ducts of normal caliber and ducts with regular contour were identified. Two anechoic lesion suggestive of a cyst was identified in the pancreatic tail. The largest lesion measured 10 mm by 4 mm in maximal cross-sectional diameter. There was a single compartment without septae. The outer wall of the lesion was thin. There was no associated mass. There was no internal debris within the fluid-filled cavity. Diagnostic needle aspiration for fluid was performed. Color Doppler imaging was utilized prior to needle puncture to confirm a lack of significant vascular structures within the needle path. One pass was made with the 22 gauge needle using a transgastric approach. A stylet was used. The amount of fluid collected was 0.5 mL. The fluid was clear. Sample(s) were sent for cytology. Second cyst 6 x 5 mm. Pancreas duct 3 mm in the head and 2 mm in the body Normal celiac axis. No worrisome mediastinal nodes. 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 Both appear benign.FNA done and pending. Recommendation: - Discharge patient to home (ambulatory). - Clear liquid diet for 1 day. - Await cytology results. - Perform magnetic resonance imaging (MRI) with gadolinium in 1 year. - Ciprofloxacin 250 mg bid x 5 days. Rx sent to [facility] Nasrin Condon MD NASRIN CONDON MD 10/24/2023 12:33:07 PM I was physically present for the entire viewing portion of the exam. NASRIN CONDON MD Number of Addenda: 0 Note Initiated On: 10/24/2023 11:34 AM Total Procedure Duration: 0 hours 18 minutes 25 seconds Estimated Blood Loss: Estimated blood loss: none. Estimated blood loss: none. Scope In: 11:51:10 AM Scope Out: 12:09:35 PM RADIOLOGY RESULTS 10/24/2023 11:3 4 AM CDT Martin Zheng MD PROCEDURES Final Result RADIOLOGY RESULTS from Last 3 Months Insurance UCARE MEDICARE UC[employer] MEDICARE Care Teams Diet Aid Relationship Specialty Start Date End Date Fina Marie MD [address] [address] PCP - General Family Medicine 10/16/23 Gunner Panchal MD [address] [place] [address] Assigned Neuroscience Provider 12/30/23
--- OUTSIDE RECORDS SUMMARY | 2024-01-08 13:11 | XMS_ITS | Encounter Summary ---
Author Organization [facility] Address [address] [place] [address]. [place] [address] Care Team Providers Care Business Strategy Manager Name Role Phone Fina Marie MD Primary Care Provider [phone] Gunner Panchal MD Unavailable Encounter Details Date Type Department Care Team (Late st Contact Info) Description 01/02/2024 [facility] [address] [address] [place], [facility] Social History Tobacco Use Types Packs/Day Years [...] Diagnoses Not on filedocumented in this encounter Care Teams Business Strategy Manager Relationship Specialty Start Date End Date Fina Marie MD [address] [address] PCP - General Family Medicine 10/16/23 Gunner Panchal MD [address] [place] [address] [address] [place], [place] [id number] Assigned Neuroscience Provider 12/30/23 documented as of this encounter
--- OUTSIDE RECORDS SUMMARY | 2024-01-08 13:11 | XMS_ITS | Referral Summary ---
Author Organization [facility] Address [address] [place] [address] Care Team Providers Care Portrait Studio Photographer Name Role Phone Fina Marie MD Primary Care Provider [phone] Gunner Panchal MD Unavailable Encounters Date Type Department Care Team Description 4 MyC Medical Advice [facility] Neurology [address] [place] [address] Kelly Clemente, [facility] 4 Telephone [facility] Neurology [facility] [address] [place] [address] 200 [place] [address] Gunner aPnchal MD Call Back 4 Travel 4 2:55 PM INSPECTOR CONVEYOR LINE - 4 11:59 PM INSPECTOR CONVEYOR LINE Hospital Encounter [facility] [address] [facility] [address] [place] [address] Gunner Panchal MD Other symptoms and signs involving the musculoskeletal system; Cervical stenosis of spinal canal Discharge Disposition: Home or Self Care 4 Travel 4 Telephone [facility] Neurology [address] [place] [address] Gunner Panchal MD Call Back (Discuss EMG and follow up with Dr Panchal ) 4 12:45 PM INSPECTOR CONVEYOR LINE Lab [facility] [address] [place] [address] Paresthesias 4 Travel 4 11:30 AM INSPECTOR CONVEYOR LINE Office Visit [facility] Neurology Clinic [address] [address] Gunner Panchal MD Paresthesias (Primary Dx); Other symptoms and signs involving the musculoskeletal system; Tremor; Bilateral carpal tunnel syndrome; Abnormal loss of weight; Genetic susceptibility to other malignant neoplasm; Cervical stenosis of spinal canal 4 Travel 4 Transcribe Orders GENERIC EXTERNAL DATA DEPARTMENT Provider, Generic External Data Paresthesias (Primary Dx); Other symptoms and signs involving the musculoskeletal system; Tremor; Bilateral carpal tunnel syndrome; Abnormal loss of weight; Genetic susceptibility to other malignant neoplasm 4 Medical Correspondence [facility] Information Management [address] [place] [address] [address] [place] [address] Scan, Non-Provider 4 Transcribe Orders GENERIC EXTERNAL DATA DEPARTMENT Provider, Generic External Data Genetic susceptibility to other malignant neoplasm (Primary Dx); Abnormal weight loss; Carpal tunnel syndrome, bilateral upper limbs; Tremor, unspecified; Other symptoms and signs involving the musculoskeletal system; Paresthesia of skin; 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) 4 11:44 AM CDT Anesthesia Event [facility] [address] [address] Yamilet Mathias MD 4 11:00 AM CDT - 4 12:30 PM CDT Surgery [facility] [address] [address] Nasrin Condon MD ENDOSCOPIC ULTRASOUND WITH FINE NEEDLE ASPIRATION, ESOPHAGOGASTRODUODENOSCOPY 4 9:15 AM CDT - 4 1:01 PM CDT Hospital Encounter [facility] [address] [address] Nasrin Condon MD Discharge Disposition: Home or [...] 04/07/2023 Overview (12/11/2023): genetic predisposition to cancer Social History Tobacco Use Types Packs/Day Years [...] Comments Blood Pressure 133/80 12/13/2023 11:38 AM INSPECTOR CONVEYOR LINE Pulse 72 12/13/2023 11:38 AM INSPECTOR CONVEYOR LINE Temperature - - Respiratory Rate 19 10/24/2023 12:40 PM CDT Oxygen Saturation 99% 10/24/2023 12:40 PM CDT Inhaled Oxygen Concentration - - Weight 53.5 kg (118 lb) 12/13/2023 11:38 AM INSPECTOR CONVEYOR LINE Height 175.3 cm (5' 9) 12/13/2023 11:38 AM INSPECTOR CONVEYOR LINE Body Mass Index 17.43 12/13/2023 11:38 AM INSPECTOR CONVEYOR LINE Plan of Treatment Not on file Procedures Procedure Name Priority Date/Time Associated Diagnosis Comments MR CERVICAL SPINE W/O CONTRAST Routine 01/01/2024 3:42 PM INSPECTOR CONVEYOR LINE Other symptoms and signs involving the musculoskeletal system Cervical stenosis of spinal canal PROTEIN ELECTROPHORESIS Routine 12/13/2023 12:32 PM INSPECTOR CONVEYOR LINE Paresthesias PROTEIN ELECTROPHORESIS, SERUM Routine 12/13/2023 12:32 PM INSPECTOR CONVEYOR LINE Paresthesias TOTAL PROTEIN, SERUM FOR ELP Routine 12/13/2023 12:32 PM INSPECTOR CONVEYOR LINE Paresthesias VITAMIN B1 WHOLE BLOOD Routine 12/13/2023 12:32 PM INSPECTOR CONVEYOR LINE Paresthesias VITAMIN B12 Routine 12/13/2023 12:32 PM INSPECTOR CONVEYOR LINE Paresthesias VITAMIN B6 Routine 12/13/2023 12:32 PM INSPECTOR CONVEYOR LINE Paresthesias PROTEIN IMMUNOFIXATION SERUM Routine 12/13/2023 12:32 PM INSPECTOR CONVEYOR LINE Paresthesias METHYLMALONIC ACID Routine 12/13/2023 12:32 PM INSPECTOR CONVEYOR LINE Paresthesias LYME DISEASE TOTAL ANTIBODIES WITH REFLEX TO CONFIRMATION Routine 12/13/2023 12:32 PM INSPECTOR CONVEYOR LINE Paresthesias FOLATE Routine 12/13/2023 12:32 PM INSPECTOR CONVEYOR LINE Paresthesias ANTI NUCLEAR ERMA IGG BY IFA WITH REFLEX Routine 12/13/2023 12:32 PM INSPECTOR CONVEYOR LINE Paresthesias NON-GYNECOLOGIC CYTOLOGY Routine 10/24/2023 12:04 PM CDT SURGICAL PATHOLOGY EXAM Routine 10/24/2023 11:53 AM CDT UGI ENDOSCOPY DIAG W BIOPSY 10/24/2023 11:44 AM CDT Pancreatic cyst Early satiety Special Needs PATIENT REPORTS HISTORY OF RAPID HEARTBEAT ALLERGIES: PENICILLINS LM re: need for H&P and to call us [facility] [place] ESOPHAGOGASTRODUODEN OSCOPY, WITH FINE NEEDLE ASPIRATION BIOPSY, WITH ENDOSCOPIC ULTRASOUND GUIDANCE 10/24/2023 11:44 AM CDT Pancreatic cyst Early satiety Special Needs PATIENT REPORTS HISTORY OF RAPID HEARTBEAT ALLERGIES: PENICILLINS LM re: need for H&P and to call us [facility] [place] UPPER EUS Routine 10/24/2023 11:34 AM CDT from Last 3 Months Results * MR Cervical Spine w/o Contrast (01/01/2024 3:42 PM INSPECTOR CONVEYOR LINE) Anatomical Region Laterality Modality Spine, SUBRAD MR NEURO, UMP MR SPINE, RAD MR Magnetic Resonance Impressions 01/02/2024 9:02 AM INSPECTOR CONVEYOR LINE IMPRESSION: 1. Mild degenerative disc changes at C5-C6 and C6-C7 as detailed above. 2. Mild right neural foraminal narrowing at C5-C6. No spinal canal narrowing at any level. 3. Chiari I malformation. No spinal cord edema or syrinx appreciated. BINTA STRICKLAND MD SYSTEM ID: [id number] Narrative 01/02/2024 9:02 AM INSPECTOR CONVEYOR LINE MRI CERVICAL SPINE WITHOUT CONTRAST 01/01/2024 3:42 [...] syrinx appreciated. BINTA STRICKLAND MD SYSTEM ID: [id number] Gunner Panchal MD IMG MRI ORDERABLES Final Result * Protein Electrophoresis, Serum (12/13/2023 12:32 PM INSPECTOR CONVEYOR LINE) Albumin 4.6 3.7 - 5.1 g/dL 12/14/2023 12:31 PM INSPECTOR CONVEYOR LINE SPECIALTY CORE/PROT/E NDO Alpha 1 0.3 0.2 - 0.4 g/dL 12/14/2023 12:31 PM INSPECTOR CONVEYOR LINE SPECIALTY CORE/PROT/E NDO Alpha 2 0.8 0.5 - 0.9 g/dL 12/14/2023 12:31 PM [facility] SPECIALTY CORE/PROT/E NDO Beta Globulin 0.8 0.6 - 1.0 g/dL 12/14/2023 12:31 PM INSPECTOR CONVEYOR LINE SPECIALTY CORE/PROT/E NDO Gamma Globulin 0.7 0.7 - 1.6 g/dL 12/14/2023 12:31 PM [facility] SPECIALTY CORE/PROT/E NDO Monoclonal Peak 0.0 <=0.0 g/dL 12/14/2023 12:31 PM [facility] SPECIALTY CORE/PROT/E NDO ELP Interpretation Essentially normal electrophoretic pattern. No obvious monoclonal proteins seen. Pathologic significance requires clinical correlation. Gladys Lewis M.D., Ph.D. 12/14/2023 12:31 PM [facility] SPECIALTY CORE/PROT/E NDO Signout Location if Remote [address] 12/14/2023 12:31 PM [facility] SPECIALTY LABS Blood BLOOD SPECIMEN / Unknown Venipuncture / Unknown 12/13/2023 12:32 PM INSPECTOR CONVEYOR LINE 12/13/2023 12:35 PM INSPECTOR CONVEYOR LINE Gunner Panchal MD LAB - BLOOD ORDERABLES Final Res ult SPECIALTY CORE/PROT/ENDO Specialty Core/Prot/Endo [address] [facility] [address], Room [address] [place] [address], [facility] SPECIALTY LABS [facility] Specialty Lab [address] [facility] [address] [facility], Room [address] [place] [phone] * Total Protein, Serum for ELP (12/13/2023 12:32 PM INSPECTOR CONVEYOR LINE) Pathologist [facility] Total Protein Serum for ELP 7.1 6.4 - 8.3 g/dL 12/13/2023 1:38 PM INSPECTOR CONVEYOR LINE [facility] Blood BLOOD SPECIMEN / Unknown Venipuncture / Unknown 12/13/2023 12:32 PM INSPECTOR CONVEYOR LINE 12/13/2023 12:35 PM INSPECTOR CONVEYOR LINE Result [facility] Gunner Panchal MD LAB - BLOOD ORDERABLES Final Res ult [facility] [address] [place] [address], [facility] * Protein Immunofixation Serum (12/13/2023 12:32 PM INSPECTOR CONVEYOR LINE) Immunofixation ELP No monoclonal protein seen on immunofixation. Pathologic significance requires clinical correlation. Gladys Lewis M.D., Ph.D. 12/14/2023 12:33 PM INSPECTOR CONVEYOR LINE SPECIALTY CORE/PROT/EN DO Signout Location if Remote ABK1 GABE 12/14/2023 12:33 PM INSPECTOR CONVEYOR LINE SPECIALTY LABS Blood BLOOD SPECIMEN / Unknown Venipuncture / Unknown 12/13/2023 12:32 PM INSPECTOR CONVEYOR LINE 12/13/2023 12:35 PM INSPECTOR CONVEYOR LINE Gunner Panchal MD LAB - BLOOD ORDERABLES Final Res ult UM SPECIALTY CORE/PROT/ENDO UM Specialty Core/Prot/Endo [address] [facility] [address] [facility], [address] [place] [id number] [place] [address] SPECIALTY LABS Specialty Lab [address] [facility] [address] [facility], [address] [phone] * Methylmalonic Acid (12/13/2023 12:32 PM INSPECTOR CONVEYOR LINE) Pathologist [facility] Methylmalonic Acid 0.19 0.00 - 0.40 umol/L 12/20/2023 7:23 AM INSPECTOR CONVEYOR LINE SPECIAL DRUG/BGEN Comment: INTERPRETIVE INFORMATION: Slight elevation 0.41-0.99 umol/L is consistent with mild vitamin B12 deficiency, renal insufficiency, or intravascular volume contraction. Moderate elevation 1.00-9.99 umol/L is consistent with mild vitamin B12 deficiency. Massive elevation 10.00 umol/L or greater is consistent with significant vitamin B12 deficiency or with inborn errors of metabolism. Blood BLOOD SPECIMEN / Unknown Venipuncture / Unknown 12/13/2023 12:32 PM INSPECTOR CONVEYOR LINE 12/13/2023 12:35 PM INSPECTOR CONVEYOR LINE Narrative SPECIAL DRUG/BGEN - 12/20/2023 7:23 AM INSPECTOR CONVEYOR LINE This test was developed and its performance characteristics determined by the [facility], Special Chemistry Laboratory. It has not been cleared or approved by the FDA. The laboratory is regulated under CLIA as qualified to perform high-complexity testing. This test is used for clinical purposes. It should not be regarded as investigational or for research. Gunner Panchal MD LAB - BLOOD ORDERABLES Final Res ult UM SPECIAL DRUG/BGEN Special Drug/BGEN [address] [facility], Room [address] [place] [phone] * Anti Nuclear Erma IgG by IFA with Reflex (12/13/2023 12:32 PM INSPECTOR CONVEYOR LINE) ARTIE interpretation Negative Negative 2023 1:44 PM INSPECTOR CONVEYOR LINE SPECIALTY CORE/PROT/EN DO Comment: Negative: <1:40 Borderline Positive: 1:40 - 1:80 Positive: >1:80 Blood BLOOD SPECIMEN / Unknown Venipuncture / Unknown 12/13/2023 12:32 PM INSPECTOR CONVEYOR LINE 12/13/2023 12:35 PM INSPECTOR CONVEYOR LINE Gunner Panchal MD LAB - BLOOD ORDERABLES Final Res ult Performing Organization Address City/[facility] de Phone Number SPECIALTY CORE/PROT/ENDO Specialty Core/Prot/Endo [address] [facility], [address] * Lyme Disease Total Antibodies with Reflex to Confirmation (12/13/2023 12:32 PM INSPECTOR CONVEYOR LINE) [facility] Lyme Disease Antibodies Total 0.23 <0.90 12/14/2023 7:41 AM INSPECTOR CONVEYOR LINE SPECIALTY CORE/PROT/ENDO Comment:Non-reactive, Absenc e of detectable Borrelia burgdorferi antibodies. A non-reactive result does not exclude the possibility of Borrelia burgdorferi infection. If early Lyme disease is suspected, a second sample should be collected and tested 2 to 4 weeks later. Blood BLOOD SPECIMEN / Unknown Venipuncture / Unknown 12/13/2023 12:32 PM INSPECTOR CONVEYOR LINE 12/13/2023 12:35 PM INSPECTOR CONVEYOR LINE Gunner Panchal MD LAB - BLOOD ORDERABLES Final Res ult Performing Organization Address [facility] de Phone Number SPECIALTY CORE/PROT/ENDO Specialty Core/Prot/Endo [address] [place] [address], [address] * Vitamin B6 (12/13/2023 12:32 PM INSPECTOR CONVEYOR LINE) Pathologist [facility] [place] Vitamin B6 58.4 20.0 - 125.0 nmol/L 12/17/2023 6:03 PM INSPECTOR CONVEYOR LINE [employer] Comment: INTERPRETIVE INFORMATION: Vitamin B6 (Pyridoxal 5-Phosphate) Pyridoxal 5'-phosphate measured in a specimen collected following an 8-hour or overnight fast accurately indicates vitamin B6 nutritional status. Non-fasting specimen concentration reflects recent vitamin intake. This test was developed and its performance characteristics determined by [email or web address]. It has not been cleared or approved by the US Food and Drug Administration. This test was performed in a CLIA certified laboratory and is intended for clinical purposes. Performed By: [facility] [[email or web address]] [employer] [address] [place] [id number] Tiler: Barrett Piper MD, PhD CLIA Number: [id number] Blood BLOOD SPECIMEN / Unknown Venipuncture / Unknown 12/13/2023 12:32 PM INSPECTOR CONVEYOR LINE 12/13/2023 12:35 PM INSPECTOR CONVEYOR LINE Gunner Panchal MD LAB - BLOOD ORDERABLES Final Res ult Performing Organization Address [facility] Co de Phone Number [address] [address], [facility] [phone] * Vitamin B1 whole blood (12/13/2023 12:32 PM INSPECTOR CONVEYOR LINE) Pathologist [facility] [place] Vitamin B1 Whole Blood Level 116 70 - 180 nmol/L 12/17/2023 11:13 AM INSPECTOR CONVEYOR LINE [facility] Comment: INTERPRETIVE INFORMATION: Vitamin B1, Whole Blood This assay measures the concentration of thiamine diphosphate (TDP), the primary active form of vitamin B1. Approximately 90 percent of vitamin B1 present in whole blood is TDP. Thiamine and thiamine monophosphate, which comprise the remaining 10 percent, are not measured. This test was developed and its performance characteristics determined by [email or web address]. It has not been cleared or approved by the US Food and Drug Administration. This test was performed in a CLIA certified laboratory and is intended for clinical purposes. Performed By: [facility] [[email or web address]] [employer] [address] [place], [place] [id number] Tiler: Barrett Piper MD, PhD CLIA Number: [id number] Blood BLOOD SPECIMEN / Unknown Venipuncture / Unknown 12/13/2023 12:32 PM INSPECTOR CONVEYOR LINE 12/13/2023 12:35 PM INSPECTOR CONVEYOR LINE Gunner Panchal MD LAB - BLOOD ORDERABLES Final Res ult Performing Organization Address [facility] Co de Phone Number [address] [address], [facility] [phone] * Folate (12/13/2023 12:32 PM INSPECTOR CONVEYOR LINE) Folic Acid 11.0 4.6 - 34.8 ng/mL 12/13/2023 9:11 PM INSPECTOR CONVEYOR LINE [facility] Blood BLOOD SPECIMEN / Unknown Venipuncture / Unknown 12/13/2023 12:32 PM INSPECTOR CONVEYOR LINE 12/13/2023 12:35 PM INSPECTOR CONVEYOR LINE Gunner Panchal MD LAB - BLOOD ORDERABLES Final Res ult Performing Organization Address City/[facility]/ZIP Co de Phone Number U LABORATORY [facility] Core Lab [address] [facility], [address] * Vitamin B12 (12/13/2023 12:32 PM INSPECTOR CONVEYOR LINE) Pathologist [facility] [place] Vitamin B12 730 232 - 1,245 pg/mL 12/14/2023 8:45 AM INSPECTOR CONVEYOR LINE [facility] Blood BLOOD SPECIMEN / Unknown Venipuncture / Unknown 12/13/2023 12:32 PM INSPECTOR CONVEYOR LINE 12/13/2023 12:35 PM INSPECTOR CONVEYOR LINE Gunner Panchal MD LAB - BLOOD ORDERABLES Final Res ult Performing Organization Address City/[facility] Co de Phone Number LABORATORY [facility] Core Lab [address] [facility], [address] * Cytology, non-gynecologic (10/24/2023 12:04 PM CDT) Pathologist [facility] Final Diagnosis Specimen A Interpretation: Negative for [...] component of this testing was completed at [facility]. Stain controls for all stains resulted within this report have been reviewed and show appropriate reactivity. 10/26/2023 3:32 PM CDT SPECIALTY LABS Cyst STRUCTURE OF TAIL OF PANCREAS / Unknown 10/24/2023 12:04 PM CDT 10/25/2023 10:23 AM CDT Nasrin Condon MD LAB - DINA Final Result SPECIALTY LABS Specialty Lab [address] [facility], Room [address] [place] [phone] * Surgical Pathology Exam (10/24/2023 11:53 AM CDT) Case Report Surgical Pathology R eport Case: [id number] Authorizing Provider: Nasrin Condon, Collected: 10/24/2023 11:53 AM Ordering Location: [facility] Received: 10/24/2023 12:23 PM [facility] Endoscopy Pathologist: Devon Ivan MD Specimens: A) - Small Intestine, Duodenum, rule out celiac B) - Stomach, rule out h. pylori 9:48 AM CDT LABORATORY Final Diagnosis A. [...] component of this testing was completed at [facility]. Stain controls for all stains resulted within this report have been reviewed and show appropriate reactivity. 4 9:[facility] Images 4 9:48 AM CDT LABORATORY Biopsy DUODENAL STRUCTURE / Unknown 10/24/2023 11:53 AM CDT 10/24/2023 12:23 PM CDT Specimen from unspecified body site obtained by biopsy (specimen) STOMACH STRUCTURE / Unknown 10/24/2023 11:54 AM CDT 10/24/2023 12:23 PM CDT Nasrin ANGELES - DINA ACKERMAN Final Result LABORATORY [facility] Acute Care Lab [address] Lab (1st floor, no room number) [place] [address], [facility] Lab [address] [place]. 1st floor, [address] [place] [address], [place] [phone] * UPPER EUS (10/24/2023 11:34 AM CDT) [facility] [address] [place] [address] ___ Patient Name: Isis Malagon Procedure Date: 10/24/2023 11:34 AM Date of : 1955 Admit Type: Outpatient Age: 68 Room: [place] [address] Note Status: Finalized Attending MD: NASRIN CONDON MD, Instrument Name: 529 [id number] Linear ___ Procedure: Upper EUS Indications: Pancreatic cyst, Early satiety Providers: NASRIN CONDON MD, Trina Thompson RN Referring MD: Martin Zheng, FINA MARIE MD Medicines: Monitored Anesthesia Care, Cipro 400 [...] bid x 5 days. Rx sent to [facility] pharmacy Nasrin Condon MD NASRIN CONDON MD [...] RADIOLOGY RESULTS 10/24/2023 11:3 4 AM CDT us Martin Zheng MD PROCEDURES Final Result RADIOLOGY RESULTS from Last 3 Months Insurance [facility] MEDICARE [employer] MEDICARE Care Teams Portrait Studio Photographer Relationship Specialty Start Date End Date Fina Marie MD [address] [address] PCP - General Family Medicine 10/16/23 Gunner Panchal MD [address] [address] [place] [address] Assigned Neuroscience Provider 12/30/23
--- OUTSIDE RECORDS SUMMARY | 2024-01-08 13:11 | XMS_ITS | Encounter Summary ---
Author Organization [place] Address [address] [place] [address]. [place] [address] Care Team Providers Care Wet Pour Supervisor Name Role Phone Fina Marie MD Primary Care Provider [phone] Gunner Panchal MD Unavailable Reason for Visit * Reason Onset Date Comments Call Back 01/02/2024 Encounter Details Date Type Department Care Team (Late st Contact Info) Description 01/02/2024 Telephone [facility] [address] [address] Gunner Panchal MD [address] [place] [address] Call Back Social History Tobacco Use Types Packs/Day Years [...] on file documented as of this encounter Miscellaneous Notes * Telephone Encounter - Kelly Clemente, HAND TWISTER - 01/02/2024 9:31 AM TAXONOMIST Rory Mcgee, I see you had [facility] EM[facility] at [facility] As we never actually faxed our order there, they will not send us the report. Please contact [facility] at ask them to fax your EMG results to Dr. Panchal (Attn Kelly) at [phone]. Once I receive that, I can schedule you for follow up with Dr. Panchal to discuss results and next steps. [facility] * Telephone Encounter - Humphrey Angela - 01/02/2024 8:30 AM CST [facility] Call Center Phone Message May a detailed message be left on voicemail: yes Reason for Call: Patient calling to update that she has had her MRI and having her EMG today. Patient had an appointment in April but cancelled. Patient wanting to speak with care team Action Taken: [facility] Neurology Travel Screening: Not Applicable Date of Service: NOMIST documented in this encounter Plan of Treatment Not on file documented as of this encounter Visit Diagnoses Not on filedocumented in this encounter Care Teams Wet Pour Supervisor Relationship Specialty Start Date End Date Fina Marie MD [address] [address] PCP - General Family Medicine 10/16/23 Gunner Panchal MD [address] [place] [address] Assigned Neuroscience Provider 12/30/23 documented as of this encounter
--- OUTSIDE RECORDS SUMMARY | 2024-01-08 13:12 | XMS_ITS | Encounter Summary ---
Author Organization [facility] Address [address] [place] [address] Care Team Providers Care Veterinary Anatomist Name Role Phone Unavailable Primary Care Provider Unavailabl e Encounter Details Date Type Department Care Team (Latest Contact Info) Description 09/12/2023 Clinical Communication Division of Endocrinology in [place], [place] [address] [place] [address] Edna Meade M.D. [address] [place] [address] Social History Tobacco Use Types Packs/Day Years Used Date Smoking Tobacco: Never Passive Smoke Exposure: Never Smokeless Tobacco: Never Alcohol Use Standard Drinks/Week Comments Yes 5 (1 standard drink = 0.6 oz pur e alcohol) [facility] Utilities Answer Date Recorded In the [...] your living situation today? I have a [facility] place to live 03/29/2023 Comments No Sex and Gender Information Value Date Recorded Sex Assigned at Female 03/21/2023 11:26 AM DROSSER Legal Sex Female 8:56 PM DROSSER Gender Identity Female 03/21/2023 11:26 AM DROSSER Sexual Orientation Straight 03/21/2023 11 :26 AM DROSSER documented as of this encounter Miscellaneous Notes * Telephone Encounter - Edna Meade M.D. - 09/12/2023 1:[address] 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 What is size and follow-up needed? I let them know that this is typically a question for the radiologist, and that in my experience wedo not always arrange follow-up on these. Please let her know your thoughts. Thanks. Anirudh documented in this encounter Plan of Treatment Not on file documented as of this encounter Visit Diagnoses Not on filedocumented in this encounter
--- OUTSIDE RECORDS SUMMARY | 2024-01-08 13:12 | XMS_ITS | Encounter Summary ---
Author Organization [place] Address [address] [place] [address] Care Team Providers Care Wearing Apparel Presser Name Role Phone Fina Marie MD Primary Care Provider +1 [phone] Encounter Details Date Type Department Care Team (Latest Contact Info) Description 12/13/2023 Travel Social History Tobacco Use Types Packs/Day Years [...] on filedocumented in this encounter Care Teams Wearing Apparel Presser Relationship Specialty Start Date End Date Fina Marie MD [facility] AND [address] [address] PCP - General Family Medicine 10/16/23 documented as of this encounter
--- OUTSIDE RECORDS SUMMARY | 2024-01-08 13:12 | XMS_ITS | Encounter Summary ---
Author Organization [place] Address [facility] [place] [address] Care Team Providers Care Electrical Instrument Maker Name Role Phone Fina Marie MD Primary Care Provider [phone] [phone] Reason for Referral * Consultation (Routine: Next available opening) - Pending Review Specialty Diagnoses / Procedures Referred By Contac t Referred To Contact Diagnoses Genetic susceptibility to other malignant neoplasm Abnormal weight loss Carpal tunnel syndrome, bilateral upper limbs Tremor, unspecified Other symptoms and signs involving the musculoskeletal system Paresthesia of skin 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 If you don't hear from a associate financial representative within 2 business days, please call . Additional Information: Paresthesia of saddle area, right leg paresthesias, right leg weakness, tremor, bilateral carpal tunnel syndrome, unintended weight loss Comments Referral Transcribed by external fax Provider: Dr. Fina Marie affiliated with [facility] at [address] [place] [address]. [place]: No If yes was is the VA Authorization Number: Phone number: [phone] Fax number: [phone] To help facilitate your referral to neurosurgery, please request the release of your outside records to assist the scheduling team. X-rays, CTs, MRIs, and other imaging must be pushed electronically to the [email or web address] system. Please be aware that coverage of these services is subject to the terms and limitations of your health insurance plan. Call member services at your health plan with any benefit or coverage questions. [employer] will call you to coordinate your care as prescribed by your provider. If you don't hear from a associate financial representative within 2 business days, please call . 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) Social History Tobacco Use Types Packs/Day Years [...] of this encounter Plan of Treatment Scheduled Referrals Name Type Priority Associated Diagnoses Orde r Schedule Adult Neurology Investigator Fraud Referral Referral Routine: Next available opening Genetic susceptibility to other malignant neoplasm Abnormal weight loss Carpal tunnel syndrome, bilateral upper limbs Tremor, unspecified Other symptoms and signs involving the musculoskeletal system Paresthesia of skin 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) Ordered: 11/23/2023 documented as of this encounter Visit Diagnoses Diagnosis Genetic susceptibility to other malignant neoplasm- Primary Abnormal weight loss Loss of weight Carpal tunnel syndrome, bilateral upper limbs Tremor, unspecified Other symptoms and signs involving the musculoskeletal system Paresthesia of skin Disturbance of skin sensation 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
--- OUTSIDE RECORDS SUMMARY | 2024-01-08 13:12 | XMS_ITS | Encounter Summary ---
Author Organization [place] Address [address] [place] [address]. [place] [address] Care Team Providers Care Farm Supervisor Name Role Phone Fina Marie MD Primary Care Provider [phone] [phone] Reason for Visit * Reason Onset Date Comments Call Back 12/14/2023 Discuss EMG and follow up with Dr Panchal Encounter Details Date Type Department Care Team (Late st Contact Info) Description 12/14/2023 Telephone [facility] [address] [address] Gunner Panchal MD [address] [place] [address] Call Back (Discuss EMG and follow up with Dr Panchal ) Social History Tobacco Use Types Packs/Day Years [...] Notes * Telephone Encounter - Kelly Clemente, VACUUM FURNACE OPERATOR - 12/14/2023 1:23 PM PUBLIC HEALTH OFFICER Spoke with Isis (Arely) and she is going to check with Dr. Marie on other locations she may be able to go to to be seen sooner for EMG. Arely will call back with this information so we can fax our order Kelly Clemente CMA on 12/14/2023 at 1:24 PM [facility] IC HEALTH OFFICER * Telephone Encounter - Salo Calix - 12/14/2023 10:02 AM CST [facility] Call [facility] Phone Message May a detailed message be left on voicemail: yes Reason for Call: Other: Patient requesting call back from clinic to discuss her EMG and follow up with Dr Panchal. Patient states that her PCP suggested trying to get her EMG done elsewhere to get it done sooner in hopes of then having a follow up with Dr Panchal sooner depending on the results of the EMG. Her PCP was thinking of placing an order for an EMG to schedule outside of [facility]. Patient requesting call back from [facility] to discuss. Call back #[phone] Action Taken: Message routed to: Other: [facility] Travel Screening: Not Applicable IC HEALTH OFFICER documented in this encounter Plan of Treatment Not on file documented as of this encounter Visit Diagnoses Not on filedocumented in this encounter Care Teams Farm Supervisor Relationship Specialty Start Date End Date Fina Marie MD [address] [address] PCP - General Family Medicine 10/16/23 documented as of this encounter
--- OUTSIDE RECORDS SUMMARY | 2024-01-08 13:12 | XMS_ITS | Encounter Summary ---
Author Organization [place] Address [address] [place] [address] Care Team Providers Care Field Software Engineer Name Role Phone Fina Marie MD Primary Care Provider [phone] [phone] Encounter Details Date Type Department Care Team (Latest Contact Info) Description 12/27/2023 Travel Social History Tobacco Use Types Packs/Day [...] on filedocumented in this encounter Care Teams Field Software Engineer Relationship Specialty Start Date End Date Fina Marie MD [facility] AND [address] [address] PCP - General Family Medicine 10/16/23 documented as of this encounter
--- OUTSIDE RECORDS SUMMARY | 2024-01-08 13:12 | XMS_ITS | Encounter Summary ---
Author Organization [place] Address [address] [place] [address] Care Team Providers Care Loom Inspector Name Role Phone Fina Marie MD Primary Care Provider [phone] [phone] Encounter Details Date Type Department Care Team (Late st Contact Info) Description 11/23/2023 Medical Correspondence [facility] [address] [facility] [address] [place] [address] Scan, Non-Provider Social History Tobacco Use Types Packs/Day Years [...] on filedocumented in this encounter Care Teams Loom Inspector Relationship Specialty Start Date End Date Fina Marie MD [address] [address] PCP - General Family Medicine 10/16/23 documented as of this encounter
--- OUTSIDE RECORDS SUMMARY | 2024-01-08 13:12 | XMS_ITS | Encounter Summary ---
Author Organization [facility] Address [address] [place] [address] Care Team Providers Care Real Estate Associate Name Role Phone Unavailable Primary Care Provider Unavailabl e Encounter Details Date Type Department Care Team (Latest Contact Info) Description 09/18/2023 Clinical Communication Division of Gastroenterology in [place], [place] [address] [place] [address] Kiah Sarkar M.B.B.S., M.S. [address] [place] [address] Social History Tobacco Use Types Packs/Day Years Used Date Smoking Tobacco: Never Passive Smoke Exposure: Never Smokeless Tobacco: Never Alcohol Use Standard Drinks/Week Comments Yes 5 (1 standard drink = 0.6 oz pur e alcohol) [facility] Utilities Answer Date Recorded In the past 12 months has e [employer], gas, oil, or water [employer] threatened to shut off services in your [...] your living situation today? [facility] a [facility] place to live 03/29/2023 Comments No Sex and Gender Information Value Date Recorded Sex Assigned at Female 03/21/2023 11:26 AM OPERATIONS INTELLIGENCE SUPERINTENDENT Legal Sex Female 8:56 PM OPERATIONS INTELLIGENCE SUPERINTENDENT Gender Identity Female 03/21/2023 11:26 AM OPERATIONS INTELLIGENCE SUPERINTENDENT Sexual Orientation Straight 03/21/2023 11 :26 AM OPERATIONS INTELLIGENCE SUPERINTENDENT documented as of this encounter Plan of Treatment Not on file documented as of this encounter Visit Diagnoses Not on filedocumented in this encounter
--- OUTSIDE RECORDS SUMMARY | 2024-01-08 13:12 | XMS_ITS | Encounter Summary ---
Author Organization [facility] Address [address] [place] [address] Care Team Providers Care Special Education Paraeducator Name Role Phone Unavailable Primary Care Provider Unavailabl e Reason for Referral * MRI/CAT/PET Scan (Routine) - Authorized Specialty Diagnoses / Procedures Referred By Josue garcia Referred To Contact Radiology Diagnoses Aneurysm Splenic Artery (HCC) Procedures CT Abdomen Pelvis Angiogram with IV Contrast Emma Álvarez M.D. [address] [place] [address] Phone: tel: fax: [facility] Referral ID Status Reason Start Date Expiration Date V isits Requested Visits Authorized [id number] Authorized 11/24/2023 11/23/2024 1 1 * Outpatient (Routine) - Authorized Specialty Diagnoses / Procedures Referred By Josue garcia Referred To Contact Vascular Surgery Emma Álvarez M.D. [address] [place] [address] Phone: tel: fax: [facility] Referral ID Status Reason Start Date Expiration Date V isits Requested Visits Authorized [id number] Authorized 11/24/2023 05/25/2025 1 1 Encounter Details Date Type Department Care Team (Late st Contact Info) Description 11/24/2023 Orders Only Division of Vascular and Endovascular Surgery in [place], [place] [address] [place] [address] Fina Cisse R.N. [address] [place] [address] Aneurysm Splenic Artery (HCC) (Primary Dx) Social History Tobacco Use Types Packs/Day Years Used Date Smoking Tobacco: Never Passive Smoke Exposure: Never Smokeless Tobacco: Never Alcohol Use Standard Drinks/Week Comments Yes 5 (1 standard drink = 0.6 oz pur e alcohol) [facility] Utilities Answer Date Recorded In the past 12 months has e [employer], gas, oil, or water [employer] threatened to shut off services in your [...] your living situation today? I have a [facility] place to live 03/29/2023 Comments No Sex and Gender Information Value Date Recorded Sex Assigned at Female 03/21/2023 11:26 AM SALON ASSISTANT Legal Sex Female 8:56 PM SALON ASSISTANT Gender Identity Female 03/21/2023 11:26 AM SALON ASSISTANT Sexual Orientation Straight 03/21/2023 11 :26 AM SALON ASSISTANT documented as of this encounter Plan of Treatment Scheduled Orders Name Type Priority Associated Diagnoses Orde r Schedule CT Abdomen Pelvis Angiogram with IV Contrast Imaging RAD - Routine (most inpatients and all outpatients) Aneurysm Splenic Artery (HCC) Expected: 11/23/2024, Expires: 11/23/2024 Creatinine with Estimated GFR Lab Routine Aneurysm Splenic Artery (HCC) Expected: 11/23/2024, Expires: 02/23/2025 Scheduled Referrals Name Type Priority Associated Diagnoses Orde r Schedule Vascular Surgery office visit (clinic) Outpatient Referral Routine Expected: 11/23/2024 (Approximate), Expires: 02/23/2025 documented as of this encounter Visit Diagnoses Diagnosis Aneurysm Splenic Artery (HCC)- Primary documented in this encounter
--- OUTSIDE RECORDS SUMMARY | 2024-01-08 13:12 | XMS_ITS ---
Author Organization [facility] Address [address] [place] [address] Care Team Providers Care Efficiency Miner Blasting Name Role Phone Unavailable Unavailable Unavailable Surgery Details Not on file Complications Check Surgery Details section. Procedure Estimated Blood Loss Check Surgery Details section. Procedure Findings Check Surgery Details section. Procedure Specimens Taken Check Surgery Details section.
--- OUTSIDE RECORDS SUMMARY | 2024-01-08 13:12 | XMS_ITS | Encounter Summary ---
Author Organization [place] Address [address] [place] [address] Care Team Providers Care Scaling Machine Operator Name Role Phone Fina Marie MD Primary Care Provider [phone] [phone] Gunner Panchal MD Unavailable Encounter Details Date Type Department Care Team (Late st Contact Info) Description 08/02/2023 Orders Only [facility] [address] [place] [address] Ruthie Otero MD [facility] [address] [place], [place] [id number] Nonspecific abnormal results of thyroid function study (Primary Dx) Social History Tobacco Use Types Packs/Day Years Used Date Smoking Tobacco: Never Assessed Comments Unknown Sex and Gender Information Value [...] Primary documented in this encounter Care Teams Scaling Machine Operator Relationship Specialty Start Date End Date Fina Marie MD [address] [place] [address] PCP - General Family Medicine 10/16/23 Gunner Panchal MD [address] [place] [address] [place] [address] Assigned Neuroscience Provider 12/30/23 documented as of this encounter
--- OUTSIDE RECORDS SUMMARY | 2024-01-08 13:12 | XMS_ITS | Encounter Summary ---
Author Organization [place] Address [address] [place] [address]. [place] [address] Care Team Providers Care Corn Husker Machine Operator Name Role Phone Fina Marie MD Primary Care Provider [phone] [phone] Reason for Visit * Auth/Cert (Routine) Specialty Diagnoses / Procedures Referred By Contact Referred To Contact Gastroenterology Diagnoses Pancreatic cyst Early satiety Pancreatic cyst [K86.2] Early satiety [R68.81] Procedures [place] UPPR GI ENDOSCOPY W/US FN BX [place] EGD INTRMURAL NEEDLE ASPIR/BIOP ALTERED ANATOMY ENDOSCOPIC ULTRASOUND WITH FINE NEEDLE ASPIRATION, ESOPHAGOGASTRODUODENOSCOPY [facility] [address] [address] Phone: tel:[phone] Referral ID Status Reason Start Date Expiration Date Visits Re quested Visits Authorized [id number] 1 1 Encounter Details Date Type Department Care Team (Latest Contact Info) Description 10/24/2023 9:15 AM CDT - 10/24/2023 1:01 PM CDT Hospital Encounter [facility] [address] [phone] Nasrin Condon MD [place] [facility] [address] [facility] [address] [phone] Discharge Disposition: Home or Self Care Social [...] this encounter Medications at Time of Discharge acyclovir (ZOVIRAX) 400 MG tablet Take 400 mg by mouth See Admin Instructions. Take 400 mg by mouth as needed. 03/20/2023 Calcium Carb-Cholecalcif arianne 600-20 MG-MCG CHEW Take 2 tablets by [...] need for H&P and to call us [facility] ESOPHAGOGASTRODUO DENOSCOPY, WITH FINE NEEDLE ASPIRATION BIOPSY, WITH ENDOSCOPIC ULTRASOUND GUIDANCE 10/24/2023 11:44 AM CDT Pancreatic cyst Early satiety Special Needs PATIENT REPORTS HISTORY OF RAPID HEARTBEAT ALLERGIES: PENICILLINS LM re: need for H&P and to call [address] UPPER EUS Routine 10/24/2023 11:34 AM CDT documented in this encounter Results * Cytology, non-gynecologic (10/24/2023 12:04 PM CDT) Final Diagnosis Specimen A Interpretation: Negative for malignancy Other Findings: Mucicarmine stain is negative for intracellular or extracellular mucin. Adequacy: Satisfactory for evaluation 10/26/2023 3:32 PM [facility] Clinical Information 68F with 16 mm pancreatic cyst and splenic artery aneurysm 10/26/2023 3:32 PM [facility] Gross Description A(). Pancreas, Tail, [...] determine the final diagnosis. 10/26/2023 3:32 PM [facility] Performing Labs The technical component of this testing was completed at [facility]. Stain controls for all stains resulted within this report have been reviewed and show appropriate reactivity. 10/26/2023 3:32 PM [facility] Cyst STRUCTURE OF TAIL OF PANCREAS / Unknown 10/24/2023 12:04 PM CDT 10/25/2023 10:23 AM CDT Nasrin Condon MD LAB - DINA AP Final Result [facility] [address] [facility] [address] Building, Room [address] [address] * Surgical Pathology Exam (10/24/2023 11:53 AM CDT) Case Report Surgical Pathology R eport Case: [id number] Authorizing Provider: Nasrin Condon, Collected: 10/24/2023 11:53 AM Ordering Location: [facility] Received: 10/24/2023 12:23 PM [facility] Endoscopy Pathologist: Devon Ivan MD [...] R68.81 - Early satiety [ICD-10-CM] 9:48 AM CDT LABORATORY Gross Description A(1). [...] component of this testing was completed at [facility]. Stain controls for all [...] CDT 10/24/2023 12:23 PM CDT us Nasrin Condon MD LAB - BEAKER AP Final Result LABORATORY [facility] [address] [facility] (1st floor, no room number) [place] [address], [facility] [address] 1[address] floor, [address] [address], [facility] [phone] * UPPER EUS (10/24/2023 11:34 AM CDT) Pathologist [facility] Upper EUS [facility] [address] [address] ___ Patient Name: Isis Malagon Procedure Date: 10/24/2023 11:34 AM Date of : 1955 Admit Type: Outpatient Age: 68 Room: [place] [address] Note Status: Finalized Attending MD: NASRIN CONDON MD, Instrument Name: [id number] Linear ___ Procedure: Upper EUS Indications: Pancreatic [...] bid x 5 days. Rx sent to [facility] Nasrin Condon MD NASRIN CONDON MD [...] Zheng MD PROCEDURES Final Result RADIOLOGY RESULTS documented in this encounter Visit Diagnoses Not on filedocumented in this encounter Administered Medications Inactive Administered Medications - up to 3 most recent administrations Medication Order MAR Action Action Date Dose Rate Site ciprofloxacin (CIPRO) infusion 400 mg STAT, 400 mg, Intravenous, ONCE PRN, Starting on Mon10/24/23 at 0928, For 1 dose, other, fna, Indications: Perioperative PharmacoprophylaxisIndications:Perioperative Pharmacoprophylaxis documented in this encounter Active and Recently Administered Medications Times are shown in CDT. PRN Medication Order 10/22/2023 10/23/2023 10/24/2023 ciprofloxacin (CIPRO) infusion 400 mg STAT, 400 mg, Intravenous, ONCE PRN, Starting on Mon10/24/23 at 0928, For 1 dose, other, fna, Indications: Perioperative Pharmacoprophylaxis documented in this encounter Care Teams Corn Husker Machine Operator Relationship Specialty Start Date [place] [address] PCP - General Family Medicine 10/16/23 documented as of this encounter
--- OUTSIDE RECORDS SUMMARY | 2024-01-08 13:12 | XMS_ITS | Encounter Summary ---
Author Organization [place] Address [address] [place] [address]. [place] [address] Care Team Providers Care Insurance Service Representative Name Role Phone Fina Marie MD Primary Care Provider [phone] [phone] Gunner Panchal MD Unavailable Encounter Details Date Type Department Care Team (Latest Contact Info) Description 01/01/2024 Travel Social History Tobacco Use Types Packs/Day [...] on filedocumented in this encounter Care Teams Insurance Service Representative Relationship Specialty Start Date End Date Fina Marie MD [address] [address] PCP - General Family Medicine 10/16/23 Gunner Panchal MD [address] [address] [place] [address] [place] [address] Assigned Neuroscience Provider 12/30/23 documented as of this encounter
--- OUTSIDE RECORDS SUMMARY | 2024-01-08 13:12 | XMS_ITS | Encounter Summary ---
Author Organization [place] Address [facility] [place] [address] Care Team Providers Care Computer Bookkeeper Name Role Phone Fina Marie MD Primary Care Provider [phone] Reason for Visit * Auth/Cert (Routine) Specialty Diagnoses / Procedures Referred By Contact Referred To Contact Gastroenterology Diagnoses Pancreatic cyst Early satiety Pancreatic cyst [K86.2] Early satiety [R68.81] Procedures [place] UPPR GI ENDOSCOPY W/US FN BX [place] EGD INTRMURAL NEEDLE ASPIR/BIOP ALTERED ANATOMY ENDOSCOPIC ULTRASOUND WITH FINE NEEDLE ASPIRATION, ESOPHAGOGASTRODUODENOSCOPY [facility] [address] [address] Phone: tel:[phone] Referral ID Status Reason Start Date Expiration Date Visits Re quested Visits Authorized [id number] 1 1 Encounter Details Date Type Department Care Team (Late st Contact Info) Description 10/24/2023 11:44 AM CDT Anesthesia Event [facility] [address] [address] Yamilet Mathias MD [facility] [address] [id number] Anesthesia Record Procedure Summary Procedure Name Responsible Anesthesiologist Anesthesia Start Time Anesthesia Stop Time ENDOSCOPIC ULTRASOUND WITH F INE NEEDLE ASPIRATION, ESOPHAGOGASTRODUODENOSCOPY (Esophagus) Yamilet Mathias MD 10/24/23 1144 10/24/23 1215 Events Date Time Event Comment 10/24/2023 1014 1137 SOFTWARE QUALITY ASSURANCE ENGINEER Ready for Procedure 1144 An Start Anesthesia [...] recorded are pre- induction. Ruthie Dorado APRN SOFTWARE QUALITY ASSURANCE ENGINEER 1148 Anesthesia Ready for Procedu re 1215 [...] and realistic alternatives discussed. Questions answered and patient/customer sales representative(s) expressed understanding. - Discussed: - Discussed [...] mg documented in this encounter Care Teams Computer Bookkeeper Relationship Specialty Start Date [place] [address] PCP - General Family Medicine 10/16/23 documented as of this encounter
--- OUTSIDE RECORDS SUMMARY | 2024-01-08 13:12 | XMS_ITS | Encounter Summary ---
Author Organization [facility] Address [facility] [place] [address] Care Team Providers Care Associate Engineer Name Role Phone Fina Marie MD Primary Care Provider [phone] Reason for Referral * Diagnostic Imaging MRI (Routine) - Closed Specialty Diagnoses / Procedures Referred By Josue garcia Referred To Contact Radiology. Diagnoses Other symptoms and signs involving the musculoskeletal system Cervical stenosis of spinal canal Procedures MR Cervical Spine w/o Contrast Gunner Panchal MD [address] [place] [address] Phone: tel: fax: Referral ID Status Reason Start Date Expiration Date Visits Re quested Visits Authorized [id number] Closed 12/13/2023 12/12/2024 1 1 CRANE OPERATOR Reason for Visit * Reason Comments Numbness Patient reports lea ral months of numbness/tingling/stingers BUE/BLE * Consultation (Routine) - Pending Review Specialty Diagnoses / Procedures Referred By Josue garcia Referred To Contact Diagnoses Paresthesias Other symptoms and signs involving the musculoskeletal system Tremor Bilateral carpal tunnel syndrome Abnormal loss of weight Genetic susceptibility to other malignant neoplasm Fina Marie MD [facility] [address] [address] Phone: tel: fax: Referral ID Status Reason Start Date Expiration Date V isits Requested Visits Authorized [id number] Pending Review 11/24/2023 11/23/2024 1 1 Encounter Details Date Type Department Care Team (Latest Contact Info) Description 12/13/2023 11:30 AM BOOM CRANE OPERATOR Office Visit M [facility] [place] [address] [place] [address] [address] [place] [address] Gunner Panchal MD [address] [place] [address] Paresthesias (Primary Dx); Other symptoms and signs involving the musculoskeletal system; Tremor; Bilateral carpal tunnel syndrome; Abnormal loss of weight; Genetic susceptibility to other malignant neoplasm; Cervical stenosis of spinal canal Social History Tobacco Use Types Packs/Day Years [...] Comments Blood Pressure 133/80 12/13/2023 11:38 AM BOOM CRANE OPERATOR Pulse 72 12/13/2023 11:38 AM BOOM CRANE OPERATOR Temperature - - Respiratory Rate - - Oxygen Saturation - - Inhaled Oxygen Concentration - - Weight 53.5 kg (118 lb) 12/13/2023 11:38 AM BOOM CRANE OPERATOR Height 175.3 cm (5' 9) 12/13/2023 11:38 AM BOOM CRANE OPERATOR Body Mass Index 17.43 12/13/2023 11:38 AM BOOM CRANE OPERATOR documented in this encounter Progress Notes * Gunner Panchal MD - 12/13/2023 11:30 AM CST Images from the original note were not included. NEUROLOGY CONSULTATION NOTE [facility] [place] [address] [place] [address] [email or web address] Isis Malagon, 1955, PCP: Fina Marie Date: 12/13/2023 ASSESSMENT & PLAN Visit Diagnosis Paresthesia Paresthesias Pleasant 68-year-old female with history of bilateral carpal tunnel syndrome, HL, HTN, HLD with bilateral feet paresthesias. She has some soft findings to suggest peripheral neuropathy RCC and I haverecommended: 1. EMG of bilateral lower extremity 2. Lab work to include antinuclear antibody, folate, Lyme titer, MMA, SPEP, immunofixation, B1, B6 and B12 3. She has hyperreflexia in the lower extremity that suggest cervical spondylosis and she does report neck pain with radiation into her shoulder and I have recommended checking MRI of the cervical spine 4. Follow-up the day she is scheduled for EMG Thank you again for this referral, please feel free to contact me if you have any questions. Gunner Panchal MD [facility] REASON FOR CONSULTATION Numbness HISTORY OF PRESENT ILLNESS We have been requested by Dr. Marie to evaluate Isis Malagon who is a 68 year old female for paresthesia Patient is a 68-year-old female with history of bilateral carpal tunnel syndrome, HL RCC, HTN, HLD who was referred for evaluation of bilateral feet numbness and tingling. According to patient multiple months ago she started having intermittent episodes of shooting pain in both arms and legs. This would occur for short period of time and was not associated with any weakness. She was evaluated at [facility] and had an EMG that was consistent with carpal tunnel syndrome. Braces were prescribed that did seem to help. She also started having numbness tingling in her legs that tend to bother hermore with activity. There is no history of any back pain, bowel or bladder incontinence but occasionally feels some dizziness. She also reports some trouble with her balance. 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 Surgical History: She has a past surgical history that includes Hysterectomy; tonsillectomy; Esophagoscopy, gastroscopy, duodenoscopy (EGD), combined (N/A, 10/24/2023); and Esophagoscopy, gastroscopy, duodenoscopy (EGD), combined (N/A, 10/24/2023). SOCIAL HISTORY Reviewed, and she reports that she has never smoked. She has never used smokeless tobacco. She reports current alcohol use. She reports that she does not use drugs. FAMILY HISTORY Reviewed, and family history includes Arthritis in her mother; Cerebrovascular Disease in her mother; Coronary Artery Disease in her brother and father; Dementia in her father; Hyperlipidemia in her brother, mother, and sister; Hypertension in her brother and mother; Myocardial Infarction in her father; Transient ischemic attack in her mother. ALLERGIES Allergies Allergen Reactions Bee Venom Itching and Rash Swelling when stung as a young adult Penicillin G Itching and Rash Since childhood REVIEW OF SYSTEMS A 12 point review of system was performed and was negative except as outlined in the history of present illness. HOME MEDICATIONS Current Outpatient Rx Medication Sig Dispense Refill acyclovir (ZOVIRAX) 400 MG tablet Take 400 mg by mouth See Admin Instructions. Take 400 mg by mouthas needed. Calcium Carb-Cholecalciferol 600-20 MG-MCG CHEW Take 2 tablets by mouth daily. Chew 2 tablets daily. omeprazole (PRILOSEC) [address] capsule TAKE 1 CAPSULE (20 MG) BY MOUTH TWICE A DAY Probiotic Product (CVS PROBIOTIC) CAPS CVS PROBIOTIC CAPS propranolol (INDERAL) 10 MG tablet TAKE ONE TABLET BY MOUTH THREE TIMES A DAY NEEDED FOR ANXIETYOR TACHYCARDIA PHYSICAL EXAM Vital signs BP 133/80 (BP Location: Right arm, Patient Position: Sitting) Pulse 72 Ht 1.753 m (5' 9) Wt 53.5 kg (118 lb) BMI 17.43 kg/m?? Weight: 118 lbs 0 oz Middle-age pleasant female who is alert and oriented vital signs are reviewed and documented in electronic medical record. Neck supple. Neurologically speech was normal cranial nerves II through XII are intact motor strength 5/5 reflexes 1+ in the upper extremity 3+ in the lower extremity toes downgoing. No dysmetria noted on finger-nose testing gait normal. She is able to walk on her toes and heels without any difficulty. Sensation was decreased to vibratory and temperature sensation below knees PERTINENT DIAGNOSTIC STUDIES Following studies were reviewed: EMG 08/15/2023 --This study shows electrodiagnostic evidence for mild to moderate median neuropathy across left carpal tunnel. This is supported by the increased peak latencies of the left median antidromic and orthodromic mixed sensory nerve conduction studies and mild reinnervation changes noted on EMG needle sampling of the left abductor pollicis brevis muscle. --There is also electrodiagnostic evidence for a mild median neuropathy across the right carpal tunnel. This is supported by the increased peak latencies of the right median antidromic and orthodromic mixed sensory nerve conduction studies. There is no evidence for active denervation on EMG needle sampling of the right abductor pollicis brevis muscle. --The remainder of the study did not reveal electrodiagnostic evidence for bilateral ulnar neuropathies. PERTINENT LABS Following labs were reviewed: Lab on 12/13/2023 Component Date Value Ref Range Status Total Protein Serum for ELP 12/13/2023 7.1 6.4 - 8.3 g/dL Final Admission on 10/24/2023, Discharged on 10/24/2023 Component Date Value Ref Range Status Case Report 10/24/2023 Final Value:Surgical Pathology Report Case: [id number] Authorizing Provider: Nasrin Condon, Collected: 10/24/2023 11:53 AM Ordering Location: [facility] Received: 10/24/2023 12:23 PM [facility] Endoscopy Pathologist: Devon Ivan MD Specimens: A) - Small Intestine, Duodenum, rule out celiac B) - Stomach, rule out h. pylori Final Diagnosis 10/24/2023 Final Value:A. Duodenum, biopsies: --No significant histopathologic change. B. Stomach, biopsies: --Gastric mucosa with no significant histopathologic change. --Negative for Helicobacter pylori organisms or dysplasia. Clinical Information 10/24/2023 Final Value:Procedure: ENDOSCOPIC ULTRASOUND WITH FINE NEEDLE ASPIRATION, ESOPHAGOGASTRODUODENOSCOPY Pre-op Diagnosis: Pancreatic cyst [K86.2] Early satiety [R68.81] Post-op Diagnosis: K86.2 - Pancreatic cyst [ICD-10-CM] R68.81 - Early satiety [ICD-10-CM] Gross Description 10/24/2023 Final Value:A(1). Small Intestine, Duodenum, rule out celiac: The specimen is received in formalin, labeled with the patient's name, medical record number and other identifying information and designated ???duodenum rule out celiac?? . It consists of 3 matamoros soft tissue fragments 0.3 cm. Entirely submitted in one cassette. B(2). Stomach, rule out h. pylori: The specimen is received in formalin, labeled with the patient's name, medical record number and other identifying information and designated ???stomach rule out H. pylori?? . It consists of 6 matamoros soft tissue fragments ranging from 0.1-0.2 cm. Entirely submitted in one cassette. (LINDSAY Jackson (ASC) 10/24/2023 12:34 PM Microscopic Description 10/24/2023 Final Value:Microscopic examination was performed. Performing Labs 10/24/2023 Final Value:The technical component of this testing was completed at [facility]. Stain controls for all stains resulted within this report have been reviewed and show appropriate reactivity. Upper EUS 10/24/2023 Final Value:[facility] [address] [place] [address] Patient Name: Isis Malagon Procedure Date: 10/24/2023 11:34 AM Date of : 1955 Admit Type: Outpatient Age: 68 Room: [place] [address] Note Status: Finalized Attending MD: NASRIN CONDON MD, Instrument Name: [id number] Linear Procedure: Upper EUS Indications: Pancreatic cyst, Early satiety Providers: NASRIN CONDON MD, Trina Thompson RN Referring MD: Martin Zheng, FINA MARIE MD Medicines: Monitored Anesthesia Care, Cipro 400 mg IV Complications: No immediate complications. Procedure: Pre-Anesthesia Assessment: - Prior to the [...] oropharyngeal airway and neck mobility. Respiratory Examination: c lear to auscultation. CV Examination: normal. Prophylactic Antibiotics: [...] was thin. There was no associated mass. T here was no internal debris within the fluid-filled [...] Discharge patient to home (ambulatory). - Clear l iquid diet for 1 day. - Await cytology results. - Perform magnetic resonance imaging (MRI) with gadolinium in 1 year. - Ciprofloxacin 250 mg bid x 5 days. Rx sent to [facility] Nasrin Condon MD NASRIN CONDON MD 10/24/2023 12:33:07 PM I was physically present for the entire viewing portion of the exam. NASRIN CONDON MD Number of Addenda: 0 Note Initiated On: 10/24/2023 11:34 AM Total Procedure Duration: 0 hours 18 minutes 25 seconds Estimated Blood Loss: Estimated blood loss: none. Estimated blood loss: none. Scope In: 11:51:10 AM Scope Out: 12:09:35 PM Final Diagnosis 10/24/2023 Final Value:Specimen A Interpretation: Negative for malignancy Other Findings: Mucicarmine stain is negative for intracellular or extracellular mucin. 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 Pancreas, Tail, :A. Pancreas, Tail, Pancreatic Cyst Fluid: Received 2 slides, processed 1 air dried Aviles stained smear and 1 mucicarmine stained smear. Microscopic Description 10/24/2023 Final Value:A microscopic examination was performed. Case was reviewed [...] medical judgement to determine the final diagnosis. Performing Labs 10/24/2023 Final Value:The technical component of this testing was completed at [facility]. Stain controls for all stains resulted within this report have been reviewed and show appropriate reactivity. Total time spent for face to face visit, reviewing labs/imaging studies, counseling and coordination of care was: 1 Hour spent on the date of the encounter doing chart review, review of outside records, review of test results, interpretation of tests, patient visit, and documentation The longitudinal plan of care for the diagnosis(es)/condition(s) as documented were addressed during this visit. Due to the added complexity in care, I will continue to support Isis in the subsequent management and with ongoing continuity of care. This note was dictated using voice recognition software. Any grammatical or context distortions areunintentional and inherent to the software. Orders Placed This Encounter Procedures MR Cervical Spine w/o Contrast Anti Nuclear Vianca IgG by IFA with Reflex Folate Lyme Disease Total Antibodies with Reflex to Confirmation Methylmalonic Acid Protein Immunofixation Serum Vitamin B6 Vitamin B12 Vitamin B1 whole blood EMG Protein electrophoresis New Prescriptions No medications on file Modified Medications No medications on file CRANE OPERATOR documented in this encounter Nursing Notes * Kelly Clemente, LITERACY TEACHER - 12/13/2023 11:30 AM CST Chief Complaint Patient presents with Numbness Patient reports several months of numbness/tingling/stingers BUE/BLE Kelly Clemente CMA on 12/13/2023 at 11:41 AM [facility] CRANE OPERATOR documented in this encounter Plan of Treatment Scheduled Orders Name Type Priority Associated Diagnoses Orde r Schedule EMG Neurology Routine Paresthesias Expected: 12/13/2023 (Approximate), Expires: 12/12/2024 documented as of this encounter Results * MR Cervical Spine w/o Contrast (01/01/2024 3:42 PM BOOM CRANE OPERATOR) Anatomical Region Laterality Modality Spine, SUBRAD MR NEURO, UMP MR SPINE, RAD MR Magnetic Resonance Impressions 01/02/2024 9:02 AM BOOM CRANE OPERATOR IMPRESSION: 1. Mild degenerative disc changes at C5-C6 and C6-C7 as detailed above. 2. Mild right neural foraminal narrowing at C5-C6. No spinal canal narrowing at any level. 3. Chiari I malformation. No spinal cord edema or syrinx appreciated. BINTA STRICKLAND MD SYSTEM ID: [id number] Narrative 01/02/2024 9:02 AM BOOM CRANE OPERATOR MRI CERVICAL SPINE WITHOUT CONTRAST 01/01/2024 3:42 [...] syrinx appreciated. BINTA STRICKLAND MD SYSTEM ID: [id number] Gunner Panchal MD IMG MRI ORDERABLES Final Result * Vitamin B1 whole blood (12/13/2023 12:32 PM BOOM CRANE OPERATOR) Vitamin B1 Whole Blood Level 116 70 - 180 nmol/L 12/17/2023 11:13 AM BOOM CRANE OPERATOR [facility] Comment: INTERPRETIVE INFORMATION: Vitamin B1, Whole Blood This assay measures the concentration of thiamine diphosphate (TDP), the primary active form of vitamin B1. Approximately 90 percent of vitamin B1 present in whole blood is TDP. Thiamine and thiamine monophosphate, which comprise the remaining 10 percent, are not measured. This test was developed and its performance characteristics determined by [facility]. It has not been cleared or approved by the US Food and Drug Administration. This test was performed in a CLIA certified laboratory and is intended for clinical purposes. Performed By: [facility] [address] [place] [address] Radiation / Chemistry Technician: Barrett Piper MD, PhD CLIA Number: [id number] Blood BLOOD SPECIMEN / Unknown Venipuncture / Unknown 12/13/2023 12:32 PM BOOM CRANE OPERATOR 12/13/2023 12:35 PM BOOM CRANE OPERATOR Gunner Panchal MD LAB - BLOOD ORDERABLES Final Res ult [facility] [address] [place] [address] [phone] * Vitamin B12 (12/13/2023 12:32 PM BOOM CRANE OPERATOR) Vitamin B12 730 232 - 1,245 pg/mL 12/14/2023 8:45 AM BOOM CRANE OPERATOR [facility] Blood BLOOD SPECIMEN / Unknown Venipuncture / Unknown 12/13/2023 12:32 PM BOOM CRANE OPERATOR 12/13/2023 12:35 PM BOOM CRANE OPERATOR Gunner Panchal MD LAB - BLOOD ORDERABLES Final Res ult [facility] [address] [facility], [address] [place] [address], [facility] * Vitamin B6 (12/13/2023 12:32 PM BOOM CRANE OPERATOR) [facility] Vitamin B6 58.4 20.0 - 125.0 nmol/L 12/17/2023 6:03 PM BOOM CRANE OPERATOR [facility] Comment: INTERPRETIVE INFORMATION: Vitamin B6 (Pyridoxal 5-Phosphate) Pyridoxal 5'-phosphate measured in a specimen collected following an 8-hour or overnight fast accurately indicates vitamin B6 nutritional status. Non-fasting specimen concentration reflects recent vitamin intake. This test was developed and its performance characteristics determined by [facility]. It has not been cleared or approved by the [place] Food and Drug Administration. This test was performed in a CLIA certified laboratory and is intended for clinical purposes. Performed By: [facility] [address] [place] [address] Radiation / Chemistry Technician: Barrett Piper MD, PhD CLIA Number: [id number] Blood BLOOD SPECIMEN / Unknown Venipuncture / Unknown 12/13/2023 12:32 PM BOOM CRANE OPERATOR 12/13/2023 12:35 PM BOOM CRANE OPERATOR Gunner Panchal MD LAB - BLOOD ORDERABLES Final Res ult [facility] [address] [place] [address], [facility] [phone] * Protein Immunofixation Serum (12/13/2023 12:32 PM BOOM CRANE OPERATOR) [facility] Immunofixation ELP No monoclonal protein seen on immunofixation. Pathologic significance requires clinical correlation. Gladys Lewis M.D., Ph.D. 12/14/2023 12:33 PM BOOM CRANE OPERATOR SPECIALTY CORE/PROT/EN DO Signout Location if Remote [facility] 12/14/2023 12:33 PM BOOM CRANE OPERATOR SPECIALTY LABS Blood BLOOD SPECIMEN / Unknown Venipuncture / Unknown 12/13/2023 12:32 PM BOOM CRANE OPERATOR 12/13/2023 12:35 PM BOOM CRANE OPERATOR Gunner Panchal MD LAB - BLOOD ORDERABLES Final Res ult [facility] SPECIALTY CORE/PROT/ENDO [facility] Specialty Core/Prot/Endo [address] [facility], [address] SPECIALTY LABS [facility] Special[facility] Lab [address] [facility], [address] [address] * Methylmalonic Acid (12/13/2023 12:32 PM BOOM CRANE OPERATOR) Pathologist [facility] Methylmalonic Acid 0.19 0.00 - 0.40 umol/L 12/20/2023 7:23 AM BOOM CRANE OPERATOR [facility] SPECIAL DRUG/BGEN Comment: INTERPRETIVE INFORMATION: Slight elevation 0.41-0.99 umol/L is consistent with mild vitamin B12 deficiency, renal insufficiency, or intravascular volume contraction. Moderate elevation 1.00-9.99 umol/L is consistent with mild vitamin B12 deficiency. Massive elevation 10.00 umol/L or greater is consistent with significant vitamin B12 deficiency or with inborn errors of metabolism. Blood BLOOD SPECIMEN / Unknown Venipuncture / Unknown 12/13/2023 12:32 PM BOOM CRANE OPERATOR 12/13/2023 12:35 PM BOOM CRANE OPERATOR Narrative [facility] SPECIAL DRUG/BGEN - 12/20/2023 7:23 AM BOOM CRANE OPERATOR This test was developed and its performance characteristics determined by the [facility], Special Chemistry Laboratory. It has not been cleared or approved by the FDA. The laboratory is regulated under CLIA as qualified to perform high-complexity testing. This test is used for clinical purposes. It should not be regarded as investigational or for research. Gunner Panchal MD LAB - BLOOD ORDERABLES Final Res ult [facility] SPECIAL DRUG/BGEN Special Drug/BGEN [address] [facility], [address] [address] * Lyme Disease Total Antibodies with Reflex to Confirmation (12/13/2023 12:32 PM BOOM CRANE OPERATOR) Pathologist [facility] Lyme Disease Antibodies Total 0.23 <0.90 12/14/2023 7:41 AM BOOM CRANE OPERATOR [facility] SPECIALTY CORE/PROT/ENDO Comment:Non-reactive, Absenc e of detectable Borrelia burgdorferi antibodies. A non-reactive result does not exclude the possibility of Borrelia burgdorferi infection. If early Lyme disease is suspected, a second sample should be collected and tested 2 to 4 weeks later. Blood BLOOD SPECIMEN / Unknown Venipuncture / Unknown 12/13/2023 12:32 PM BOOM CRANE OPERATOR 12/13/2023 12:35 PM BOOM CRANE OPERATOR Gunner Panchal MD LAB - BLOOD ORDERABLES Final Res ult SPECIALTY CORE/PROT/ENDO Specialty Core/Prot/Endo [address] [facility], [address] * Folate (12/13/2023 12:32 PM BOOM CRANE OPERATOR) Folic Acid 11.0 4.6 - 34.8 ng/mL 12/13/2023 9:11 PM BOOM CRANE OPERATOR [facility] Blood BLOOD SPECIMEN / Unknown Venipuncture / Unknown 12/13/2023 12:32 PM BOOM CRANE OPERATOR 12/13/2023 12:35 PM BOOM CRANE OPERATOR Result [facility] Gunner Panchal MD LAB - BLOOD ORDERABLES Final Res ult LABORATORY [facility] [address] [facility], [address] * Anti Nuclear Vianca IgG by IFA with Reflex (12/13/2023 12:32 PM BOOM CRANE OPERATOR) ARTIE interpretation Negative Negative 2023 1:44 PM BOOM CRANE OPERATOR SPECIALTY CORE/PROT/EN DO Comment: Negative: <1:40 Borderline Positive: 1:40 - 1:80 Positive: >1:80 Blood BLOOD SPECIMEN / Unknown Venipuncture / Unknown 12/13/2023 12:32 PM BOOM CRANE OPERATOR 12/13/2023 12:35 PM BOOM CRANE OPERATOR Result [facility] Gunner Panchal MD LAB - BLOOD ORDERABLES Final Res ult [facility] SPECIALTY CORE/PROT/ENDO Specialty Core/Prot/Endo [address] [facility] [address] [facility], [address] documented in this encounter Visit Diagnoses Diagnosis Paresthesias- Primary Disturbance of skin sensation Other symptoms and signs involving the musculoskeletal system Tremor Abnormal involuntary movements Bilateral carpal tunnel syndrome Carpal tunnel syndrome Abnormal loss of weight Loss of weight Genetic susceptibility to other malignant neoplasm Cervical stenosis of spinal canal Spinal stenosis in cervical region Other symptoms and signs involving the musculoskeletal system Cervical stenosis of spinal canal Spinal stenosis in cervical region documented in this encounter Care Teams Associate Engineer Relationship Specialty Start Date End Date Fina Marie MD [facility] [address] [address] PCP - General Family Medicine 10/16/23 documented as of this encounter
--- OUTSIDE RECORDS SUMMARY | 2024-01-08 13:12 | XMS_ITS | Encounter Summary ---
Author Organization [facility] Address [address] [place] [address] Care Team Providers Care Medical Accountant Name Role Phone iFna Marie MD Primary Care Provider [phone] Reason for Referral * Consultation (Routine) - Pending Review Specialty Diagnoses / Procedures Referred By Contminh t Referred To Contact Diagnoses Paresthesias Other symptoms and signs involving the musculoskeletal system Tremor Bilateral carpal tunnel syndrome Abnormal loss of weight Genetic susceptibility to other malignant neoplasm Fina Marie MD [facility] [address] [address] Phone: tel: fax: Referral ID Status Reason Start Date Expiration Date V isits Requested Visits Authorized [id number] Pending Review 11/24/2023 11/23/2024 1 1 Question Answer Reason for Referral: General Neurology Scheduling Instructions: [facility] will call you to coordinate your care as prescribed by your provider. If you don't hear from a abrasives sales representative within 2 business days, please call . Comments Referral Transcribed by external fax Provider: Dr fina Marie MD affiliated with [facility] at [address] [place] [id number]. VA: No If yes was is the VA Authorization Number: Phone number: [phone] Fax number: [phone] To help facilitate your referral to neurosurgery, please request the release of your outside records to assist the scheduling team. X-rays, CTs, MRIs, and other imaging must be pushed electronically to the [employer] system. Please be aware that coverage of these services is subject to the terms and limitations of your health insurance plan. Call member services at your health plan with any benefit or coverage questions. [facility] will call you to coordinate your care as prescribed by your provider. If you don't hear from a abrasives sales representative within 2 business days, please call . Encounter Details Date Type Department Care Team (Latest Contact Info) Description 11/24/2023 Transcribe Orders GENERIC EXTERNAL DATA DEPARTMENT Provider, Generic External Data Paresthesias (Primary Dx); Other symptoms and signs involving the musculoskeletal system; Tremor; Bilateral carpal tunnel syndrome; Abnormal loss of weight; Genetic susceptibility to other malignant neoplasm Social History Tobacco Use Types Packs/Day Years [...] Associated Diagnoses Orde r Schedule Adult Neurology Marketing Database Coordinator Referral Referral Routine Paresthesias Other symptoms and signs involving the musculoskeletal system Tremor Bilateral carpal tunnel syndrome Abnormal loss of weight Genetic susceptibility to other malignant neoplasm Expected: 11/24/2023 (Approximate), Expires: 11/23/2024 documented as of this encounter Visit Diagnoses Diagnosis Paresthesias- Primary Disturbance of skin sensation Other symptoms and signs involving the musculoskeletal system Tremor Abnormal involuntary movements Bilateral carpal tunnel syndrome Carpal tunnel syndrome Abnormal loss of weight Loss of weight Genetic susceptibility to other malignant neoplasm documented in this encounter Care Teams Medical Accountant Relationship Specialty Start [place] [address] PCP - General Family Medicine 10/16/23 documented as of this encounter
--- OUTSIDE RECORDS SUMMARY | 2024-01-08 13:12 | XMS_ITS | Referral Summary ---
Author Organization [facility] Address [address] [place] [address] Care Team Providers Care Organizational Development Specialist Name Role Phone Unavailable Primary Care Provider Unavailabl e Source Comments Patient records contain information from all sites at [facility]. For routine questions regarding patient records, call [phone] during business hours, M-F 8:00 AM - 5:00 PM Central Time. Record requests for emergency care only can be directed to [phone] at any time.[facility] Encounters Date Type Department Care Team Description 11/24/2023 Orders Only Division of Vascular and Endovascular Surgery in [place], [place] [address] [place] [address] Fina Cisse R.N. Aneurysm Splenic Artery (HCC) (Primary Dx) 10/13/2023 10:00 AM CDT Comprehensive Visit Division of Vascular and Endovascular Surgery in [place], [place] [address] [place] [address] Emma Álvarez M.D. Aneurysm Splenic Artery (HCC) from Last 3 Months Allergies Active Allergy Reactions Criticality Noted Date Comments Bee Venom Protein (Honey Bee) Itching,Rash Low 03/16/1974 Swelling when stung as a young adult Penicillin G Itching,Rash Low 03/16/1964 Since childhood Medications acyclovir (ZOVIRAX) 400 mg tablet Take 400 mg by mouth as needed. 03/20/19 24 Active calcium carbonate-vitamin D3 (Calcium 600 with Vitamin D3) 600 mg-10 mcg (400 unit) tablet,chewable Chew 2 tablets daily. Active saccharomyces boulardii (FLORASTOR) 250 mg capsule Take 1 capsule by mouth daily. Natures ---- Active ciprofloxacin (Cipro) 500 mg tablet TAKE 1 TABLET (500 MG) ORALLY TWICE A DAY 09/25/19 24 Active omeprazole (PriLOSEC) [address] capsule TAKE 1 CAPSULE (20 MG) BY MOUTH TWICE A DAY 09/25/19 24 Active ondansetron ODT (Zofran-ODT) 4 mg disintegrating tablet DISSOLVE ONE TABLET ON THE TONGUE EVERY EIGHT HOURS NEEDED FOR NAUSEA 09/08/19 24 Active propranoloL (InderaL) 10 mg tablet TAKE ONE TABLET BY MOUTH THREE TIMES A DAY NEEDED FOR ANXIETY OR TACHYCARDIA 09/18/19 24 Active traMADoL (Ultram) 50 mg tablet Take 1 tablet by mouth every 12 (twelve) hours as needed for pain. 09/18/19 24 Active valACYclovir (Valtrex) 1000 mg tablet Take 2 tablets by mouth 2 (two) times a day. 09/16/19 24 Active Lactobacillus acidophilus 10 billion cell capsule Take by mouth. 10/06/19 24 Active Active Problems Problem Noted Date Diagnosed [...] Other - would like to get at [place]),03/11/2011 influenza trivalent vaccine (6 months and older)(PF) [...] drink = 0.6 oz pur e alcohol) [facility] Partneredities Answer Date Recorded In the past 12 months has e [employer], gas, oil, or water Cheggin threatened to shut off services in your [...] your living situation today? I have a [facility] place to live 03/29/2023 Comments No Sex and Gender Information Value Date Recorded Sex Assigned at Female 03/21/2023 11:26 AM SATELLITE DISH TECHNICIAN Legal Sex Female 8:56 PM SATELLITE DISH TECHNICIAN Gender Identity Female 03/21/2023 11:26 AM SATELLITE DISH TECHNICIAN Sexual Orientation Straight 03/21/2023 11 :26 AM SATELLITE DISH TECHNICIAN Last Filed Vital Signs Vital Sign Reading [...] on file Medical Devices Implanted Type Area Marketing Ambassador Device Identifier Shelf Expiration Date Model / Serial / Lot Imaging Marker Imaging Marker Left: Breast Description:Clip in left jeanie ast Procedures Procedure Name Priority Date/Time Associated Diagnosis Comments HEMOGLOBIN A1C, B Routine 03/29/2023 7:0 7 AM SATELLITE DISH TECHNICIAN Angina Pectoris Unspecified (HCC) OUTSIDE MG MAMMOGRAM Routine 01/04/2023 8:45 AM SATELLITE DISH TECHNICIAN from Last 3 Months or Most Recently Relevant to Health Maintenance Results * Hemoglobin A1c (03/29/2023 7:07 AM SATELLITE DISH TECHNICIAN) Hemoglobin A1c, B 5.2 4.0 - 5.6 % 03/29/2023 7:50 AM SATELLITE DISH TECHNICIAN DTL Blood (Blood, Venous) 03/29/2023 7:07 AM SATELLITE DISH TECHNICIAN 03/29/2023 7:28 AM SATELLITE DISH TECHNICIAN Ming Campbell M.D. LAB BLOOD ADD-ON Final Result Performing Organization Address [facility] Co de Phone Number [facility] [address] [place] [address], [place] DTL [facility] [place] [address] [place] [address] * MM diagnostic mammo BI-Outside Mammogram (01/04/2023 8:45 AM SATELLITE DISH TECHNICIAN) Narrative IIMS - 03/02/2023 4:33 PM SATELLITE DISH TECHNICIAN This order has been created and auto-finalized to support the import of outside images. If available, original interpretation can be found on the Media Tab in Chart Review, in Document Viewer, or as an image in QREADS. If a re-interpretation or overread is required please follow defined workflow. us Provider Not In System IMG BI PROCEDURES Final R esult Performing Organization Address [facility] de Phone Number IISC NA from Last 3 Months or Most Recently Relevant to Health Maintenance Insurance [facility]
--- OUTSIDE RECORDS SUMMARY | 2024-01-08 13:12 | XMS_ITS | Encounter Summary ---
Author Organization [facility] Address [address] [place] [address] Care Team Providers Care Service Specialist Name Role Phone Unavailable Primary Care Provider Unavailabl e Reason for Visit * Outpatient (Routine) - Closed Specialty Diagnoses / Procedures Referred By Josue garcia Referred To Contact Vascular Surgery Diagnoses Aneurysm Splenic Artery (HCC) Nathen Macias M.D. [address] [place] [address] Phone: tel: fax: [facility] Referral ID Status Reason Start Date Expiration Date Visits Re quested Visits Authorized [id number] Closed 09/28/2023 03/29/2025 1 1 Encounter Details Date Type Department Care Team (Latest Contact Info) Description 10/13/2023 10:00 AM CDT Comprehensive Visit Division of Vascular and Endovascular Surgery in [place], [place] [address] [place] [phone] Emma Álvarez M.D. [address] [place] [phone] Aneurysm Splenic Artery (HCC) Social History Tobacco Use Types Packs/Day Years Used Date Smoking Tobacco: Never Passive Smoke Exposure: Never Smokeless Tobacco: Never Alcohol Use Standard Drinks/Week Comments Yes 5 (1 standard drink = 0.6 oz pur e alcohol) [facility] Utilities Answer Date Recorded In the [...] your living situation today? I have a [facility] place to live 03/29/2023 Comments No Sex and Gender Information Value Date Recorded Sex Assigned at Female 03/21/2023 11:26 AM DRAWING PRESS OPERATOR Legal Sex Female 8:56 PM DRAWING PRESS OPERATOR Gender Identity Female 03/21/2023 11:26 AM DRAWING PRESS OPERATOR Sexual Orientation Straight 03/21/2023 11 :26 AM DRAWING PRESS OPERATOR documented as of this encounter Consult Notes [...] aneurysms. 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 Emma Álvarez MD Vascular health care consultant Pager [phone] * Colt Chau M.D. - 10/13/2023 10:00 [...] Patient was seen with Dr. Álvarez, vascular area development consultant. DIAGNOSIS: #1 Aneurysm Splenic Artery (HCC) Colt Chau M.D. documented in this encounter Plan of Treatment Not on file documented as of this encounter Visit Diagnoses Diagnosis Aneurysm Splenic Artery (HCC) documented in this encounter
--- OUTSIDE RECORDS SUMMARY | 2024-01-08 13:12 | XMS_ITS | Encounter Summary ---
Author Organization [facility] Address [address] [place] [address]. [place] [address] Care Team Providers Care Numerical Control Router Operator Name Role Phone Fina Marie MD Primary Care Provider [phone] Reason for Visit * Auth/Cert (Routine) Specialty Diagnoses / Procedures Referred By Contact Referred To Contact Gastroenterology Diagnoses Pancreatic cyst Early satiety Pancreatic cyst [K86.2] Early satiety [R68.81] Procedures ND UPPR GI ENDOSCOPY W/US FN BX ND EGD INTRMURAL NEEDLE ASPIR/BIOP ALTERED ANATOMY ENDOSCOPIC ULTRASOUND WITH FINE NEEDLE ASPIRATION, ESOPHAGOGASTRODUODENOSCOPY [facility] [address] [address] Phone: tel:[phone] Referral ID Status Reason Start Date Expiration Date Visits Re quested Visits Authorized [id number] 1 1 Encounter Details Date Type Department Care Team (Latest Contact Info) Description 10/24/2023 11:00 AM CDT - 10/24/2023 12:30 PM CDT Surgery [facility] [address] [phone] Nasrin Condon MD [place] [facility] [address] [facility] [address] [phone] ENDOSCOPIC ULTRASOUND WITH FINE NEEDLE ASPIRATION, ESOPHAGOGASTRODUODENOSCOPY Surgery Details Date/Time Status Location OR Service Patient Class Case Class Case Type Trauma Case? 10/24/2023 11:00 AM Posted GI GI SP 01 [...] need for H&P and to call us 9/[facility] documented in this encounter Social History Tobacco [...] 1 capsule by mouth See Admin Instructions. 4 documented as of this encounter Plan of [...] need for H&P and to call us [facility] ESOPHAGOGASTRODUO DENOSCOPY, WITH FINE NEEDLE ASPIRATION BIOPSY, WITH ENDOSCOPIC ULTRASOUND GUIDANCE 10/24/2023 11:44 AM CDT Pancreatic cyst Early satiety Special Needs PATIENT REPORTS HISTORY OF RAPID HEARTBEAT ALLERGIES: PENICILLINS LM re: need for H&P and to call us [facility] UPPER EUS Routine 10/24/2023 11:34 [...] component of this testing was completed at [facility]. Stain controls for all stains resulted within this report have been reviewed and show appropriate reactivity. 10/26/2023 3:32 PM CDT SPECIALTY LABS Cyst STRUCTURE OF TAIL OF PANCREAS / Unknown 10/24/2023 12:04 PM CDT 10/25/2023 10:23 AM CDT us Nasrin Condon MD LAB - DINA Final Result [facility] LAB[facility] Specialty Lab [address] [facility], [address] [phone] * Surgical Pathology Exam (10/24/2023 11:53 AM CDT) Case Report Surgical Pathology R eport Case: [id number] Authorizing Provider: Nasrin Condon, Collected: 10/24/2023 11:53 AM Ordering Location: [facility] Received: 10/24/2023 12:23 PM [facility] Pathologist: Devon Ivan MD Specimens: A) [...] component of this testing was completed at [facility]. Stain controls for all [...] ANGELES - DINA ACKERMAN Final Result LABORATORY [facility] Acute Care Lab [address] Lab (1st floor, no room number) [place] [address], [facility]OR[facility]ORY [facility] Acute Care Lab [address] 1[address] floor, [address] [place] [address], [facility] [phone] * UPPER EUS (10/24/2023 11:34 AM CDT) Upper EUS [place] [address] [address], [place] [address] ___ Patient Name: Isis Malagon Procedure Date: 10/24/2023 11:34 AM Date of : 1955 Admit Type: Outpatient Age: 68 Room: [place] [address] Note Status: Finalized Attending MD: NASRIN CONDON MD, Instrument Name: [id number] Linear ___ Procedure: Upper EUS Indications: Pancreatic [...] bid x 5 days. Rx sent to Rad pharmacy Nasrin Condon MD NASRIN CONDON MD [...] Pharmacoprophylaxis documented in this encounter Care Teams Numerical Control Router Operator Relationship Specialty Start Date [place] [address] PCP - General Family Medicine 10/16/23 documented as of this encounter
--- OUTSIDE RECORDS SUMMARY | 2024-01-08 13:12 | XMS_ITS | Encounter Summary ---
Author Organization [facility] Address [address] [place] [address] Care Team Providers Care Tapper Bit Name Role Phone Fina Marie MD Primary Care Provider [phone] Encounter Details Date Type Department Care Team (Latest Contact Info) Description 12/08/2023 Travel Social History Tobacco Use Types Packs/Day [...] on filedocumented in this encounter Care Teams Tapper Bit Relationship Specialty Start Date End Date Fina Marie MD [facility] [address] [address] PCP - General Family Medicine 10/16/23 documented as of this encounter
--- OUTSIDE RECORDS SUMMARY | 2024-01-08 13:12 | XMS_ITS ---
Author Organization [facility] Address [address] [place] [address] Care Team Providers Care Link Machine Operator Name Role Phone Unavailable Primary Care Provider Unavailabl e Genomics Program Status:Identified (Enrolling) Start date:04/27/2023 Continued Care and Services Coordination
--- OUTSIDE RECORDS SUMMARY | 2024-01-08 13:12 | XMS_ITS | Clinical Summary ---
Author Organization [facility] Address [address] [place] [address] Care Team Providers Care Cloth Mender Name Role Phone Unavailable Primary Care Provider Unavailabl e Source Comments Patient records contain information from all sites at [facility]. For routine questions regarding patient records, call [phone] during business hours, M-F 8:00 AM - 5:00 PM Central Time. Record requests for emergency care only can be directed to [phone] at any time.[facility] Allergies Active Allergy Reactions Criticality Noted [...] Division of Vascular and Endovascular Surgery in [place], [place] [address] [place] [address] Fina Cisse R.N. Aneurysm Splenic Artery (HCC) (Primary Dx) 10/13/2023 10:00 AM CDT Comprehensive Visit Division of Vascular and Endovascular Surgery in [place], [place] [address] [place] [address] Emma Álvarez M.D. Aneurysm Splenic Artery (HCC) from Last 3 Months Immunizations Name Administration [...] Other - would like to get at [place]),03/11/2011 influenza trivalent vaccine (6 months and older)(PF) 11/13/2019,11/08/2017,11/20/2012,2011,11/09/2010,11/10/2009 influenza vaccine QV(FLUBLOK ) (18 years or older) (PF) 11/07/2018 influenza vaccine quad (FLUZONE/FLUARIX) (6 months and older)(PF) 10/13/2020,11/23/2016,11/16/2015 Family History Medical History Relation Name Comments Colon polyps Brother Luigi Gale Coronary artery disease Brother Luigi Gale Quad ruple Bypass Hyperlipidemia Brother Luigi Gale Hypertension Brother Luigi Gale Sleep apnea Brother Luigi Beasley Colon polyps [...] Paternal Grandfather Paternal Grandmother Sister 1 Tawny Nicoleon Alive no fibroids Sister 2 Cheryle Paulino [...] = 0.6 oz pur e alcohol) [facility] Utilities Answer Date Recorded In the [...] [facility] place [facility] live 03/29/2023 Comments No Sex and Gender Information Value Date Recorded Sex Assigned at Female 03/21/2023 11:26 AM PRODUCTION INSPECTOR Legal Sex Female 8:56 PM PRODUCTION INSPECTOR Gender Identity Female 03/21/2023 11:26 AM PRODUCTION INSPECTOR Sexual Orientation Straight 03/21/2023 11 :26 AM PRODUCTION INSPECTOR Last Filed Vital Signs Vital Sign Reading [...] Date Last Done Comments Bone Density Scan (Osteoporosis Screen) 1955 CT Colonography 1955 Cologuard 1955 Colonoscopy 1955 Colorectal Cancer Surveillance 1955 Hepatitis C Screening 1955 Zoster Vaccines (2 of 2) 09/21/2017 07/27/2017 COVID-19 Vaccine ( season) 2023 12/16/2021, 12/04/2020, [...] Completed 03/28/2023 Pneumococcal vaccine (65+ years) Completed 03/31/2023, 01/06/2022 IPV Vaccines Aged Out No longer eligi ble based on patient's age to complete this topic Medical Devices Implanted Type Area Examining Chair Assembler Device Identifier Shelf Expiration Date Model / Serial / Lot Imaging Marker Imaging Marker Left: Breast Description:Clip in left jeanie ast Procedures Procedure Name Priority Date/Time Associated Diagnosis Comments HEMOGLOBIN A1C, B Routine 03/29/2023 7:0 7 AM PRODUCTION INSPECTOR Angina Pectoris Unspecified (HCC) OUTSIDE MG MAMMOGRAM Routine 01/04/2023 8:45 AM PRODUCTION INSPECTOR from Last 3 Months or Most Recently Relevant to Health Maintenance Results * Hemoglobin A1c (03/29/2023 7:07 AM PRODUCTION INSPECTOR) Hemoglobin A1c, B 5.2 4.0 - 5.6 % 03/29/2023 7:50 AM PRODUCTION INSPECTOR DTL Blood (Blood, Venous) 03/29/2023 7:07 AM PRODUCTION INSPECTOR 03/29/2023 7:28 AM PRODUCTION INSPECTOR Ming Campbell M.D. LAB BLOOD ADD-ON Final Result Performing Organization Address [facility]/ZIP Co de Phone Number [facility] [address] [place] [address], [facility] [address] [place] [address] * MM diagnostic mammo BI-Outside Mammogram (01/04/2023 8:45 AM PRODUCTION INSPECTOR) Narrative IIMS - 03/02/2023 4:33 PM PRODUCTION INSPECTOR This order has been created and auto-finalized to support the import of outside images. If available, original interpretation can be found on the Media Tab in Chart Review, in Document Viewer, or as an image in QREADS. If a re-interpretation or overread is required please follow defined workflow. us Provider Not In System IMG BI PROCEDURES Final R esult IIMS NA from Last 3 Months or Most Recently Relevant to Health Maintenance Insurance [facility] Member Subscriber Plan / Payer (Ef fective 2023-Present) Name:Isis Malagon Relation to Subscriber:Self Name:Isis Malagon Payer ID:[id number] (NAIC) _[id number] Type:HMO Address: [place] [id number]
--- OUTSIDE RECORDS SUMMARY | 2024-01-08 13:12 | XMS_ITS | Encounter Summary ---
Author Organization [place] Address [address] [place] [address] Care Team Providers Care Sas Programmer Analyst Name Role Phone Fina Marie MD Primary Care Provider [phone] Encounter Details Date Type Department Care Team (Late st Contact Info) Description 12/13/2023 12:45 PM IMPLEMENTATION PROJECT MANAGER Lab [facility] [address] [place] [phone] Paresthesias Social History Tobacco Use Types Packs/Day Years [...] Procedure Name Priority Date/Time Associated Diagnosis Comments PROTEIN ELECTROPHORESIS, SERUM Routine 12/13/2023 12:32 PM IMPLEMENTATION PROJECT MANAGER Paresthesias TOTAL PROTEIN, SERUM FOR ELP Routine 12/13/2023 12:32 PM IMPLEMENTATION PROJECT MANAGER Paresthesias PROTEIN IMMUNOFIXATION SERUM Routine 12/13/2023 12:32 PM IMPLEMENTATION PROJECT MANAGER Paresthesias METHYLMALONIC ACID Routine 12/13/2023 12 :32 PM IMPLEMENTATION PROJECT MANAGER Paresthesias ANTI NUCLEAR ERMA IGG BY IFA WITH REFLEX Routine 12/13/2023 12:32 PM IMPLEMENTATION PROJECT MANAGER Paresthesias LYME DISEASE TOTAL ANTIBODIES WITH REFLEX TO CONFIRMATION Routine 12/13/2023 12:32 PM IMPLEMENTATION PROJECT MANAGER Paresthesias VITAMIN B6 Routine 12/13/2023 12:32 PM IMPLEMENTATION PROJECT MANAGER Paresthesias VITAMIN B1 WHOLE BLOOD Routine 12:32 PM IMPLEMENTATION PROJECT MANAGER Paresthesias FOLATE Routine 12/13/2023 12:32 PM IMPLEMENTATION PROJECT MANAGER Paresthesias PROTEIN ELECTROPHORESIS Routine 12/13/19 12:32 PM IMPLEMENTATION PROJECT MANAGER Paresthesias VITAMIN B12 Routine 12/13/2023 12:32 PM IMPLEMENTATION PROJECT MANAGER Paresthesias documented in this encounter Results * Protein Electrophoresis, Serum (12/13/2023 12:32 PM IMPLEMENTATION PROJECT MANAGER) Albumin 4.6 3.7 - 5.1 g/dL 12/14/2023 12:31 PM IMPLEMENTATION PROJECT MANAGER [facility] C[facility]/PROT/E NDO Alpha 1 0.3 0.2 - 0.4 g/dL 12/14/2023 12:31 PM IMPLEMENTATION PROJECT MANAGER UM SPECIALTY CORE/PROT/E NDO Alpha 2 0.8 0.5 - 0.9 g/dL 12/14/2023 12:31 PM IMPLEMENTATION PROJECT MANAGER [facility] SPECIALTY CORE/PROT/E NDO Beta Globulin 0.8 0.6 - 1.0 g/dL 12/14/2023 12:31 PM IMPLEMENTATION PROJECT MANAGER [facility] SPECIALTY CORE/PROT/E NDO Gamma Globulin 0.7 0.7 - 1.6 g/dL 12/14/2023 12:31 PM IMPLEMENTATION PROJECT MANAGER [facility] SPECIALTY CORE/PROT/E NDO Monoclonal Peak 0.0 <=0.0 g/dL 12/14/2023 12:31 PM IMPLEMENTATION PROJECT MANAGER [facility] SPECIALTY CORE/PROT/E NDO ELP Interpretation Essentially normal electrophoretic pattern. No obvious monoclonal proteins seen. Pathologic significance requires clinical correlation. Gladys Lewis M.D., Ph.D. 12/14/2023 12:31 PM IMPLEMENTATION PROJECT MANAGER UM SPECIALTY CORE/PROT/E NDO Signout Location if Remote [address] 12/14/2023 12:31 PM IMPLEMENTATION PROJECT MANAGER SPECIAL[facility] LABS Blood BLOOD SPECIMEN / Unknown Venipuncture / Unknown 12/13/2023 12:32 PM IMPLEMENTATION PROJECT MANAGER 12/13/2023 12:35 PM IMPLEMENTATION PROJECT MANAGER Gunner Panchal MD LAB - BLOOD ORDERABLES Final Res ult [facility] SPECIALTY CORE/PROT/ENDO UM Specialty Core/Prot/Endo [address] [facility] [address] [facility], Room [address] [id number] LABS Specialty Lab [address] [facility], Room [address] [address] * Total Protein, Serum for ELP (12/13/2023 12:32 PM IMPLEMENTATION PROJECT MANAGER) Total Protein Serum for ELP 7.1 6.4 - 8.3 g/dL 12/13/2023 1:38 PM IMPLEMENTATION PROJECT MANAGER [facility] Blood BLOOD SPECIMEN / Unknown Venipuncture / Unknown 12/13/2023 12:32 PM IMPLEMENTATION PROJECT MANAGER 12/13/2023 12:35 PM IMPLEMENTATION PROJECT MANAGER Gunner Panchal MD LAB - BLOOD ORDERABLES Final Res ult [facility] [address] [place] [address], [facility] * Vitamin B1 whole blood (12/13/2023 12:32 PM IMPLEMENTATION PROJECT MANAGER) Vitamin B1 Whole Blood Level 116 70 - 180 nmol/L 12/17/2023 11:13 AM IMPLEMENTATION PROJECT MANAGER [facility] Comment: INTERPRETIVE INFORMATION: Vitamin B1, Whole Blood This assay measures the concentration of thiamine diphosphate (TDP), the primary active form of vitamin B1. Approximately 90 percent of vitamin B1 present in whole blood is TDP. Thiamine and thiamine monophosphate, which comprise the remaining 10 percent, are not measured. This test was developed and its performance characteristics determined by [facility]. It has not been cleared or approved by the [place] Food and Drug Administration. This test was performed in a CLIA certified laboratory and is intended for clinical purposes. Performed By: [facility] [address] [place] [address] Magistrate: Barrett Piper MD, PhD CLIA Number: [id number] Blood BLOOD SPECIMEN / Unknown Venipuncture / Unknown 12/13/2023 12:32 PM IMPLEMENTATION PROJECT MANAGER 12/13/2023 12:35 PM IMPLEMENTATION PROJECT MANAGER Gunner Panchal MD LAB - BLOOD ORDERABLES Final Res ult [facility] [address] [place] [id number] [phone] * Vitamin B12 (12/13/2023 12:32 PM IMPLEMENTATION PROJECT MANAGER) Vitamin B12 730 232 - 1,245 pg/mL 12/14/2023 8:45 AM IMPLEMENTATION PROJECT MANAGER [facility] Blood BLOOD SPECIMEN / Unknown Venipuncture / Unknown 12/13/2023 12:32 PM IMPLEMENTATION PROJECT MANAGER 12/13/2023 12:35 PM IMPLEMENTATION PROJECT MANAGER Gunner Panchal MD LAB - BLOOD ORDERABLES Final Res ult [facility] [place] Core Lab [address] [facility], [address] [address] * Vitamin B6 (12/13/2023 12:32 PM IMPLEMENTATION PROJECT MANAGER) Vitamin B6 58.4 20.0 - 125.0 nmol/L 12/17/2023 6:03 PM IMPLEMENTATION PROJECT MANAGER [facility] Comment: INTERPRETIVE INFORMATION: Vitamin B6 (Pyridoxal 5-Phosphate) Pyridoxal 5'-phosphate measured in a specimen collected following an 8-hour or overnight fast accurately indicates vitamin B6 nutritional status. Non-fasting specimen concentration reflects recent vitamin intake. This test was developed and its performance characteristics determined by [facility]. It has not been cleared or approved by the US Food and Drug Administration. This test was performed in a CLIA certified laboratory and is intended for clinical purposes. Performed By: [facility] [address] [place] [address] Magistrate: Barrett Piper MD, PhD CLIA Number: [id number] Blood BLOOD SPECIMEN / Unknown Venipuncture / Unknown 12/13/2023 12:32 PM IMPLEMENTATION PROJECT MANAGER 12/13/2023 12:35 PM IMPLEMENTATION PROJECT MANAGER Gunner Panchal MD LAB - BLOOD ORDERABLES Final Res ult Performing Organization Address [facility]/ZIP Co de Phone Number [facility] [address] [place] [address] [phone] * Protein Immunofixation Serum (12/13/2023 12:32 PM IMPLEMENTATION PROJECT MANAGER) Pathologist [facility] Immunofixation ELP No monoclonal protein seen on immunofixation. Pathologic significance requires clinical correlation. Gladys Lewis M.D., Ph.D. 12/14/2023 12:33 PM IMPLEMENTATION PROJECT MANAGER SPECIALTY CORE/PROT/EN DO Signout Location if Remote [facility] 12/14/2023 12:33 PM IMPLEMENTATION PROJECT MANAGER [facility] Blood BLOOD SPECIMEN / Unknown Venipuncture / Unknown 12/13/2023 12:32 PM IMPLEMENTATION PROJECT MANAGER 12/13/2023 12:35 PM IMPLEMENTATION PROJECT MANAGER Gunner Panchal MD LAB - BLOOD ORDERABLES Final Res ult Performing Organization Address City/[facility]/ZIP Co de Phone Number [facility] SPECIALTY CORE/PROT/ENDO UM Specialty Core/Prot/Endo [address] [facility] Unit [facility], [address] UM SPECIALTY LABS UM Specialty Lab [address] [facility], [address] [address], [place] * Methylmalonic Acid (12/13/2023 12:32 PM IMPLEMENTATION PROJECT MANAGER) Pathologist [facility] Methylmalonic Acid 0.19 0.00 - 0.40 umol/L 12/20/2023 7:23 AM IMPLEMENTATION PROJECT MANAGER SPECIAL DRUG/BGEN Comment: INTERPRETIVE INFORMATION: Slight elevation 0.41-0.99 umol/L is consistent with mild vitamin B12 deficiency, renal insufficiency, or intravascular volume contraction. Moderate elevation 1.00-9.99 umol/L is consistent with mild vitamin B12 deficiency. Massive elevation 10.00 umol/L or greater is consistent with significant vitamin B12 deficiency or with inborn errors of metabolism. Blood BLOOD SPECIMEN / Unknown Venipuncture / Unknown 12/13/2023 12:32 PM IMPLEMENTATION PROJECT MANAGER 12/13/2023 12:35 PM IMPLEMENTATION PROJECT MANAGER Narrative UM SPECIAL DRUG/BGEN - 12/20/2023 7:23 AM IMPLEMENTATION PROJECT MANAGER This test was developed and its performance characteristics determined by the [facility], Special Chemistry Laboratory. It has not been cleared or approved by the FDA. The laboratory is regulated under CLIA as qualified to perform high-complexity testing. This test is used for clinical purposes. It should not be regarded as investigational or for research. Gunner Panchal MD LAB - BLOOD ORDERABLES Final Res ult Performing Organization Address City/[facility] Co de Phone Number UM SPECIAL DRUG/BGEN Special Drug/BGEN [address] [facility], [address] * Lyme Disease Total Antibodies with Reflex to Confirmation (12/13/2023 12:32 PM IMPLEMENTATION PROJECT MANAGER) Lyme Disease Antibodies Total 0.23 <0.90 12/14/2023 7:41 AM IMPLEMENTATION PROJECT MANAGER SPECIALTY CORE/PROT/ENDO Comment:Non-reactive, Absenc e of detectable Borrelia burgdorferi antibodies. A non-reactive result does not exclude the possibility of Borrelia burgdorferi infection. If early Lyme disease is suspected, a second sample should be collected and tested 2 to 4 weeks later. Blood BLOOD SPECIMEN / Unknown Venipuncture / Unknown 12/13/2023 12:32 PM IMPLEMENTATION PROJECT MANAGER 12/13/2023 12:35 PM IMPLEMENTATION PROJECT MANAGER Gunner Panchal MD LAB - BLOOD ORDERABLES Final Res ult UM SPECIALTY CORE/PROT/ENDO UM Specialty Core/Prot/Endo [address] [facility], [address] * Folate (12/13/2023 12:32 PM IMPLEMENTATION PROJECT MANAGER) Folic Acid 11.0 4.6 - 34.8 ng/mL 12/13/2023 9:11 PM IMPLEMENTATION PROJECT MANAGER [facility] Blood BLOOD SPECIMEN / Unknown Venipuncture / Unknown 12/13/2023 12:32 PM IMPLEMENTATION PROJECT MANAGER 12/13/2023 12:35 PM IMPLEMENTATION PROJECT MANAGER Gunner Panchal MD LAB - BLOOD ORDERABLES Final Res ult [facility] [place] Core Lab [address] [facility] J [facility], Room [address] [address], [place] * Anti Nuclear Erma IgG by IFA with Reflex (12/13/2023 12:32 PM IMPLEMENTATION PROJECT MANAGER) Pathologist [facility] ARTIE interpretation Negative Negative 2023 1:44 PM IMPLEMENTATION PROJECT MANAGER [facility] SPECIALTY CORE/PROT/EN DO Comment: Negative: <1:40 Borderline Positive: 1:40 - 1:80 Positive: >1:80 Blood BLOOD SPECIMEN / Unknown Venipuncture / Unknown 12/13/2023 12:32 PM IMPLEMENTATION PROJECT MANAGER 12/13/2023 12:35 PM IMPLEMENTATION PROJECT MANAGER Gunner Panchal MD LAB - BLOOD ORDERABLES Final Res ult UM SPECIALTY CORE/PROT/ENDO UM Specialty Core/Prot/Endo [address] [facility] [address] [facility], Room [address] documented in this encounter Visit Diagnoses Diagnosis Paresthesias Disturbance of skin sensation documented in this encounter Care Teams Sas Programmer Analyst Relationship Specialty Start Date End Date Fina Marie MD [address] [address] PCP - General Family Medicine 10/16/23 documented as of this encounter
--- OUTSIDE RECORDS SUMMARY | 2024-01-08 13:12 | XMS_ITS | Encounter Summary ---
Author Organization [facility] Address [facility] [place] [address] Care Team Providers Care Automobile Tire Builder Name Role Phone Fina Marie MD Primary Care Provider [phone] Gunner Panchal MD Unavailable Reason for Referral * Diagnostic Imaging MRI (Routine) - Closed Specialty Diagnoses / Procedures Referred By Josue garcia Referred To Contact Radiology. Diagnoses Other symptoms and signs involving the musculoskeletal system Cervical stenosis of spinal canal Procedures MR Cervical Spine w/o Contrast Gunner Panchal MD [address] [place] [address] Phone: tel: fax: Referral ID Status Reason Start Date Expiration Date Visits Re quested Visits Authorized [id number] Closed 12/13/2023 12/12/2024 1 1 FILLER Reason for Visit * Diagnostic Imaging MRI (Routine) - Closed Specialty Diagnoses / Procedures Referred By Josue garcia Referred To Contact Radiology. Diagnoses Other symptoms and signs involving the musculoskeletal system Cervical stenosis of spinal canal Procedures MR Cervical Spine w/o Contrast Gunner Panchal MD [address] [place] [address] Phone: tel: fax: Referral ID Status Reason Start Date Expiration Date Visits Re quested Visits Authorized [id number] Closed 12/13/2023 12/12/2024 1 1 Encounter Details Date Type Department Care Team (Latest Contact Info) Description 01/01/2024 2:55 PM SILO FILLER - 01/01/2024 11:59 PM SILO FILLER Hospital Encounter [facility] [address] [place] [address] Gunner Panchal MD [address] [place] [address] Other symptoms and signs involving the musculoskeletal system; Cervical stenosis of spinal canal Discharge Disposition: Home or Self Care Social [...] on file documented as of this encounter Medications at [...] DAY NEEDED FOR ANXIETY OR TACHYCARDIA 09/18/2023 documented as of this encounter Plan of Treatment Not on file documented as of this encounter Procedures Procedure Name Priority Date/Time Associated Diagnosis Comments MR CERVICAL SPINE W/O CONTRAST Routine 01/01/2024 3:42 PM SILO FILLER Other symptoms and signs involving the musculoskeletal system Cervical stenosis of spinal canal documented in this encounter Results * MR Cervical Spine w/o Contrast (01/01/2024 3:42 PM SILO FILLER) Anatomical Region Laterality Modality Spine, SUBRAD MR NEURO, UMP MR SPINE, RAD MR Magnetic Resonance Impressions 01/02/2024 9:02 AM SILO FILLER IMPRESSION: 1. Mild degenerative disc changes at C5-C6 and C6-C7 as detailed above. 2. Mild right neural foraminal narrowing at C5-C6. No spinal canal narrowing at any level. 3. Chiari I malformation. No spinal cord edema or syrinx appreciated. BINTA STRICKLAND MD SYSTEM ID: [id number] Narrative 01/02/2024 9:02 AM SILO FILLER MRI CERVICAL SPINE WITHOUT CONTRAST 01/01/2024 3:42 [...] syrinx appreciated. BINTA STRICKLAND MD SYSTEM ID: [id number] Gunner Panchal MD IMG MRI ORDERABLES Final Result documented in this encounter Visit Diagnoses Diagnosis Other symptoms and signs involving the musculoskeletal system Cervical stenosis of spinal canal Spinal stenosis in cervical region documented in this encounter Care Teams Automobile Tire Builder Relationship Specialty Start Date End Date Fina Marie MD [address] [address] PCP - General Family Medicine 10/16/23 Gunner Panchal MD [address] [place] [address] Assigned Neuroscience Provider 12/30/23 documented as of this encounter
--- OUTSIDE RECORDS SUMMARY | 2024-01-08 13:13 | XMS_ITS | Clinical Summary ---
Author Organization [facility] Address [place], [place] [address] Care Team Providers Care Pc Analyst Name Role Phone Ruthie Otero MD Primary Care Provider [phone] Allergies No known active allergies Medications Medication [...] Encounters Date Type Department Care Team Description 11/21/2023 3:05 PM CDT Ancillary Procedure [facility] [address] [facility] [address] [place] [address] 11/21/2023 Travel 11/16/2023 Travel 11/15/2023 Orders Only [facility] [address] [place] [address] Darren Calix MD <No scans attached> from Last 3 Months Social History Tobacco [...] Care Team (Late st Contact Info) Description 02/16/2024 1:00 PM CROSSTIE INSPECTOR Office Visit [address] [place] [address] Adolfo Thomas MD [address] [place] [address] Health Maintenance Due Date Last Done Comments [...] PCV) 2021 COVID-19 vaccine series (3 - 2023- season) 2023 12/16/2021, 12/04/2020 Influenza for age 65+ 10/08/2023 BMI (ht and wt on same day) for age 18+ 10/05/2024 0 10/06/2023 Procedures Procedure Name Priority Date/Time Associated Diagnosis Comments XR SPINE LUMBAR 2 VIEWS FLEXION EXTENSION Routine 11/21/2023 3:34 PM CDT Pain of lumbar spine (IA) VT COLONOSCOPY REMOVE CARMELINA POLYP LESN SNARE Routine 10/01/2007 Special Screening for Malignant Neoplasms, Colon Benign Neoplasm of Colon from Last 3 Months or Most Recently Relevant to Health Maintenance Results * XR SPINE LUMBAR 2 VIEWS FLEXION EXTENSION (11/21/2023 3:34 PM CDT) Anatomical Region Laterality Modality Spine, LUMBAR SPINE Digital Radi ography 11/21/2023 3:34 PM CDT Impressions 11/22/2023 9:28 AM CDT No significant change since 09/18/2023. No fracture. Normal vertebral heights and alignment. No evidence of dynamic listhesis in flexion or extension position. Mild degenerative disc height loss at L2-L3 and L5-S1. Stable 18 mm eggshell calcification in the upper abdomen. Narrative 11/22/2023 9:28 AM CDT For Patients: As a result of the Cures Act, medical imaging exams and procedure reports are released immediately into your electronic medical record. You may view this report before your referring provider. If you have questions, please contact your health care provider. EXAM: XR SPINE LUMBAR 2 VIEWS FLEXION EXTENSION LOCATION: [facility] DATE: 11/21/2023 INDICATION: Pain Of Lumbar Spine COMPARISON: Lumbar spine MRI 11/10/2023, radiograph 09/18/2023. Procedure Note Prosper Hoyt MD - 11/22/2023 For Patients: As a result of the 21st Century Cures Act, medical imagingexams and procedure reports are released immediately into your electronicmedical record. You may view this report before your referring provider.If you have questions, please contact your health care provider. EXAM: XR SPINE LUMBAR 2 VIEWS FLEXION EXTENSION LOCATION: [facility] DATE: 11/21/2023 INDICATION: Pain Of Lumbar Spine COMPARISON: Lumbar spine MRI 11/10/2023, radiograph 09/18/2023. IMPRESSION: No significant change since 09/18/2023. No fracture. Normal vertebralheights and alignment. No evidence of dynamic listhesis in flexion orextension position. Mild degenerative disc height loss at L2-L3 and L5-S1.Stable 18 mm eggshell calcification in the upper abdomen. Darren Calix MD GENERAL IMAGI NG * VT COLONOSCOPY REMOVE LESN SNARE (10/01/2007) Neo Velasquez MD PB - DIGESTIVE SY STEM SERVICES from Last 3 Months or Most Recently Relevant to Health Maintenance Care Teams Pc Analyst Relationship Specialty [place] [address] [place] [address] PCP - General Internal Medicine 08/16/23
--- NOTE | 2024-01-08 13:20 | CRLHL7_ITS ---
For Patients: As a result of the Century Cures Act, medical imaging exams and procedure reports are released immediately into your electronic medical record. You may view this report before your referring provider. If you have questions, please contact your health care provider. BILATERAL SCREENING MAMMOGRAM WITH COMPUTER-AIDED DETECTION AND TOMOSYNTHESIS TECHNIQUE: CC and MLO views were obtained. These mammographic images have been obtained using full-field digital technique. These mammographic images were interpreted with the benefit of computer-aided detection. Breast Tomosynthesis was used in this interpretation. COMPARISON FILM: 01/04/23, 02/21/22, 01/18/21. FINDINGS: The breasts are heterogeneously dense, which may obscure small masses. IMPRESSION: There is no radiographic evidence for malignancy. ASSESSMENT: BI-RADS Category 1: Negative RECOMMENDATION: Routine screening mammogram in 1 year. A lay language report of this examination will be provided to the patient. Clemente Gates M.D. Diagnostic Radiologist [email or web address] SP/Dictated by: Clemente Gates MD @ 01/10/2024 11:07:00 AM (Electronically Signed)
== END 2024-01-08 13:09 | disposition home or self-care (01) ==
PROVIDERS: PCP Family Medicine; Visit Provider Family Medicine
DX: Z12.31 Encounter for screening mammogram for malignant neoplasm of breast (principal); R92.333 Mammographic heterogeneous density, bilateral breasts
CPT/HCPCS: 77063; 77067

== ENCOUNTER 2024-01-29 13:07 | Outpatient (CLI) | payer MEDICARE, SELFPAY | END 2024-01-29 13:08 | disposition home or self-care (01) | PROVIDERS: PCP Family Medicine; Visit Provider Family Medicine | DX: E78.5 Hyperlipidemia, unspecified (principal); R63.4 Abnormal weight loss; R19.7 Diarrhea, unspecified; M85.80 Other specified disorders of bone density and structure, unspecified site; Z13.6 Encounter for screening for cardiovascular disorders | CPT/HCPCS: 80053; 80061; 82306; 84439; 84443 ==

== ENCOUNTER 2024-10-21 14:18 | Outpatient (CLI) | payer MEDICARE, SELFPAY | END 2024-10-21 14:19 | disposition home or self-care (01) | LOC: FRMREF 14:22 | PROVIDERS: PCP Family Medicine; Visit Provider Family Medicine | DX: R74.01 Elevation of levels of liver transaminase levels (principal) | CPT/HCPCS: 80053 ==

== ENCOUNTER 2024-11-07 07:12 | Outpatient (CLI) | payer MEDICARE, SELFPAY ==
--- NOTE | 2024-11-07 08:25 | P.ANES_ITS ---
Anesthesia Charges Start Date/Time Anesthesia Start Date: 11/07/24 Anesthesia Start Time: 07:54 Stop Date/Time Anesthesia Stop Date: 11/07/24 Anesthesia Stop Time: 08:20 Coding CPT Codes CPT Codes: ILAN LWR INTST NDSC NOS - 18786 ([id number]) P2 - PATIENT W/MILD SYST DISEASE, QK - CODE INSPECTOR 2-4 CNCRNT ANES PROC
--- NOTE | 2024-11-07 08:25 | W.ANESCHARGE ---
Anesthesia Charges Start Date/Time Anesthesia Start Date: 11/07/24 Anesthesia Start Time: 07:54 Stop Date/Time Anesthesia Stop Date: 11/07/24 Anesthesia Stop Time: 08:20 Coding CPT Codes CPT Codes: ILAN LWR INTST NDSC NOS - 46249 ([id number]) P2 - PATIENT W/MILD SYST DISEASE, QK - AUTOMOBILE DRIVERS 2-4 CNCRNT ANES PROC
--- NOTE | 2024-11-07 10:31 | P.ANES_ITS ---
Anesthesia Charges Start Date/Time Anesthesia Start Date: 11/07/24 Anesthesia Start Time: 07:54 Stop Date/Time Anesthesia Stop Date: 11/07/24 Anesthesia Stop Time: 08:20 Coding CPT Codes CPT Codes: ILAN LWR INTST NDSC NOS - 21595 ([id number]) P2 - PATIENT W/MILD SYST DISEASE, QK - TELE RN 2-4 CNCRNT ANES PROC, QX - SUPERVISOR FILTRATION SVC W/ MD MED DIRECTION
--- NOTE | 2024-11-07 10:31 | W.ANESCHARGE ---
Anesthesia Charges Start Date/Time Anesthesia Start Date: 11/07/24 Anesthesia Start Time: 07:54 Stop Date/Time Anesthesia Stop Date: 11/07/24 Anesthesia Stop Time: 08:20 Coding CPT Codes CPT Codes: ILAN LWR INTST NDSC NOS - 49453 ([id number]) P2 - PATIENT W/MILD SYST DISEASE, QK - ONLINE TRADER 2-4 CNCRNT ANES PROC, QX - WOUND CARE RN SVC W/ MD MED DIRECTION
== END 2024-11-07 07:13 | disposition home or self-care (01) ==
LOC: OP CLINIC 07:12
PROVIDERS: PCP Family Medicine; Visit Provider Surgery
DX: R19.4 Change in bowel habit (principal); K57.30 Diverticulosis of large intestine without perforation or abscess without bleeding
CPT/HCPCS: 00811; 45380; J2704

== ENCOUNTER 2025-01-17 09:53 | Outpatient (CLI) | payer MEDICARE, SELFPAY ==
--- NOTE | 2025-01-17 10:15 | CRLHL7_ITS ---
For Patients: As a result of the Century Cures Act, medical imaging exams and procedure reports are released immediately into your electronic medical record. You may view this report before your referring provider. If you have questions, please contact your health care provider. INDICATION: BILATERAL SCREENING MAMMOGRAM, ASYMPTOMATIC 69 Y/O FEMALE COMPARISON: 01/08/2024, 01/04/2023, 02/21/2022 TECHNIQUE: Digital mammogram in CC and MLO projections including computer-aided detection (CAD) and tomosynthesis. BREAST COMPOSITION: The breasts are heterogeneously dense, which may obscure small masses. FINDINGS: No suspicious findings. ASSESSMENT: BI-RADS 1 Negative RECOMMENDATION: Annual screening mammogram. A lay language report of this examination will be provided to the patient. Dictated by: Clemente Gates MD @ 01/17/2025 11:22:26 (Electronically Signed)
== END 2025-01-17 09:54 | disposition home or self-care (01) ==
LOC: MAMMO 09:53
PROVIDERS: PCP Family Medicine; Visit Provider Family Medicine
DX: Z12.31 Encounter for screening mammogram for malignant neoplasm of breast (principal); R92.333 Mammographic heterogeneous density, bilateral breasts
CPT/HCPCS: 77063; 77067

== ENCOUNTER 2025-02-03 13:31 | Outpatient (CLI) | payer MEDICARE, SELFPAY | END 2025-02-03 13:32 | disposition home or self-care (01) | PROVIDERS: PCP Family Medicine; Visit Provider Family Medicine | DX: Z00.00 Encounter for general adult medical examination without abnormal findings (principal); M85.80 Other specified disorders of bone density and structure, unspecified site | CPT/HCPCS: 80053; 80061; 82306 ==